=== PATIENT | male | born 1960 | race Caucasian/White ===

== ENCOUNTER → 2018-05-27 11:52 | Outpatient (CLI) | payer MEDICAID, SELFPAY ==
[2018-05-27 12:38] LABS: Absolute Lymphocyte Count 2.37 X10^3/ul (0.83-4.51); Absolute Neutrophil Count 3.4 X10^3/uL (2.0-7.7); Basophil# 0.04 X10^3/uL; Basophil% 0.6 % (0-1); Eosinophils% 3.1 % (0-5); Hematocrit 45.1 % (40-54); Hemoglobin 15.3 g/dl (13.0-16.5); Lymphocyte # 2.37 X10^3/ul (4.0); Lymphocyte % 36.2 % (19-41); Mean Corp Hgb Conc 33.9 g/gl (32-36); Mean Corpuscular Hgb 28.8 pg (27.0-32.0); Mean Corpuscular Volume 84.9 fL (80-94); Monocyte# 0.54 X10^3/uL; Monocyte% 8.2 % (0-10); Neutrophil # 3.39 X10^3/uL (2.7-7.7); Neutrophil % 51.7 % (47-70); POSITIVE COUNT NO; POSITIVE DIFFERENTIAL NO; POSITIVE MORPHOLOGY NO; Platelet Count 188 K/mm3 (150-450); RBC Distribution Width CV 12.8 % (11.6-14.6); RBC Distribution Width SD 39.1 fl (35.1-43.9); Red Blood Count 5.31 M/mm3 (4.6-6.2); White Blood Count 6.6 K/mm3 (4.4-11.0)
[2018-05-27 12:55] LABS: Hemoglobin A1c 10.1 % (4.2-6.3)
[2018-05-27 13:16] LABS: ALB/GLOB Ratio 0.7 RATIO (0.9-2.4); AST(SGOT) 20 U/L (15-37); Alanine Aminotransfer ALT/SGPT 20 U/L (16-61); Albumin, Serum 3.3 g/dL (3.2-5.0); Alkaline Phosphatase 115 U/L (45-117); Anion Gap 10 (5-15); BUN 18 mg/dL (7-18); BUN/Creat Ratio 18.2 RATIO (10-20); Calcium,Total 8.8 mg/dL (8.5-10.1); Chloride 105 mmol/L (98-107); Cholesterol 161 mg/dL (200); Creatinine, Serum 0.99 mg/dL (0.70-1.30); EST Glomerular Filtration Rate 82 mL/min (>60); Est Glom Filt Rate - Afr Amer 99 mL/min (>60); Globulin 4.6 g/dL (2.2-4.2); Glucose 275 mg/dL (74-106); High Density Lipoprotein 41 mg/dL; Potassium 4.3 mmol/L (3.5-5.1); Protein, Total 7.9 g/dL (6.4-8.2); Sodium Level 139 mmol/L (136-145); Triglycerides 175 mg/dL; Very Low Density Lipoprotein 35 mg/dL (5-40)
[2018-05-27 13:52] LABS: Microalbumin:Creatinine Ratio 337.4 mg/g CRE (<30 mg/g CRE)
== END ==
PROVIDERS: Family Provider Internal Medicine; PCP Internal Medicine; Visit Provider Internal Medicine
DX: E11.9 Type 2 diabetes mellitus without complications (principal)
CPT/HCPCS: 36415; 80053; 80061; 82043; 82570; 83036; 85025

== ENCOUNTER → 2018-05-30 12:12 | Outpatient (CLI) | payer MEDICAID, SELFPAY ==
--- NOTE | 2018-05-30 12:25 | RAD_ITS ---
STUDY: X-RAY - PELVIS AND LEFT HIP REASON FOR EXAM: Male, 57 years old. Left hip pain TECHNIQUE: Radiological exam, hip, unilateral, with pelvis when performed; 2 or 3 views. COMPARISON: None. FINDINGS: There is a non-specific bowel gas pattern. Normal visualized soft tissue structures. Normal bilateral iliac wings, sacroiliac joints and visualized sacrum. Normal bilateral superior and inferior pubic rami. Normal pubic symphysis. Normal bilateral ischial tuberosities. Normal visualized femoral head. Normal acetabulum. Normal hip joint. RAD/HIP, UNI W/ Pelvis 2-3 Views IMPRESSION: Normal x-ray examination of the pelvis and hip. Electronically Signed: Pietro Gayle MD at 21:54 EDT , Service support ,
== END ==
PROVIDERS: Family Provider Internal Medicine; PCP Internal Medicine; Visit Provider Internal Medicine
DX: M25.552 Pain in left hip (principal)
CPT/HCPCS: 73502

== ENCOUNTER 2018-06-16 09:45 | Outpatient (RCR) | payer MEDICAID, SELFPAY ==
[2018-06-02 09:25] VITALS: BP 172/98; PULSE 85; RESP 20; TEMP 35.9; BMI 40.5
--- NOTE | 2018-06-02 12:11 | HP.PCM_ITS ---
(1) Ulcer of right foot with fat layer exposed Status: Acute Current Visit: Yes Code(s): L97.512 - Non-pressure chronic ulcer of other part of right foot with fat layer exposed (2) Type 2 diabetes mellitus with diabetic polyneuropathy Status: Acute Current Visit: Yes Code(s): E11.42 - Type 2 diabetes mellitus with diabetic polyneuropathy (3) PVD (peripheral vascular disease) Status: Suspected Current Visit: Yes Code(s): I73.9 - Peripheral vascular disease, unspecified (4) Lower extremity edema Status: Acute Current Visit: Yes Code(s): R60.0 - Localized edema (5) Delayed wound healing Status: Acute Current Visit: Yes Code(s): T14.8XXD - Other injury of unspecified body region, subsequent encounter History of Present Illness Date of Service: 06/02/18 Chief Complaint: Right forefoot ulcer History of Wound: This 57-year-old diabetic male was referred to the wound healing center for an ongoing ulcer of the right plantar forefoot in the area of the right third and fourth metatarsal heads. Patient says that the ulcer started around December, and his gotten slightly worse since then. He denies any sudden or traumatic event that caused the ulcer to start. Patient says he has been keeping Neosporin and a bandage over the area. He says he has not seen anybody before for this ulcer. He wears regular shoes. He denies ever seeing a correctional supply supervisor for his diabetes and routine foot care. He says he has not been keeping the area offloaded since it started. He denies any purulence to the area, he denies any other heavy drainage, he denies any surrounding redness or warmth. Patient denies any feelings of nausea, vomiting, fever, chills Past Medical History Past Medical History: Chronic Problems (Last Updated 05/27/18 @ 07:40 by Kira Harris) Sleep apnea (Chronic) Left hip pain (Chronic) Type 2 diabetes mellitus (Chronic) Diabetic foot ulcer (Chronic) Neuropathy (Chronic) Diabetes (Chronic) Hypertension (Chronic) Allergies/Adverse Reactions: Allergies No Known Allergies Allergy (Verified 06/02/18 09:44) Home Medications: Ambulatory Orders Medication Instructions Recorded amlodipine 10 mg tablet 10 mg PO DAILY 05/27/18 doxazosin 8 mg tablet 8 mg PO DAILY 05/27/18 glipizide 2.5 mg-metformin 500 mg 1 tab PO BID 05/27/18 tablet lisinopril 40 mg tablet 40 mg PO DAILY 05/27/18 dulaglutide 0.75 mg/0.5 mL 0.75 mg SC QWEEK #2 ml 05/30/18 subcutaneous pen injector Smoking Status: Never smoker Review of Systems Constitutional: Denies: Chills, Fever, Weight Change Cardiovascular: Denies: Chest Pain Respiratory: Denies: Cough, Shortness of Breath Gastrointestinal: Denies: Diarrhea, Nausea, Vomiting Skin: Reports: - - Ulcer - Physical Exam Vital Signs Temp Pulse Resp BP 96.7 F L 85 20 H 172/98 H 06/02/18 09:25 06/02/18 09:25 06/02/18 09:25 06/02/18 09:25 General: Alert, Oriented x3, Cooperative, No apparent distress Extremities: Capillary Refill Less than 3 Seconds - To distal digits bilateral, No Calf Tenderness - Negative Hedyi and Lomax sign, Diminished Peripheral Pulses - DP and PT pulses faintly palpable bilateral, Edema - Bilateral lower extremity edema Skin: Ulcer/ Wound - Ulcer to right plantar forefoot sub third/fourth metatarsal heads with fat layer exposed. Measurements noted below. The ulcer base is a mixture of adherent slough, fibrin, granular tissue, biofilm, as well as some surrounding hyperkeratotic tissue. There is no probing to bone, tracking, or undermining appreciated at this time. There is no purulence, no malodor, no extending cellulitis, and no significant increase in warmth appreciated to the ulcer site at this time. Wound Measurements and Assessment WC - Nurse 1 - General Ulcer Measurement Start: 06/02/18 09:25 Freq: Status: Active Protocol: Activity Type Activity Date Activity User E-Sign Co-Sign Detail Recorded Client Recorded Date Recorded By Document 06/02/18 09:25 [facility] [id number] 06/02/18 09:41 [facility] 06/02/18 09:25 Wound Center Nurse 1 [Ulcer Assessment] #1- RT PLANTAR -Combined with other wound No -Current Size (cm) - Length 1.9 -Current Size (cm) - Width 0.7 -Current Size (cm) - Depth 0.3 -Total Square Cm 1.33 -Date of Last Picture (Recall this 06/02/18 field) -Photo Taken Yes -Epithelialization None Present -Tunneling No -Undermining/Tunneling No -Undermining/Tunneling Starts (O' 12 clock) -Undermining/Tunneling Ends (O'clock) 12 -Maximum Distance (cm) 0.4 -Circular Undermining Yes -Exudate Amt Small (1-33%) -Exudate Type Serous -Wound Margin Distinct, Outline Attached -Granulation Amt Large (67-100%) -Granulation Quality Red -Slough/Fibrin Yes -Necrosis Amt Small (1-33%) -Necrotic Tissue Type Adherent Slough -Texture (Tessie-wound Skin Appearance) Callus -Moisture (Tessie-wound Skin Appearance Maceration ) Dry/Scaly -Color (Tessie-wound Skin Appearance) Palor -Temperature (Tessie-wound Skin No Abnormality Appearance) (Pt Warm) -Tenderness on Palpation (Tessie-wound Yes Skin Appearance) -Ulcer Cleansing Rinsed/ Irrigated with Saline -Foul Odor after Cleansing No -Anesthetic Used 4% Lidocaine Solution [Edema Assessment] -Lower Limb Edema Present Yes -Right Calf (cm) 47 -Right Ankle (cm) 27 -Left Calf (cm) 46.5 -Left Ankle (cm) 27.5 WC - Nurse 2 - General Ulcer CM Notes Start: 06/02/18 09:25 Freq: Status: Active Protocol: Activity Type Activity Date Activity User E-Sign Co-Sign Detail Recorded Client Recorded Date Recorded By Document 06/02/18 09:56 [id number] 06/02/18 10:11 06/02/18 09:56 Wound Center Nurse 2 [Procedure/Treatment] #1- RT PLANTAR -Time 09:56 -Correct Patient Yes -Correct Side, Site, Position Yes -Correct Procedure Yes -Procedure Performed Yes -Type of Procedure Debridement -Clinical Debridement Subcutaneous -Post Debridement Size (cm) - Length 1.7 -Post Debridement Size (cm) - Width 1.3 -Post Debridement Size (cm) - Depth 0.4 -Total Square Cm 2.21 -Wound/Ulcer Outcome Not Healed -Ulcer Cleansing Not Cleansed -Foul Odor after Cleansing No -Bioengineered Tissue No -Bleeding Controlled with Pressure -Treatment Response Procedure Tolerated Well [See Physician Procedure note for Specifics] Pain Scale: 0-10 Numeric [Pain] -Is Patient Pain Free? Yes Musculoskeletal: No Tenderness to Palpation of Joints or Extremities, - - Contracted lesser digits Neurological: - - Epicritic sensation grossly absent to lower extremity Psych/Mental Status: Normal Affect, Appropriate Debridement Note Post-Debridement Measurements/Treatment WC - Nurse 2 - General Ulcer CM Notes Start: 06/02/18 09:25 Freq: Status: Active Protocol: Activity Type Activity Date Activity User E-Sign Co-Sign Detail Recorded Client Recorded Date Recorded By Document 06/02/18 09:56 [id number] 06/02/18 10:11 06/02/18 09:56 Wound Center Nurse 2 #1- RT PLANTAR -Time 09:56 -Correct Patient Yes -Correct Side, Site, Position Yes -Correct Procedure Yes -Procedure Performed Yes -Type of Procedure Debridement -Clinical Debridement Subcutaneous -Post Debridement Size (cm) - Length 1.7 -Post Debridement Size (cm) - Width 1.3 -Post Debridement Size (cm) - Depth 0.4 -Total Square Cm 2.21 -Wound/Ulcer Outcome Not Healed -Ulcer Cleansing Not Cleansed -Foul Odor after Cleansing No -Bioengineered Tissue No -Bleeding Controlled with Pressure -Treatment Response Procedure Tolerated Well Pain Scale: 0-10 Numeric Is Patient Pain Free? Yes Wound debrided: Right plantar foot Laterality: Right Type of Debridement: Excisional debridement Anesthesia Used: 4% Lidocaine Solution Depth: in the subcutaneous layer Percentage of wound debrided: 100 Instrument Used: #15 blade, - - Tissue nipper Tissue Removed: Adherent slough, fibrin, biofilm, hyperkeratotic tissue Severity: Fat Layer Exposed Amount of bleeding with debridement: Mild Bleeding Controlled with: Pressure Patient tolerated procedure well Assessment/Plan Active Problems (Last Updated 05/27/18 @ 07:40 by Kira Harris) Ulcer of right foot with fat layer exposed (Acute) Type 2 diabetes mellitus with diabetic polyneuropathy (Acute) Lower extremity edema (Acute) Delayed wound healing (Acute) Assessment: Ulcer of right distal forefoot, DM II with neuropathy, lower extremity edema, other comorbidities Plan: Initial patient examination and evaluation was performed today. A subcutaneous excisional debridement was performed as noted in the clinical panel. Once complete, the ulcer site was carefully cleansed and then Kasandra was applied to the ulcer base. This was followed by dry sterile dressing and Tubigrip for compression. The patient is to have his dressing change in this manner on a daily basis. The importance of offloading the ulcer site was stressed and discussed in great detail today. The patient is to alter his duties at work as well as keep pressure off of the right foot as much as possible. Patient was referred to the [facility] [place] in order be fitted for a surgical shoe with offloading dual density Plastizote insert that cuts out around the area of the ulcer site to offload the area. Patient was also instructed to get a knee scooter walker to further offload the right foot. No antibiotics were prescribed today as there were no clinical signs of infection. Cultures were taken following debridement and sent for aerobic, anaerobic, and MRSA PCR evaluation. LEAS and venous Doppler studies were ordered for the patient today. We will review these prior to the patient's next visit. Dressing supplies were ordered for the patient today. I also recommended nutritional supplementation with a high-protein diet in order to optimize ulcer healing potential. The importance of tight glycemic control was stressed to this patient today. The patient and his were educated on all signs and symptoms of local and systemic infection, and they are going to go to the emergency room immediately should they notice any of these. All questions were answered to the patient and the patient's satisfaction. The patient will follow-up in clinic in 1 week, or sooner if needed.
--- NOTE | 2018-06-07 07:09 | VDLE_ITS ---
Reason For Study: PVD per order RIGHT LEFT CFV is compressible, spontaneous, phasic, CFV is compressible, spontaneous, phasic, competent and demonstrates normal competent, and demonstrates normal augmentation. augmentation. FV is compressible, spontaneous, phasic, FV is compressible, spontaneous, phasic, competent and demonstrates normal competent and demonstrates normal augmentation. augmentation. POP V is compressible, spontaneous, phasic, POP V is compressible, spontaneous, phasic, competent and demonstrates normal competent and demonstrates normal augmentation. augmentation. T/P Trunk is compressible. T/P Trunk is compressible. PTV is compressible. PTV is compressible. RT PerV is compressible. LT PerV is compressible. S-F Junction is competent. S-F Junction is competent. GSV is incompetent throughout for greater GSV is incompetent throughout for greater than .5 seconds. GSV measures .518 x .571 than .5 seconds. GSV measures .42 cm. cm. SSV is incompetent for greater than .5 ASV at the knee is incompetent for greater seconds. SSV measures .409 x .433 cm. than .5 seconds. ASV measures .389 x .369 cm. SSV is incompetent for greater than .5 seconds. SSV measures .355 x .413 cm. Procedure Exam performed in department. The exam was diagnostic. Interpretation Summary Deep veins of the lower extremities are bilaterally patent and compressible segmentally. There is no evidence of deep vein thrombosis on either side. Valvular competence appears intact within the proximal deep venous systems bilaterally. The greater saphenous veins appear bilaterally patent and compressible segmentally. Sapheno-femoral junctions are bilaterally competent . Segmental valvular incompetence is noted within the greater saphenous veins bilaterally. Small saphenous veins are patent and incompetent bilaterally. The right accessory saphenous vein at the knee is incompetent. Ordering Physician: Ismael Almendarez Performed By: Andrew Carvajal, RVT
[2018-06-09 10:21] VITALS: BP 154/93; PULSE 81; RESP 18; TEMP 36.4; BMI 40.5
--- NOTE | 2018-06-09 14:10 | PN.PCM_ITS ---
(1) Ulcer of right foot with fat layer exposed Status: Acute Current Visit: Yes Code(s): L97.512 - Non-pressure chronic ulcer of other part of right foot with fat layer exposed (2) Type 2 diabetes mellitus with diabetic polyneuropathy Status: Acute Current Visit: Yes Code(s): E11.42 - Type 2 diabetes mellitus with diabetic polyneuropathy (3) PVD (peripheral vascular disease) Status: Suspected Current Visit: Yes Code(s): I73.9 - Peripheral vascular disease, unspecified (4) Lower extremity edema Status: Acute Current Visit: Yes Code(s): R60.0 - Localized edema (5) Delayed wound healing Status: Acute Current Visit: Yes Code(s): T14.8XXD - Other injury of unspecified body region, subsequent encounter Type of Wound Date of Service: 06/09/18 Chief Complaint: Right forefoot ulcer History of Wound: This 57-year-old diabetic male was referred to the wound healing center for an ongoing ulcer of the right plantar forefoot in the area of the right third and fourth metatarsal heads. Patient says that the ulcer started around December, and his gotten slightly worse since then. He denies any sudden or traumatic event that caused the ulcer to start. Patient says he has been keeping Neosporin and a bandage over the area. He says he has not seen anybody before for this ulcer. He wears regular shoes. He denies ever seeing a advertising supervisor for his diabetes and routine foot care. He says he has not been keeping the area offloaded since it started. He denies any purulence to the area, he denies any other heavy drainage, he denies any surrounding redness or warmth. Patient denies any feelings of nausea, vomiting, fever, chills Progress of Wound: Ulcer site is improving since last week. Patient and performed daily magdy dressing changes and he continues to wear his offloading surgical shoe. He denies any purulence to the area. He denies any feelings of nausea, vomiting, fever, chills. - Physical Exam Vital Signs Temp Pulse Resp BP 97.6 F L 81 18 154/93 H 06/09/18 10:21 06/09/18 10:21 06/09/18 10:21 06/09/18 10:21 General: Alert, Oriented x3, Cooperative, No apparent distress Extremities: Capillary Refill Less than 3 Seconds, No Calf Tenderness - Negative Heydi and Lomax sign, Diminished Peripheral Pulses - DP and PT pulses faintly palpable bilateral, Edema - Lower extremity edema Skin: Ulcer/ Wound - Ulcer to right plantar forefoot sub third/fourth metatarsal heads with fat layer exposed. Measurements noted below. The ulcer base is a mixture of adherent slough, fibrin, granular tissue, biofilm, as well as some surrounding hyperkeratotic tissue. There is no probing to bone, tracking, or undermining appreciated at this time. There is no purulence, no malodor, no extending cellulitis, and no significant increase in warmth appreciated to the ulcer site at this time. Wound Measurements and Assessment WC - Nurse 1 - General Ulcer Measurement Start: 06/02/18 09:25 Freq: Status: Active Protocol: Activity Type Activity Date Activity User E-Sign Co-Sign Detail Recorded Client Recorded Date Recorded By Document 06/09/18 10:21 DL [id number] 06/09/18 10:28 DL 06/09/18 10:21 Wound Center Nurse 1 [Ulcer Assessment] #1- RT PLANTAR -Current Size (cm) - Length 0.9 -Current Size (cm) - Width 0.7 -Current Size (cm) - Depth 0.4 -Total Square Cm 0.63 -Photo Taken No -Exudate Amt Small (1-33%) -Exudate Type Serosanguineous -Wound Margin Thickened -Granulation Amt Medium (34-66%) -Granulation Quality Manele -Necrosis Amt Medium (34-66%) -Necrotic Tissue Type Adherent Slough -Structure Exposed N/A -Texture (Tessie-wound Skin Appearance) Callus -Moisture (Tessie-wound Skin Appearance No Abnormality ) -Color (Tessie-wound Skin Appearance) Hemosiderin Staining -Temperature (Tessie-wound Skin No Abnormality Appearance) (Pt Warm) -Ulcer Cleansing Rinsed/ Irrigated with Saline -Foul Odor after Cleansing No -Anesthetic Used 4% Lidocaine Solution [Edema Assessment] -Right Calf (cm) 45 -Right Ankle (cm) 25 WC - Nurse 2 - General Ulcer CM Notes Start: 06/02/18 09:25 Freq: Status: Active Protocol: Activity Type Activity Date Activity User E-Sign Co-Sign Detail Recorded Client Recorded Date Recorded By Document 06/09/18 11:37 [id number] 06/09/18 11:39 06/09/18 11:37 Wound Center Nurse 2 [Procedure/Treatment] #1- RT PLANTAR -Time 11:37 -Correct Patient Yes -Correct Side, Site, Position Yes -Correct Procedure Yes -Procedure Performed Yes -Type of Procedure Debridement -Clinical Debridement Subcutaneous -Post Debridement Size (cm) - Length 1.2 -Post Debridement Size (cm) - Width 1 -Post Debridement Size (cm) - Depth 0.4 -Total Square Cm 1.2 -Wound/Ulcer Outcome Not Healed -Ulcer Cleansing Not Cleansed -Foul Odor after Cleansing No -Bioengineered Tissue No -Bleeding Controlled with NA -Treatment Response Procedure Tolerated Well [See Physician Procedure note for Specifics] Pain Scale: 0-10 Numeric [Pain] -Is Patient Pain Free? Yes Musculoskeletal: No Tenderness to Palpation of Joints or Extremities, - - Contracted lesser digits Neurological: - - Epicritic sensation grossly absent lower extremity Psych/Mental Status: Normal Affect, Appropriate Debridement Note Post-Debridement Measurements/Treatment WC - Nurse 2 - General Ulcer CM Notes Start: 06/02/18 09:25 Freq: Status: Active Protocol: Activity Type Activity Date Activity User E-Sign Co-Sign Detail Recorded Client Recorded Date Recorded By Document 06/02/18 09:56 [id number] 06/02/18 10:11 Document 06/09/18 11:37 [id number] 06/09/18 11:39 06/02/18 06/09/18 09:56 11:37 Wound Center Nurse 2 #1- RT PLANTAR -Time 09:56 11:37 -Correct Patient Yes Yes -Correct Side, Site, Position Yes Yes -Correct Procedure Yes Yes -Procedure Performed Yes Yes -Type of Procedure Debridement Debridement -Clinical Debridement Subcutaneous Subcutaneous -Post Debridement Size (cm) - Length 1.7 1.2 -Post Debridement Size (cm) - Width 1.3 1 -Post Debridement Size (cm) - Depth 0.4 0.4 -Total Square Cm 2.21 1.2 -Wound/Ulcer Outcome Not Healed Not Healed -Ulcer Cleansing Not Cleansed Not Cleansed -Foul Odor after Cleansing No No -Bioengineered Tissue No No -Bleeding Controlled with Pressure NA -Treatment Response Procedure Procedure Tolerated Well Tolerated Well Pain Scale: 0-10 Numeric Is Patient Pain Free? Yes Yes Wound debrided: Right plantar foot Laterality: Right Type of Debridement: Excisional debridement Depth: in the subcutaneous layer Percentage of wound debrided: 100 Instrument Used: #15 blade Tissue Removed: Adherent slough, fibrin, biofilm, hyperkeratotic tissue Severity: Fat Layer Exposed Amount of bleeding with debridement: Mild Bleeding Controlled with: Pressure Patient tolerated procedure well Assessment/Plan Active Problems (Last Updated 05/27/18 @ 07:40 by Kira Harris) Ulcer of right foot with fat layer exposed (Acute) Type 2 diabetes mellitus with diabetic polyneuropathy (Acute) Lower extremity edema (Acute) Delayed wound healing (Acute) Assessment: Ulcer of right distal forefoot, DM II with neuropathy, lower extremity edema, other comorbidities Plan: Patient was examined and evaluated again today with his by his side. A subcutaneous excisional debridement was performed as noted in the clinical panel. Once complete, the ulcer site was carefully cleansed and then Magdy was applied to the ulcer base. This was followed by dry sterile dressing and Tubigrip for compression. The patient is to have his dressing changed in this manner on a daily basis. The importance of offloading the ulcer site was stressed and discussed in great detail today. The patient is to continue to alter his duties at work as well as keep pressure off of the right foot as much as possible. Patient received his surgical shoe with offloading dual density Plastizote insert with cut outs around the area of the ulcer site to offload the area. Patient was also instructed to get a knee scooter walker to further offload the right foot. No antibiotics were prescribed today as there were no clinical signs of infection. Culture results were reviewed and discussed with Dr. John of infectious disease. Based on the clinical appearance of the patient currently with no active signs of local infection, we feel antibiotics are not warranted currently. LEAS and venous Doppler studies were ordered for the patient and we will review these prior to the patient's next visit. Dressing supplies were ordered for the patient today. I also recommended nutritional supplementation with a high-protein diet in order to optimize ulcer healing potential. The importance of tight glycemic control was stressed to this patient today. The patient and his were educated on all signs and symptoms of local and systemic infection, and they are going to go to the emergency room immediately should they notice any of these. All questions were answered to the patient and the patient's satisfaction. The patient will follow-up in clinic in 1 week, or sooner if needed.
--- NOTE | 2018-06-12 14:58 | LEAS ---
Arterial Study - Arterial Study Arterial Study: This is a 57-year-old male with a history of diabetes mellitus. Suspecting the presence of atherosclerotic peripheral arterial occlusive disease, the patient was brought to the noninvasive vascular laboratory at this time for the purpose of bilateral noninvasive lower extremity arterial assessment. Doppler signal assessment was used to evaluate the pulses at ankle level bilaterally. The posterior tibial and dorsalis pedis pulses were triphasic bilaterally. Segmental limb pressures were obtained bilaterally. The right ankle pressure, as determined by posterior tibial pulse, was measured at 217 mmHg. The right ankle pressure, as determined by dorsalis pedis pulse, was measured at 184 mmHg. The right digital pressure was measured at 161 mmHg. The left ankle pressure, as determined by posterior tibial pulse, could not be determined due to the noncompressibility of the vasculature. The left ankle pressure, as determined by dorsalis pedis pulse, could not be determined due to the noncompressibility of the vasculature. The left digital pressure was measured at 183 mmHg. Pulse-volume recordings were obtained bilaterally and segmentally. Waveform amplitudes appeared to be satisfactory at all levels bilaterally, including low thigh, calf, ankle, and digital levels. The resting right ankle-brachial index was calculated to be 1.22. The resting left ankle-brachial index could not be calculated due to the noncompressibility of the vasculature. Digital-brachial indices were calculated bilaterally. The right digital-brachial index was calculated to be 0.90. The left digital-brachial index was calculated to be 1.03. Impression: Based upon the findings of this resting noninvasive lower extremity arterial study, there is no evidence of significant atherosclerotic peripheral arterial occlusive disease in the lower extremities bilaterally. Triphasic waveforms were noted at ankle level bilaterally. The resting right ankle-brachial index is normal. The resting left ankle-brachial index could not be calculated due to the noncompressibility of the vasculature, likely due to arterial calcification. In this regard, clinical correlation is advised. Digital-brachial indices are bilaterally normal, suggesting relatively normal arterial flow at digital level bilaterally.
--- NOTE | 2018-06-12 15:04 | LEAS_ITS ---
Arterial Study - Arterial Study Arterial Study: This is a 57-year-old male with a history of diabetes mellitus. Suspecting the presence of atherosclerotic peripheral arterial occlusive disease, the patient was brought to the noninvasive vascular laboratory at this time for the purpose of bilateral noninvasive lower extremity arterial assessment. Doppler signal assessment was used to evaluate the pulses at ankle level bilaterally. The posterior tibial and dorsalis pedis pulses were triphasic bilaterally. Segmental limb pressures were obtained bilaterally. The right ankle pressure, as determined by posterior tibial pulse, was measured at 217 mmHg. The right ankle pressure, as determined by dorsalis pedis pulse, was measured at 184 mmHg. The right digital pressure was measured at 161 mmHg. The left ankle pressure, as determined by posterior tibial pulse, could not be determined due to the noncompressibility of the vasculature. The left ankle pressure, as determined by dorsalis pedis pulse, could not be determined due to the noncompressibility of the vasculature. The left digital pressure was measured at 183 mmHg. Pulse-volume recordings were obtained bilaterally and segmentally. Waveform amplitudes appeared to be satisfactory at all levels bilaterally, including low thigh, calf, ankle, and digital levels. The resting right ankle-brachial index was calculated to be 1.22. The resting left ankle-brachial index could not be calculated due to the noncompressibility of the vasculature. Digital-brachial indices were calculated bilaterally. The right digital- brachial index was calculated to be 0.90. The left digital-brachial index was calculated to be 1.03. Impression: Based upon the findings of this resting noninvasive lower extremity arterial study, there is no evidence of significant atherosclerotic peripheral arterial occlusive disease in the lower extremities bilaterally. Triphasic waveforms were noted at ankle level bilaterally. The resting right ankle- brachial index is normal. The resting left ankle-brachial index could not be calculated due to the noncompressibility of the vasculature, likely due to arterial calcification. In this regard, clinical correlation is advised. Digital-brachial indices are bilaterally normal, suggesting relatively normal arterial flow at digital level bilaterally.
[2018-06-16 09:43] VITALS: BP 149/98; PULSE 80; RESP 16; TEMP 36.6; BMI 40.5
--- NOTE | 2018-06-16 10:39 | PN.PCM_ITS ---
(1) Ulcer of right foot with fat layer exposed Status: Acute Current Visit: Yes Code(s): L97.512 - Non-pressure chronic ulcer of other part of right foot with fat layer exposed (2) Type 2 diabetes mellitus with diabetic polyneuropathy Status: Acute Current Visit: Yes Code(s): E11.42 - Type 2 diabetes mellitus with diabetic polyneuropathy (3) PVD (peripheral vascular disease) Status: Suspected Current Visit: Yes Code(s): I73.9 - Peripheral vascular disease, unspecified (4) Lower extremity edema Status: Acute Current Visit: Yes Code(s): R60.0 - Localized edema (5) Delayed wound healing Status: Acute Current Visit: Yes Code(s): T14.8XXD - Other injury of unspecified body region, subsequent encounter Type of Wound Chief Complaint: Right forefoot ulcer History of Wound: This 57-year-old diabetic male was referred to the wound healing center for an ongoing ulcer of the right plantar forefoot in the area of the right third and fourth metatarsal heads. Patient says that the ulcer started around December, and his gotten slightly worse since then. He denies any sudden or traumatic event that caused the ulcer to start. Patient says he has been keeping Neosporin and a bandage over the area. He says he has not seen anybody before for this ulcer. He wears regular shoes. He denies ever seeing a patternmaker grader for his diabetes and routine foot care. He says he has not been keeping the area offloaded since it started. He denies any purulence to the area, he denies any other heavy drainage, he denies any surrounding redness or warmth. Patient denies any feelings of nausea, vomiting, fever, chills Progress of Wound: Ulcer site improving. Patient and performed daily magdy dressing changes and he continues to wear his offloading surgical shoe. He denies any purulence to the area. He denies any feelings of nausea, vomiting, fever, chills. - Physical Exam Vital Signs Temp Pulse Resp BP 97.8 F 80 16 149/98 H 06/16/18 09:43 06/16/18 09:43 06/16/18 09:43 06/16/18 09:43 General: Alert, Oriented x3, Cooperative, No apparent distress Extremities: Capillary Refill Less than 3 Seconds, No Calf Tenderness - Negative Heydi and Lomax sign, Diminished Peripheral Pulses - DP and PT pulses faintly palpable bilateral, Edema - Bilateral lower extremity edema Skin: Ulcer/ Wound - Ulcer to right plantar forefoot sub third/fourth metatarsal heads with fat layer exposed. Measurements noted below. The ulcer base continues to be a mixture of adherent slough, fibrin, granular tissue, biofilm, as well as some surrounding hyperkeratotic tissue. There is no probing to bone, tracking, or undermining appreciated at this time. There is no purulence, no malodor, no extending cellulitis, and no significant increase in warmth appreciated to the ulcer site at this time. Wound Measurements and Assessment WC - Nurse 1 - General Ulcer Measurement Start: 06/02/18 09:25 Freq: Status: Active Protocol: Activity Type Activity Date Activity User E-Sign Co-Sign Detail Recorded Client Recorded Date Recorded By Document 06/16/18 09:43 VT [id number] 06/16/18 09:46 VT 06/16/18 09:43 Wound Center Nurse 1 [Ulcer Assessment] #1- RT PLANTAR -Combined with other wound No -Current Size (cm) - Length 0.9 -Current Size (cm) - Width 0.5 -Current Size (cm) - Depth 0.3 -Total Square Cm 0.45 -Photo Taken No -Epithelialization Small 1-33% -Tunneling No -Undermining/Tunneling No -Circular Undermining No -Exudate Amt Small (1-33%) -Exudate Type Serosanguineous -Wound Margin Thickened -Granulation Amt Small (1-33%) -Granulation Quality [place] Red -Slough/Fibrin Yes -Necrosis Amt Small (1-33%) -Necrotic Tissue Type Adherent Slough -Texture (Tessie-wound Skin Appearance) Callus Localized Edema -Moisture (Tessie-wound Skin Appearance Assessed ) -Color (Tessie-wound Skin Appearance) Assessed -Temperature (Tessie-wound Skin No Abnormality Appearance) (Pt Warm) -Tenderness on Palpation (Tessie-wound No Skin Appearance) -Ulcer Cleansing Rinsed/ Irrigated with Saline -Foul Odor after Cleansing No -Anesthetic Used 5% Lidocaine Gel [Edema Assessment] -Right Calf (cm) 47.6 -Right Ankle (cm) 26 WC - Nurse 2 - General Ulcer CM Notes Start: 06/02/18 09:25 Freq: Status: Active Protocol: Activity Type Activity Date Activity User E-Sign Co-Sign Detail Recorded Client Recorded Date Recorded By Document 06/16/18 10:13 [id number] 06/16/18 10:14 DV 06/16/18 10:13 Wound Center Nurse 2 [Procedure/Treatment] #1- RT PLANTAR -Time 10:13 -Correct Patient Yes -Correct Side, Site, Position Yes -Correct Procedure Yes -Procedure Performed Yes -Type of Procedure Debridement -Clinical Debridement Subcutaneous -Post Debridement Size (cm) - Length 1.1 -Post Debridement Size (cm) - Width 1.1 -Post Debridement Size (cm) - Depth 0.3 -Total Square Cm 1.21 -Wound/Ulcer Outcome Not Healed -Ulcer Cleansing Rinsed/ Irrigated with Saline -Foul Odor after Cleansing No -Bioengineered Tissue No -Bleeding Controlled with Pressure -Treatment Response Procedure Tolerated Well [See Physician Procedure note for Specifics] Pain Scale: 0-10 Numeric [Pain] -Is Patient Pain Free? Yes Musculoskeletal: No Tenderness to Palpation of Joints or Extremities, - - Contracted lesser digits Neurological: - - Epicritic sensation grossly absent to lower extremity Psych/Mental Status: Normal Affect, Appropriate Debridement Note Post-Debridement Measurements/Treatment WC - Nurse 2 - General Ulcer CM Notes Start: 06/02/18 09:25 Freq: Status: Active Protocol: Activity Type Activity Date Activity User E-Sign Co-Sign Detail Recorded Client Recorded Date Recorded By Document 06/02/18 09:56 [id number] 06/02/18 10:11 Document 06/09/18 11:37 [id number] 06/09/18 11:39 Document 06/16/18 10:13 [id number] 06/16/18 10:14 06/02/18 06/09/18 06/16/18 09:56 11:37 10:13 Wound Center Nurse 2 #1- RT PLANTAR -Time 09:56 11:37 10:13 -Correct Patient Yes Yes Yes -Correct Side, Site, Position Yes Yes Yes -Correct Procedure Yes Yes Yes -Procedure Performed Yes Yes Yes -Type of Procedure Debridement Debridement Debridement -Clinical Debridement Subcutaneous Subcutaneous Subcutaneous -Post Debridement Size (cm) - Length 1.7 1.2 1.1 -Post Debridement Size (cm) - Width 1.3 1 1.1 -Post Debridement Size (cm) - Depth 0.4 0.4 0.3 -Total Square Cm 2.21 1.2 1.21 -Wound/Ulcer Outcome Not Healed Not Healed Not Healed -Ulcer Cleansing Not Cleansed Not Cleansed Rinsed/ Irrigated with Saline -Foul Odor after Cleansing No No No -Bioengineered Tissue No No No -Bleeding Controlled with Pressure NA Pressure -Treatment Response Procedure Procedure Procedure Tolerated Well Tolerated Well Tolerated Well Pain Scale: 0-10 Numeric Is Patient Pain Free? Yes Yes Yes Wound debrided: Right plantar foot Laterality: Right Type of Debridement: Excisional debridement Anesthesia Used: 4% Lidocaine Solution Depth: in the subcutaneous layer Percentage of wound debrided: 100 Instrument Used: 3mm curette, - - Tissue nipper Tissue Removed: Adherent slough, fibrin, biofilm, hyperkeratotic tissue Severity: Fat Layer Exposed Amount of bleeding with debridement: Mild Bleeding Controlled with: Pressure Patient tolerated procedure well Assessment/Plan Active Problems (Last Updated 05/27/18 @ 07:40 by Kira Harris) Ulcer of right foot with fat layer exposed (Acute) Type 2 diabetes mellitus with diabetic polyneuropathy (Acute) Lower extremity edema (Acute) Delayed wound healing (Acute) Assessment: Ulcer of right distal forefoot, DM II with neuropathy, lower extremity edema, other comorbidities Plan: Patient was examined and evaluated again today with his by his side. Slight ulcer improvement appreciated again this week. Another subcutaneous excisional debridement was performed as noted in the clinical panel. Once complete, the ulcer site was carefully cleansed and then Magdy was applied to the ulcer base. This was followed by dry sterile dressing and Tubigrip for compression. The patient is to have his dressing changed in this manner on a daily basis. The importance of offloading the ulcer site was stressed and discussed in great detail today. The patient is to continue to alter his duties at work as well as keep pressure off of the right foot as much as possible. Patient received his surgical shoe with offloading dual density Plastizote insert with cut outs around the area of the ulcer site to offload the area. Patient was also instructed to get a knee scooter walker to further offload the right foot. No antibiotics were prescribed today as there were no clinical signs of infection. Culture results were reviewed and discussed with Dr. John of infectious disease. Based on the clinical appearance of the patient currently with no active signs of local infection, we feel antibiotics are not warranted currently. LEAS and venous Doppler studies were reviewed and discussed with the patient. These showed sufficient arterial flow to the lower extremity and the venous doppler showed some incompetence of the greater and lesser saphenous veins. Details from each report are in the patient's chart. Dressing supplies were ordered for the patient today. I also recommended nutritional supplementation with a high-protein diet in order to optimize ulcer healing potential. The importance of tight glycemic control was stressed to this patient today. The patient and his were educated on all signs and symptoms of local and systemic infection, and they are going to go to the emergency room immediately should they notice any of these. All questions were answered to the patient and the patient's satisfaction. The patient will follow-up in clinic in 1 week, or sooner if needed.
== END 2018-06-19 23:59 ==
LOC: WC 09:45
PROVIDERS: Family Provider Internal Medicine; PCP Internal Medicine; Visit Provider Podiatrist
DX: E11.621 Type 2 diabetes mellitus with foot ulcer (principal); E11.42 Type 2 diabetes mellitus with diabetic polyneuropathy; E11.51 Type 2 diabetes mellitus with diabetic peripheral angiopathy without gangrene; R60.0 Localized edema; L97.512 Non-pressure chronic ulcer of other part of right foot with fat layer exposed; G47.30 Sleep apnea, unspecified; I10 Essential (primary) hypertension; Z79.899 Other long term (current) drug therapy; Z79.84 Long term (current) use of oral hypoglycemic drugs
CPT/HCPCS: 11042; 87070; 87075; 87077; 87186; 87205; 93923; 93970; 99203; G0463

== ENCOUNTER 2018-07-02 20:45 | Emergency (ER) | payer MEDICAID, SELFPAY ==
[2018-07-02 20:46] VITALS: BP 181/108; PULSE 90; RESP 16; TEMP 37.1; O2SAT 99; BMI 40.0
--- NOTE | 2018-07-02 21:04 | ED.DCSUM_ITS ---
- ER Visit Summary Date of Service: 07/02/18 Chief Complaint: [Right ear pain] History of Present Illness: The patient is a 57 M [since the emergency department complaint of right ear pain that started initially last weekend but then resolved. Patient states 2 days ago the pain came back. Patient denies a ny real drainage from the ear. He denies any trauma. He denies getting water in his ear. He has not had a fever or sore throat. Denies cough.] Physical Examination: [HEENT-PERRLA, EOMI. Cranial nerves II through XII grossly intact. Patient has pain with traction on the right pinna. No tenderness over the mastoid. Patient has a swollen edematous ear canal and I have difficulty visualizing the tympanic membrane on the right. Patient had some edema and erythema of the ear itself as well. Left TM is clear.. Mucous membranes moist. No adenopathy. Cardiovascular-regular rate and rhythm without murmur or ectopy Lungs-clear to auscultation, chest wall stable without crepitus or subcu emphysema Abdomen-normoactive bowel sounds, soft, nontender, no rebound or rigidity, no peritoneal signs. Extremities-intact ?4, normal range of motion, normal pulses, atraumatic] Test Results: [None indicated] Emergency Department Course and Treatment: [Patient started on Cortisporin Otic suspension as well as Augmentin] Treatment Plan: [Patient will be treated with Cortisporin Otic as well as Augmentin being that I cannot visualize the TM and I am concerned about early cellulitis of the ear itself.] Disposition: [Discharged home in stable condition. Patient will be referred to ENT for follow-up] Impression: [Right otitis externa Cellulitis right ear] This note was generated with [employer] dictation software. It may contain incorrect words, spelling, and punctuation that were not noted in review of the chart prior to signing ED Disposition - Plan for ED Patient: Chief Complaint: Ear Problem Referrals: Star Aguilar MD [Primary Care Provider] -
--- NOTE | 2018-07-02 21:04 | ED.DEP ---
ED Disposition - Plan for ED Patient: Chief Complaint: Ear Problem Instructions: ED Otitis Externa, ED Infec Skin Cellulitis Prescriptions: Amox/Clavulanate Tablet [Augmentin Tablet] 875 mg PO Q12H #20 tab Referrals: Juan Petty MD [STAFF PHYSICIAN] - 5-7 Days
[2018-07-02] MEDS: Amox/Clavulanate 875 MG Tablet PO (21:11)
[2018-07-02] MEDS: Neomycin Sulfate/Polymyxin/Hc Susp 10 ML Bottle 4 DRP OTIC (21:11)
[2018-07-02] MEDS: HYDROcodone Bitartrate/Apap 5/325 Tablet PO (21:12)
[2018-07-02 21:32] VITALS: RESP 16
== END 2018-07-02 21:33 | disposition home or self-care (01) ==
LOC: ED 21:33
PROVIDERS: Emergency Provider Emergency Medicine; Family Provider Internal Medicine; PCP Internal Medicine
DX: H60.91 Unspecified otitis externa, right ear (principal); H60.11 Cellulitis of right external ear; E11.9 Type 2 diabetes mellitus without complications; I10 Essential (primary) hypertension; Z79.84 Long term (current) use of oral hypoglycemic drugs; Z79.899 Other long term (current) drug therapy
CPT/HCPCS: 99283

== ENCOUNTER 2018-07-14 10:15 | Outpatient (RCR) | payer MEDICAID, SELFPAY ==
[2018-06-20 01:36] VITALS: BP 149/98; PULSE 80; RESP 16; TEMP 36.6
[2018-06-23 10:44] VITALS: PULSE 70; RESP 16; TEMP 36.4
--- NOTE | 2018-06-23 13:26 | PCM.WC.PN ---
(1) Ulcer of right foot with fat layer exposed Status: Acute Current Visit: No Code(s): L97.512 - Non-pressure chronic ulcer of other part of right foot with fat layer exposed (2) Type 2 diabetes mellitus with diabetic polyneuropathy Status: Acute Current Visit: No Code(s): E11.42 - Type 2 diabetes mellitus with diabetic polyneuropathy (3) PVD (peripheral vascular disease) Status: Suspected Current Visit: No Code(s): I73.9 - Peripheral vascular disease, unspecified (4) Lower extremity edema Status: Acute Current Visit: No Code(s): R60.0 - Localized edema (5) Delayed wound healing Status: Acute Current Visit: No Code(s): T14.8XXD - Other injury of unspecified body region, subsequent encounter Type of Wound Chief Complaint: Right forefoot ulcer History of Wound: This 57-year-old diabetic male was referred to the wound healing center for an ongoing ulcer of the right plantar forefoot in the area of the right third and fourth metatarsal heads. Patient says that the ulcer started around December, and his gotten slightly worse since then. He denies any sudden or traumatic event that caused the ulcer to start. Patient says he has been keeping Neosporin and a bandage over the area. He says he has not seen anybody before for this ulcer. He wears regular shoes. He denies ever seeing a communications systems engineer for his diabetes and routine foot care. He says he has not been keeping the area offloaded since it started. He denies any purulence to the area, he denies any other heavy drainage, he denies any surrounding redness or warmth. Patient denies any feelings of nausea, vomiting, fever, chills Progress of Wound: Ulcer site stable this week. Patient and performed daily kasandra dressing changes and he continues to wear his offloading surgical shoe. He denies any purulence to the area. He denies any feelings of nausea, vomiting, fever, chills. - Physical Exam Vital Signs Temp Pulse Resp BP 97.5 F L 70 16 149/98 H 06/23/18 10:44 06/23/18 10:44 06/23/18 10:44 06/20/18 01:36 General: Alert, Oriented x3, Cooperative, No apparent distress Extremities: Capillary Refill Less than 3 Seconds, No Calf Tenderness - Negative Heydi and Lomax sign, Diminished Peripheral Pulses - DP and PT pulses faintly palpable bilateral, Edema - Bilateral lower extremity edema Skin: Ulcer/ Wound - Ulcer to right plantar forefoot sub-third/fourth metatarsal heads with fat layer exposed. Measurements are noted below. The base continues to be a mixture of adherent slough, fibrin, granular tissue, biofilm, as well as some very slight hyperkeratotic tissue and some maceration. There continues to be no probing to bone, no tracking, no undermining, no purulence, no malodor, no extending cellulitis, and no significant increase in warmth around the ulcer site at this time. Wound Measurements and Assessment WC - Nurse 1 - General Ulcer Measurement Start: 06/23/18 10:44 Freq: Status: Active Protocol: Activity Type Activity Date Activity User E-Sign Co-Sign Detail Recorded Client Recorded Date Recorded By Document 06/23/18 10:44 [facility] [id number] 06/23/18 10:55 [facility] 06/23/18 10:44 Wound Center Nurse 1 [Ulcer Assessment] #1- RT PLANTAR -Combined with other wound No -Current Size (cm) - Length 0.9 -Current Size (cm) - Width 0.6 -Current Size (cm) - Depth 0.3 -Total Square Cm 0.54 -Photo Taken No -Epithelialization None Present -Tunneling No -Undermining/Tunneling Yes -Undermining/Tunneling Starts (O' 12 clock) -Undermining/Tunneling Ends (O'clock) 3 -Maximum Distance (cm) 0.2 -Circular Undermining No -Exudate Amt Small (1-33%) -Exudate Type Serosanguineous -Wound Margin Distinct, Outline Attached -Granulation Amt Large (67-100%) -Granulation Quality Red -Slough/Fibrin No -Necrosis Amt None Present (0 %) -Texture (Tessie-wound Skin Appearance) Callus Scarring -Moisture (Tessie-wound Skin Appearance Dry/Scaly ) -Color (Tessie-wound Skin Appearance) Assessed -Temperature (Tessie-wound Skin No Abnormality Appearance) (Pt Warm) -Tenderness on Palpation (Tessie-wound No Skin Appearance) -Ulcer Cleansing Rinsed/ Irrigated with Saline -Foul Odor after Cleansing No -Anesthetic Used 4% Lidocaine Solution [Edema Assessment] -Lower Limb Edema Present Yes -Right Calf (cm) 48.2 -Right Ankle (cm) 28 - Nurse 2 - General Ulcer CM Notes Start: 06/23/18 10:44 Freq: Status: Active Protocol: Activity Type Activity Date Activity User E-Sign Co-Sign Detail Recorded Client Recorded Date Recorded By Document 06/23/18 11:11 DV [id number] 06/23/18 11:12 DV 06/23/18 11:11 Wound Center Nurse 2 [Procedure/Treatment] #1- RT PLANTAR -Time 11:11 -Correct Patient Yes -Correct Side, Site, Position Yes -Correct Procedure Yes -Procedure Performed Yes -Type of Procedure Debridement -Clinical Debridement Subcutaneous -Post Debridement Size (cm) - Length 1.2 -Post Debridement Size (cm) - Width 1.0 -Post Debridement Size (cm) - Depth 0.3 -Total Square Cm 1.20 -Wound/Ulcer Outcome Not Healed -Ulcer Cleansing Rinsed/ Irrigated with Saline -Foul Odor after Cleansing No -Bioengineered Tissue No -Bleeding Controlled with Pressure -Treatment Response Procedure Tolerated Well [See Physician Procedure note for Specifics] Pain Scale: 0-10 Numeric [Pain] -Is Patient Pain Free? Yes Musculoskeletal: No Tenderness to Palpation of Joints or Extremities, - - Contracted lesser digits Neurological: - - Epicritic sensation grossly absent to lower extremity Psych/Mental Status: Normal Affect, Appropriate Debridement Note Post-Debridement Measurements/Treatment - Nurse 2 - General Ulcer CM Notes Start: 06/23/18 10:44 Freq: Status: Active Protocol: Activity Type Activity Date Activity User E-Sign Co-Sign Detail Recorded Client Recorded Date Recorded By Document 06/23/18 11:11 DV [id number] 06/23/18 11:12 DV 06/23/18 11:11 Wound Center Nurse 2 #1- RT PLANTAR -Time 11:11 -Correct Patient Yes -Correct Side, Site, Position Yes -Correct Procedure Yes -Procedure Performed Yes -Type of Procedure Debridement -Clinical Debridement Subcutaneous -Post Debridement Size (cm) - Length 1.2 -Post Debridement Size (cm) - Width 1.0 -Post Debridement Size (cm) - Depth 0.3 -Total Square Cm 1.20 -Wound/Ulcer Outcome Not Healed -Ulcer Cleansing Rinsed/ Irrigated with Saline -Foul Odor after Cleansing No -Bioengineered Tissue No -Bleeding Controlled with Pressure -Treatment Response Procedure Tolerated Well Pain Scale: 0-10 Numeric Is Patient Pain Free? Yes Wound debrided: Right plantar foot Laterality: Right Type of Debridement: Excisional debridement Anesthesia Used: 4% Lidocaine Solution Depth: in the subcutaneous layer Percentage of wound debrided: 100 Instrument Used: 3mm curette, #15 blade Tissue Removed: Adherent slough, fibrin, biofilm, hyperkeratotic tissue Severity: Fat Layer Exposed Amount of bleeding with debridement: Mild Bleeding Controlled with: Pressure Patient tolerated procedure well Assessment/Plan Assessment: Ulcer of right distal forefoot, DM II with neuropathy, lower extremity edema, other comorbidities Plan: Patient was examined and evaluated again today with his by his side. Ulcer remains stable from last week. Another subcutaneous excisional debridement was performed as noted in the clinical panel. Once complete, the ulcer site was carefully cleansed and then Kasandra was applied to the ulcer base. This was followed by dry sterile dressing and Tubigrip for compression. The patient is to have his dressing changed in this manner on a daily basis. The importance of offloading the ulcer site was stressed and discussed in great detail today. The patient is to continue to alter his duties at work as well as keep pressure off of the right foot as much as possible. Patient received and has been wearing his surgical shoe with offloading dual density Plastizote insert with cut outs around the area of the ulcer site to offload the area. Patient was also instructed to get a knee scooter walker to further offload the right foot. No antibiotics were prescribed today as there were no clinical signs of infection. Culture results were reviewed and discussed with Dr. John of infectious disease. Based on the clinical appearance of the patient currently with no active signs of local infection, we feel antibiotics are not warranted currently. LEAS and venous Doppler studies were reviewed and discussed with the patient. These showed sufficient arterial flow to the lower extremity and the venous doppler showed some incompetence of the greater and lesser saphenous veins. Details from each report are in the patient's chart. I also recommended nutritional supplementation with a high-protein diet in order to optimize ulcer healing potential. The importance of tight glycemic control was stressed to this patient today. The patient and his were educated on all signs and symptoms of local and systemic infection, and they are going to go to the emergency room immediately should they notice any of these. All questions were answered to the patient and the patient's satisfaction. The patient will follow-up in clinic in 1 week, or sooner if needed.
--- NOTE | 2018-06-23 13:31 | PN.PCM_ITS ---
(1) Ulcer of right foot with fat layer exposed Status: Acute Current Visit: No Code(s): L97.512 - Non-pressure chronic ulcer of other part of right foot with fat layer exposed (2) Type 2 diabetes mellitus with diabetic polyneuropathy Status: Acute Current Visit: No Code(s): E11.42 - Type 2 diabetes mellitus with diabetic polyneuropathy (3) PVD (peripheral vascular disease) Status: Suspected Current Visit: No Code(s): I73.9 - Peripheral vascular disease, unspecified (4) Lower extremity edema Status: Acute Current Visit: No Code(s): R60.0 - Localized edema (5) Delayed wound healing Status: Acute Current Visit: No Code(s): T14.8XXD - Other injury of unspecified body region, subsequent encounter Type of Wound Chief Complaint: Right forefoot ulcer History of Wound: This 57-year-old diabetic male was referred to the wound healing center for an ongoing ulcer of the right plantar forefoot in the area of the right third and fourth metatarsal heads. Patient says that the ulcer started around December, and his gotten slightly worse since then. He denies any sudden or traumatic event that caused the ulcer to start. Patient says he has been keeping Neosporin and a bandage over the area. He says he has not seen anybody before for this ulcer. He wears regular shoes. He denies ever seeing a camp advisor for his diabetes and routine foot care. He says he has not been keeping the area offloaded since it started. He denies any purulence to the area, he denies any other heavy drainage, he denies any surrounding redness or warmth. Patient denies any feelings of nausea, vomiting, fever, chills Progress of Wound: Ulcer site stable this week. Patient and performed daily kasandra dressing changes and he continues to wear his offloading surgical shoe. He denies any purulence to the area. He denies any feelings of nausea, vomiting, fever, chills. - Physical Exam Vital Signs Temp Pulse Resp BP 97.5 F L 70 16 149/98 H 06/23/18 10:44 06/23/18 10:44 06/23/18 10:44 06/20/18 01:36 General: Alert, Oriented x3, Cooperative, No apparent distress Extremities: Capillary Refill Less than 3 Seconds, No Calf Tenderness - Negative Heydi and Lomax sign, Diminished Peripheral Pulses - DP and PT pulses faintly palpable bilateral, Edema - Bilateral lower extremity edema Skin: Ulcer/ Wound - Ulcer to right plantar forefoot sub-third/fourth metatarsal heads with fat layer exposed. Measurements are noted below. The base continues to be a mixture of adherent slough, fibrin, granular tissue, biofilm, as well as some very slight hyperkeratotic tissue and some maceration. There continues to be no probing to bone, no tracking, no undermining, no purulence, no malodor, no extending cellulitis, and no significant increase in warmth around the ulcer site at this time. Wound Measurements and Assessment WC - Nurse 1 - General Ulcer Measurement Start: 06/23/18 10:44 Freq: Status: Active Protocol: Activity Type Activity Date Activity User E-Sign Co-Sign Detail Recorded Client Recorded Date Recorded By Document 06/23/18 10:44 [facility] [id number] 06/23/18 10:55 [facility] 06/23/18 10:44 Wound Center Nurse 1 [Ulcer Assessment] #1- RT PLANTAR -Combined with other wound No -Current Size (cm) - Length 0.9 -Current Size (cm) - Width 0.6 -Current Size (cm) - Depth 0.3 -Total Square Cm 0.54 -Photo Taken No -Epithelialization None Present -Tunneling No -Undermining/Tunneling Yes -Undermining/Tunneling Starts (O' 12 clock) -Undermining/Tunneling Ends (O'clock) 3 -Maximum Distance (cm) 0.2 -Circular Undermining No -Exudate Amt Small (1-33%) -Exudate Type Serosanguineous -Wound Margin Distinct, Outline Attached -Granulation Amt Large (67-100%) -Granulation Quality Red -Slough/Fibrin No -Necrosis Amt None Present (0 %) -Texture (Tessie-wound Skin Appearance) Callus Scarring -Moisture (Tessie-wound Skin Appearance Dry/Scaly ) -Color (Tessie-wound Skin Appearance) Assessed -Temperature (Tessie-wound Skin No Abnormality Appearance) (Pt Warm) -Tenderness on Palpation (Tessie-wound No Skin Appearance) -Ulcer Cleansing Rinsed/ Irrigated with Saline -Foul Odor after Cleansing No -Anesthetic Used 4% Lidocaine Solution [Edema Assessment] -Lower Limb Edema Present Yes -Right Calf (cm) 48.2 -Right Ankle (cm) 28 - Nurse 2 - General Ulcer CM Notes Start: 06/23/18 10:44 Freq: Status: Active Protocol: Activity Type Activity Date Activity User E-Sign Co-Sign Detail Recorded Client Recorded Date Recorded By Document 06/23/18 11:11 DV [id number] 06/23/18 11:12 DV 06/23/18 11:11 Wound Center Nurse 2 [Procedure/Treatment] #1- RT PLANTAR -Time 11:11 -Correct Patient Yes -Correct Side, Site, Position Yes -Correct Procedure Yes -Procedure Performed Yes -Type of Procedure Debridement -Clinical Debridement Subcutaneous -Post Debridement Size (cm) - Length 1.2 -Post Debridement Size (cm) - Width 1.0 -Post Debridement Size (cm) - Depth 0.3 -Total Square Cm 1.20 -Wound/Ulcer Outcome Not Healed -Ulcer Cleansing Rinsed/ Irrigated with Saline -Foul Odor after Cleansing No -Bioengineered Tissue No -Bleeding Controlled with Pressure -Treatment Response Procedure Tolerated Well [See Physician Procedure note for Specifics] Pain Scale: 0-10 Numeric [Pain] -Is Patient Pain Free? Yes Musculoskeletal: No Tenderness to Palpation of Joints or Extremities, - - Contracted lesser digits Neurological: - - Epicritic sensation grossly absent to lower extremity Psych/Mental Status: Normal Affect, Appropriate Debridement Note Post-Debridement Measurements/Treatment - Nurse 2 - General Ulcer CM Notes Start: 06/23/18 10:44 Freq: Status: Active Protocol: Activity Type Activity Date Activity User E-Sign Co-Sign Detail Recorded Client Recorded Date Recorded By Document 06/23/18 11:11 DV [id number] 06/23/18 11:12 DV 06/23/18 11:11 Wound Center Nurse 2 #1- RT PLANTAR -Time 11:11 -Correct Patient Yes -Correct Side, Site, Position Yes -Correct Procedure Yes -Procedure Performed Yes -Type of Procedure Debridement -Clinical Debridement Subcutaneous -Post Debridement Size (cm) - Length 1.2 -Post Debridement Size (cm) - Width 1.0 -Post Debridement Size (cm) - Depth 0.3 -Total Square Cm 1.20 -Wound/Ulcer Outcome Not Healed -Ulcer Cleansing Rinsed/ Irrigated with Saline -Foul Odor after Cleansing No -Bioengineered Tissue No -Bleeding Controlled with Pressure -Treatment Response Procedure Tolerated Well Pain Scale: 0-10 Numeric Is Patient Pain Free? Yes Wound debrided: Right plantar foot Laterality: Right Type of Debridement: Excisional debridement Anesthesia Used: 4% Lidocaine Solution Depth: in the subcutaneous layer Percentage of wound debrided: 100 Instrument Used: 3mm curette, #15 blade Tissue Removed: Adherent slough, fibrin, biofilm, hyperkeratotic tissue Severity: Fat Layer Exposed Amount of bleeding with debridement: Mild Bleeding Controlled with: Pressure Patient tolerated procedure well Assessment/Plan Assessment: Ulcer of right distal forefoot, DM II with neuropathy, lower extremity edema, other comorbidities Plan: Patient was examined and evaluated again today with his by his side. Ulcer remains stable from last week. Another subcutaneous excisional debridement was performed as noted in the clinical panel. Once complete, the ulcer site was carefully cleansed and then Kasandra was applied to the ulcer base. This was followed by dry sterile dressing and Tubigrip for compression. The patient is to have his dressing changed in this manner on a daily basis. The importance of offloading the ulcer site was stressed and discussed in great detail today. The patient is to continue to alter his duties at work as well as keep pressure off of the right foot as much as possible. Patient received and has been wearing his surgical shoe with offloading dual density Plastizote insert with cut outs around the area of the ulcer site to offload the area. Patient was also instructed to get a knee scooter walker to further offload the right foot. No antibiotics were prescribed today as there were no clinical signs of infection. Culture results were reviewed and discussed with Dr. John of infectious disease. Based on the clinical appearance of the patient currently with no active signs of local infection, we feel antibiotics are not warranted currently. LEAS and venous Doppler studies were reviewed and discussed with the patient. These showed sufficient arterial flow to the lower extremity and the venous doppler showed some incompetence of the greater and les ser saphenous veins. Details from each report are in the patient's chart. I also recommended nutritional supplementation with a high-protein diet in order to optimize ulcer healing potential. The importance of tight glycemic control was stressed to this patient today. The patient and his were educated on all signs and symptoms of local and systemic infection, and they are going to go to the emergency room immediately should they notice any of these. All questions were answered to the patient and the patient's satisfaction. The patient will follow-up in clinic in 1 week, or sooner if needed.
[2018-06-30 10:05] VITALS: BP 170/90; PULSE 76; RESP 16; TEMP 36.8
--- NOTE | 2018-06-30 13:10 | PCM.WC.PN ---
(1) Ulcer of right foot with fat layer exposed Status: Acute Current Visit: No Code(s): L97.512 - Non-pressure chronic ulcer of other part of right foot with fat layer exposed (2) Type 2 diabetes mellitus with diabetic polyneuropathy Status: Acute Current Visit: No Code(s): E11.42 - Type 2 diabetes mellitus with diabetic polyneuropathy (3) PVD (peripheral vascular disease) Status: Suspected Current Visit: No Code(s): I73.9 - Peripheral vascular disease, unspecified (4) Lower extremity edema Status: Acute Current Visit: No Code(s): R60.0 - Localized edema (5) Delayed wound healing Status: Acute Current Visit: No Code(s): T14.8XXD - Other injury of unspecified body region, subsequent encounter Type of Wound Chief Complaint: Right forefoot ulcer History of Wound: This 57-year-old diabetic male was referred to the wound healing center for an ongoing ulcer of the right plantar forefoot in the area of the right third and fourth metatarsal heads. Patient says that the ulcer started around December, and his gotten slightly worse since then. He denies any sudden or traumatic event that caused the ulcer to start. Patient says he has been keeping Neosporin and a bandage over the area. He says he has not seen anybody before for this ulcer. He wears regular shoes. He denies ever seeing a test boring crew chief for his diabetes and routine foot care. He says he has not been keeping the area offloaded since it started. He denies any purulence to the area, he denies any other heavy drainage, he denies any surrounding redness or warmth. Patient denies any feelings of nausea, vomiting, fever, chills Progress of Wound: Ulcer site stable this week. Patient and performed daily kasandra dressing changes and he continues to wear his offloading surgical shoe. He denies any purulence to the area. He denies any feelings of nausea, vomiting, fever, chills. - Physical Exam Vital Signs Temp Pulse Resp BP 98.2 F 76 16 170/90 H 06/30/18 10:05 06/30/18 10:05 06/30/18 10:05 06/30/18 10:05 General: Alert, Oriented x3, Cooperative, No apparent distress Extremities: Capillary Refill Less than 3 Seconds, No Calf Tenderness - Negative Heydi and Lomax sign, Diminished Peripheral Pulses - DP and PT pulses faintly palpable bilateral, Edema - Bilateral lower extremity edema Skin: Ulcer/ Wound - Ulcer to right plantar forefoot sub-third/fourth metatarsal heads with fat layer exposed. The measurements are noted below. The base is a mixture of adherent slough, fibrin, granular tissue, biofilm as well as some slight surrounding hyperkeratotic tissue and maceration. There continues to be no probing to bone, no tracking, no undermining, no purulence, no malodor, no surrounding cellulitis, no increase in warmth to the site at this time. Wound Measurements and Assessment WC - Nurse 1 - General Ulcer Measurement Start: 06/23/18 10:44 Freq: Status: Active Protocol: Activity Type Activity Date Activity User E-Sign Co-Sign Detail Recorded Client Recorded Date Recorded By Document 06/30/18 10:05 [id number] 06/30/18 10:07 06/30/18 10:05 Wound Center Nurse 1 [Ulcer Assessment] #1- RT PLANTAR -Combined with other wound No -Current Size (cm) - Length 0.8 -Current Size (cm) - Width 1.0 -Current Size (cm) - Depth 0.3 -Total Square Cm 0.80 -Photo Taken No -Epithelialization None Present -Tunneling No -Undermining/Tunneling No -Circular Undermining No -Classification - Thickness Full Thickness without Exposed Support Structure -Exudate Amt Small (1-33%) -Exudate Type Serosanguineous -Wound Margin Distinct, Outline Attached -Granulation Amt Small (1-33%) -Granulation Quality Pale -Slough/Fibrin Yes -Necrosis Amt Small (1-33%) -Necrotic Tissue Type Adherent Slough -Structure Exposed Fat Layer Exposed -Texture (Tessie-wound Skin Appearance) Assessed Scarring -Moisture (Tessie-wound Skin Appearance Assessed ) Weeping -Color (Tessie-wound Skin Appearance) No Abnormality Assessed -Temperature (Tessie-wound Skin No Abnormality Appearance) (Pt Warm) -Tenderness on Palpation (Tessie-wound No Skin Appearance) -Ulcer Cleansing Rinsed/ Irrigated with Saline -Foul Odor after Cleansing No -Anesthetic Used 4% Lidocaine Solution [Edema Assessment] -Right Calf (cm) 48.0 -Right Ankle (cm) 27 WC - Nurse 2 - General Ulcer CM Notes Start: 06/23/18 10:44 Freq: Status: Active Protocol: Activity Type Activity Date Activity User E-Sign Co-Sign Detail Recorded Client Recorded Date Recorded By Document 06/30/18 10:39 DV [id number] 06/30/18 10:41 DV 06/30/18 10:39 Wound Center Nurse 2 [Procedure/Treatment] #1- RT PLANTAR -Time 10:40 -Correct Patient Yes -Correct Side, Site, Position Yes -Correct Procedure Yes -Procedure Performed Yes -Type of Procedure Debridement -Clinical Debridement Subcutaneous -Post Debridement Size (cm) - Length 1.3 -Post Debridement Size (cm) - Width 1.1 -Post Debridement Size (cm) - Depth 0.3 -Total Square Cm 1.43 -Wound/Ulcer Outcome Not Healed -Ulcer Cleansing Rinsed/ Irrigated with Saline -Foul Odor after Cleansing No -Bioengineered Tissue No -Bleeding Controlled with Pressure -Treatment Response Procedure Tolerated Well [See Physician Procedure note for Specifics] Pain Scale: 0-10 Numeric [Pain] -Is Patient Pain Free? Yes Musculoskeletal: No Tenderness to Palpation of Joints or Extremities, - - Contracted lesser digits Neurological: - - Epicritic sensation grossly absent to lower extremity Psych/Mental Status: Normal Affect, Appropriate Debridement Note Post-Debridement Measurements/Treatment WC - Nurse 2 - General Ulcer CM Notes Start: 06/23/18 10:44 Freq: Status: Active Protocol: Activity Type Activity Date Activity User E-Sign Co-Sign Detail Recorded Client Recorded Date Recorded By Document 06/23/18 11:11 DV [id number] 06/23/18 11:12 DV Document 06/30/18 10:39 DV [id number] 06/30/18 10:41 DV 06/23/18 06/30/18 11:11 10:39 Wound Center Nurse 2 #1- RT PLANTAR -Time 11:11 10:40 -Correct Patient Yes Yes -Correct Side, Site, Position Yes Yes -Correct Procedure Yes Yes -Procedure Performed Yes Yes -Type of Procedure Debridement Debridement -Clinical Debridement Subcutaneous Subcutaneous -Post Debridement Size (cm) - Length 1.2 1.3 -Post Debridement Size (cm) - Width 1.0 1.1 -Post Debridement Size (cm) - Depth 0.3 0.3 -Total Square Cm 1.20 1.43 -Wound/Ulcer Outcome Not Healed Not Healed -Ulcer Cleansing Rinsed/ Rinsed/ Irrigated with Irrigated with Saline Saline -Foul Odor after Cleansing No No -Bioengineered Tissue No No -Bleeding Controlled with Pressure Pressure -Treatment Response Procedure Procedure Tolerated Well Tolerated Well Pain Scale: 0-10 Numeric Is Patient Pain Free? Yes Yes Wound debrided: Right plantar foot Laterality: Right Type of Debridement: Excisional debridement Anesthesia Used: 4% Lidocaine Solution Depth: in the subcutaneous layer Percentage of wound debrided: 100 Instrument Used: #15 blade, - - Tissue nipper Tissue Removed: Adherent slough, fibrin, biofilm, hyperkeratotic tissue Severity: Fat Layer Exposed Amount of bleeding with debridement: Mild Bleeding Controlled with: Pressure Patient tolerated procedure well Assessment/Plan Assessment: Ulcer of right distal forefoot, DM II with neuropathy, lower extremity edema, other comorbidities Plan: Patient was examined and evaluated again today with his by his side. Ulcer remains stable from last week. Another subcutaneous excisional debridement was performed as noted in the clinical panel. Once complete, the ulcer site was carefully cleansed and then Kasandra was applied to the ulcer base. This was followed by dry sterile dressing and Tubigrip for compression. The patient is to have his dressing changed in this manner on a daily basis. The importance of offloading the ulcer site was stressed and discussed in great detail today. The patient is to continue to alter his duties at work as well as keep pressure off of the right foot as much as possible. Patient received and has been wearing his surgical shoe with offloading dual density Plastizote insert with cut outs around the area of the ulcer site to offload the area. Patient was also instructed to get a knee scooter walker to further offload the right foot. Patient's states today that the patient will sometimes leave his ulcer undressed and walk directly on his foot without any offloading device on. I stressed the importance of sticking to the treatment plan and informed him that his non compliance is a big part of why he is not healing faster. No antibiotics were prescribed today as there were no clinical signs of infection. Culture results were reviewed and discussed with Dr. John of infectious disease. Based on the clinical appearance of the patient currently with no active signs of local infection, we feel antibiotics are not warranted currently. LEAS and venous Doppler studies were reviewed and discussed with the patient. These showed sufficient arterial flow to the lower extremity and the venous doppler showed some incompetence of the greater and lesser saphenous veins. Details from each report are in the patient's chart. I also recommended nutritional supplementation with a high-protein diet in order to optimize ulcer healing potential. The importance of tight glycemic control was stressed to this patient today. The patient and his were educated on all signs and symptoms of local and systemic infection, and they are going to go to the emergency room immediately should they notice any of these. All questions were answered to the patient and the patient's satisfaction. The patient will follow-up in clinic in 1 week, or sooner if needed.
[2018-07-07 10:06] VITALS: BP 187/96; PULSE 72; RESP 16; TEMP 36.6
--- NOTE | 2018-07-07 13:42 | PCM.WC.PN ---
(1) Ulcer of right foot with fat layer exposed Status: Acute Current Visit: No Code(s): L97.512 - Non-pressure chronic ulcer of other part of right foot with fat layer exposed (2) Type 2 diabetes mellitus with diabetic polyneuropathy Status: Acute Current Visit: No Code(s): E11.42 - Type 2 diabetes mellitus with diabetic polyneuropathy (3) PVD (peripheral vascular disease) Status: Suspected Current Visit: No Code(s): I73.9 - Peripheral vascular disease, unspecified (4) Lower extremity edema Status: Acute Current Visit: No Code(s): R60.0 - Localized edema (5) Delayed wound healing Status: Acute Current Visit: No Code(s): T14.8XXD - Other injury of unspecified body region, subsequent encounter Type of Wound Chief Complaint: Right forefoot ulcer History of Wound: This 57-year-old diabetic male was referred to the wound healing center for an ongoing ulcer of the right plantar forefoot in the area of the right third and fourth metatarsal heads. Patient says that the ulcer started around December, and his gotten slightly worse since then. He denies any sudden or traumatic event that caused the ulcer to start. Patient says he has been keeping Neosporin and a bandage over the area. He says he has not seen anybody before for this ulcer. He wears regular shoes. He denies ever seeing a assembler tester for his diabetes and routine foot care. He says he has not been keeping the area offloaded since it started. He denies any purulence to the area, he denies any other heavy drainage, he denies any surrounding redness or warmth. Patient denies any feelings of nausea, vomiting, fever, chills Progress of Wound: Ulcer site stable this week. Patient and performed daily magdy dressing changes and he continues to wear his offloading surgical shoe. states patient is noncompliant with keeping pressure off. He denies any purulence to the area. He denies any feelings of nausea, vomiting, fever, chills. - Physical Exam Vital Signs Temp Pulse Resp BP 98 F 72 16 187/96 H 07/07/18 10:06 07/07/18 10:06 07/07/18 10:06 07/07/18 10:06 General: Alert, Oriented x3, Cooperative, No apparent distress Extremities: Capillary Refill Less than 3 Seconds, No Calf Tenderness - Negative Heydi and Lomax sign, Diminished Peripheral Pulses - DP and PT pulses faintly palpable bilateral, Edema - Bilateral lower extremity edema Skin: Ulcer/ Wound - Ulcer right plantar forefoot sub-third/fourth metatarsal head with fat layer exposed. Ulcer site remains stable in appearance since last visit. Measurements are noted below. The base continues to be a mixture of adherent slough, fibrin, granular tissue, biofilm as well as some surrounding hyperkeratotic tissue. There continues to be no probing to bone, no tracking, no undermining, no purulence, no malodor, no surrounding or extending cellulitis, and no significant increase in warmth appreciated to the ulcer site at this time. Wound Measurements and Assessment WC - Nurse 1 - General Ulcer Measurement Start: 06/23/18 10:44 Freq: Status: Active Protocol: Activity Type Activity Date Activity User E-Sign Co-Sign Detail Recorded Client Recorded Date Recorded By Document 07/07/18 10:06 [facility] [id number] 07/07/18 10:15 [facility] 07/07/18 10:06 Wound Center Nurse 1 [Ulcer Assessment] #1- RT PLANTAR -Combined with other wound No -Current Size (cm) - Length 0.6 -Current Size (cm) - Width 0.5 -Current Size (cm) - Depth 0.3 -Total Square Cm 0.30 -Date of Last Picture (Recall this 07/07/18 field) -Photo Taken Yes -Epithelialization None Present -Tunneling No -Undermining/Tunneling No -Circular Undermining No -Exudate Amt Small (1-33%) -Exudate Type Serosanguineous -Wound Margin Distinct, Outline Attached -Granulation Amt Medium (34-66%) -Granulation Quality Pale Red -Slough/Fibrin Yes -Necrosis Amt Small (1-33%) -Necrotic Tissue Type Adherent Slough -Texture (Tessie-wound Skin Appearance) Callus Scarring -Moisture (Tessie-wound Skin Appearance Dry/Scaly ) -Color (Tessie-wound Skin Appearance) Assessed -Temperature (Tessie-wound Skin No Abnormality Appearance) (Pt Warm) -Tenderness on Palpation (Tessie-wound No Skin Appearance) -Ulcer Cleansing Rinsed/ Irrigated with Saline -Foul Odor after Cleansing No -Anesthetic Used 4% Lidocaine Solution [Edema Assessment] -Lower Limb Edema Present Yes -Right Calf (cm) 46 -Right Ankle (cm) 26.5 -Left Calf (cm) 46.8 -Left Ankle (cm) 28.6 - Nurse 2 - General Ulcer CM Notes Start: 06/23/18 10:44 Freq: Status: Active Protocol: Activity Type Activity Date Activity User E-Sign Co-Sign Detail Recorded Client Recorded Date Recorded By Document 07/07/18 10:44 DV [id number] 07/07/18 10:51 DV 07/07/18 10:44 Wound Center Nurse 2 [Procedure/Treatment] #1- RT PLANTAR -Time 10:49 -Correct Patient Yes -Correct Side, Site, Position Yes -Correct Procedure Yes -Procedure Performed Yes -Type of Procedure Debridement -Clinical Debridement Subcutaneous -Post Debridement Size (cm) - Length 1.8 -Post Debridement Size (cm) - Width 1.1 -Post Debridement Size (cm) - Depth 0.3 -Total Square Cm 1.98 -Wound/Ulcer Outcome Not Healed -Ulcer Cleansing Rinsed/ Irrigated with Saline -Foul Odor after Cleansing No -Bioengineered Tissue Yes -Type of bioengineered Tissue EPIFIX -Expiration Date 01/18/23 -Product Lot Number [id number] -Percent Used 100 -Topical Lidocaine (%) 4 -Bleeding Controlled with Pressure -Treatment Response Procedure Tolerated Well [See Physician Procedure note for Specifics] Pain Scale: 0-10 Numeric [Pain] -Is Patient Pain Free? Yes Musculoskeletal: No Tenderness to Palpation of Joints or Extremities, - - Contracted lesser digits Neurological: - - Epicritic sensation grossly absent to lower extremity Psych/Mental Status: Normal Affect, Appropriate Debridement Note Post-Debridement Measurements/Treatment - Nurse 2 - General Ulcer CM Notes Start: 06/23/18 10:44 Freq: Status: Active Protocol: Activity Type Activity Date Activity User E-Sign Co-Sign Detail Recorded Client Recorded Date Recorded By Document 06/23/18 11:11 DV [id number] 06/23/18 11:12 DV Document 06/30/18 10:39 DV [id number] 06/30/18 10:41 DV Document 07/07/18 10:44 DV [id number] 07/07/18 10:51 DV 06/23/18 06/30/18 07/07/18 11:11 10:39 10:44 Wound Center Nurse 2 #1- RT PLANTAR -Time 11:11 10:40 10:49 -Correct Patient Yes Yes Yes -Correct Side, Site, Position Yes Yes Yes -Correct Procedure Yes Yes Yes -Procedure Performed Yes Yes Yes -Type of Procedure Debridement Debridement Debridement -Clinical Debridement Subcutaneous Subcutaneous Subcutaneous -Post Debridement Size (cm) - Length 1.2 1.3 1.8 -Post Debridement Size (cm) - Width 1.0 1.1 1.1 -Post Debridement Size (cm) - Depth 0.3 0.3 0.3 -Total Square Cm 1.20 1.43 1.98 -Wound/Ulcer Outcome Not Healed Not Healed Not Healed -Ulcer Cleansing Rinsed/ Rinsed/ Rinsed/ Irrigated with Irrigated with Irrigated with Saline Saline Saline -Foul Odor after Cleansing No No No -Bioengineered Tissue No No Yes -Type of bioengineered Tissue EPIFIX -Expiration Date 01/18/23 -Product Lot Number [id number] -Percent Used 100 -Topical Lidocaine (%) 4 -Bleeding Controlled with Pressure Pressure Pressure -Treatment Response Procedure Procedure Procedure Tolerated Well Tolerated Well Tolerated Well Pain Scale: 0-10 Numeric Is Patient Pain Free? Yes Yes Yes Wound debrided: Right plantar foot Laterality: Right Type of Debridement: Excisional debridement Anesthesia Used: 4% Lidocaine Solution Depth: in the subcutaneous layer Percentage of wound debrided: 100 Instrument Used: 7mm curette, - - Tissue nipper Tissue Removed: Adherent slough, fibrin, biofilm, hyperkeratotic tissue Severity: Fat Layer Exposed Amount of bleeding with debridement: Mild Bleeding Controlled with: Pressure Patient tolerated procedure well Assessment/Plan Assessment: Ulcer of right distal forefoot, DM II with neuropathy, lower extremity edema, other comorbidities Plan: Patient was examined and evaluated again today with his by his side. Ulcer remains stable from last week. Another subcutaneous excisional debridement was performed as noted in the clinical panel. Once complete, the ulcer site was carefully cleansed and then epi fix #1 was applied per equipment or machinery cleaner's guidelines, followed by wound veil, Steri-Strips, and a dry sterile dressing and Tubigrip's. Patient and his were instructed that they could reinforce the overlying dressings but they are not to disturb the wound veil or anything below this level for the entire week. They are to keep this area clean dry and intact. The importance of offloading the ulcer site was stressed and discussed in great detail again today. The patient is to continue to alter his duties at work as well as keep pressure off of the right foot as much as possible. Patient received and has been wearing his surgical shoe with offloading dual density Plastizote insert with cut outs around the area of the ulcer site to offload the area. Patient was also instructed to get a knee scooter walker to further offload the right foot. Patient's states today that the patient will sometimes leave his ulcer undressed and walk directly on his foot without any offloading device on. I stressed the importance of sticking to the treatment plan and informed him that his non compliance is a big part of why he is not healing faster. No antibiotics were prescribed today as there were no clinical signs of infection. Culture results were reviewed and discussed with Dr. John of infectious disease. Based on the clinical appearance of the patient currently with no active signs of local infection, we feel antibiotics are not warranted currently. LEAS and venous Doppler studies were reviewed and discussed with the patient. These showed sufficient arterial flow to the lower extremity and the venous doppler showed some incompetence of the greater and lesser saphenous veins. Details from each report are in the patient's chart. I also recommended nutritional supplementation with a high-protein diet in order to optimize ulcer healing potential. The importance of tight glycemic control was stressed to this patient today. The patient and his were educated on all signs and symptoms of local and systemic infection, and they are going to go to the emergency room immediately should they notice any of these. All questions were answered to the patient and the patient's satisfaction. The patient will follow-up in clinic in 1 week, or sooner if needed.
--- NOTE | 2018-07-07 13:49 | PN.PCM_ITS ---
(1) Ulcer of right foot with fat layer exposed Status: Acute Current Visit: No Code(s): L97.512 - Non-pressure chronic ulcer of other part of right foot with fat layer exposed (2) Type 2 diabetes mellitus with diabetic polyneuropathy Status: Acute Current Visit: No Code(s): E11.42 - Type 2 diabetes mellitus with diabetic polyneuropathy (3) PVD (peripheral vascular disease) Status: Suspected Current Visit: No Code(s): I73.9 - Peripheral vascular disease, unspecified (4) Lower extremity edema Status: Acute Current Visit: No Code(s): R60.0 - Localized edema (5) Delayed wound healing Status: Acute Current Visit: No Code(s): T14.8XXD - Other injury of unspecified body region, subsequent encounter Type of Wound Chief Complaint: Right forefoot ulcer History of Wound: This 57-year-old diabetic male was referred to the wound healing center for an ongoing ulcer of the right plantar forefoot in the area of the right third and fourth metatarsal heads. Patient says that the ulcer started around December, and his gotten slightly worse since then. He denies any sudden or traumatic event that caused the ulcer to start. Patient says he has been keeping Neosporin and a bandage over the area. He says he has not seen anybody before for this ulcer. He wears regular shoes. He denies ever seeing a master esthetician for his diabetes and routine foot care. He says he has not been keeping the area offloaded since it started. He denies any purulence to the area, he denies any other heavy drainage, he denies any surrounding redness or warmth. Patient denies any feelings of nausea, vomiting, fever, chills Progress of Wound: Ulcer site stable this week. Patient and performed daily magdy dressing changes and he continues to wear his offloading surgical shoe. states patient is noncompliant with keeping pressure off. He denies any purulence to the area. He denies any feelings of nausea, vomiting, fever, chills. - Physical Exam Vital Signs Temp Pulse Resp BP 98 F 72 16 187/96 H 07/07/18 10:06 07/07/18 10:06 07/07/18 10:06 07/07/18 10:06 General: Alert, Oriented x3, Cooperative, No apparent distress Extremities: Capillary Refill Less than 3 Seconds, No Calf Tenderness - Negative Heydi and Lomax sign, Diminished Peripheral Pulses - DP and PT pulses faintly palpable bilateral, Edema - Bilateral lower extremity edema Skin: Ulcer/ Wound - Ulcer right plantar forefoot sub-third/fourth metatarsal head with fat layer exposed. Ulcer site remains stable in appearance since last visit. Measurements are noted below. The base continues to be a mixture of adherent slough, fibrin, granular tissue, biofilm as well as some surrounding hyperkeratotic tissue. There continues to be no probing to bone, no tracking, no undermining, no purulence, no malodor, no surrounding or extending cellulitis, and no significant increase in warmth appreciated to the ulcer site at this time. Wound Measurements and Assessment WC - Nurse 1 - General Ulcer Measurement Start: 06/23/18 10:44 Freq: Status: Active Protocol: Activity Type Activity Date Activity User E-Sign Co-Sign Detail Recorded Client Recorded Date Recorded By Document 07/07/18 10:06 [facility] [id number] 07/07/18 10:15 [facility] 07/07/18 10:06 Wound Center Nurse 1 [Ulcer Assessment] #1- RT PLANTAR -Combined with other wound No -Current Size (cm) - Length 0.6 -Current Size (cm) - Width 0.5 -Current Size (cm) - Depth 0.3 -Total Square Cm 0.30 -Date of Last Picture (Recall this 07/07/18 field) -Photo Taken Yes -Epithelialization None Present -Tunneling No -Undermining/Tunneling No -Circular Undermining No -Exudate Amt Small (1-33%) -Exudate Type Serosanguineous -Wound Margin Distinct, Outline Attached -Granulation Amt Medium (34-66%) -Granulation Quality Pale Red -Slough/Fibrin Yes -Necrosis Amt Small (1-33%) -Necrotic Tissue Type Adherent Slough -Texture (Tessie-wound Skin Appearance) Callus Scarring -Moisture (Tessie-wound Skin Appearance Dry/Scaly ) -Color (Tessie-wound Skin Appearance) Assessed -Temperature (Tessie-wound Skin No Abnormality Appearance) (Pt Warm) -Tenderness on Palpation (Tessie-wound No Skin Appearance) -Ulcer Cleansing Rinsed/ Irrigated with Saline -Foul Odor after Cleansing No -Anesthetic Used 4% Lidocaine Solution [Edema Assessment] -Lower Limb Edema Present Yes -Right Calf (cm) 46 -Right Ankle (cm) 26.5 -Left Calf (cm) 46.8 -Left Ankle (cm) 28.6 - Nurse 2 - General Ulcer CM Notes Start: 06/23/18 10:44 Freq: Status: Active Protocol: Activity Type Activity Date Activity User E-Sign Co-Sign Detail Recorded Client Recorded Date Recorded By Document 07/07/18 10:44 DV [id number] 07/07/18 10:51 DV 07/07/18 10:44 Wound Center Nurse 2 [Procedure/Treatment] #1- RT PLANTAR -Time 10:49 -Correct Patient Yes -Correct Side, Site, Position Yes -Correct Procedure Yes -Procedure Performed Yes -Type of Procedure Debridement -Clinical Debridement Subcutaneous -Post Debridement Size (cm) - Length 1.8 -Post Debridement Size (cm) - Width 1.1 -Post Debridement Size (cm) - Depth 0.3 -Total Square Cm 1.98 -Wound/Ulcer Outcome Not Healed -Ulcer Cleansing Rinsed/ Irrigated with Saline -Foul Odor after Cleansing No -Bioengineered Tissue Yes -Type of bioengineered Tissue EPIFIX -Expiration Date 01/18/23 -Product Lot Number [id number] -Percent Used 100 -Topical Lidocaine (%) 4 -Bleeding Controlled with Pressure -Treatment Response Procedure Tolerated Well [See Physician Procedure note for Specifics] Pain Scale: 0-10 Numeric [Pain] -Is Patient Pain Free? Yes Musculoskeletal: No Tenderness to Palpation of Joints or Extremities, - - Contracted lesser digits Neurological: - - Epicritic sensation grossly absent to lower extremity Psych/Mental Status: Normal Affect, Appropriate Debridement Note Post-Debridement Measurements/Treatment - Nurse 2 - General Ulcer CM Notes Start: 06/23/18 10:44 Freq: Status: Active Protocol: Activity Type Activity Date Activity User E-Sign Co-Sign Detail Recorded Client Recorded Date Recorded By Document 06/23/18 11:11 DV [id number] 06/23/18 11:12 DV Document 06/30/18 10:39 DV [id number] 06/30/18 10:41 DV Document 07/07/18 10:44 DV [id number] 07/07/18 10:51 DV 06/23/18 06/30/18 07/07/18 11:11 10:39 10:44 Wound Center Nurse 2 #1- RT PLANTAR -Time 11:11 10:40 10:49 -Correct Patient Yes Yes Yes -Correct Side, Site, Position Yes Yes Yes -Correct Procedure Yes Yes Yes -Procedure Performed Yes Yes Yes -Type of Procedure Debridement Debridement Debridement -Clinical Debridement Subcutaneous Subcutaneous Subcutaneous -Post Debridement Size (cm) - Length 1.2 1.3 1.8 -Post Debridement Size (cm) - Width 1.0 1.1 1.1 -Post Debridement Size (cm) - Depth 0.3 0.3 0.3 -Total Square Cm 1.20 1.43 1.98 -Wound/Ulcer Outcome Not Healed Not Healed Not Healed -Ulcer Cleansing Rinsed/ Rinsed/ Rinsed/ Irrigated with Irrigated with Irrigated with Saline Saline Saline -Foul Odor after Cleansing No No No -Bioengineered Tissue No No Yes -Type of bioengineered Tissue EPIFIX -Expiration Date 01/18/23 -Product Lot Number [id number] -Percent Used 100 -Topical Lidocaine (%) 4 -Bleeding Controlled with Pressure Pressure Pressure -Treatment Response Procedure Procedure Procedure Tolerated Well Tolerated Well Tolerated Well Pain Scale: 0-10 Numeric Is Patient Pain Free? Yes Yes Yes Wound debrided: Right plantar foot Laterality: Right Type of Debridement: Excisional debridement Anesthesia Used: 4% Lidocaine Solution Depth: in the subcutaneous layer Percentage of wound debrided: 100 Instrument Used: 7mm curette, - - Tissue nipper Tissue Removed: Adherent slough, fibrin, biofilm, hyperkeratotic tissue Severity: Fat Layer Exposed Amount of bleeding with debridement: Mild Bleeding Controlled with: Pressure Patient tolerated procedure well Assessment/Plan Assessment: Ulcer of right distal forefoot, DM II with neuropathy, lower extremity edema, other comorbidities Plan: Patient was examined and evaluated again today with his by his side. Ulcer remains stable from last week. Another subcutaneous excisional debridement was performed as noted in the clinical panel. Once complete, the ulcer site was carefully cleansed and then epi fix #1 was applied per environmental studies faculty member's guidelines, followed by wound veil, Steri-Strips, and a dry sterile dressing and Tubigrip's. Patient and his were instructed that they could reinforce the overlying dressings but they are not to disturb the wound veil or anything below this level for the entire week. They are to keep this area clean dry and intact. The importance of offloading the ulcer site was stressed and discussed in great detail again today. The patient is to continue to alter his duties at work as well as keep pressure off of the right foot as much as possible. Patient received and has been wearing his surgical shoe with offloading dual density Plastizote insert with cut outs around the area of the ulcer site to offload the area. Patient was also instructed to get a knee scooter walker to further offload the right foot. Patient's states today that the patient will sometimes leave his ulcer undressed and walk directly on his foot without any offloading device on. I stressed the importance of sticking to the treatment plan and informed him that his non compliance is a big part of why he is not healing faster. No antibiotics were prescribed today as there were no clinical signs of infection. Culture results were reviewed and discussed with Dr. John of infectious disease. Based on the clinical appearance of the patient currently with no active signs of local infection, we feel antibiotics are not warranted currently. LEAS and venous Doppler studies were reviewed and discussed with the patient. These showed sufficient arterial flow to the lower extremity and the venous doppler showed some incompetence of the greater and lesser saphenous veins. Details from each report are in the patient's chart. I also recommended nutritional supplementation with a high- protein diet in order to optimize ulcer healing potential. The importance of tight glycemic control was stressed to this patient today. The patient and his were educated on all signs and symptoms of local and systemic infection, a nd they are going to go to the emergency room immediately should they notice any of these. All questions were answered to the patient and the patient's satisfaction. The patient will follow-up in clinic in 1 week, or sooner if needed.
[2018-07-14 10:05] VITALS: BP 189/116; PULSE 83; RESP 18; TEMP 35.7
--- NOTE | 2018-07-14 12:36 | PCM.WC.PN ---
(1) Ulcer of right foot with fat layer exposed Status: Acute Current Visit: No Code(s): L97.512 - Non-pressure chronic ulcer of other part of right foot with fat layer exposed (2) Type 2 diabetes mellitus with diabetic polyneuropathy Status: Acute Current Visit: No Code(s): E11.42 - Type 2 diabetes mellitus with diabetic polyneuropathy (3) PVD (peripheral vascular disease) Status: Suspected Current Visit: No Code(s): I73.9 - Peripheral vascular disease, unspecified (4) Lower extremity edema Status: Acute Current Visit: No Code(s): R60.0 - Localized edema (5) Delayed wound healing Status: Acute Current Visit: No Code(s): T14.8XXD - Other injury of unspecified body region, subsequent encounter Type of Wound Chief Complaint: Right forefoot ulcer History of Wound: This 57-year-old diabetic male was referred to the wound healing center for an ongoing ulcer of the right plantar forefoot in the area of the right third and fourth metatarsal heads. Patient says that the ulcer started around December, and his gotten slightly worse since then. He denies any sudden or traumatic event that caused the ulcer to start. Patient says he has been keeping Neosporin and a bandage over the area. He says he has not seen anybody before for this ulcer. He wears regular shoes. He denies ever seeing a director community health nursing for his diabetes and routine foot care. He says he has not been keeping the area offloaded since it started. He denies any purulence to the area, he denies any other heavy drainage, he denies any surrounding redness or warmth. Patient denies any feelings of nausea, vomiting, fever, chills Progress of Wound: Ulcer site stable this week. Patient was able to keep his epi fix dressing clean dry and intact. states patient is noncompliant with keeping pressure off. He denies any purulence to the area. He denies any feelings of nausea, vomiting, fever, chills. - Physical Exam Vital Signs Temp Pulse Resp BP 96.2 F L 83 18 189/116 H 07/14/18 10:05 07/14/18 10:05 07/14/18 10:05 07/14/18 10:05 General: Alert, Oriented x3, Cooperative, No apparent distress Extremities: Capillary Refill Less than 3 Seconds, No Calf Tenderness - Negative Heydi and Lomax sign, Diminished Peripheral Pulses - DP and PT pulses faintly palpable bilateral, Edema - Bilateral lower extremity edema Skin: Ulcer/ Wound - Ulcer to right plantar forefoot sub-third/fourth metatarsal head with fat layer exposed. Slight improvement appreciated this week in ulcer size. Measurements are noted below. The base continues to be a mixture of adherent slough, fibrin, granular tissue, biofilm as well as some slight surrounding hyperkeratotic tissue. There continues to be no probing to bone, no tracking, no undermining, no purulence, no malodor, no surrounding or extending cellulitis, and no significant increase in warmth to the ulcer site at this time. Wound Measurements and Assessment WC - Nurse 1 - General Ulcer Measurement Start: 06/23/18 10:44 Freq: Status: Active Protocol: Activity Type Activity Date Activity User E-Sign Co-Sign Detail Recorded Client Recorded Date Recorded By Document 07/14/18 10:05 CS [id number] 07/14/18 10:09 07/14/18 10:05 Wound Center Nurse 1 [Ulcer Assessment] #1- RT PLANTAR -Combined with other wound No -Current Size (cm) - Length 0.1 -Current Size (cm) - Width 0.1 -Current Size (cm) - Depth 0.1 -Total Square Cm 0.01 -Photo Taken No -Epithelialization None Present -Tunneling No -Undermining/Tunneling No -Circular Undermining No -Wound Margin Thickened -Texture (Tessie-wound Skin Appearance) Callus -Moisture (Tessie-wound Skin Appearance No Abnormality ) Assessed -Color (Tessie-wound Skin Appearance) No Abnormality Assessed -Temperature (Tessie-wound Skin No Abnormality Appearance) (Pt Warm) -Tenderness on Palpation (Tessie-wound No Skin Appearance) -Ulcer Cleansing Rinsed/ Irrigated with Saline -Foul Odor after Cleansing No -Anesthetic Used 4% Lidocaine Solution [Edema Assessment] -Lower Limb Edema Present Yes -Right Calf (cm) 46.8 -Right Ankle (cm) 25.9 WC - Nurse 2 - General Ulcer CM Notes Start: 06/23/18 10:44 Freq: Status: Active Protocol: Activity Type Activity Date Activity User E-Sign Co-Sign Detail Recorded Client Recorded Date Recorded By Document 07/14/18 10:25 DV [id number] 07/14/18 10:30 DV 07/14/18 10:25 Wound Center Nurse 2 [Procedure/Treatment] #1- RT PLANTAR -Time 10:26 -Correct Patient Yes -Correct Side, Site, Position Yes -Correct Procedure Yes -Procedure Performed Yes -Type of Procedure Debridement -Clinical Debridement Subcutaneous -Post Debridement Size (cm) - Length 0.7 -Post Debridement Size (cm) - Width 0.9 -Post Debridement Size (cm) - Depth 0.3 -Total Square Cm 0.63 -Wound/Ulcer Outcome Not Healed -Ulcer Cleansing Rinsed/ Irrigated with Saline -Foul Odor after Cleansing No -Bioengineered Tissue Yes -Type of bioengineered Tissue EPICORD -Expiration Date 02/18/23 -Product Lot Number [id number] -Percent Used 50 -Topical Lidocaine (%) 4 -Bleeding Controlled with Pressure -Treatment Response Procedure Tolerated Well [See Physician Procedure note for Specifics] Musculoskeletal: No Tenderness to Palpation of Joints or Extremities, - - Contracted lesser digits Neurological: - - Epicritic sensation grossly absent to lower extremity Psych/Mental Status: Normal Affect, Appropriate Debridement Note Post-Debridement Measurements/Treatment WC - Nurse 2 - General Ulcer CM Notes Start: 06/23/18 10:44 Freq: Status: Active Protocol: Activity Type Activity Date Activity User E-Sign Co-Sign Detail Recorded Client Recorded Date Recorded By Document 06/23/18 11:11 DV [id number] 06/23/18 11:12 DV Document 06/30/18 10:39 DV [id number] 06/30/18 10:41 DV Document 07/07/18 10:44 DV [id number] 07/07/18 10:51 DV Document 07/14/18 10:25 DV [id number] 07/14/18 10:30 DV 06/23/18 06/30/18 07/07/18 11:11 10:39 10:44 Wound Center Nurse 2 #1- RT PLANTAR -Time 11:11 10:40 10:49 -Correct Patient Yes Yes Yes -Correct Side, Site, Position Yes Yes Yes -Correct Procedure Yes Yes Yes -Procedure Performed Yes Yes Yes -Type of Procedure Debridement Debridement Debridement -Clinical Debridement Subcutaneous Subcutaneous Subcutaneous -Post Debridement Size (cm) - Length 1.2 1.3 1.8 -Post Debridement Size (cm) - Width 1.0 1.1 1.1 -Post Debridement Size (cm) - Depth 0.3 0.3 0.3 -Total Square Cm 1.20 1.43 1.98 -Wound/Ulcer Outcome Not Healed Not Healed Not Healed -Ulcer Cleansing Rinsed/ Rinsed/ Rinsed/ Irrigated with Irrigated with Irrigated with Saline Saline Saline -Foul Odor after Cleansing No No No -Bioengineered Tissue No No Yes -Type of bioengineered Tissue EPIFIX -Expiration Date 01/18/23 -Product Lot Number [id number] -Percent Used 100 -Topical Lidocaine (%) 4 -Bleeding Controlled with Pressure Pressure Pressure -Treatment Response Procedure Procedure Procedure Tolerated Well Tolerated Well Tolerated Well Pain Scale: 0-10 Numeric Is Patient Pain Free? Yes Yes Yes 07/14/18 10:25 Wound Center Nurse 2 #1- RT PLANTAR -Time 10:26 -Correct Patient Yes -Correct Side, Site, Position Yes -Correct Procedure Yes -Procedure Performed Yes -Type of Procedure Debridement -Clinical Debridement Subcutaneous -Post Debridement Size (cm) - Length 0.7 -Post Debridement Size (cm) - Width 0.9 -Post Debridement Size (cm) - Depth 0.3 -Total Square Cm 0.63 -Wound/Ulcer Outcome Not Healed -Ulcer Cleansing Rinsed/ Irrigated with Saline -Foul Odor after Cleansing No -Bioengineered Tissue Yes -Type of bioengineered Tissue EPICORD -Expiration Date 02/18/23 -Product Lot Number [id number] -Percent Used 50 -Topical Lidocaine (%) 4 -Bleeding Controlled with Pressure -Treatment Response Procedure Tolerated Well Pain Scale: 0-10 Numeric Is Patient Pain Free? Wound debrided: Right plantar foot Laterality: Right Type of Debridement: Excisional debridement Anesthesia Used: 4% Lidocaine Solution Depth: in the subcutaneous layer Percentage of wound debrided: 100 Instrument Used: #15 blade, - - Tissue nipper Tissue Removed: Adherent slough, fibrin, biofilm, hyperkeratotic tissue Severity: Fat Layer Exposed Amount of bleeding with debridement: Mild Bleeding Controlled with: Pressure Patient tolerated procedure well Assessment/Plan Assessment: Ulcer of right distal forefoot, DM II with neuropathy, lower extremity edema, other comorbidities Plan: Patient was examined and evaluated again today with his by his side. Ulcer remains stable from last week. Another subcutaneous excisional debridement was performed as noted in the clinical panel. Once complete, the ulcer site was carefully cleansed and then epicord was applied per product line manager's guidelines, followed by wound veil, Steri-Strips, and a dry sterile dressing and Tubigrip's. Patient and his were instructed that they could reinforce the overlying dressings but they are not to disturb the wound veil or anything below this level for the entire week. They are to keep this area clean dry and intact. The importance of offloading the ulcer site was stressed and discussed in great detail again today. The patient is to continue to alter his duties at work as well as keep pressure off of the right foot as much as possible. Patient received and has been wearing his surgical shoe with offloading dual density Plastizote insert with cut outs around the area of the ulcer site to offload the area. Patient also recently purchased a knee scooter walker from [employer], however the patient's says he does not use this as he should. I stressed the importance of sticking to the treatment plan and informed him that his non compliance is a big part of why he is not healing faster. No antibiotics were prescribed today as there were no clinical signs of infection. Culture results were reviewed and discussed with Dr. John of infectious disease. Based on the clinical appearance of the patient currently with no active signs of local infection, we feel antibiotics are not warranted currently. LEAS and venous Doppler studies were reviewed and discussed with the patient. These showed sufficient arterial flow to the lower extremity and the venous doppler showed some incompetence of the greater and lesser saphenous veins. Details from each report are in the patient's chart. I also recommended nutritional supplementation with a high-protein diet in order to optimize ulcer healing potential. The importance of tight glycemic control was stressed to this patient today. The patient and his were educated on all signs and symptoms of local and systemic infection, and they are going to go to the emergency room immediately should they notice any of these. All questions were answered to the patient and the patient's satisfaction. The patient will follow-up in clinic in 1 week, or sooner if needed.
--- NOTE | 2018-07-14 12:40 | PN.PCM_ITS ---
(1) Ulcer of right foot with fat layer exposed Status: Acute Current Visit: No Code(s): L97.512 - Non-pressure chronic ulcer of other part of right foot with fat layer exposed (2) Type 2 diabetes mellitus with diabetic polyneuropathy Status: Acute Current Visit: No Code(s): E11.42 - Type 2 diabetes mellitus with diabetic polyneuropathy (3) PVD (peripheral vascular disease) Status: Suspected Current Visit: No Code(s): I73.9 - Peripheral vascular disease, unspecified (4) Lower extremity edema Status: Acute Current Visit: No Code(s): R60.0 - Localized edema (5) Delayed wound healing Status: Acute Current Visit: No Code(s): T14.8XXD - Other injury of unspecified body region, subsequent encounter Type of Wound Chief Complaint: Right forefoot ulcer History of Wound: This 57-year-old diabetic male was referred to the wound healing center for an ongoing ulcer of the right plantar forefoot in the area of the right third and fourth metatarsal heads. Patient says that the ulcer started around December, and his gotten slightly worse since then. He denies any sudden or traumatic event that caused the ulcer to start. Patient says he has been keeping Neosporin and a bandage over the area. He says he has not seen anybody before for this ulcer. He wears regular shoes. He denies ever seeing a doll maker for his diabetes and routine foot care. He says he has not been keeping the area offloaded since it started. He denies any purulence to the area, he denies any other heavy drainage, he denies any surrounding redness or warmth. Patient denies any feelings of nausea, vomiting, fever, chills Progress of Wound: Ulcer site stable this week. Patient was able to keep his epi fix dressing clean dry and intact. states patient is noncompliant with keeping pressure off. He denies any purulence to the area. He denies any feelings of nausea, vomiting, fever, chills. - Physical Exam Vital Signs Temp Pulse Resp BP 96.2 F L 83 18 189/116 H 07/14/18 10:05 07/14/18 10:05 07/14/18 10:05 07/14/18 10:05 General: Alert, Oriented x3, Cooperative, No apparent distress Extremities: Capillary Refill Less than 3 Seconds, No Calf Tenderness - Negative Heydi and Lomax sign, Diminished Peripheral Pulses - DP and PT pulses faintly palpable bilateral, Edema - Bilateral lower extremity edema Skin: Ulcer/ Wound - Ulcer to right plantar forefoot sub-third/fourth metatarsal head with fat layer exposed. Slight improvement appreciated this week in ulcer size. Measurements are noted below. The base continues to be a mixture of adherent slough, fibrin, granular tissue, biofilm as well as some slight surrounding hyperkeratotic tissue. There continues to be no probing to bone, no tracking, no undermining, no purulence, no malodor, no surrounding or extending cellulitis, and no significant increase in warmth to the ulcer site at this time. Wound Measurements and Assessment WC - Nurse 1 - General Ulcer Measurement Start: 06/23/18 10:44 Freq: Status: Active Protocol: Activity Type Activity Date Activity User E-Sign Co-Sign Detail Recorded Client Recorded Date Recorded By Document 07/14/18 10:05 CS [id number] 07/14/18 10:09 07/14/18 10:05 Wound Center Nurse 1 [Ulcer Assessment] #1- RT PLANTAR -Combined with other wound No -Current Size (cm) - Length 0.1 -Current Size (cm) - Width 0.1 -Current Size (cm) - Depth 0.1 -Total Square Cm 0.01 -Photo Taken No -Epithelialization None Present -Tunneling No -Undermining/Tunneling No -Circular Undermining No -Wound Margin Thickened -Texture (Tessie-wound Skin Appearance) Callus -Moisture (Tessie-wound Skin Appearance No Abnormality ) Assessed -Color (Tessie-wound Skin Appearance) No Abnormality Assessed -Temperature (Tessie-wound Skin No Abnormality Appearance) (Pt Warm) -Tenderness on Palpation (Tessie-wound No Skin Appearance) -Ulcer Cleansing Rinsed/ Irrigated with Saline -Foul Odor after Cleansing No -Anesthetic Used 4% Lidocaine Solution [Edema Assessment] -Lower Limb Edema Present Yes -Right Calf (cm) 46.8 -Right Ankle (cm) 25.9 WC - Nurse 2 - General Ulcer CM Notes Start: 06/23/18 10:44 Freq: Status: Active Protocol: Activity Type Activity Date Activity User E-Sign Co-Sign Detail Recorded Client Recorded Date Recorded By Document 07/14/18 10:25 DV [id number] 07/14/18 10:30 DV 07/14/18 10:25 Wound Center Nurse 2 [Procedure/Treatment] #1- RT PLANTAR -Time 10:26 -Correct Patient Yes -Correct Side, Site, Position Yes -Correct Procedure Yes -Procedure Performed Yes -Type of Procedure Debridement -Clinical Debridement Subcutaneous -Post Debridement Size (cm) - Length 0.7 -Post Debridement Size (cm) - Width 0.9 -Post Debridement Size (cm) - Depth 0.3 -Total Square Cm 0.63 -Wound/Ulcer Outcome Not Healed -Ulcer Cleansing Rinsed/ Irrigated with Saline -Foul Odor after Cleansing No -Bioengineered Tissue Yes -Type of bioengineered Tissue EPICORD -Expiration Date 02/18/23 -Product Lot Number [id number] -Percent Used 50 -Topical Lidocaine (%) 4 -Bleeding Controlled with Pressure -Treatment Response Procedure Tolerated Well [See Physician Procedure note for Specifics] Musculoskeletal: No Tenderness to Palpation of Joints or Extremities, - - Contracted lesser digits Neurological: - - Epicritic sensation grossly absent to lower extremity Psych/Mental Status: Normal Affect, Appropriate Debridement Note Post-Debridement Measurements/Treatment WC - Nurse 2 - General Ulcer CM Notes Start: 06/23/18 10:44 Freq: Status: Active Protocol: Activity Type Activity Date Activity User E-Sign Co-Sign Detail Recorded Client Recorded Date Recorded By Document 06/23/18 11:11 DV [id number] 06/23/18 11:12 DV Document 06/30/18 10:39 DV [id number] 06/30/18 10:41 DV Document 07/07/18 10:44 DV [id number] 07/07/18 10:51 DV Document 07/14/18 10:25 DV [id number] 07/14/18 10:30 DV 06/23/18 06/30/18 07/07/18 11:11 10:39 10:44 Wound Center Nurse 2 #1- RT PLANTAR -Time 11:11 10:40 10:49 -Correct Patient Yes Yes Yes -Correct Side, Site, Position Yes Yes Yes -Correct Procedure Yes Yes Yes -Procedure Performed Yes Yes Yes -Type of Procedure Debridement Debridement Debridement -Clinical Debridement Subcutaneous Subcutaneous Subcutaneous -Post Debridement Size (cm) - Length 1.2 1.3 1.8 -Post Debridement Size (cm) - Width 1.0 1.1 1.1 -Post Debridement Size (cm) - Depth 0.3 0.3 0.3 -Total Square Cm 1.20 1.43 1.98 -Wound/Ulcer Outcome Not Healed Not Healed Not Healed -Ulcer Cleansing Rinsed/ Rinsed/ Rinsed/ Irrigated with Irrigated with Irrigated with Saline Saline Saline -Foul Odor after Cleansing No No No -Bioengineered Tissue No No Yes -Type of bioengineered Tissue EPIFIX -Expiration Date 01/18/23 -Product Lot Number [id number] -Percent Used 100 -Topical Lidocaine (%) 4 -Bleeding Controlled with Pressure Pressure Pressure -Treatment Response Procedure Procedure Procedure Tolerated Well Tolerated Well Tolerated Well Pain Scale: 0-10 Numeric Is Patient Pain Free? Yes Yes Yes 07/14/18 10:25 Wound Center Nurse 2 #1- RT PLANTAR -Time 10:26 -Correct Patient Yes -Correct Side, Site, Position Yes -Correct Procedure Yes -Procedure Performed Yes -Type of Procedure Debridement -Clinical Debridement Subcutaneous -Post Debridement Size (cm) - Length 0.7 -Post Debridement Size (cm) - Width 0.9 -Post Debridement Size (cm) - Depth 0.3 -Total Square Cm 0.63 -Wound/Ulcer Outcome Not Healed -Ulcer Cleansing Rinsed/ Irrigated with Saline -Foul Odor after Cleansing No -Bioengineered Tissue Yes -Type of bioengineered Tissue EPICORD -Expiration Date 02/18/23 -Product Lot Number [id number] -Percent Used 50 -Topical Lidocaine (%) 4 -Bleeding Controlled with Pressure -Treatment Response Procedure Tolerated Well Pain Scale: 0-10 Numeric Is Patient Pain Free? Wound debrided: Right plantar foot Laterality: Right Type of Debridement: Excisional debridement Anesthesia Used: 4% Lidocaine Solution Depth: in the subcutaneous layer Percentage of wound debrided: 100 Instrument Used: #15 blade, - - Tissue nipper Tissue Removed: Adherent slough, fibrin, biofilm, hyperkeratotic tissue Severity: Fat Layer Exposed Amount of bleeding with debridement: Mild Bleeding Controlled with: Pressure Patient tolerated procedure well Assessment/Plan Assessment: Ulcer of right distal forefoot, DM II with neuropathy, lower extremity edema, other comorbidities Plan: Patient was examined and evaluated again today with his by his side. Ulcer remains stable from last week. Another subcutaneous excisional debridement was performed as noted in the clinical panel. Once complete, the ulcer site was carefully cleansed and then epicord was applied per video recorder mechanic's guidelines, followed by wound veil, Steri-Strips, and a dry sterile dressing and Tubigrip's. Patient and his were instructed that they could reinforce the overlying dressings but they are not to disturb the wound veil or anything below this level for the entire week. They are to keep this area clean dry and intact. The importance of offloading the ulcer site was stressed and discussed in great detail again today. The patient is to continue to alter his duties at work as well as keep pressure off of the right foot as much as possible. Patient received and has been wearing his surgical shoe with offloading dual density Plastizote insert with cut outs around the area of the ulcer site to offload the area. Patient also recently purchased a knee scooter walker from [employer], however the patient's says he does not use this as he should. I stressed the importance of sticking to the treatment plan and informed him that his non compliance is a big part of why he is not healing faster. No antibiotics were prescribed today as there were no clinical signs of infection. Culture results were reviewed and discussed with Dr. John of infectious disease. Based on the clinical appearance of the patient currently with no active signs of local infection, we feel antibiotics are not warranted currently. LEAS and venous Doppler studies were reviewed and discussed with the patient. These showed sufficient arterial flow to the lower extremity and the venous doppler showed some incompetence of the greater and lesser saphenous veins. Details from each report are in the patient's chart. I also recommended nutritional supplementation with a high-protein diet in order to optimize ulcer healing potential. The importance of tight glycemic control was stressed to this patient today. The patient and his were educated on all signs and symptoms of local and systemic infection, and they are going to go to the emergency room immediately should they notice any of these. All questions were answered to the patient and the patient's satisfaction. The patient will follow-up in clinic in 1 week, or sooner if needed.
== END 2018-07-20 23:59 ==
LOC: WC 10:15
PROVIDERS: Family Provider Internal Medicine; PCP Internal Medicine; Referring Provider Podiatrist; Visit Provider Podiatrist
DX: E11.621 Type 2 diabetes mellitus with foot ulcer (principal); L97.512 Non-pressure chronic ulcer of other part of right foot with fat layer exposed; E11.42 Type 2 diabetes mellitus with diabetic polyneuropathy; R60.0 Localized edema; E11.51 Type 2 diabetes mellitus with diabetic peripheral angiopathy without gangrene
CPT/HCPCS: 11042; 15275; Q4131

== ENCOUNTER 2018-07-21 11:49 | Outpatient (RCR) | payer MEDICAID, SELFPAY ==
[2018-07-21 01:32] VITALS: BP 189/116; PULSE 83; RESP 18; TEMP 35.7
[2018-07-21 11:57] VITALS: BP 159/84; PULSE 72; RESP 16; TEMP 36.3
--- NOTE | 2018-07-21 14:13 | PCM.WC.PN ---
(1) Ulcer of right foot with fat layer exposed Status: Acute Current Visit: No Code(s): L97.512 - Non-pressure chronic ulcer of other part of right foot with fat layer exposed (2) Type 2 diabetes mellitus with diabetic polyneuropathy Status: Acute Current Visit: No Code(s): E11.42 - Type 2 diabetes mellitus with diabetic polyneuropathy (3) PVD (peripheral vascular disease) Status: Suspected Current Visit: No Code(s): I73.9 - Peripheral vascular disease, unspecified (4) Lower extremity edema Status: Acute Current Visit: No Code(s): R60.0 - Localized edema (5) Delayed wound healing Status: Acute Current Visit: No Code(s): T14.8XXD - Other injury of unspecified body region, subsequent encounter Type of Wound Chief Complaint: Right forefoot ulcer History of Wound: This 57-year-old diabetic male was referred to the wound healing center for an ongoing ulcer of the right plantar forefoot in the area of the right third and fourth metatarsal heads. Patient says that the ulcer started around December, and his gotten slightly worse since then. He denies any sudden or traumatic event that caused the ulcer to start. Patient says he has been keeping Neosporin and a bandage over the area. He says he has not seen anybody before for this ulcer. He wears regular shoes. He denies ever seeing a associate professor of library media for his diabetes and routine foot care. He says he has not been keeping the area offloaded since it started. He denies any purulence to the area, he denies any other heavy drainage, he denies any surrounding redness or warmth. Patient denies any feelings of nausea, vomiting, fever, chills Progress of Wound: Ulcer site improved this week. Patient was able to keep his epicord dressing clean dry and intact. states patient is noncompliant with keeping pressure off at all times. He denies any purulence to the area. He denies any feelings of nausea, vomiting, fever, chills. - Physical Exam Vital Signs Temp Pulse Resp BP 97.3 F L 72 16 159/84 H 07/21/18 11:57 07/21/18 11:57 07/21/18 11:57 07/21/18 11:57 General: Alert, Oriented x3, Cooperative, No apparent distress Extremities: Capillary Refill Less than 3 Seconds, No Calf Tenderness - Negative Heydi and Lomax sign, Diminished Peripheral Pulses - DP and PT pulses faintly palpable bilateral, Edema - Bilateral lower extremity edema Skin: Ulcer/ Wound - Ulcer to right plantar forefoot sub-third/fourth metatarsal heads with fat layer exposed. Slight improvement appreciated again this week. Measurements noted below. Base continues to be a mixture of adherent slough, fibrin, granular tissue, biofilm, as well as some surrounding hyperkeratotic tissue. There continues to be no probing to bone, no tracking, no undermining, no purulence, no malodor, no surrounding or ascending cellulitis, and no significant increase in warmth to the ulcer site at this time. Wound Measurements and Assessment WC - Nurse 1 - General Ulcer Measurement Start: 07/21/18 11:55 Freq: Status: Active Protocol: Activity Type Activity Date Activity User E-Sign Co-Sign Detail Recorded Client Recorded Date Recorded By Document 07/21/18 11:57 [facility] [id number] 07/21/18 12:06 [facility] 07/21/18 11:57 Wound Center Nurse 1 [Ulcer Assessment] #1- RT PLANTAR -Combined with other wound No -Current Size (cm) - Length 0.1 -Current Size (cm) - Width 0.1 -Current Size (cm) - Depth 0.1 -Total Square Cm 0.01 -Photo Taken No -Epithelialization None Present -Tunneling No -Undermining/Tunneling No -Circular Undermining No -Exudate Amt None Present (0 %) -Wound Margin Distinct, Outline Attached -Granulation Amt None Present (0 %) -Slough/Fibrin Yes -Necrosis Amt Large (67-100%) -Necrotic Tissue Type Eschar -Structure Exposed N/A -Texture (Tessie-wound Skin Appearance) Callus -Moisture (Tessie-wound Skin Appearance Dry/Scaly ) -Color (Tessie-wound Skin Appearance) Assessed -Temperature (Tessie-wound Skin No Abnormality Appearance) (Pt Warm) -Tenderness on Palpation (Tessie-wound No Skin Appearance) -Ulcer Cleansing Rinsed/ Irrigated with Saline -Foul Odor after Cleansing No -Anesthetic Used 4% Lidocaine Solution [Edema Assessment] -Lower Limb Edema Present Yes -Right Calf (cm) 48 -Right Ankle (cm) 28 WC - Nurse 2 - General Ulcer CM Notes Start: 07/21/18 11:55 Freq: Status: Active Protocol: Activity Type Activity Date Activity User E-Sign Co-Sign Detail Recorded Client Recorded Date Recorded By Document 07/21/18 12:21 DV [id number] 07/21/18 12:29 DV 07/21/18 12:21 Wound Center Nurse 2 [Procedure/Treatment] #1- RT PLANTAR -Time 12:22 -Correct Patient Yes -Correct Side, Site, Position Yes -Correct Procedure Yes -Procedure Performed Yes -Type of Procedure Debridement -Clinical Debridement Subcutaneous -Post Debridement Size (cm) - Length 0.5 -Post Debridement Size (cm) - Width 0.6 -Post Debridement Size (cm) - Depth 0.3 -Total Square Cm 0.30 -Wound/Ulcer Outcome Not Healed -Ulcer Cleansing Rinsed/ Irrigated with Saline -Foul Odor after Cleansing No -Bioengineered Tissue Yes -Type of bioengineered Tissue EPICORD -Expiration Date 02/18/23 -Product Lot Number [id number] -Percent Used 50 -Saline Lot Number [id number] -Topical Lidocaine (%) 4 -Bleeding Controlled with Pressure -Treatment Response Procedure Tolerated Well [See Physician Procedure note for Specifics] Pain Scale: 0-10 Numeric [Pain] -Is Patient Pain Free? Yes Musculoskeletal: No Tenderness to Palpation of Joints or Extremities, - - Contracted lesser digits Neurological: - - Epicritic sensation grossly absent to lower extremity Psych/Mental Status: Normal Affect, Appropriate Debridement Note Post-Debridement Measurements/Treatment WC - Nurse 2 - General Ulcer CM Notes Start: 07/21/18 11:55 Freq: Status: Active Protocol: Activity Type Activity Date Activity User E-Sign Co-Sign Detail Recorded Client Recorded Date Recorded By Document 07/21/18 12:21 DV [id number] 07/21/18 12:29 DV 07/21/18 12:21 Wound Center Nurse 2 #1- RT PLANTAR -Time 12:22 -Correct Patient Yes -Correct Side, Site, Position Yes -Correct Procedure Yes -Procedure Performed Yes -Type of Procedure Debridement -Clinical Debridement Subcutaneous -Post Debridement Size (cm) - Length 0.5 -Post Debridement Size (cm) - Width 0.6 -Post Debridement Size (cm) - Depth 0.3 -Total Square Cm 0.30 -Wound/Ulcer Outcome Not Healed -Ulcer Cleansing Rinsed/ Irrigated with Saline -Foul Odor after Cleansing No -Bioengineered Tissue Yes -Type of bioengineered Tissue EPICORD -Expiration Date 02/18/23 -Product Lot Number [id number] -Percent Used 50 -Saline Lot Number [id number] -Topical Lidocaine (%) 4 -Bleeding Controlled with Pressure -Treatment Response Procedure Tolerated Well Pain Scale: 0-10 Numeric Is Patient Pain Free? Yes Wound debrided: Right plantar foot Laterality: Right Type of Debridement: Excisional debridement Anesthesia Used: 4% Lidocaine Solution Depth: in the subcutaneous layer Percentage of wound debrided: 100 Instrument Used: #15 blade Tissue Removed: Adherent slough, fibrin, hyperkeratotic tissue Severity: Fat Layer Exposed Amount of bleeding with debridement: Mild Bleeding Controlled with: Pressure Patient tolerated procedure well Assessment/Plan Assessment: Ulcer of right distal forefoot, DM II with neuropathy, lower extremity edema, other comorbidities Plan: Patient was examined and evaluated again today with his by his side. Ulcer remains stable from last week. Another subcutaneous excisional debridement was performed as noted in the clinical panel. Once complete, the ulcer site was carefully cleansed and then epicord was applied per dog beautician's guidelines, followed by wound veil, Steri-Strips, and a dry sterile dressing and Tubigrip's. Patient and his were instructed that they could reinforce the overlying dressings but they are not to disturb the wound veil or anything below this level for the entire week. They are to keep this area clean dry and intact. The importance of offloading the ulcer site was stressed and discussed in great detail again today. The patient is to continue to alter his duties at work as well as keep pressure off of the right foot. Patient received and has been wearing his surgical shoe with offloading dual density Plastizote insert with cut outs around the area of the ulcer site to offload the area. Patient also recently purchased a knee scooter walker from [employer] and he is to use this as much as possible. I stressed the importance of sticking to the treatment plan and informed him that his non compliance is a big part of why he is not healing faster. No antibiotics were prescribed today as there were no clinical signs of infection. Culture results were reviewed and discussed with Dr. John of infectious disease. Based on the clinical appearance of the patient currently with no active signs of local infection, we feel antibiotics are not warranted currently. LEAS and venous Doppler studies were reviewed and discussed with the patient. These showed sufficient arterial flow to the lower extremity and the venous doppler showed some incompetence of the greater and lesser saphenous veins. Details from each report are in the patient's chart. I also recommended nutritional supplementation with a high-protein diet in order to optimize ulcer healing potential. The importance of tight glycemic control was stressed to this patient today. The patient and his were educated on all signs and symptoms of local and systemic infection, and they are going to go to the emergency room immediately should they notice any of these. All questions were answered to the patient and the patient's satisfaction. The patient will follow-up in clinic in 1 week, or sooner if needed.
--- NOTE | 2018-07-21 14:18 | PN.PCM_ITS ---
(1) Ulcer of right foot with fat layer exposed Status: Acute Current Visit: No Code(s): L97.512 - Non-pressure chronic ulcer of other part of right foot with fat layer exposed (2) Type 2 diabetes mellitus with diabetic polyneuropathy Status: Acute Current Visit: No Code(s): E11.42 - Type 2 diabetes mellitus with diabetic polyneuropathy (3) PVD (peripheral vascular disease) Status: Suspected Current Visit: No Code(s): I73.9 - Peripheral vascular disease, unspecified (4) Lower extremity edema Status: Acute Current Visit: No Code(s): R60.0 - Localized edema (5) Delayed wound healing Status: Acute Current Visit: No Code(s): T14.8XXD - Other injury of unspecified body region, subsequent encounter Type of Wound Chief Complaint: Right forefoot ulcer History of Wound: This 57-year-old diabetic male was referred to the wound healing center for an ongoing ulcer of the right plantar forefoot in the area of the right third and fourth metatarsal heads. Patient says that the ulcer started around December, and his gotten slightly worse since then. He denies any sudden or traumatic event that caused the ulcer to start. Patient says he has been keeping Neosporin and a bandage over the area. He says he has not seen anybody before for this ulcer. He wears regular shoes. He denies ever seeing a pyroglazer for his diabetes and routine foot care. He says he has not been keeping the area offloaded since it started. He denies any purulence to the area, he denies any other heavy drainage, he denies any surrounding redness or warmth. Patient denies any feelings of nausea, vomiting, fever, chills Progress of Wound: Ulcer site improved this week. Patient was able to keep his epicord dressing clean dry and intact. states patient is noncompliant with keeping pressure off at all times. He denies any purulence to the area. He denies any feelings of nausea, vomiting, fever, chills. - Physical Exam Vital Signs Temp Pulse Resp BP 97.3 F L 72 16 159/84 H 07/21/18 11:57 07/21/18 11:57 07/21/18 11:57 07/21/18 11:57 General: Alert, Oriented x3, Cooperative, No apparent distress Extremities: Capillary Refill Less than 3 Seconds, No Calf Tenderness - Negative Heydi and Lomax sign, Diminished Peripheral Pulses - DP and PT pulses faintly palpable bilateral, Edema - Bilateral lower extremity edema Skin: Ulcer/ Wound - Ulcer to right plantar forefoot sub-third/fourth metatarsal heads with fat layer exposed. Slight improvement appreciated again this week. Measurements noted below. Base continues to be a mixture of adherent slough, fibrin, granular tissue, biofilm, as well as some surrounding hyperkeratotic tissue. There continues to be no probing to bone, no tracking, no undermining, no purulence, no malodor, no surrounding or ascending cellulitis, and no significant increase in warmth to the ulcer site at this time. Wound Measurements and Assessment WC - Nurse 1 - General Ulcer Measurement Start: 07/21/18 11:55 Freq: Status: Active Protocol: Activity Type Activity Date Activity User E-Sign Co-Sign Detail Recorded Client Recorded Date Recorded By Document 07/21/18 11:57 [facility] [id number] 07/21/18 12:06 [facility] 07/21/18 11:57 Wound Center Nurse 1 [Ulcer Assessment] #1- RT PLANTAR -Combined with other wound No -Current Size (cm) - Length 0.1 -Current Size (cm) - Width 0.1 -Current Size (cm) - Depth 0.1 -Total Square Cm 0.01 -Photo Taken No -Epithelialization None Present -Tunneling No -Undermining/Tunneling No -Circular Undermining No -Exudate Amt None Present (0 %) -Wound Margin Distinct, Outline Attached -Granulation Amt None Present (0 %) -Slough/Fibrin Yes -Necrosis Amt Large (67-100%) -Necrotic Tissue Type Eschar -Structure Exposed N/A -Texture (Tessie-wound Skin Appearance) Callus -Moisture (Tessie-wound Skin Appearance Dry/Scaly ) -Color (Tessie-wound Skin Appearance) Assessed -Temperature (Tessie-wound Skin No Abnormality Appearance) (Pt Warm) -Tenderness on Palpation (Tessie-wound No Skin Appearance) -Ulcer Cleansing Rinsed/ Irrigated with Saline -Foul Odor after Cleansing No -Anesthetic Used 4% Lidocaine Solution [Edema Assessment] -Lower Limb Edema Present Yes -Right Calf (cm) 48 -Right Ankle (cm) 28 WC - Nurse 2 - General Ulcer CM Notes Start: 07/21/18 11:55 Freq: Status: Active Protocol: Activity Type Activity Date Activity User E-Sign Co-Sign Detail Recorded Client Recorded Date Recorded By Document 07/21/18 12:21 DV [id number] 07/21/18 12:29 DV 07/21/18 12:21 Wound Center Nurse 2 [Procedure/Treatment] #1- RT PLANTAR -Time 12:22 -Correct Patient Yes -Correct Side, Site, Position Yes -Correct Procedure Yes -Procedure Performed Yes -Type of Procedure Debridement -Clinical Debridement Subcutaneous -Post Debridement Size (cm) - Length 0.5 -Post Debridement Size (cm) - Width 0.6 -Post Debridement Size (cm) - Depth 0.3 -Total Square Cm 0.30 -Wound/Ulcer Outcome Not Healed -Ulcer Cleansing Rinsed/ Irrigated with Saline -Foul Odor after Cleansing No -Bioengineered Tissue Yes -Type of bioengineered Tissue EPICORD -Expiration Date 02/18/23 -Product Lot Number [id number] -Percent Used 50 -Saline Lot Number [id number] -Topical Lidocaine (%) 4 -Bleeding Controlled with Pressure -Treatment Response Procedure Tolerated Well [See Physician Procedure note for Specifics] Pain Scale: 0-10 Numeric [Pain] -Is Patient Pain Free? Yes Musculoskeletal: No Tenderness to Palpation of Joints or Extremities, - - Contracted lesser digits Neurological: - - Epicritic sensation grossly absent to lower extremity Psych/Mental Status: Normal Affect, Appropriate Debridement Note Post-Debridement Measurements/Treatment WC - Nurse 2 - General Ulcer CM Notes Start: 07/21/18 11:55 Freq: Status: Active Protocol: Activity Type Activity Date Activity User E-Sign Co-Sign Detail Recorded Client Recorded Date Recorded By Document 07/21/18 12:21 DV [id number] 07/21/18 12:29 DV 07/21/18 12:21 Wound Center Nurse 2 #1- RT PLANTAR -Time 12:22 -Correct Patient Yes -Correct Side, Site, Position Yes -Correct Procedure Yes -Procedure Performed Yes -Type of Procedure Debridement -Clinical Debridement Subcutaneous -Post Debridement Size (cm) - Length 0.5 -Post Debridement Size (cm) - Width 0.6 -Post Debridement Size (cm) - Depth 0.3 -Total Square Cm 0.30 -Wound/Ulcer Outcome Not Healed -Ulcer Cleansing Rinsed/ Irrigated with Saline -Foul Odor after Cleansing No -Bioengineered Tissue Yes -Type of bioengineered Tissue EPICORD -Expiration Date 02/18/23 -Product Lot Number [id number] -Percent Used 50 -Saline Lot Number [id number] -Topical Lidocaine (%) 4 -Bleeding Controlled with Pressure -Treatment Response Procedure Tolerated Well Pain Scale: 0-10 Numeric Is Patient Pain Free? Yes Wound debrided: Right plantar foot Laterality: Right Type of Debridement: Excisional debridement Anesthesia Used: 4% Lidocaine Solution Depth: in the subcutaneous layer Percentage of wound debrided: 100 Instrument Used: #15 blade Tissue Removed: Adherent slough, fibrin, hyperkeratotic tissue Severity: Fat Layer Exposed Amount of bleeding with debridement: Mild Bleeding Controlled with: Pressure Patient tolerated procedure well Assessment/Plan Assessment: Ulcer of right distal forefoot, DM II with neuropathy, lower extremity edema, other comorbidities Plan: Patient was examined and evaluated again today with his by his side. Ulcer remains stable from last week. Another subcutaneous excisional debridement was performed as noted in the clinical panel. Once complete, the ulcer site was carefully cleansed and then epicord was applied per fiber optic central office installer's guidelines, followed by wound veil, Steri-Strips, and a dry steri le dressing and Tubigrip's. Patient and his were instructed that they could reinforce the overlying dressings but they are not to disturb the wound veil or anything below this level for the entire week. They are to keep this area clean dry and intact. The importance of offloading the ulcer site was stressed and discussed in great detail again today. The patient is to continue to alter his duties at work as well as keep pressure off of the right foot. Patient received and has been wearing his surgical shoe with offloading dual density Plastizote insert with cut outs around the area of the ulcer site to offload the area. Patient also recently purchased a knee scooter walker from [employer] and he is to use this as much as possible. I stressed the importance of sticking to the treatment plan and informed him that his non compliance is a big part of why he is not healing faster. No antibiotics were prescribed today as there were no clinical signs of infection. Culture results were reviewed and discussed with Dr. John of infectious disease. Based on the clinical appearance of the patient currently with no active signs of local infection, we feel antibiotics are not warranted currently. LEAS and venous Doppler studies were reviewed and discussed with the patient. These showed sufficient arterial flow to the lower extremity and the venous doppler showed some incompetence of the greater and lesser saphenous veins. Details from each report are in the patient's chart. I also recommended nutritional supplementation with a high- protein diet in order to optimize ulcer healing potential. The importance of tight glycemic control was stressed to this patient today. The patient and his were educated on all signs and symptoms of local and systemic infection, and they are going to go to the emergency room immediately should they notice any of these. All questions were answered to the patient and the patient's satisfaction. The patient will follow-up in clinic in 1 week, or sooner if needed.
== END 2018-08-19 23:59 ==
LOC: WC 11:49
PROVIDERS: Family Provider Internal Medicine; PCP Internal Medicine; Referring Provider Podiatrist; Visit Provider Podiatrist
DX: E11.621 Type 2 diabetes mellitus with foot ulcer (principal); R60.0 Localized edema; L97.512 Non-pressure chronic ulcer of other part of right foot with fat layer exposed; E11.42 Type 2 diabetes mellitus with diabetic polyneuropathy; E11.51 Type 2 diabetes mellitus with diabetic peripheral angiopathy without gangrene; Z91.19 Patient's noncompliance with other medical treatment and regimen
CPT/HCPCS: 15275; Q4131

== ENCOUNTER → 2018-08-15 11:56 | Outpatient (CLI) | payer MEDICAID, SELFPAY ==
[2018-07-15 10:10] VITALS: BMI 40.5
[2018-08-15 13:21] LABS: Anion Gap 12 (5-15); BUN 14 mg/dL (7-18); BUN/Creat Ratio 13.3 RATIO (10-20); Calcium,Total 9.1 mg/dL (8.5-10.1); Chloride 104 mmol/L (98-107); Creatinine, Serum 1.05 mg/dL (0.70-1.30); EST Glomerular Filtration Rate 77 mL/min (>60); Est Glom Filt Rate - Afr Amer 93 mL/min (>60); Glucose 207 mg/dL (74-106); Potassium 3.9 mmol/L (3.5-5.1); Sodium Level 142 mmol/L (136-145)
== END ==
PROVIDERS: Family Provider Internal Medicine; PCP Internal Medicine; Referring Provider Nurse Practitioner Family; Visit Provider Nurse Practitioner Family
DX: I10 Essential (primary) hypertension (principal)
CPT/HCPCS: 36415; 80048

== ENCOUNTER 2018-08-30 09:09 | Day surgery (SDC) | payer MEDICAID, SELFPAY ==
[2018-08-16 09:57] VITALS: BMI 40.9
--- NOTE | 2018-08-30 | COLBX_PTH ---
PATIENT: ASH PARMAR LOC: EN U#:[id number] AGE/SX: 58/M ROOM: RE08/30/[address]: Dr. Juanpablo Canela MD : 1960 BED: DIS: 08/30/2018 SPEC #: [id number] RECD: 08/30/18 14:18 STATUS: SEAN JAYCE #: [id number] TY: 08/30/18 00:[address]: Juanpablo Canela DEPT: SURGICAL PATHOLOGY RECD BY: Christoph Xie ENTERED: 08/30/18 14:18 SP TYPE: COLON BX OTHR DR: Dr. Star Aguilar MD Tissues: Ascending colon Procedures: Surgery Specimen Level IV HEADER OPERATION: Colonoscopy PRE-OP DIAGNOSIS: Screening TISSUE SUBMITTED: Ascending colon polyp biopsy MICROSCOPIC DIAGNOSIS Ascending colon polyp, biopsy: Tubular adenoma. SJ:erin 08/31/18 MICROSCOPIC DESCRIPTION Slides are reviewed. GROSS DESCRIPTION Received in fixative is one container labeled with the patient's name and designated ascending colon polyp biopsy. The specimen consists of one irregular fragment of light michael soft tissue that measures 0.4 x 0.3 x 0.1 cm. The specimen is totally submitted in one cassette. / SJ:erin 08/30/18 TC:1 CPT: 28111
[2018-08-30 09:32] VITALS: BP 116/90; PULSE 78; RESP 18; TEMP 36.6; O2SAT 93; BMI 40.8
[2018-08-30 09:53] LABS: Bedside Glucose 243 mg/dL (70-110)
--- NOTE | 2018-08-30 10:10 | H&P.OPEN ---
History of Present Illness Date of Admission: 08/30/18 The patient is a 58 year old M here for screening colonoscopy. He has never had a colonoscopy in the past. He is on no blood thinners. He denies any family history of colon cancer. He denies any abdominal pain or blood in his stool. Past Medical/Surgical History - Planned Operation Planned Operative Procedure/s: CSCOPE OPEN ACCESS Date of Operative Procedure: 08/30/18 Permit Signed: No S.O.S: No Is This Patient Having a Total Joint: No - Previous Hospitalizations/Surgeries HX Hospitalizations: Yes - YRS AGO HX of Surgeries: TONSILLECTOMY, RT FLANK SURGERY, Any Problems With Anesthesia: No You/Your Family Experience Fever (Hyperthermia) With Anes: No Cholinesterase deficiency: No - Cardiovascular Hx Chest Pain within Last 2 months: No Hx of Irregular Heartbeat and/or Afib: No Hx Heart Attack: No Hx Congestive Heart Failure: No Hx Rheumatic Fever: No Hx Hypertension: Yes - CONTROLLED WITH MED Hx Internal Defibrillator: No Hx Pacemaker: No Hx Cardiac Catheterization: No Hx Cardiac Surgery/Stents/Etc.: No Hx Stress Test: Yes - OVER 5 YRS AGO HX Edema: Yes - LEFT LEG Hx Pain in Legs when Walking/Leg Cramps: No - Respiratory Chronic Cough: No HX of Shortness of Breath: Yes - SOB WITH 2 FLIGHTS OF STAIRS Hoarseness: No Hx Chronic Obstructive Pulmonary Disease (COPD): No Hx Asthma: No Hx Emphysema: No Hx Sleep Apnea: No - HAVING SLEEP STUDY IN 1 WEEK Hx Oxygen Use at Home: No Hx Respiratory Tract Infection/Cold (presently): Yes - COLD 2 WEEKS AGO/RESOLVED Do You Snore Loudly (louder than talking or can be heard): Yes Do You Often Feel Tired/ Fatigued/ Sleepy Dring Daytime?: Yes Has Anyone Observed You Stop Breathing During Sleep?: Yes Result (for STOP score): Positive Hx Smoking: No Smoking Status: Never smoker - Gastrointestinal Hx Gastroesophageal Reflux: No Hx Gastrointestinal Disorders: No Hx Gastrointestinal Bleed: No Hx Ulcer: No Hx Hiatal Hernia: No Difficulty Chewing/Swallowing: No Recent Onset of Swallowing Problems: No Special diet followed at home: Yes - DIABETIC Hx Unplanned Weight Loss of 20#: No HX Unplanned Weight Gain of 20#: No - Neurological Hx Seizures: No HX Syncope/Blackout Spells/Unconsciousness: No Hx CVA/Stroke: No Hx Transient Ischemic Attacks (TIA): No Hx Multiple Sclerosis: No Hx Parkinson's Disease: No Hx Head/Neck Injury: No Hx Headaches: No Hx Back Injury/Pain: No Recent Onset of Speech Difficulty: No Restless Legs: No Does patient have nerve stimulator: No Patient instructed to have device shut off: No Rep notified?: No - Blood Disorder Hx Leukemia: No Bleeding Tendencies: No Hx Deep Vein Thrombosis: No Hx High Cholesterol: No Blood Transmitted Disease: No Hx Hepatitis: No Hx Cirrhosis: No Hx Anemia: No Hx Blood Disorders: No - Genitourinary Hx Renal Disease: No - Musculoskeletal Hx Arthritis: No Hx Rheumatoid Arthritis: No Hx Gout: No Recent Onset of an Orthopedic Problem: No - Endocrine Hx Diabetes: Yes - ORAL Insulin: No Thyroid Disease: No Hx Steroid Therapy: No - Psycho/Social Hx Substance Use: No Hx Alcohol Use: No Hx Anxiety: No Hx Depression: No Mental Illness: No Hx Dementia: No - Miscellaneous Hx Cancer: No Recent Exposure to Contagious Disease: No Active MRSA: No Hx of C-Diff: No Any Loose Teeth: No Allergies No Known Allergies Allergy (Verified 08/30/18 09:31) - Discharge Is Pt Admitted From a Retirement, or a Assisted: No Who Could Help: After D/C, Where Do you Plan to Go: Return Home - Physical Exam General: Alert, Oriented x3 Lungs: Normal air movement Cardiovascular: Regular rate, Regular Rhythm Abdomen: Soft, Non Tender, Non-Distended Vital Signs Temp Pulse Resp BP Pulse Ox 98 F 78 18 116/90 H 93 08/30/18 09:32 08/30/18 09:32 08/30/18 09:32 08/30/18 09:32 08/30/18 09:32 Oxygen Delivery Method Room Air Weight: 301 lb 2.423 oz Body Mass Index (BMI) 40.8 POC Glucose 08/30/18 09:46 POC Glucose 243 H Assessment/Plan All Active Problems (Last Reviewed 08/16/18 @ 10:02 by Purvi Lr) Ulcer of right foot with fat layer exposed (Acute) Type 2 diabetes mellitus with diabetic polyneuropathy (Acute) Lower extremity edema (Acute) Delayed wound healing (Acute) 58-year-old male for screening colonoscopy 1. I explained endoscopy in detail to the patient. I explained the risks including but not limited to stroke or heart attack with anesthesia, perforation of the GI tract, bleeding, infection. I explained that any of these could necessitate further emergency surgery. The patient understands and all questions were answered sufficiently. The patient wishes to proceed with procedure. Juanpablo Canlea MD Pager: [facility] [address] [place] [address] [address] [place] [address] Office: Surgery Risks - Colonoscopy Risks Include but are not Limited To: Risks include but are not limited to: Bleeding, perforation requiring further surgery, inability to complete colonoscopy requiring barium enema.
[2018-08-30 10:45] VITALS: BP 116/90; BP 143/73; PULSE 79; RESP 16; TEMP 36.5; O2SAT 94
--- NOTE | 2018-08-30 10:47 | OP.ENDO_ITS ---
08/30/2018 Star Aguilar MD [address] [place] [address] [place] [address] Re : Colonoscopy procedure for Ismael Regalado Dear Dr. Aguilar This procedure was performed on Thursday, August 30, 2018. My impressions and recommendations are as follows: Impressions : - One polyp in the ascending colon. Biopsied. - The examination was otherwise normal on direct and retroflexion views. Recommendations : - Discharge patient to home. - Resume previous diet. - Continue present medications. - Physician's office will call you with pathology results and recommendations for when to repeat colonoscopy. - Repeat colonoscopy date to be determined after pending pathology results are reviewed for screening purposes. My findings are described in the full procedure note, which is enclosed. If I can be of further assistance, please feel free to contact me at Doctor phone number(s): , Work: . Sincerely, Juanpablo Canela MD 08/30/2018 10:47:10 AM This report has been signed electronically.
[2018-08-30 10:50] VITALS: BP 116/90; BP 142/76; PULSE 73; RESP 18; O2SAT 95
[2018-08-30 10:55] VITALS: BP 116/90; BP 153/86; PULSE 73; RESP 18; O2SAT 95
[2018-08-30 11:02] VITALS: BP 116/90; BP 163/92; PULSE 75; RESP 16; TEMP 36.4; O2SAT 95
[2018-08-30 11:19] VITALS: BP 116/90
--- OUTSIDE RECORDS SUMMARY | 2018-10-16 07:40 | XMS RPT_ITS ---
:1960 Author Organization OHIP Support Name Relationship Address Phone MIDWESTHEA Unavailable [address] + [place] [address] WHITE, ARNJEET Unavailable [address] + [place] [address] MIDWESTHEA Unavailable [address] + [place] [address] WHITE, RANJEET Unavailable [address] + [place] [address] MIDWESTHEA Unavailable [address] + [place] [address] WHITE, RANJEET Unavailable [address] + [place] [address] MIDWESTHEA Unavailable [address] + [place] [address] WHITE, RANJEET Unavailable [address] + [place] [address] MIDWESTHEA Unavailable [address] + [place] [address] WHITE, RANJEET Unavailable [address] + [place] [address] MIDWESTHEA Unavailable [address] + [place] [address] WHITE, RANJEET Unavailable [address] + [place] [address] MIDWESTHEA Unavailable [address] + [place] [address] WHITE, RANJEET Unavailable [address] + [place] [address] MIDWESTHEA Unavailable [address] + [place] [address] WHITE, RANJEET Unavailable [address] + [place] [address] MIDWESTHEA Unavailable [address] + [place] [address] WHITE, RANJEET Unavailable [address] + [place] [address] MIDWESTHEA Unavailable [address] + [place] [address] WHITE, RANJEET Unavailable [address] + [place] [address] MIDWESTHEA Unavailable [address] + [place] [address] WHITE, RANJEET Unavailable [address] + [place] [address] MIDWESTHEA Unavailable [address] + [place] [address] WHITE, RANJEET Unavailable [address] + [place] [address] MIDWESTHEA Unavailable [address] + [place] [address] WHITE, RANJEET Unavailable [address] + [place] [address] MIDWESTHEA Unavailable [address] + [place] [address] WHITE, RANJEET Unavailable [address] + [place] [address] MIDWESTHEA Unavailable [address] + [place] [address] WHITE, RANJEET Unavailable [address] + [place] [address] MIDWESTHEA Unavailable [address] + [place] [address] MIDWESTHEA Unavailable [address] + [place] [address] Care Team Providers Name Role Phone Juanpablo Canela Attending Unavailable Juanpablo Canela Referring Unavailable Oleghe, Efewongbe Primary Care Unavailable Juanpablo Canela Consulting Unavailable Cheyanne Zamora Attending Unavailable Oleghe, Efewongbe Referring Unavailable Oleghe, Efewongbe Attending Unavailable Oleghe, Efewongbe Referring Unavailable Oleghe, Efewongbe Attending Unavailable Oleghe, Efewongbe Referring Unavailable Oleghe, Efewongbe Primary Care Unavailable Oleghe, Efewongbe Attending Unavailable Oleghe, Efewongbe Referring Unavailable Oleghe, Efewongbe Primary Care Unavailable Ash Almendarez Attending Unavailable Oleghe, Efewongbe Primary Care Unavailable Erickson, Ash Referring Unavailable Purvi Lr Attending Unavailable Ash Almendarez Attending Unavailable Erickson, Ash Referring Unavailable Oleghe, Efewongbe Primary Care Unavailable Oleghe, Efewongbe Primary Care Unavailable Simon Smith Attending Unavailable Deni Andujar RIP SAW[facility]ER-C Attending Unavailable Oleghe, Efewongbe Referring Unavailable Ash Almendarez Attending Unavailable Erickson, Ash Referring Unavailable Oleghe, Efewongbe Primary Care Unavailable Oleghe, Efewongbe Attending Unavailable Oleghe, Efewongbe Primary Care Unavailable Deni Andujar RIP [facility]ER-C Attending Unavailable AndujarDeni RIP SAWYER-C Referring Unavailable Oleghe, Efewongbe Primary Care Unavailable Deni Andujar RIP [facility]ER-C Attending Unavailable Oleghe, Efewongbe Referring Unavailable Nurse, Surgery Attending Unavailable Oleghe, Efewongbe Referring Unavailable Ash Almendarez Attending Unavailable Erickson, Ash Referring Unavailable Oleghe, Efewongbe Primary Care Unavailable Juanpablo Canela Attending Unavailable Juanpablo Canela Referring Unavailable Oleghe, Efewongbe Primary Care Unavailable PROBLEMS PROBLEMS DATE TYPE CONDITION / CODE ATTENDING STATUS SOURCE 09/22/2018 Unknown G47.39 - Other Zamora, Active [place] sleep apnea / [facility] G47.39(ICD-10) Hospital Repository 08/16/2018 Unknown E11.9 - Type 2 Andujar, Deni Active [place] diabetes mellitus [facility] complications / Repository E11.9(ICD-10) 08/16/2018 Unknown Z23 - Encounter for Con Deni Active [place] immunization / [facility] Z23(ICD-10) Hospital Repository 08/16/2018 Unknown Z12.5 - Encounter Deni Andujar Active [place] for screening for RIP [facility] malignant neoplasm [facility] / Repository Z12.5(ICD-10) 08/16/2018 Unknown Z12.11 - Encounter Deni Andujar Active [place] for screening for RIP [facility] malignant neoplasm Hospital of colon / Repository Z12.11(ICD-10) 05/27/2018 Unknown E11.621 - Type 2 Jeff, Active [place] diabetes mellitus [facility] with foot ulcer / Hospital E11.621(ICD-10) Repository 05/27/2018 Unknown L97.509 - Oleghe, Active [place] Non-pressure [facility] chronic ulcer of Hospital other part of Repository unspecified foot with unspecified severity / L97.509(ICD-10) PROCEDURES PROCEDURES No Procedure Records FoundRESULTS RESULTS PULMONARY VISIT REPORT Observed: 09/23/2018 Status: F Source: [place] 9:38 AM [facility] [place] REPOSITORY [facility] [place] [address] [place] [address] OFFICE VISIT Date of Service: 09/22/18 MR#: [id number] Acct: [id number] Name: GHULAMASH Heriberto Rep #: [id number] : 1960 Provider: Cheyanne Zamora Age/Sex: 58/M [place] [facility] [place] Status: Signed Assessment AND Plan 1. Mixed sleep apnea G47.39 Plan New. Reviewed results of the titration study. Recommend that the patient be seen by neurology to manage his mixed sleep apnea. Ordering a titration study as recommended to be completed with several ventilation in the meantime. The patient can contact the office with any new or worsening symptoms in the meantime, after following up with neurology for referral he no longer has to follow-up with pulmonary and less he chooses to do so. Orders Orders: Referrals: 2. Type 2 diabetes mellitus with complication, unspecified whether group home insulin use E11.8 Plan Complicates exam, plan, care and prognosis. 3. BMI 40.0-44.9, adult Z68.41 Plan Encourage weight loss. HPI Sleep concern: Chief Complaint: Daytime hypersomnia HPI Comments Details: This patient presents the office today for initial consultation regarding concern for sleep apnea. He is ambulatory, currently in room air and accompanied today by his . He does experience daytime hypersomnia, does not feel rested upon arising in the morning. He currently snores, has not had any witnessed episodes of apneas. He reports dry mouth in the morning. He has 2-3 episodes of nocturia nightly. He falls asleep very easily when sitting still. He falls asleep while watching TV and takes multiple cat naps daily. 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 He has never been a smoker. He has never been tested for COPD/asthma. Never completed pulmonary function testing. He has never been treated with inhalers. He does experience shortness of breath on exertion only. He denies shortness of breath with rest or conversation. He denies any cough, sputum production or hemoptysis. He denies any wheezing, chest tightness, chest pain or palpitations. He does have occasional lower extremity edema. Denies any fever, chills or body aches. Titration study completed on September 06, 2018. The patient was tried on a series of bilevel pressures, unfortunately they were unable to completely treat his apneas throughout the study. It was noted that greater than 50% of his apneas are of central etiology. He also has a PLMS index of 2.7 events per hour. PVCs were also noted. It was recommended that the titration study be completed with the utilization of servo ventilation. Intake Vital Signs09/22/18 Height 6 ft 09/22/18 Weight: 301 lb Intake Visit Reasons: Sleep problems Accompanied by: Allergies No Known Allergies Allergy (Verified 09/22/18 08:06) Medications doxazosin 8 mg tablet 8 mg PO DAILY #90 tab 07/15/18 [Rx Confirmed 09/22/18] glipizide 2.5 mg-metformin 500 mg tablet 2 tab PO BID #360 tab 07/15/18 [Rx Confirmed 09/22/18] hydrochlorothiazide 25 mg tablet 25 mg PO DAILY #90 tab 07/15/18 [Rx Confirmed 09/22/18] lisinopril 40 mg tablet 40 mg PO BID #180 tab 07/15/18 [Rx Confirmed 09/22/18] exenatide ER 2 mg/0.85 mL subcutaneous auto-injector 2 mg SC Q7D #3.4 ml 08/16/18 [Rx Confirmed 09/22/18] Amlodipine Besylate [Norvasc] 10 mg PO QHS 08/29/18 [History Confirmed 09/22/18] [facility] Medical History Neuropathy (Chronic) Diabetes (Chronic) Hypertension (Chronic) Surgical History History of tonsillectomy (Acute) history of right flank surgery (Acute) Family History Father Diabetes Myocardial infarction Brother Diabetes Social History Smoking Status: Never smoker alcohol intake: never substance use type: does not use what type of physical activity do you participate in: none Review of Systems Const CONSTITUTIONAL: Positive daytime sleepiness and fatigue; negative anorexia, body ache, chills, fever(s), night sweats, oral thrush, stops breathing during sleep, weight loss, sleeping in chair, weight loss, weight gain, frequent colds, seasonal allergies, other, headache(s) or orthopnea EETM Ear Nose Throat Mouth: Positive hearing normal and dry mouth in morning; negative hard of hearing, hoarseness, change in vision, itchy eyes, eye pain, swallowing Difficulty, ear pain, nose bleed, headache(s), mouth pain, nasal congestion, nasal discharge, post nasal drip, sinus pain, sinus pressure, sore throat or other Cardio Cardiovascular: Negative chest pain, chest pain at rest, chest pain with activity, irregular heart rhythm, edema, shortness of breath when lying down, palpitations, murmur or other Resp Respiratory: Positive as per HPI, shortness of breath shortness of breath: Positive with activity and snoring; negative pain with cough, wheezing, chest congestion, cough, chest tightness, pain on inspiration, inhalers, increase use of rescue inhalers, apnea or other Gastro Gastrointestional: Negative bloody stools, change in appetite, difficulty swallowing, reflux, hematemesis, melena stool, loose stool, constipation or other Genitourinary: Positive nocturia; negative blood in urine, pain with urination or other Musc Musculoskeletal: Negative body pain, back pain, neck pain or other Skin/Breast Skin/Breast: Negative dry skin, itching, rash, unusual bruising, breast lump or other Neuro Neurological: Negative restless legs, confusion, weakness or other Psych Psychocological: Positive abnormal sleep pattern; negative anxiety, thoughts of hurting self/others, hopelessness or other Lymph Lymphatic: Negative easy bleeding, easy bruising, swollen lymph nodes or other Exam Const Constitutional: Positive conversant, cooperative, in no acute respiratory distress, healthy appearing, well developed, well nourished, good hygiene and obese Head Head: Positive normocephalic and atraumatic; negative cyanosis of lips/distal nose Eyes Eye: Positive clear conjunctiva; negative nystagmus or scleral abnormality Ears Ear: Positive hearing normal and external ears normal; negative hard of hearing Nose Nose: Positive external nose normal and no nasal discharge; negative epistaxis Mouth Mouth: Positive oral mucosae normal, no lesions, crowded posterior oropharynx and good dentition; negative post nasal drip, malodorous breath or oral thrush present Mallampati Score: IV: Mallampati Score Neck Neck: Positive normal visual inspection, full ROM and trachea midline; negative lymphadenopathy, JVD or tender Chest Wall Chest: Positive normal inspection of the chest and symmetric chest movement; negative increased A/P diameter Resp lung sounds: Positive clear to auscultation, good air exchange, normal expiratory time and normal respiratory effort; negative diminished, wheezes, rhonchi, rales, dullness to percussion or wheeze present on forced exhalation Cardio Cardiac: Positive regular rate, regular rhythm, S1 normal and S2 normal; negative murmur GI GI: Positive normal to inspection and obese; negative distended Genitourinary: Positive deferred Musc Musculoskeletal: Positive steady gait and ROM normal; negative kyphosis or scoliosis Skin Pulmonary Skin Exam: Positive intact; negative rash Pulses Pulse: Yes pulses normal x4 extremities Extremities Extremities: Yes capillary refill normal, No clubbing, No cyanosis, No edema Neuro Neurologic: Yes conversant, Yes no focal neuro deficits, Yes normal concentration, Yes understands questions, Yes cooperative, Yes normal cognition, Yes normal coordination, No tremor Lymph Lymphatic: No lymphadenopathy, No tenderness, No cervical adenopathy Psych Appearance: Positive grossly normal, eye contact and well kempt Mental Status: Positive mental status grossly normal Mood: Positive congruent mood Affect: Positive normal affect Coding Level of Care Code Off vis,new,level 4 Diagnoses Mixed sleep apnea G47.39 Type 2 diabetes mellitus with complication, unspecified whether group home insulin use E11.8 Diabetes mellitus moth exterminator insulin use: unspecified group home insulin use status Diabetes mellitus complication status: with unspecified complications BMI 40.0-44.9, adult Z68.41 09/23/18 0938 <Electronically signed by Cheyanne AMADOR> Date Cheyanne AMADOR Cosigner Signature: Date (if applicable) CC: Star Aguilar MD PROGRESS Observed: 09/17/2018 Status: COMPLETED Source: [place] 2:26 PM [facility] HNO ID: [id number] Author: Oleg Lara) Service: (none) Author Type: Nurse Practitioner Type: Progress Notes Filed: 09/17/2018 2:47 PM Note Text: Subjective HPI HPI Ash Regalado is a 58 year old male who presents today for CC of right ear pain. This started 5 days ago. Has tried nothing for relief. Symptoms are worsened by nothing. Risk factors are that patient cleans ears multiple times per day with qtips, has had infections from this in past. .Patient presents with: Ear Pain: RIGHT ear x 5 days PAST MEDICAL HISTORY Diagnosis Date - Diabetes mellitus, type 2 1999 with neprhopathy - Hypertension - Obesity - Obstructive sleep apnea Sibilia PAST SURGICAL HISTORY Procedure Laterality Date - EXTRACTION ERUPTED TOOTH/EXR wisdom teeth - PAST SURGICAL HISTORY OF 1970' metal in side, right (flank) - REMOVAL OF TONSILS,<12 Y/O childhood ALLERGIES Patient has no known allergies. MEDICATIONS amLODIPine (NORVASC) 10 mg tablet Take 1 tablet by mouth once daily. blood sugar diagnostic (CONTOUR TEST STRIPS) test strip Inject 1 Strip subcutaneously once daily. doxazosin (CARDURA) 8 mg tablet Take 1 tablet by mouth once daily. exenatide (BYDUREON BCISE) 2mg / 0.85 ml subcutaneous auto injector Q7D glipiZIDE-metFORMIN 2.5-500 mg per tablet Take 2 tablets by mouth once daily. Lancets lancets .MEDSUPPLY lisinopril 20 mg tablet Take 2 tablets by mouth twice daily. triamterene-hydrochlorothiazide 37.5-25 mg per capsule Take 1 capsule by mouth once daily. FAMILY HISTORY Problem Relation Age of Onset - Diabetes Mother - Diabetes Father - Coronary Artery Disease Father first MD 60's, CHF - Colon Cancer No Family History - Prostate Cancer No Family History - Diabetes Brother - COPD Father Social History Substance Use Topics - Smoking status: Never Smoker - Smokeless tobacco: Not on file - Alcohol use No Comment: very rare, none since Review of Systems Constitutional: Negative for chills, fever and weight loss. HENT: Positive for ear pain. Negative for congestion, ear discharge, nosebleeds and sore throat. Respiratory: Negative for cough, shortness of breath and wheezing. Musculoskeletal: Negative for neck pain. Objective Blood pressure 138/86, pulse 80, temperature 36.6 ?C (97.9 ?F), temperature source Left Tympanic, resp. rate 20, weight (!) 136.2 kg (300 lb 3.2 oz). Physical Exam Constitutional: He is oriented to person, place, and time and well-developed, well-nourished, and in no distress. Non-toxic appearance. He does not have a sickly appearance. No distress. HENT: Head: Normocephalic and atraumatic. Right Ear: Hearing and ear canal normal. There is drainage, swelling and tenderness. Left Ear: Hearing, tympanic membrane, external ear and ear canal normal. Nose: Nose normal. Mouth/Throat: Uvula is midline, oropharynx is clear and moist and mucous membranes are normal. Unable to see TM d/t swelling/drainage Eyes: Pupils are equal, round, and reactive to light. Conjunctivae and lids are normal. Right eye exhibits no discharge. Left eye exhibits no discharge. No scleral icterus. Neck: Trachea normal and normal range of motion. Neck supple. Cardiovascular: Normal rate, regular rhythm and normal heart sounds. Pulmonary/Chest: Effort normal and breath sounds normal. Lymphadenopathy: He has no cervical adenopathy. Neurological: He is alert and oriented to person, place, and time. Skin: No rash noted. He is not diaphoretic. ASSESSMENT/PLAN: 1. Acute otitis externa of right ear, unspecified type - ICD9: 380.10, ICD10: H60.501 -education material provided -use medication as prescribed -f/u if no better in 3-5 days -discussed proper ear hygiene -discussed prevention - CONTOUR TEST STRIPS - EXENATIDE ER 2 MG/0.85 ML SUBCUTANEOUS AUTO-INJECTOR - LANCETS - OFLOXACIN 0.3 % EAR DROPS Prescription instructions reviewed with patient as applicable. Patient advised if symptoms do not improve or if symptoms worsen sooner, to contact the office for further evaluation by their primary care physician. Potential red flag symptoms discussed with the patient. Reviewed appropriate action plan to take if red flag symptoms occur. Patient agreeable to treatment plan. Oleg Cabrales APRN.CNP CNOV Observed: 09/17/2018 Status: COMPLETED Source: [place] 2:15 PM [facility] Office Visit (WSTR) GHULAMASH ([id number]) 1960 M Date Time Provider Department 09/17/18 2:15 PM OLEG CABRALES ([facility]) [facility] During your visit today, we recorded the following information about you: Temperature Pulse Respiration Blood pressure 97.9 degrees 80/minute 20/minute 138/86 Weight 136.2 kg Oleg Cabrales APRN.CNP 09/17/2018 2:47 PM Signed Subjective HPI HPI Ash Regalado is a 58 year old male who presents today for CC of right ear pain. This started 5 days ago. Has tried nothing for relief. Symptoms are worsened by nothing. Risk factors are that patient cleans ears multiple times per day with qtips, has had infections from this in past. .Patient presents with: Ear Pain: RIGHT ear x 5 days PAST MEDICAL HISTORY Diagnosis Date - Diabetes mellitus, type 2 1999 with neprhopathy - Hypertension - Obesity - Obstructive sleep apnea Sibilia PAST SURGICAL HISTORY Procedure Laterality Date - EXTRACTION ERUPTED TOOTH/EXR wisdom teeth - PAST SURGICAL HISTORY OF metal in side, right (flank) - REMOVAL OF TONSILS,<12 Y/O childhood ALLERGIES Patient has no known allergies. MEDICATIONS amLODIPine (NORVASC) 10 mg tablet Take 1 tablet by mouth once daily. blood sugar diagnostic (CONTOUR TEST STRIPS) test strip Inject 1 Strip subcutaneously once daily. doxazosin (CARDURA) 8 mg tablet Take 1 tablet by mouth once daily. exenatide (BYDUREON ANN MARIE) 2mg / 0.85 ml subcutaneous auto injector Q7D glipiZIDE-metFORMIN 2.5-500 mg per tablet Take 2 tablets by mouth once daily. Lancets lancets .MEDSUPPLY lisinopril 20 mg tablet Take 2 tablets by mouth twice daily. triamterene-hydrochlorothiazide 37.5-25 mg per capsule Take 1 capsule by mouth once daily. FAMILY HISTORY Problem Relation Age of Onset - Diabetes Mother - Diabetes Father - Coronary Artery Disease Father first MD 60's, CHF - Colon Cancer No Family History - Prostate Cancer No Family History - Diabetes Brother - COPD Father Social History Substance Use Topics - Smoking status: Never Smoker - Smokeless tobacco: Not on file - Alcohol use No Comment: very rare, none since Review of Systems Constitutional: Negative for chills, fever and weight loss. HENT: Positive for ear pain. Negative for congestion, ear discharge, nosebleeds and sore throat. Respiratory: Negative for cough, shortness of breath and wheezing. Musculoskeletal: Negative for neck pain. Objective Blood pressure 138/86, pulse 80, temperature 36.6 ?C (97.9 ?F), temperature source Left Tympanic, resp. rate 20, weight (!) 136.2 kg (300 lb 3.2 oz). Physical Exam Constitutional: He is oriented to person, place, and time and well-developed, well-nourished, and in no distress. Non-toxic appearance. He does not have a sickly appearance. No distress. HENT: Head: Normocephalic and atraumatic. Right Ear: Hearing and ear canal normal. There is drainage, swelling and tenderness. Left Ear: Hearing, tympanic membrane, external ear and ear canal normal. Nose: Nose normal. Mouth/Throat: Uvula is midline, oropharynx is clear and moist and mucous membranes are normal. Unable to see TM d/t swelling/drainage Eyes: Pupils are equal, round, and reactive to light. Conjunctivae and lids are normal. Right eye exhibits no discharge. Left eye exhibits no discharge. No scleral icterus. Neck: Trachea normal and normal range of motion. Neck supple. Cardiovascular: Normal rate, regular rhythm and normal heart sounds. Pulmonary/Chest: Effort normal and breath sounds normal. Lymphadenopathy: He has no cervical adenopathy. Neurological: He is alert and oriented to person, place, and time. Skin: No rash noted. He is not diaphoretic. ASSESSMENT/PLAN: 1. Acute otitis externa of right ear, unspecified type - ICD9: 380.10, ICD10: H60.501 -education material provided -use medication as prescribed -f/u if no better in 3-5 days -discussed proper ear hygiene -discussed prevention - CONTOUR TEST STRIPS - EXENATIDE ER 2 MG/0.85 ML SUBCUTANEOUS AUTO-INJECTOR - LANCETS - OFLOXACIN 0.3 % EAR DROPS Prescription instructions reviewed with patient as applicable. Patient advised if symptoms do not improve or if symptoms worsen sooner, to contact the office for further evaluation by their primary care physician. Potential red flag symptoms discussed with the patient. Reviewed appropriate action plan to take if red flag symptoms occur. Patient agreeable to treatment plan. Oleg Cabrales APRN.MICHAEL Cabrales APRN.MICHAEL 09/17/2018 2:39 PM Signed [facility] PATIENT INFO EXTERNAL OTITIS OVERVIEW External otitis is a condition that occurs when the ear canal becomes irritated. The ear canal is the part of the ear that leads from the outer ear to the ear drum. External otitis can develop as a result of an infection, allergy, or skin problem. Swimmer's ear is the name for external otitis that occurs in a person who swims frequently. External otitis is different from otitis media (middle ear infections). When a person says that they have an ear infection, they usually mean that they have otitis media. This article will discuss external otitis that is caused by an infection, as well as ways to prevent future episodes of external otitis. EXTERNAL OTITIS RISK FACTORS Several factors can increase your risk of developing external otitis. ? Cleaning the ear canal removes ear wax. Ear wax serves to protect the ears from water, bacteria, and injury. Excessive cleaning or scratching can injure the skin, potentially leading to infection. ? Swimming on a regular basis removes some of the ear wax, allowing water to soften the skin. Bacteria, which normally live in the ear canal, can then enter the skin more easily. ? Wearing devices that block the ear canals, such as hearing aids, headphones, or ear plugs, can increase the risk of external otitis (if worn frequently) by injuring the skin. EXTERNAL OTITIS SYMPTOMS The most common symptoms of external otitis include: Pain in the outer ear, especially when the ear is pulled or moved ? Itchiness of the ear ? Fluid or pus leaking from the ear ? Difficulty hearing clearly EXTERNAL OTITIS TREATMENT Treatment of external otitis aims to reduce pain and eliminate the infection. In some cases, your healthcare provider will flush out your ear with water and hydrogen peroxide before you begin treatment; this speeds healing by removing skin cells and excess ear wax. Ear drops ? Ear drops are usually prescribed to reduce pain and swelling caused by external otitis. It is important to apply the ear drops correctly so that they reach the ear canal: ? Lie on your side or tilt your head towards the opposite shoulder. ? Fill the ear canal with drops. ? Lie on your side for [address] a cotton ball in the ear canal for 20 minutes. ? Finish the entire course of treatment, even if you begin to feel better within a few days. You should begin to feel better within 36 to 48 hours of starting treatment. If your pain worsens or does not improve within this time period, call your healthcare provider. Pain medication ? If you have bothersome ear pain, you can take a non-prescription pain medication. Avoid getting ears wet ? During treatment, you should avoid getting the inside of your ears wet. While showering, you can place a cotton ball coated with petroleum jelly in the ear. However, you should not swim for 7 to 10 days after starting treatment. Avoid wearing hearing aids and in-ear headphones until pain improves. EXTERNAL OTITIS PREVENTION The old saying, Don't put anything smaller than your elbow in your ear to clean the ear is true. The ear is self-cleaning; fingers, towels, cotton-tipped applicators, and other devices should not be used to clean the inside of the ears. If you feel that you need to clean excessive wax from your ears, talk to your healthcare provider first. S/he may want to examine your ears to see if the ear wax is excessive. It is normal to have some ear wax (also called cerumen). If you have an excessive amount of ear wax, talk to your healthcare provider about safe ways to clean your ears. If you swim frequently, experts recommend the following tips to reduce the chance of developing external otitis. ? Shake your ears dry after swimming ? Blow dry your ears on a low setting, holding the dryer 12 inches away. ? Use ear drops after swimming to prevent ear infections; these are available at most pharmacies without a prescription. ? Consider wearing ear plugs made for swimming. Referring Provider: SELF [200] Allergies As of Date: 09/17/2018 (No Known Allergies) Date Reviewed: 09/17/2018 Reviewed by: Oleg Cabrales - Fully Assessed Reason for Visit: Ear Pain [817] Cmt: RIGHT ear x 5 days Primary Visit Diagnosis:Acute otitis externa of right ear, unspecified type [H60.501] Order(s):ofloxacin (FLOXIN) 0.3 % otic solutionUse 10 Drops in the right ear once daily for 7 days.Disp: 1 BottleRfl: 0 Prescriptions as of 09/17/2018 Sig: AMLODIPINE 10 MG TABLET Take 1 tablet by mouth once d* CONTOUR TEST STRIPS Inject 1 Strip subcutaneously* DOXAZOSIN 8 MG TABLET Take 1 tablet by mouth once d* EXENATIDE ER 2 MG/0.85 ML SUB* Q7D GLIPIZIDE 2.5 MG-METFORMIN 50* Take 2 tablets by mouth once * LANCETS .MEDSUPPLY LISINOPRIL 20 MG TABLET Take 2 tablets by mouth twice* TRIAMTERENE 37.5 MG-HYDROCHLO* Take 1 capsule by mouth once * OFLOXACIN 0.3 % EAR DROPS Use 10 Drops in the right ear* Problem List As Of Date 09/17/2018 Noted Resolved MORBID OBESITY [E66.01] INVALID FOR* BENIGN HYPERTENSION [I10] INVALID FOR* More... Family history of diabetes mellitus [Z83.3] INVALID FOR*10/24/2012 More... More... Diabetes mellitus, type 2 [E11.9] INVALID FOR* More... Proteinuria [R80.9] INVALID FOR* Obstructive sleep apnea [G47.33] More... Other instructions from your clinician: EXPRESS CARE PATIENT INFO EXTERNAL OTITIS OVERVIEW External otitis is a condition that occurs when the ear canal becomes irritated. The ear canal is the part of the ear that leads from the outer ear to the ear drum. External otitis can develop as a result of an infection, allergy, or skin problem. Swimmer's ear is the name for external otitis that occurs in a person who swims frequently. External otitis is different from otitis media (middle ear infections). When a person says that they have an ear infection, they usually mean that they have otitis media. This article will discuss external otitis that is caused by an infection, as well as ways to prevent future episodes of external otitis. EXTERNAL OTITIS RISK FACTORS Several factors can increase your risk of developing external otitis. ? Cleaning the ear canal removes ear wax. Ear wax serves to protect the ears from water, bacteria, and injury. Excessive cleaning or scratching can injure the skin, potentially leading to infection. ? Swimming on a regular basis removes some of the ear wax, allowing water to soften the skin. Bacteria, which normally live in the ear canal, can then enter the skin more easily. ? Wearing devices that block the ear canals, such as hearing aids, headphones, or ear plugs, can increase the risk of external otitis (if worn frequently) by injuring the skin. EXTERNAL OTITIS SYMPTOMS The most common symptoms of external otitis include: Pain in the outer ear, especially when the ear is pulled or moved ? Itchiness of the ear ? Fluid or pus leaking from the ear ? Difficulty hearing clearly EXTERNAL OTITIS TREATMENT Treatment of external otitis aims to reduce pain and eliminate the infection. In some cases, your healthcare provider will flush out your ear with water and hydrogen peroxide before you begin treatment; this speeds healing by removing skin cells and excess ear wax. Ear drops ? Ear drops are usually prescribed to reduce pain and swelling caused by external otitis. It is important to apply the ear drops correctly so that they reach the ear canal: ? Lie on your side or tilt your head towards the opposite shoulder. ? Fill the ear canal with drops. ? Lie on your side for [address] a cotton ball in the ear canal for 20 minutes. ? Finish the entire course of treatment, even if you begin to feel better within a few days. You should begin to feel better within 36 to 48 hours of starting treatment. If your pain worsens or does not improve within this time period, call your healthcare provider. Pain medication ? If you have bothersome ear pain, you can take a non-prescription pain medication. Avoid getting ears wet ? During treatment, you should avoid getting the inside of your ears wet. While showering, you can place a cotton ball coated with petroleum jelly in the ear. However, you should not swim for 7 to 10 days after starting treatment. Avoid wearing hearing aids and in-ear headphones until pain improves. EXTERNAL OTITIS PREVENTION The old saying, Don't put anything smaller than your elbow in your ear to clean the ear is true. The ear is self-cleaning; fingers, towels, cotton-tipped applicators, and other devices should not be used to clean the inside of the ears. If you feel that you need to clean excessive wax from your ears, talk to your healthcare provider first. S/he may want to examine your ears to see if the ear wax is excessive. It is normal to have some ear wax (also called cerumen). If you have an excessive amount of ear wax, talk to your healthcare provider about safe ways to clean your ears. If you swim frequently, experts recommend the following tips to reduce the chance of developing external otitis. ? Shake your ears dry after swimming ? Blow dry your ears on a low setting, holding the dryer 12 inches away. ? Use ear drops after swimming to prevent ear infections; these are available at most pharmacies without a prescription. ? Consider wearing ear plugs made for swimming. Prescriptions ordered this encounter Disp Refills Start End OFLOXACIN 0.3 % EAR DROPS 1 Roel* 0 09/17/2018 09/24/2018 Route: RIGHT EAR Sig: Use 10 Drops in the right ear once daily for 7 days. Encounter Status:Closed by OLEG CABRALES CNP on 09/17/18 PATIENT COMMUNICATION Observed: 09/02/2018 Status: F Source: [place] 10:25 AM [facility] REPOSITORY [facility] [address] [place] [address]. [place] [address] PATIENT COMMUNICATION 09/02/18 MR#: [id number] Acct: [id number] Name: ASH REGALADO Rep #: [id number] : 1960 Provider: Juanpablo Canela MD Age/Sex: 58/M Location: [facility] Patient Communication Details: The patient was notified of his pathology results. He has a tubular adenoma and I recommend repeat colonoscopy in 5 years. 09/02/18 1025 <Electronically signed by Juanpablo Canela MD> Date Juanpablo Canela MD [facility] Signature: Date (if applicable) CC: Rosemary Kelly; Star Aguilar MD OPERATIVE REPORT - Observed: 08/30/2018 Status: F Source: [place] END[facility] 10:47 AM [facility] REPOSITORY [facility] Medical Records Department [address] [place] [address] Operative Report - Endoscopy MR#: [id number] Acct: [id number] Name: ASH REGALADO Rep #: [id number] : 1960 58 From: Juanpablo Canela MD PCP: Star Aguilar MD Status[place] [facility] 08/30/2018 Star Aguilar MD [address] [place] [address] [place] [address] Re : Colonoscopy procedure for Ash Regalado Dear Dr. Aguilar This procedure was performed on Thursday, August 30, 2018. My impressions and recommendations are as follows: Impressions : - One polyp in the ascending colon. Biopsied. - The examination was otherwise normal on direct and retroflexion views. Recommendations : - Discharge patient to home. - Resume previous diet. - Continue present medications. - Physician's office will call you with pathology results and recommendations for when to repeat colonoscopy. - Repeat colonoscopy date to be determined after pending pathology results are reviewed for screening purposes. My findings are described in the full procedure note, which is enclosed. If I can be of further assistance, please feel free to contact me at Doctor phone number(s): , Work: . Sincerely, Juanpablo Canela MD 08/30/2018 10:47:10 AM This report has been signed electronically. 08/30/18 1047 Date Juanpablo Canela MD Cosign Signature: Date (if indicated) CC: Juanpablo Canela MD; Star Aguilar MD Date Dictated: 08/30/18 1013 Date Transcribed: Recooperer: MATT Signed HISTORY AND PHYSICAL Observed: 08/30/2018 Status: F Source: [place] EXAM 10:11 AM [facility] REPOSITORY [facility] Medical Records Department [address] [place] [address] History and Physical 08/30/18 1010 MR#: [id number] Acct: [id number] Name: ASH REGALADO Rep #: [id number] : 1960 58 From: Juanpablo Canela MD PCP: Star Aguilar MD Status[place] [facility] [place] Location: [place] [address]1 History of Present Illness Date of Admission: 08/30/18 The patient is a 58 year old M here for screening colonoscopy. He has never had a colonoscopy in the past. He is on no blood thinners. He denies any family history of colon cancer. He denies any abdominal pain or blood in his stool. Past Medical/Surgical History - Planned Operation Planned Operative Procedure/s: CSCOPE OPEN ACCESS Date of Operative Procedure: 08/30/18 Permit Signed: No S.O.S: No Is This Patient Having a Total Joint: No - Previous Hospitalizations/Surgeries HX Hospitalizations: Yes - YRS AGO HX of Surgeries: TONSILLECTOMY, RT FLANK SURGERY, Any Problems With Anesthesia: No You/Your Family Experience Fever (Hyperthermia) With Anes: No Cholinesterase deficiency: No - Cardiovascular Hx Chest Pain within Last 2 months: No Hx of Irregular Heartbeat and/or Afib: No Hx Heart Attack: No Hx Congestive Heart Failure: No Hx Rheumatic Fever: No Hx Hypertension: Yes - CONTROLLED WITH MED Hx Internal Defibrillator: No Hx Pacemaker: No Hx Cardiac Catheterization: No Hx Cardiac Surgery/Stents/Etc.: No Hx Stress Test: Yes - OVER 5 YRS AGO HX Edema: Yes - LEFT LEG Hx Pain in Legs when Walking/Leg Cramps: No - Respiratory Chronic Cough: No HX of Shortness of Breath: Yes - SOB WITH 2 FLIGHTS OF STAIRS Hoarseness: No Hx Chronic Obstructive Pulmonary Disease (COPD): No Hx Asthma: No Hx Emphysema: No Hx Sleep Apnea: No - HAVING SLEEP STUDY IN 1 WEEK Hx Oxygen Use at Home: No Hx Respiratory Tract Infection/Cold (presently): Yes - COLD 2 WEEKS AGO/RESOLVED Do You Snore Loudly (louder than talking or can be heard): Yes Do You Often Feel Tired/ Fatigued/ Sleepy Dring Daytime?: Yes Has Anyone Observed You Stop Breathing During Sleep?: Yes Result (for STOP score): Positive Hx Smoking: No Smoking Status: Never smoker - Gastrointestinal Hx Gastroesophageal Reflux: No Hx Gastrointestinal Disorders: No Hx Gastrointestinal Bleed: No Hx Ulcer: No Hx Hiatal Hernia: No Difficulty Chewing/Swallowing: No Recent Onset of Swallowing Problems: No Special diet followed at home: Yes - DIABETIC Hx Unplanned Weight Loss of 20#: No HX Unplanned Weight Gain of 20#: No - Neurological Hx Seizures: No HX Syncope/Blackout Spells/Unconsciousness: No Hx CVA/Stroke: No Hx Transient Ischemic Attacks (TIA): No Hx Multiple Sclerosis: No Hx Parkinson's Disease: No Hx Head/Neck Injury: No Hx Headaches: No Hx Back Injury/Pain: No Recent Onset of Speech Difficulty: No Restless Legs: No Does patient have nerve stimulator: No Patient instructed to have device shut off: No Rep notified?: No - Blood Disorder Hx Leukemia: No Bleeding Tendencies: No Hx Deep Vein Thrombosis: No Hx High Cholesterol: No Blood Transmitted Disease: No Hx Hepatitis: No Hx Cirrhosis: No Hx Anemia: No Hx Blood Disorders: No - Genitourinary Hx Renal Disease: No - Musculoskeletal Hx Arthritis: No Hx Rheumatoid Arthritis: No Hx Gout: No Recent Onset of an Orthopedic Problem: No - Endocrine Hx Diabetes: Yes - ORAL Insulin: No Thyroid Disease: No Hx Steroid Therapy: No - Psycho/Social Hx Substance Use: No Hx Alcohol Use: No Hx Anxiety: No Hx Depression: No Mental Illness: No Hx Dementia: No - Miscellaneous Hx Cancer: No Recent Exposure to Contagious Disease: No Active MRSA: No Hx of C-Diff: No Any Loose Teeth: No Allergies No Known Allergies Allergy (Verified 08/30/18 09:31) - Discharge Is Pt Admitted From a Detention, or a Nursing Home: No Who Could Help: After D/C, Where Do you Plan to Go: Return Home - Physical Exam General: Alert, Oriented x3 Lungs: Normal air movement Cardiovascular: Regular rate, Regular Rhythm Abdomen: Soft, Non Tender, Non-Distended Vital Signs Temp Pulse Resp BP Pulse Ox 98 F 78 18 116/90 H 93 08/30/18 09:32 08/30/18 09:32 08/30/18 09:32 08/30/18 09:32 08/30/18 09:32 Oxygen Delivery Method Room Air Weight: 301 lb 2.423 oz Body Mass Index (BMI) 40.8 POC Glucose POC Glucose 243 H Assessment/Plan All Active Problems (Last Reviewed 08/16/18 @ 10:02 by Purvi Lr) Ulcer of right foot with fat layer exposed (Acute) Type 2 diabetes mellitus with diabetic polyneuropathy (Acute) Lower extremity edema (Acute) Delayed wound healing (Acute) 58-year-old male for screening colonoscopy 1. I explained endoscopy in detail to the patient. I explained the risks including but not limited to stroke or heart attack with anesthesia, perforation of the GI tract, bleeding, infection. I explained that any of these could necessitate further emergency surgery. The patient understands and all questions were answered sufficiently. The patient wishes to proceed with procedure. Juanpablo Canela MD Pager: [facility] [address] [place] [address] [place] [address] Office: Surgery Risks - Colonoscopy Risks Include but are not Limited To: Risks include but are not limited to: Bleeding, perforation requiring further surgery, inability to complete colonoscopy requiring barium enema. 08/30/18 1011 <Electronically signed by Juanpablo Canela MD> Date Juanpablo Canela MD Cosigner Signature: Date (if applicable) CC: Juanpablo Canela MD; Star Aguilar MD Signed BEDSIDE GLUCOSE Collected: 08/30/2018 Status: F Source: [facility] 9:46 AM [facility] REPOSITORY TYPE CODE TESTS RESULT OUT OF REFERENCE UNITS RANGE LAB L501.080 70-110 mg/dL High BEDSIDE GLU 243 Result Comment: MANAGEMENT OF PATIENT CARE PER NURSING PROTOCOL Performed By: #### L501.080 #### [facility] Point of Care [address] [place] [address] COLON BIOPSY (CHOOSE Observed: 08/30/2018 Status: F Source: [place] SITE) 12:00 AM [facility] REPOSITORY Patient: ASH REGALADO : 1960 (58/M) Acct Num: [id number] Phys: Rola JACKSON,Juanpablo Unit Num: [id number] Loc: EN Specimen: [id number] Received: 08/30/18 - 1418 Spec Type: COLON BX TISSUES 1 TISSUES: Ascending colon GROSS DESCRIPTION Received in fixative is one container labeled with the patient's name and designated ascending colon polyp biopsy. The specimen consists of one irregular fragment of light michael soft tissue that measures 0.4 x 0.3 x 0.1 cm. The specimen is totally submitted in one cassette. / SJ:erin 08/30/18 TC:1 CPT: 07467 HEADER OPERATION: Colonoscopy PRE-OP DIAGNOSIS: Screening TISSUE SUBMITTED: Ascending colon polyp biopsy MICROSCOPIC DESCRIPTION Slides are reviewed. MICROSCOPIC DIAGNOSIS Ascending colon polyp, biopsy: Tubular adenoma. SJ:erin 08/31/18 Signed Jesse Diaz 08/31/18 <signature on file> Performed By: #### PCOLBX #### [facility] [address] [place], [place], [address] INTERNAL MEDICINE Observed: 08/19/2018 Status: F Source: [place] OFFICE VISIT 1:26 PM [facility] REPOSITORY [facility] [address] [place] [address] [place] [address] OFFICE VISIT Date of Service: 08/16/18 MR#: [id number] Acct: [id number] Name: ASH REGALADO Rep #: [id number] : 1960 Provider: Deni Andujar NP Age/Sex: 57/M [place] Status: Signed Intake Vital Signs08/16/18 Height 6 ft Intake Visit Reasons: 4 WK F/U wellness check Chief Complaint: wellness Is patient in pain?: No Allergies No Known Allergies Allergy (Verified 06/02/18 09:44) Medications blood sugar diagnostic strips See Dose Instructions .ROUTE .MEDSUPPLY #20 ea 06/03/18 [History Confirmed 06/03/18] blood sugar diagnostic strips See Dose Instructions .ROUTE .MEDSUPPLY #50 ea 06/03/18 [Rx] blood-glucose meter See Dose Instructions .ROUTE .MEDSUPPLY #1 ea 06/03/18 [History Confirmed 06/03/18] blood-glucose meter kit See Dose Instructions .ROUTE .MEDSUPPLY #1 ea 06/03/18 [Rx] lancets See Dose Instructions .ROUTE .MEDSUPPLY #50 ea 06/03/18 [History Confirmed 06/03/18] lancets 28 gauge See Dose Instructions .ROUTE .MEDSUPPLY #200 ea 06/03/18 [Rx] amlodipine 10 mg tablet 10 mg PO DAILY #90 tab 07/15/18 [Rx Confirmed 07/15/18] blood sugar diagnostic strips See Dose Instructions .ROUTE .MEDSUPPLY #100 ea 07/15/18 [Rx Confirmed 07/15/18] blood-glucose meter kit See Dose Instructions .ROUTE .MEDSUPPLY #1 ea 07/15/18 [Rx Confirmed 07/15/18] doxazosin 8 mg tablet 8 mg PO DAILY #90 tab 07/15/18 [Rx Confirmed 07/15/18] glipizide 2.5 mg-metformin 500 mg tablet 2 tab PO BID #360 tab 07/15/18 [Rx Confirmed 07/15/18] hydrochlorothiazide 25 mg tablet 25 mg PO DAILY #90 tab 07/15/18 [Rx Confirmed 07/15/18] lancets 28 gauge See Dose Instructions .ROUTE .MEDSUPPLY #100 ea 07/15/18 [Rx Confirmed 07/15/18] lisinopril 40 mg tablet 40 mg PO BID #180 tab 07/15/18 [Rx Confirmed 07/15/18] exenatide ER 2 mg/0.85 mL subcutaneous auto-injector 2 mg SC Q7D #3.4 ml 08/16/18 [Rx Confirmed 08/16/18] PFSH Medical History Neuropathy (Chronic) Diabetes (Chronic) Hypertension (Chronic) Surgical History History of tonsillectomy (Acute) history of right flank surgery (Acute) Family History Father Diabetes Myocardial infarction Brother Diabetes Social History Smoking Status: Never smoker alcohol intake: never substance use type: does not use what type of physical activity do you participate in: none HPI HPI Chief Complaint: wellness Details: ASH REGALADO, is a 57 M who presents to the office today for wellness exam. The patient has a past medical history as listed above. The patient presents today with no acute problems or concerns. He monitors his blood pressure and blood sugar at home and states these are doing fairly well. He sees the eye doctor in the next couple weeks and was just recently seen by podiatry, Dr. Almendarez 3 weeks ago. He denies smoking, alcohol use or drug use. He received his flu vaccine last month. He denies ever having a colonoscopy but denies blood in his stool. His is present for the visit and states that the patient frequently wakes up at night to urinate, has not had a recent PSA. The patient otherwise denies any fever, chills, nausea, vomiting, shortness of breath, chest pain or pressure, palpitations, orthopnea, lower extremity edema, syncope or presyncopal episodes. ROS Const Constitutional: No weight change, body ache, chills, fatigue, sleep problems, fever(s), change in appetite, snoring, weakness, frequent falls, headache(s) or excessive sweating Eyes Eyes: No change in vision, eye pain, light sensitivity or blurry vision ENT ENT: No headache(s), abnormal hearing, ear pain, tinnitus, nasal congestion, sore throat or neck pain Resp Respiratory: Positive for cough (lingering cough improving); no snoring, shortness of breath or wheezing Cardio Cardiology: No excessive sweating, chest pain at rest, chest pain with exertion, shortness of breath, dyspnea on exertion, palpitations, orthopnea or lightheadedness Gastro GI: No abdominal pain, change in bowel habits, constipation, diarrhea, vomiting, nausea/dyspepsia or cramping Genitourinary Male: No painful urination, urinary incontinence, urinary frequency, urinary urgency, blood in urine, testicle pain or other Musc Musculoskeletal: No neck pain, abnormal walking, joint pain, back pain, limited range of motion, numbness or tingling Skin Skin: No redness, dry skin, itching, lesions, wounds or rash Neuro Neurology: No weakness, frequent falls, headache(s), abnormal hearing, abnormal walking, numbness, tingling, abnormal speech, dizziness or memory loss Psych Psychiatric: No change in appetite, No memory loss, No anxiety, No depression, No Thoughts of harming yourself/Others Endo Endocrine: No fatigue, excessive sweating, cold intolerance, increased thirst/drinking, heat intolerance, flushing or increased hunger Aller/Imm Allergy/Immunologic: No wheezing, itchy eyes, hives or seasonal allergy symptoms Stefano/Lymp Hematologic/Lymphatic: No easy bleeding, easy bruising or enlarged lymph nodes Exam Const General: cooperative, comfortable, no acute distress Nutritional Appearance: well nourished, obese Orientation: alert, oriented x3 Limitations: mental status not altered [facility] Head: normal to inspection Ears: hearing grossly normal bilaterally Nose: external nose normal Eyes General: appearance normal, both eyes and all related structures Resp Effort AND Inspection: normal respiratory effort, able to speak in complete sentences, normal respiratory pattern, symmetric chest movement, no audible wheezes, no cough Auscultation: Bilateral: Clear to Auscultation Cardio Palpation: normal PMI Rate: regular rate Heart Sounds: S1 normal, S2 normal, normal S1 and S2, no click, no gallops, no murmurs, no rubs GI Inspection: normal to inspection Auscultation: normal bowel sounds, no hyperactive bowel sounds, no hypoactive bowel sounds Palpation: soft, no hepatosplenomegaly Musc Musculoskeletal: No joint tenderness or decreased ROM Skin General: no rashes or lesions noted, elasticity normal, turgor normal Lesions: no lesions Rashes: no rashes Neuro General: alert, awake, oriented x3, CN's II-XI intact bilaterally Speech: speech normal Gait: normal gait Motor: muscle tone normal throughout Extrem General: normal to inspection, normal gait, no edema, no pedal edema Psych Appearance: grossly normal Mental Status: mental status grossly normal Affect: normal affect Attitude: cooperative Thought Process: normal Immunizations Pneumovax 23 Performing Provider: MARJORIE Owens Administered by: Purvi Lr on 08/16/18 11:11 Dose Route Admin Location Lot Number Expiration Date NDC Auto Job Estimator 0.5 mL IM Right Deltoid [id number] 03/31/20 [id number] MERCK SHARP AND D VIS Given Date VIS Publication Date 08/16/18 01/11/15 Eligibility Eligibility Date Assessment AND Plan Problems 1. [facility] Z00. Plan Patient follows routinely for his chronic conditions. Will refer patient for colonoscopy. Will also check PSA due to intermittent nocturia. Patient received Pneumovax 23 in office today. Encouraged to receive shingles vaccine. Continue attempts at lifestyle changes, dietary modifications, and weight reduction. No concerns for STI's, baseline blood work up-to-date. This note was generated with Earthineer dictation software. It may contain incorrect words, spelling, and punctuation that were not noted in checking the note before signing. Orders Orders: Referrals: Medications Refilled: Discontinued: Pneumovax 23 (pneumococcal 23-naa ps vaccine) D0.5 mL IM ONCE 0.5 mL 0RF NS E11.9, Z23 iscontinued Reason: Office Medication has been Do cumented as given Plan Detail Follow Up As previously scheduled for his routine follow-up Coding Level of Care Code Off vis,est,prev 40-64yrs Diagnoses [facility] Z00.00 08/19/18 1326 <Electronically signed by Deni AMADOR> Date Deni AMADOR Cosigner Signature: Date (if applicable) CC: BASIC METABOLIC Collected: 08/15/2018 Status: F Source: GIO PROFILE ([facility]) 12:06 PM [facility] REPOSITORY TYPE CODE TESTS RESULT OUT OF RANGE REFERENCE UNITS LAB L501.0100 74-106 mg/dL High GLU 207 Result Comment: Glucose result greater than or equal to 200 mg/dL suggests DIABETES MELLITUS per A.D.A. criteria. Please note revised GLUCOSE reference range effective 2017. LAB L501.1000 7-18 mg/dL Normal BUN 14 LAB L501.1100 0.70-1.30 mg/dL Normal CREAT,SERUM 1.05 Result Comment: The validity of the calculated GFR AND GFRAA in patients over 70 years has not been determined. Clinical correlation is essential. LAB L501.1110 >60 mL/min Normal EST GFR 77 Result Comment: Non- GFR Calc LAB L501.1115 >60 mL/min Normal EST GFR - AA 93 Result Comment: GFR Calc LAB L501.1300 10-20 RATIO Normal BUN/CRE 13.3 LAB L501.2200 8.5-10.1 mg/dL CA Normal 9.1 LAB L501.5300 136-145 mmol/L NA Normal 142 LAB L501.5600 3.5-5.1 mmol/L K Normal 3.9 LAB L501.5900 98-107 mmol/L CL Normal 104 LAB L501.6100 21.0-32.0 mmol/L Normal CO2 26.0 LAB L501.6200 5-15 Normal GAP 12 Performed By: #### L500.2500 #### [facility] [address] [place], [address] INTERNAL MEDICINE Observed: 07/20/2018 Status: F Source: [place] OFFICE VISIT 8:40 AM [facility] REPOSITORY [facility] [address] [place] [address] [place] [address] OFFICE VISIT Date of Service: 07/15/18 MR#: [id number] Acct: [id number] Name: ASH REGALADO Rep #: [id number] : 1960 Provider: Deni Andujar NP Age/Sex: 57/M Location: [facility] Status: Signed Intake Vital Signs07/15/18 Height 6 ft Intake Visit Reasons: HIGH BP, MED REFILLS, REQ MAY Chief Complaint: elevated BP Is patient in pain?: No Allergies No Known Allergies Allergy (Verified 06/02/18 09:44) Medications blood sugar diagnostic strips See Dose Instructions .ROUTE .MEDSUPPLY #20 ea 06/03/18 [History Confirmed 06/03/18] blood sugar diagnostic strips See Dose Instructions .ROUTE .MEDSUPPLY #50 ea 06/03/18 [Rx] blood-glucose meter See Dose Instructions .ROUTE .MEDSUPPLY #1 ea 06/03/18 [History Confirmed 06/03/18] blood-glucose meter kit See Dose Instructions .ROUTE .MEDSUPPLY #1 ea 06/03/18 [Rx] lancets See Dose Instructions .ROUTE .MEDSUPPLY #50 ea 06/03/18 [History Confirmed 06/03/18] lancets 28 gauge See Dose Instructions .ROUTE .MEDSUPPLY #200 ea 06/03/18 [Rx] amlodipine 10 mg tablet 10 mg PO DAILY #90 tab 07/15/18 [Rx Confirmed 07/15/18] blood sugar diagnostic strips See Dose Instructions .ROUTE .MEDSUPPLY #100 ea 07/15/18 [Rx Confirmed 07/15/18] blood-glucose meter kit See Dose Instructions .ROUTE .MEDSUPPLY #1 ea 07/15/18 [Rx Confirmed 07/15/18] doxazosin 8 mg tablet 8 mg PO DAILY #90 tab 07/15/18 [Rx Confirmed 07/15/18] dulaglutide 1.5 mg/0.5 mL subcutaneous pen injector 1.5 mg SC QWEEK #2 ml 07/15/18 [Rx Confirmed 07/15/18] glipizide 2.5 mg-metformin 500 mg tablet 2 tab PO BID #360 tab 07/15/18 [Rx Confirmed 07/15/18] hydrochlorothiazide 25 mg tablet 25 mg PO DAILY #90 tab 07/15/18 [Rx Confirmed 07/15/18] lancets 28 gauge See Dose Instructions .ROUTE .MEDSUPPLY #100 ea 07/15/18 [Rx Confirmed 07/15/18] lisinopril 40 mg tablet 40 mg PO BID #180 tab 07/15/18 [Rx Confirmed 07/15/18] PFSH Medical History Neuropathy (Chronic) Diabetes (Chronic) Hypertension (Chronic) Surgical History History of tonsillectomy (Acute) history of right flank surgery (Acute) Family History Father Diabetes Myocardial infarction Brother Diabetes Social History Smoking Status: Never smoker alcohol intake: never substance use type: does not use what type of physical activity do you participate in: none HPI HPI Chief Complaint: elevated BP Details: ASH REGALADO, is a 57 M who presents to the office today for follow-up of his chronic conditions. The patient has a past medical history as listed above. The patient presents today with no acute problems or concerns. His blood pressure is elevated in office, 160/98. Patient states that his average blood pressure readings are 170s over 90s. Patient states he does take his blood pressure medicines accordingly. He denies headache, vision changes or neurological symptoms. Patient states that he is picked up his Trulicity but has not started using it. He does not monitor his blood sugar at home, he does not have a monitor. He denies signs or symptoms of hyperglycemia or hypoglycemia. He states he takes his oral diabetic medications as prescribed. The patient never followed up after his sleep study for his titration, he is positive for SABA. He admits to daytime somnolence. Patient is following with Dr. Almendarez at the wound center for wound to his right foot. Patient recently visited with her [facility] emergency room and treated for otitis externa. The patient states that his ear pain has improved significantly with treatment. The patient otherwise denies any fever, chills, nausea, vomiting, shortness of breath, chest pain or pressure, palpitations, orthopnea, lower extremity edema, syncope or presyncopal episodes. ROS Const Constitutional: No weight change, body ache, chills, fatigue, sleep problems, fever(s), change in appetite, snoring, weakness, frequent falls, headache(s) or excessive sweating Eyes Eyes: No change in vision, eye pain, light sensitivity or blurry vision ENT ENT: No headache(s), abnormal hearing, ear pain, tinnitus, nasal congestion, sore throat or neck pain Resp Respiratory: No snoring, cough, shortness of breath or wheezing Cardio Cardiology: No excessive sweating, chest pain at rest, chest pain with exertion, shortness of breath, dyspnea on exertion, palpitations, orthopnea or lightheadedness Gastro GI: No abdominal pain, change in bowel habits, constipation, diarrhea, vomiting, nausea/dyspepsia or cramping Genitourinary Male: No painful urination, urinary incontinence, urinary frequency, urinary urgency, blood in urine, testicle pain or other Musc Musculoskeletal: No neck pain, abnormal walking, joint pain, back pain, limited range of motion, numbness, tingling or muscle weakness Skin Skin: No redness, dry skin, itching, lesions, wounds or rash Neuro Neurology: No weakness, frequent falls, headache(s), abnormal hearing, abnormal walking, numbness, tingling, abnormal speech, dizziness or memory loss Psych Psychiatric: No change in appetite, No memory loss, No anxiety, No depression, No Thoughts of harming yourself/Others Endo Endocrine: No fatigue, excessive sweating, cold intolerance, increased thirst/drinking, heat intolerance, flushing or increased hunger Aller/Imm Allergy/Immunologic: No wheezing, itchy eyes, hives or seasonal allergy symptoms Stefano/Lymp Hematologic/Lymphatic: No easy bleeding, easy bruising or enlarged lymph nodes Exam Const General: cooperative, comfortable, no acute distress Nutritional Appearance: well nourished, obese Orientation: alert, oriented x3 Limitations: mental status not altered HENMT Head: normal to inspection Ears: hearing grossly normal bilaterally, TM's normal bilaterally, EAC's normal, external ears normal Nose: external nose normal Eyes General: appearance normal, both eyes and all related structures Resp Effort AND Inspection: normal respiratory effort, able to speak in complete sentences, normal respiratory pattern, symmetric chest movement, no audible wheezes, no cough Auscultation: Bilateral: Clear to Auscultation Cardio Palpation: normal PMI Rate: regular rate Heart Sounds: S1 normal, S2 normal, normal S1 and S2, no click, no gallops, no murmurs, no rubs GI Inspection: normal to inspection Auscultation: normal bowel sounds, no hyperactive bowel sounds, no hypoactive bowel sounds Palpation: soft, no hepatosplenomegaly Musc Musculoskeletal: No joint tenderness, decreased ROM or muscle weakness Skin General: no rashes or lesions noted, elasticity normal, turgor normal Lesions: no lesions Rashes: no rashes Neuro General: alert, awake, oriented x3, CN's II-XI intact bilaterally Speech: speech normal Gait: normal gait Motor: muscle tone normal throughout Extrem General: normal to inspection, normal gait, no edema, no pedal edema Psych Appearance: grossly normal Mental Status: mental status grossly normal Affect: normal affect Attitude: cooperative Thought Process: normal Office Meds Walter Quad [id number] (PF) Performing Provider: MARJORIE Owens Administered by: Kira Harris on 07/15/18 11:35 Dose Route Admin Location Lot Number Expiration Date NDC Auto Job Estimator 60 mcg IM Lt Deltoid [id number] 03/19/19 75437-873-19 SEQIRUS Assessment AND Plan 1. HTN (hypertension) I10 Plan Hypertension: Blood pressure is suboptimal at this time. Will make changes to current medication regimen which include the addition of hydrochlorothiazide. Will start hydrochlorothiazide at 12.5 daily, patient to call in 1 week with log of blood pressures, will consider increasing hydrochlorothiazide at that time. Baseline labs reviewed. Will order BMP for 2 weeks due to the addition of the hydrochlorothiazide. Educated patient on the potential side effects of the new medication and to keep a log of their blood pressures at home. Discussed risk factor reduction and lifestyle modifications. Discussed dietary changes that should be considered which include reducing the amount of sodium intake. Patient instructed to follow up in 4-weeks for hypertension follow up visit. Orders Orders: 2. Type 2 diabetes mellitus E11.9 Plan The patient's most recent A1c was reviewed and was not at goal, 10.1. Patient has not been taking his Trulicity. Patient now agreeing to take Trulicity, medication education on administration in office today, first dose of medication initiated and qty 2 of .75 mg samples of trulicity given. Educated patient on potential side effects of medication and proper instruction on its use. Discussed red flag symptoms that require urgent medical attention. Discussed with patient lifestyle changes, risk factor reduction, and the benefits of maximizing nutrition and exercise. Patient refusing diabetes nutrition education at this time. Patient verbalized understanding. Diabetic supplies ordered, patient encouraged to monitor blood sugar at home. Will follow up with patient in 4 weeks. Orders Orders: Medications New: 3. Sleep apnea G47.30 Plan Patient to follow-up with sleep study titration. Discussed importance of treating sleep apnea, and positive effects on hypertension and overall health. Patient agreeable. Polysomnogram titration reordered. Orders Orders: 4. Ulcer of right foot with fat layer exposed L97.512 Plan Patient follows with Dr. Almendarez at the wound center. He denies any problems or concerns at this. This note was generated with Earthineer dictation software. It may contain incorrect words, spelling, and punctuation that were not noted in checking the note before signing. Plan Detail Other Orders Orders: Other Medications New: Changed: Discontinued: dulaglutide (Trulicity) Discontinued Reason: Or0.75 mg (0.5 mL) subcut QWEEK 2 mL 0RF amanda Completed Health Concerns Influenza vaccine given during today's office visit, patient verbalized understanding of the risks and benefits of the procedure. Patient monitored for 15 minutes after administration and tolerated the procedure well. No signs of reaction at this time. Patient education given.Patient educated on [id number] analgesics that may be appropriate for site discomfort. Follow Up 4 Weeks Coding Level of Care Code Off vis,est,level 4 Diagnoses HTN (hypertension) I10 Type 2 diabetes mellitus E11.9 Sleep apnea G47.30 Ulcer of right foot with fat layer exposed L97.512 07/20/18 0840 <Electronically signed by Deni AMADOR> Date Deni AMADOR Cosigner Signature: Date (if applicable) CC: DISCHARGE INSTRUCTION Observed: 07/02/2018 Status: F Source: [place] 9:05 PM [facility] REPOSITORY [facility] Medical Records Department [address] [place] [address] Discharge Instruction 07/02/18 2104 MR#: [id number] Acct: [id number] Name: ASH REGALADO Heriberto Rep #: [id number] : 1960 57 From: Simon Smith DO PCP: Star Aguilar MD Status: PRE ER ED Disposition - Plan for ED Patient: Chief Complaint: Ear Problem Instructions: ED Otitis Externa, ED Infec Skin Cellulitis Prescriptions: Amox/Clavulanate Tablet [Augmentin Tablet] 875 mg PO Q12H #20 tab Referrals: Juan Petty MD [STAFF PHYSICIAN] - 5-7 Days What to do if you have Problems For any increased pain, shortness of breath, bleeding, nausea or vomiting, chest pain, or any unexpected problems, contact your Primary Care Provider. Call [facility] ([phone]) or report to the closest Emergency Room. Call 911 if necessary. 07/02/182104 <Electronically signed by Simon Smith DO> Date Simon Smith DO Cosigner Signature (If Indicated): Date CC: Star Aguilar MD EMERGENCY DEPARTMENT Observed: 07/02/2018 Status: F Source: [place] SUMMARY 9:04 PM [facility] REPOSITORY [facility] Medical Records Department [address] [place] [address] Emergency Department Summary 07/02/182101 MR#: [id number] Acct: [id number] Name: ASH REGALADO Rep #: [id number] : 1960 57 From: Simon Smith DO PCP: Star Aguilar MD Status: PRE ER - ER Visit Summary Date of Service: 07/02/18 Chief Complaint: [Right ear pain] History of Present Illness: The patient is a 57 M [since the emergency department complaint of right ear pain that started initially last weekend but then resolved. Patient states 2 days ago the pain came back. Patient denies any real drainage from the ear. He denies any trauma. He denies getting water in his ear. He has not had a fever or sore throat. Denies cough.] Physical Examination: [HEENT-PERRLA, EOMI. Cranial nerves II through XII grossly intact. Patient has pain with traction on the right pinna. No tenderness over the mastoid. Patient has a swollen edematous ear canal and I have difficulty visualizing the tympanic membrane on the right. Patient had some edema and erythema of the ear itself as well. Left TM is clear.. Mucous membranes moist. No adenopathy. Cardiovascular-regular rate and rhythm without murmur or ectopy Lungs-clear to auscultation, chest wall stable without crepitus or subcu emphysema Abdomen-normoactive bowel sounds, soft, nontender, no rebound or rigidity, no peritoneal signs. Extremities-intact 4, normal range of motion, normal pulses, atraumatic] Test Results: [None indicated] Emergency Department Course and Treatment: [Patient started on Cortisporin Otic suspension as well as Augmentin] Treatment Plan: [Patient will be treated with Cortisporin Otic as well as Augmentin being that I cannot visualize the TM and I am concerned about early cellulitis of the ear itself.] Disposition: [Discharged home in stable condition. Patient will be referred to ENT for follow-up] Impression: [Right otitis externa Cellulitis right ear] This note was generated with Earthineer dictation software. It may contain incorrect words, spelling, and punctuation that were not noted in review of the chart prior to signing ED Disposition - Plan for ED Patient: Chief Complaint: Ear Problem Referrals: Star Aguilar MD [Primary Care Provider] - What to do if you have Problems For any increased pain, shortness of breath, bleeding, nausea or vomiting, chest pain, or any unexpected problems, contact your Primary Care Provider. Call [facility] ([phone]) or report to the closest Emergency Room. Call 911 if necessary. 07/02/18 0102 <Electronically signed by Simon Smith DO> Date Simon Smith DO Cosigner Signature (If Indicated): Date CC: Star Aguilar MD LOWER EXT ARTERIAL Observed: 06/12/2018 Status: F Source: [place] 3:06 PM [facility] REPOSITORY [facility] Cardiovascular Services [address] [place] [address] 06/12/18 1458 MR#: [id number] Acct: [id number] Name: ASH REGALADO Rep #: [id number] : 1960 57 From: Abdulkadir Vee MD Attending Dr: Ash Almendarez DPRona Status: REG RCR Ordering Dr: Date: 06/12/18 Location: Sex: M C Admitted: Arterial Study - Arterial Study Arterial Study: This is a 57-year-old male with a history of diabetes mellitus. Suspecting the presence of atherosclerotic peripheral arterial occlusive disease, the patient was brought to the noninvasive vascular laboratory at this time for the purpose of bilateral noninvasive lower extremity arterial assessment. Doppler signal assessment was used to evaluate the pulses at ankle level bilaterally. The posterior tibial and dorsalis pedis pulses were triphasic bilaterally. Segmental limb pressures were obtained bilaterally. The right ankle pressure, as determined by posterior tibial pulse, was measured at 217 mmHg. The right ankle pressure, as determined by dorsalis pedis pulse, was measured at 184 mmHg. The right digital pressure was measured at 161 mmHg. The left ankle pressure, as determined by posterior tibial pulse, could not be determined due to the noncompressibility of the vasculature. The left ankle pressure, as determined by dorsalis pedis pulse, could not be determined due to the noncompressibility of the vasculature. The left digital pressure was measured at 183 mmHg. Pulse-volume recordings were obtained bilaterally and segmentally. Waveform amplitudes appeared to be satisfactory at all levels bilaterally, including low thigh, calf, ankle, and digital levels. The resting right ankle-brachial index was calculated to be 1.22. The resting left ankle-brachial index could not be calculated due to the noncompressibility of the vasculature. Digital-brachial indices were calculated bilaterally. The right digital-brachial index was calculated to be 0.90. The left digital-brachial index was calculated to be 1.03. Impression: Based upon the findings of this resting noninvasive lower extremity arterial study, there is no evidence of significant atherosclerotic peripheral arterial occlusive disease in the lower extremities bilaterally. Triphasic waveforms were noted at ankle level bilaterally. The resting right ankle-brachial index is normal. The resting left ankle-brachial index could not be calculated due to the noncompressibility of the vasculature, likely due to arterial calcification. In this regard, clinical correlation is advised. Digital-brachial indices are bilaterally normal, suggesting relatively normal arterial flow at digital level bilaterally. 06/12/18 1506 <Electronically signed by Abdulkadir Vee MD> Date Abdulkadir Vee MD CC: DPRona Almendarez; Star Aguilar MD Date Dictated: 06/12/181457 Date Transcribed: 06/12/181457 Recooperer: MEREDITH Pimentel VENOUS DUPLEX LOWER Observed: 06/09/2018 Status: F Source: [place] EXTREMITY 5:42 PM [facility] REPOSITORY [facility] Cardiovascular Services [address] [place] [address] Venous Duplex US - Qasim Extrem 06/07/18714 MR#: [id number] Acct: [id number] Name: ASH REGALADO Rep #: [id number] : 1960 57 From: Abdulkadir Vee MD Attending Dr: Ash Almendarez DPM Status: REG RCR Ordering Dr: Ash Almendarez DPM Date: 06/07/18 Location: Sex: M C Admitted: Reason For Study: PVD per order RIGHT LEFT CFV is compressible, spontaneous, phasic, CFV is compressible, spontaneous, phasic, competent and demonstrates normal competent, and demonstrates normal augmentation. augmentation. FV is compressible, spontaneous, phasic, FV is compressible, spontaneous, phasic, competent and demonstrates normal competent and demonstrates normal augmentation. augmentation. POP V is compressible, spontaneous, phasic, POP V is compressible, spontaneous, phasic, competent and demonstrates normal competent and demonstrates normal augmentation. augmentation. T/P Trunk is compressible. T/P Trunk is compressible. PTV is compressible. PTV is compressible. RT PerV is compressible. LT PerV is compressible. S-F Junction is competent. S-F Junction is competent. GSV is incompetent throughout for greater GSV is incompetent throughout for greater than .5 seconds. GSV measures .518 x .571 than .5 seconds. GSV measures .42 cm. cm. SSV is incompetent for greater than .5 ASV at the knee is incompetent for greater seconds. SSV measures .409 x .433 cm. than .5 seconds. ASV measures .389 x .369 cm. SSV is incompetent for greater than .5 seconds. SSV measures .355 x .413 cm. Procedure Exam performed in department. The exam was diagnostic. Interpretation Summary Deep veins of the lower extremities are bilaterally patent and compressible segmentally. There is no evidence of deep vein thrombosis on either side. Valvular competence appears intact within the proximal deep venous systems bilaterally. The greater saphenous veins appear bilaterally patent and compressible segmentally. Sapheno-femoral junctions are bilaterally competent . Segmental valvular incompetence is noted within the greater saphenous veins bilaterally. Small saphenous veins are patent and incompetent bilaterally. The right accessory saphenous vein at the knee is incompetent. Ordering Physician: Ash Almendarez Performed By: Andrew Carvajal RVT 06/09/181741 Date Abdulkadir Vee MD CC: MARLENE Almendarez; Star Aguilar MD Date Dictated: 06/07/18 0715 Date Transcribed: 06/09/181741 Recooperer: Signed WOUND CTR HISTORY Observed: 06/02/2018 Status: F Source: [facility]ICAL 12:27 PM [facility] REPOSITORY [facility] Wound Healing Center [address] [place] [address] Wound Ctr History AND Physical 06/02/18 1201 MR#: [id number] Acct: [id number] Name: ASH REGALADO Rep #: [id number] : 1960 57 From: Ash Almendarez DPM PCP: Star Aguilar MD Status: REG RCR Y Location: WC (1) Ulcer of right foot with fat layer exposed Status: Acute Current Visit: Yes Code(s): L97.512 - Non- pressure chronic ulcer of other part of right foot with fat layer exposed (2) Type 2 diabetes mellitus with diabetic polyneuropathy Status: Acute Current Visit: Yes Code(s): E11.42 - Type 2 diabetes mellitus with diabetic polyneuropathy (3) PVD (peripheral vascular disease) Status: Suspected Current Visit: Yes Code(s): I73.9 - Peripheral vascular disease, unspecified (4) Lower extremity edema Status: Acute Current Visit: Yes Code(s): R60.0 - Localized edema (5) Delayed wound healing Status: Acute Current Visit: Yes Code(s): T14.8XXD - Other injury of unspecified body region, subsequent encounter History of Present Illness Date of Service: 06/02/18 Chief Complaint: Right forefoot ulcer History of Wound: This 57-year-old diabetic male was referred to the wound healing center for an ongoing ulcer of the right plantar forefoot in the area of the right third and fourth metatarsal heads. Patient says that the ulcer started around December, and his gotten slightly worse since then. He denies any sudden or traumatic event that caused the ulcer to start. Patient says he has been keeping Neosporin and a bandage over the area. He says he has not seen anybody before for this ulcer. He wears regular shoes. He denies ever seeing a trial lawyer for his diabetes and routine foot care. He says he has not been keeping the area offloaded since it started. He denies any purulence to the area, he denies any other heavy drainage, he denies any surrounding redness or warmth. Patient denies any feelings of nausea, vomiting, fever, chills Past Medical History Past Medical History: Chronic Problems (Last Updated 05/27/18 @ 07:40 by Kira Harris) Sleep apnea (Chronic) Left hip pain (Chronic) Type 2 diabetes mellitus (Chronic) Diabetic foot ulcer (Chronic) Neuropathy (Chronic) Diabetes (Chronic) Hypertension (Chronic) Allergies/Adverse Reactions: Allergies No Known Allergies Allergy (Verified 06/02/18 09:44) Home Medications: Ambulatory Orders Medication Instructions Recorded amlodipine 10 mg tablet 10 mg PO DAILY 05/27/18 doxazosin 8 mg tablet 8 mg PO DAILY 05/27/18 glipizide 2.5 mg-metformin 500 mg 1 tab PO BID 05/27/18 Smoking Status: Never smoker Review of Systems Constitutional: Denies: Chills, Fever, Weight Change Cardiovascular: Denies: Chest Pain Respiratory: Denies: Cough, Shortness of Breath Gastrointestinal: Denies: Diarrhea, Nausea, Vomiting Skin: Reports: - - Ulcer - Physical Exam Vital Signs Temp Pulse Resp BP 96.7 F L 85 20 H 172/98 H 06/02/18 09:25 06/02/18 09:25 06/02/18 09:25 06/02/18 09:25 General: Alert, Oriented x3, Cooperative, No apparent distress Extremities: Capillary Refill Less than 3 Seconds - To distal digits bilateral, No Calf Tenderness - Negative Heydi and Lomax sign, Diminished Peripheral Pulses - DP and PT pulses faintly palpable bilateral, Edema - Bilateral lower extremity edema Skin: Ulcer/ Wound - Ulcer to right plantar forefoot sub third/fourth metatarsal heads with fat layer exposed. Measurements noted below. The ulcer base is a mixture of adherent slough, fibrin, granular tissue, biofilm, as well as some surrounding hyperkeratotic tissue. There is no probing to bone, tracking, or undermining appreciated at this time. There is no purulence, no malodor, no extending cellulitis, and no significant increase in warmth appreciated to the ulcer site at this time. Wound Measurements and Assessment - Nurse 1 - General Ulcer Measurement Start: 06/02/18 09:25 Freq: Status: Active Protocol: Activity Type Activity Date Activity User E-Sign Co-Sign Detail Recorded Client Recorded Date Recorded By Document 06/02/18 09:25 [facility] [id number] 06/02/18 09:41 [facility] - Nurse 2 - General Ulcer CM Notes Start: 06/02/18 09:25 Freq: Status: Active Protocol: Activity Type Activity Date Activity User E-Sign Co-Sign Detail Recorded Client Recorded Date Recorded By Document 06/02/18 09:56 [id number] 06/02/18 10:11 Wound Center Nurse 2 [Procedure/Treatment] #1- RT PLANTAR -Time 09:56 -Correct Patient Yes -Correct Side, Site, Position Yes -Correct Procedure Yes -Procedure Performed Yes Musculoskeletal: No Tenderness to Palpation of Joints or Extremities, - - Contracted lesser digits Neurological: - - Epicritic sensation grossly absent to lower extremity Psych/Mental Status: Normal Affect, Appropriate Debridement Note Post-Debridement Measurements/Treatment WC - Nurse 2 - General Ulcer CM Notes Start: 06/02/18 09:25 Freq: Status: Active Protocol: Activity Type Activity Date Activity User E-Sign Co-Sign Detail Recorded Client Recorded Date Recorded By Document 06/02/18 09:56 [id number] 06/02/18 10:11 Wound Center Nurse 2 #1- RT PLANTAR -Time 09:56 -Correct Patient Yes Wound debrided: Right plantar foot Laterality: Right Type of Debridement: Excisional debridement Anesthesia Used: 4% Lidocaine Solution Depth: in the subcutaneous layer Percentage of wound debrided: 100 Instrument Used: #15 blade, - - Tissue nipper Tissue Removed: Adherent slough, fibrin, biofilm, hyperkeratotic tissue Severity: Fat Layer Exposed Amount of bleeding with debridement: Mild Bleeding Controlled with: Pressure Patient tolerated procedure well Assessment/Plan Active Problems (Last Updated 05/27/18 @ 07:40 by Kira Harris) Ulcer of right foot with fat layer exposed (Acute) Type 2 diabetes mellitus with diabetic polyneuropathy (Acute) Lower extremity edema (Acute) Delayed wound healing (Acute) Assessment: Ulcer of right distal forefoot, DM II with neuropathy, lower extremity edema, other comorbidities Plan: Initial patient examination and evaluation was performed today. A subcutaneous excisional debridement was performed as noted in the clinical panel. Once complete, the ulcer site was carefully cleansed and then Kasandra was applied to the ulcer base. This was followed by dry sterile dressing and Tubigrip for compression. The patient is to have his dressing change in this manner on a daily basis. The importance of offloading the ulcer site was stressed and discussed in great detail today. The patient is to alter his duties at work as well as keep pressure off of the right foot as much as possible. Patient was referred to the [facility] [place] in order be fitted for a surgical shoe with offloading dual density Plastizote insert that cuts out around the area of the ulcer site to offload the area. Patient was also instructed to get a knee scooter walker to further offload the right foot. No antibiotics were prescribed today as there were no clinical signs of infection. Cultures were taken following debridement and sent for aerobic, anaerobic, and MRSA PCR evaluation. LEAS and venous Doppler studies were ordered for the patient today. We will review these prior to the patient's next visit. Dressing supplies were ordered for the patient today. I also recommended nutritional supplementation with a high-protein diet in order to optimize ulcer healing potential. The importance of tight glycemic control was stressed to this patient today. The patient and his were educated on all signs and symptoms of local and systemic infection, and they are going to go to the emergency room immediately should they notice any of these. All questions were answered to the patient and the patient's satisfaction. The patient will follow-up in clinic in 1 week, or sooner if needed. 06/02/18 1227 <Electronically signed by Ash Almendarez DPM> Date Ash Almendarez DPM CC: Signed Observed: 06/02/2018 Status: F Source: [place] CULTURE, DEEP WOUND 10:05 AM [facility] REPOSITORY Comments: UNK SOURCE Gram Stain Gram Stain No White Blood Cells No organisms seen 2+ Red Cell Stroma Wound Culture #2 Penicillin is the drug of choice for Beta Streptococcal infections. For Penicillin allergic patients, Erythromycin may be used. ORGANISM 1: Staphylococcus aureus Amount Growth Rare ORGANISM 2: Streptococcus group G Amount Growth 2+ Staphylococcus aureus: REACTION Benzylpenicillin NF >=0.5 R Cefoxitin *NF - Clindamycin $$ <=0.25 S Inducable Clindamycin Resistan - Erythromycin $ >=8 R Gentamicin $ <=0.5 S Levofloxacin $ 1 S Linezolid $$$$ 2 S Moxifloxicin *NF <=0.25 S Oxacillin NF 0.5 S Tigecycline $$$$ <=0.12 S Rifampin $$ <=0.5 S Tetracycline NF <=1 S Trimethoprim/Sulfametho $ <=10 S Vancomycin $ 1 S (NF) indicates non-formulary drug at [facility]. Approval by Infectious Disease Specialist required before non-formulary drugs may be ordered and/or dispensed. * CLSI guidelines does not recommend testing of cephalosporins. This interpretation is deduced from Beta-lactam/penicillin results. Cult, Anaerobic RESULTS CALLED TO CATHIE AT 'S OFFICE 06/07/18 0794 Sepideh Paredes. REPORT READ BACK BY SAME. RESULTS FAXED TO [phone] 06/07/18 0757 Sepideh Paredes. Copy of report sent to Infection Control Printer [id number] 06/07/18 2820 MARY. Studies Have Confirmed That B. Fragilis Group are Routinely Susceptible to: Metronidazole, Piperacillin/Tazobactam, Tigecycline, Ertapenem, Imipenem, Meropenem and variable in resistance to: Clindamycin, Moxifloxacin, Cefoxitin and Ampicillin/Sulbactam. ORGANISM 1: Bacteroides fragilis Beta Lactamase Positive Performed By: #### M100.1500 #### [facility] [address] [place], [address] INTERNAL MEDICINE Observed: 05/31/2018 Status: F Source: [place] OFFICE VISIT 3:56 PM [facility] REPOSITORY [facility] [address] [place] [address] [address] [place] [address] OFFICE VISIT Date of Service: 05/27/18 MR#: [id number] Acct: [id number] Name: ASH REGALADO Rep #: [id number] : 1960 Provider: Star Aguilar MD Age/Sex: 57/M Location[facility] Status: Signed Intake Vital Signs05/27/18 Height 6 ft Intake Visit Reasons: EST CARE, SORE ON FOOT Chief Complaint: estabish care, sore foot and left hip pain Is patient in pain?: Yes (right foot, and left hip) Pain scale (1-10): 7 Allergies No Known Allergies Allergy (Unverified 05/27/18 07:39) Medications amlodipine 10 mg tablet 10 mg PO DAILY 05/27/18 [History Confirmed 05/27/18] doxazosin 8 mg tablet 8 mg PO DAILY 05/27/18 [History Confirmed 05/27/18] glipizide 2.5 mg-metformin 500 mg tablet 1 tab PO BID 05/27/18 [History Confirmed 05/27/18] lisinopril 40 mg tablet 40 mg PO DAILY 05/27/18 [History Confirmed 05/27/18] [facility] Medical History Neuropathy (Chronic) Diabetes (Chronic) Hypertension (Chronic) Surgical History History of tonsillectomy (Acute) history of right flank surgery (Acute) Family History Father Diabetes Myocardial infarction Brother Diabetes Social History Smoking Status: Never smoker alcohol intake: never substance use type: does not use what type of physical activity do you participate in: none HPI HPI Chief Complaint: estabish care, sore foot and left hip pain Details: ASH REGALADO, is a 57yo M who presents to the office today to establish care. He also has some concerns. His past medical history significant for diabetes, hypertension and chronic insufficiency. He reports the right foot also which she had noted in December and had been conservatively managing at home with triple antibiotic ointment however about 2 weeks ago he noted worsening and so presented here. He does not currently follow up with a trial lawyer. He is also unsure of his last A1c. He is concerned about a left hip pain also said to be ongoing for her couple of months. Worse on standing and ambulating. Denies any known precipitating factors. Also denies back pain or neurological deficits. Blood pressure is noted to be elevated during this visit. He reports compliance with his medications. ROS Const Constitutional: No weight change, body ache, chills, fatigue, sleep problems, fever(s), change in appetite, snoring, weakness, frequent falls, headache(s) or excessive sweating Eyes Eyes: No change in vision, eye pain, light sensitivity or blurry vision ENT ENT: No headache(s), abnormal hearing, ear pain, tinnitus, nasal congestion, sore throat or neck pain Resp Respiratory: No snoring, cough, shortness of breath or wheezing Cardio Cardiology: No excessive sweating, chest pain at rest, chest pain with exertion, shortness of breath, dyspnea on exertion, palpitations, orthopnea or lightheadedness Gastro GI: No abdominal pain, change in bowel habits, constipation, diarrhea, vomiting, nausea/dyspepsia or cramping Genitourinary Male: No painful urination, urinary incontinence, urinary frequency, urinary urgency, blood in urine, testicle pain or other Musc Musculoskeletal: Positive for joint pain (left hip x 1 month); no neck pain, abnormal walking, back pain, limited range of motion, numbness or tingling Skin Skin: Positive for wounds (Rt foot on the bottom. since December); no redness, dry skin, itching, lesions or rash Neuro Neurology: No weakness, frequent falls, headache(s), abnormal hearing, abnormal walking, numbness, tingling, abnormal speech, dizziness or memory loss Psych Psychiatric: No change in appetite, No memory loss, No anxiety, No depression, No Thoughts of harming yourself/Others Endo Endocrine: No fatigue, excessive sweating, cold intolerance, increased thirst/drinking, heat intolerance, flushing or increased hunger Aller/Imm Allergy/Immunologic: No wheezing, itchy eyes, hives or seasonal allergy symptoms Stefano/Lymp Hematologic/Lymphatic: No easy bleeding, easy bruising or enlarged lymph nodes Exam Const General: cooperative, no acute distress Orientation: alert, awake, oriented x3 HENMT Head: atraumatic, normocephalic, normal to inspection Ears: hearing grossly normal bilaterally Resp Effort AND Inspection: normal respiratory effort, able to speak in complete sentences, symmetric chest movement Auscultation: Bilateral: Clear to Auscultation Cardio Rate: regular rate Rhythm: regular rhythm Heart Sounds: S1 normal, S2 normal GI Inspection: obesity Palpation: soft (Nontender) Skin Other: Deep Callus ulcer noted number the lateral aspect of his right foot. No discharge appreciated. Neuro General: alert, awake, oriented x3, moves all extremities, CN's II-XI intact bilaterally Extrem General: pedal edema bilaterally Location: of the leg Severity: 2+ Assessment AND Plan 1. Diabetic foot ulcer E11.621; L97.509 Plan Referred to the wound center. Triple antibiotic ointment applied to the wound after it was cleaned covered with Adaptic and gauze also given supplies for wound care until his visit at the wound center. Optimal blood sugar control. Orders Referrals: 2. Type 2 diabetes mellitus E11.9 Plan Unsure of his blood sugar control on last A1c. Labs ordered. Continue current management for now. Follow-up in 2 weeks Orders Orders: 3. Left hip pain M25.552 Plan Likely secondary to osteoarthritis. Conservative measures not very helpful at this time. X-ray ordered. Follow-up with results. Orders Orders: 4. Hypertension I10 Plan Not optimally controlled. Patient reports compliance with this medication. Advised to keep a blood pressure log. Follow-up in 2 weeks it log, if blood pressure still elevated, will adjust medications. 5. Sleep apnea G47.30 Plan Had sleep study in the past which is suggestive of sleep apnea however patient did not follow-up for titration. Sleep study ordered. This note was generated with Edaixiation software. It may contain incorrect words, spelling, and punctuation that were not noted in checking the note before signing. Plan Detail Follow Up 2 Weeks Coding Level of Care Code Off vis,new,level 4 Diagnoses Diabetic foot ulcer E11.621; L97.509 Type 2 diabetes mellitus E11.9 Left hip pain M25.552 Hypertension I10 Sleep apnea G47.30 05/31/18 1556 <Electronically signed by Star Aguilar MD> Date Star Aguilar MD Cosigner Signature: Date (if applicable) CC: HIP, UNI W/ PELVIS Observed: 05/30/2018 Status: F Source: [place] 2-3 VIEWS 12:13 PM [facility] REPOSITORY [facility] Imaging Services [address] [place] [address] HIP, UNI W/ Pelvis 2-3 Views MR#: [id number] Acct: [id number] Name: ASH REGALADO Rep #: [id number] : 1960 57 From: Pietro Gayle MD PCP: Star Aguilar MD Status: REG CLI Study: HIP, UNI W/ Pelvis 2-3 Views Date of Exam: 05/30/18 Exam# [id number] Ordering Dr: Star Aguilar MD STUDY: X-RAY - PELVIS AND LEFT HIP REASON FOR EXAM: Male, 57 years old. Left hip pain TECHNIQUE: Radiological exam, hip, unilateral, with pelvis when performed; 2 or 3 views. COMPARISON: None. FINDINGS: There is a non-specific bowel gas pattern. Normal visualized soft tissue structures. Normal bilateral iliac wings, sacroiliac joints and visualized sacrum. Normal bilateral superior and inferior pubic rami. Normal pubic symphysis. Normal bilateral ischial tuberosities. Normal visualized femoral head. Normal acetabulum. Normal hip joint. RAD/HIP, UNI W/ Pelvis 2-3 Views IMPRESSION: Normal x-ray examination of the pelvis and hip. Electronically Signed: Pietro Gayle MD at 21:54 EDT , Service support , CC: Star Aguilar MD Recooperer: Signed CBC W/DIFF, AUTOMATED Collected: 05/27/2018 Status: F Source: [place] 12:10 PM [facility] REPOSITORY TYPE CODE TESTS RESULT OUT OF RANGE REFERENCE UNITS LAB L100.1000 4.4-11.0 K/mm3 Normal WBC 6.6 LAB L100.1200 4.6-6.2 M/mm3 Normal RBC 5.31 LAB L100.1300 13.0-16.5 g/dl Normal HGB 15.3 LAB L100.1400 40-54 % Normal HCT 45.1 LAB L100.1500 80-94 fL Normal MCV 84.9 LAB L100.1600 27.0-32.0 pg Normal MCH 28.8 LAB L100.1700 32-36 g/gl Normal MCHC 33.9 LAB L100.1810 11.6-14.6 % Normal RDW CV 12.8 LAB L100.1820 35.1-43.9 fl Normal RDW SD 39.1 LAB L100.1900 150-450 K/mm3 Normal PLT 188 LAB L100.2000 6.2-12.0 fl Normal MPV 11.0 LAB L100.2100 47-70 % Normal NEUT% 51.7 LAB L100.2200 19-41 % Normal LY% 36.2 LAB L100.2300 0-10 % Normal MONO% 8.2 LAB L100.2400 0-5 % Normal EO% 3.1 LAB L100.2500 0-1 % Normal BASO% 0.6 LAB L100.2550 0.0-0.9 % Normal IM GRAN % 0.200 Result Comment: IG% - Immature Granulocytes (promyelocytes, myelocytes and metamyelocytes) > 1% indicates that a LEFT SHIFT is Present. LAB L100.2620 2.0-7.7 X10 3/uL Normal Absolute Neut 3.4 LAB L100.2720 0.83-4.51 X10 3/ul Normal Absolute Lymph 2.37 Performed By: #### L100.0100 #### [facility] [address] [place], [place], [address] HEMOGLOBIN A1C Collected: 05/27/2018 Status: F Source: [place] 12:10 PM [facility] REPOSITORY TYPE CODE TESTS RESULT OUT OF RANGE REFERENCE UNITS LAB L501.9985 4.2-6.3 % High HGB A1C 10.1 Performed By: #### L501.9985, L500.4050, L500.4100 #### [facility] [address] [place], [place], [address] COMPREHENSIVE METABOLIC Collected: 05/27/2018 Status: F Source: [facility] 12:10 PM [facility] REPOSITORY Order Comment: Comments: Fasting Comments: Fasting TYPE CODE TESTS RESULT OUT OF RANGE REFERENCE UNITS LAB L501.0100 74-106 mg/dL High GLU 275 Result Comment: Glucose result greater than or equal to 200 mg/dL suggests DIABETES MELLITUS per A.D.A. criteria. Please note revised GLUCOSE reference range effective 2017. LAB L501.1000 7-18 mg/dL Normal BUN 18 LAB L501.1100 0.70-1.30 mg/dL Normal CREAT,SERUM 0.99 Result Comment: The validity of the calculated GFR AND GFRAA in patients over 70 years has not been determined. Clinical correlation is essential. LAB L501.1110 >60 mL/min Normal EST GFR 82 Result Comment: Non- GFR Calc LAB L501.1115 >60 mL/min Normal EST GFR - AA 99 Result Comment: GFR Calc LAB L501.1300 10-20 RATIO Normal BUN/CRE 18.2 LAB L501.1500 6.4-8.2 g/dL T Normal PROT 7.9 LAB L501.1800 3.2-5.0 g/dL Normal ALB 3.3 LAB L501.1950 2.2-4.2 g/dL High GLOB 4.6 LAB L501.2000 0.9-2.4 RATIO Low A/G 0.7 LAB L501.2200 8.5-10.1 mg/dL CA Normal 8.8 LAB L501.4100 15-37 U/L Normal AST 20 Result Comment: Slight Hemolysis, Result may be falsely increased. LAB L501.4305 45-117 U/L Normal ALK P 115 LAB L501.4405 16-61 U/L Normal ALT 20 LAB L501.4600 0.20-1.00 mg/dL Normal T BILI 0.40 LAB L501.5300 136-145 mmol/L Normal NA 139 LAB L501.5600 3.5-5.1 mmol/L Normal K 4.3 Result Comment: Slight Hemolysis, Result may be falsely increased. LAB L501.5900 98-107 mmol/L Normal CL 105 LAB L501.6100 21.0-32.0 mmol/L Normal CO2 24.0 LAB L501.6200 5-15 Normal GAP 10 Performed By: #### L501.9985, L500.4050, L500.4100 #### [facility] [address] [place], [place], [address] LIPID PROFILE Collected: 05/27/2018 Status: F Source: [place] 12:10 PM [facility] REPOSITORY Order Comment: Comments: Fasting Comments: Fasting TYPE CODE TESTS RESULT OUT OF RANGE REFERENCE UNITS LAB L501.4900 200 mg/dL Normal CHOL 161 Result Comment: <200 mg/dL Desirable 200-240 mg/dL Borderline >240 mg/dL High Risk LAB L501.5000 mg/dL Normal TRIG 175 Result Comment: The drugs N-Acetylcysteine and Metamizole may falsely depress this assay. Serum Triglycerides Reference Interval Normal <150 mg/dL Borderline high 150 - 199 mg/dL High 200 - 499 mg/dL Very High > or = 500 mg/dL LAB L501.6400 mg/dL Normal HDL 41 Result Comment: The drugs N-Acetylcysteine and Metamizole may falsely depress this assay. Reference Range HDL <40 mg/dL Low HDL Cholesterol HDL >or= 60 mg/dL High HDL Cholesterol LAB L501.6500 0-130 mg/dL Normal LDL 85 LAB L501.6600 5-40 mg/dL Normal VLDL 35 Performed By: #### L501.9985, L500.4050, L500.4100 #### [facility] [address] [place], [address] MICROALB:CREAT Collected: 05/27/2018 Status: F Source: [place] RATIO,RANDOM UR 12:10 PM [facility] REPOSITORY TYPE CODE TESTS RESULT OUT OF RANGE REFERENCE UNITS LAB L501.1200 NO RANGE EST. mg/dL Normal UR CREAT 195.00 LAB L502.0500 NO RANGE EST. mg/L Normal 658.0 MICROALBUMIN ,UR LAB L502.0600 <30 mg/g CRE mg/g CRE High 337.4 MALB:CREAT Performed By: #### L502.0250 #### [facility] [address] [place], [address] ALLERGIES ALLERGIES DATE TYPE / CODE NAME / CODE REACTION SEVERITY SOURCE 09/22/2018 Drug No Known Unknown [facility] Allergy/416 Allergies/J12197 [facility] 979196(SNOM 0388(RXNORM) Repository ED CT) Drug NO KNOWN [facility] Class/59459 ALLERGIES [facility] 1003(SNOMED Repository CT) ENCOUNTERS ENCOUNTERS ADMIT/DISCHARGE ACCOUNT ADMITTING ENCOUNTER LOCATION SOURCE NUMBER CLASS 09/22/2018/09/22/19 [id number] Ambulatory BMSBuilding:[address] [place] [address] MS.PMW [facility] Repository 09/17/2018/09/18/20 [id number] Ambulatory [address] Repository 09/06/2018 [id number] Ambulatory [facility] ing: Repository 08/30/2018 [id number] Ambulatory BMSBuilding:B [place] MS.CF.WSA [facility] Repository 08/30/2018/08/30/20 [id number] Ambulatory [address] ing:ENRoom: Repository AC15 08/30/2018 [id number] Ambulatory [facility] ing:WC Repository 08/18/2018/08/18/20 [id number] Ambulatory BMSBuilding:B [place] [address] MS.WSA [facility] Repository 08/16/2018/08/16/20 [id number] Ambulatory BMSBuilding:[address] [place] [address] MS.BIM [facility] Repository 08/15/2018 [id number] Ambulatory [facility] Hospital ing:LAB Repository 07/21/2018/08/19/20 [id number] Ambulatory [place] [address] [facility] ing:WC Repository 07/15/2018/07/15/20 [id number] Ambulatory BMSBuilding:B [place] 18 MS.BIM [facility] Repository 07/14/2018/07/20/20 [id number] Ambulatory [address] [facility] ing:WC Repository 07/02/2018/07/02/20 [id number] Emergency [place] [address] [facility] ing:ED Repository 06/16/2018/06/19/20 [id number] Ambulatory [place] [address] [facility] Hospital ing:WC Repository 06/03/2018 [id number] Ambulatory BMSBuilding:B [place] MS.BIM [facility] Repository 05/30/2018 [id number] Ambulatory [facility] ing:RAD Repository 05/27/2018 [id number] Ambulatory [facility] ing:LAB Repository 05/27/2018/05/27/20 [id number] Ambulatory BMSBuilding:B [place] [address] MS.BIM [facility] Repository PAYERS PAYERS ENCOUNTER GUARANTOR PAYER SUBSCRIBER SOURCE 09/22/2018 ASH [place] Primary ASH REGALADO[address] Insurance:LISA MARSHALL: [facility] [id number] Hospital [id number]: [phone]) PLANPolicy Number: Repository [phone] [id number] Date:[id number] [address]DY: 09/22/2018 Secondary NOT GIVENUNK [place] Insurance:SELF PAY [facility]: Effective Repository Date:2018-08-16 09/06/2018 ASH [place] Primary ASH REGALADO[address]30 [address] Insurance:BUCKEYE WHITEDOB: [facility] [id number] [id number]: [phone]) PLANPolicy Number: Repository [phone] () [id number] Date:[id number] [address] [place] [address]JN: 09/06/2018 Secondary NOT GIVENUNK Gio Insurance:SELF PAY [facility] Hospital Number: Effective Repository Date:2018-06-01 08/30/2018 ASH [facility] Primary ASH Powers [id number] [place] Insurance:BU[place]KEYE WHITEDOB: [facility] [id number] [id number]: (330) PLANPolicy Number: Repository [phone] () [id number] Date:0724-03-24RL [address] [place] [address] 58327MF: 08/30/2018 Secondary NOT GIVENUNK Gio Insurance:SELF PAY [facility] Hospital Number: Effective Repository Date:2018-08-30 08/30/2018 ASH [facility] Primary ASH Powers [id number] [place] Insurance:[place]E WHITEDOB: [facility] [id number] Hospital 28117Bwu: (330) PLANPolicy Number: Repository [phone] () [id number] Date:0243-15-21WM [address] [place] [address] 19897IM: 08/30/2018 Secondary NOT GIVENUNK [place] Insurance:SELF PAY [facility] Hospital Number: Effective Repository Date:2018-08-18 08/30/2018 ASH [facility] Primary ASH Powers [id number] [place] Insurance:[place]E WHITEDOB: [facility] [id number] Hospital 34487Zwq: (330) PLANPolicy Number: Repository [phone] () [id number] Date:6970-86-83SM [address] [place] [address] 13896BX: 08/30/2018 Secondary NOT GIVENUNK [place] Insurance:SELF PAY [facility] Effective Repository Date:2018-08-20 08/18/2018 ASH Louis Primary ASH Powers [id number] [place] Insurance:BUCKEYE WHITEDOB: [facility] [id number] Hospital 16999Npa: (330) PLANPolicy Number: Repository [phone] () [id number] Date:1937-97-77NJ [address] [place] [address] 67926UA: 08/18/2018 Secondary NOT GIVENUNK [place] Insurance:SELF PAY [facility] Number: Effective Repository Date:2018-08-18 08/16/2018 ASH [facility] Primary ASH Powers [id number] [place] Insurance:[place]KEYE WHITEDOB: [facility] [id number] Hospital 95108Wxo: (330) PLANPolicy Number: Repository [phone] () [id number] Date:3489-55-38EH [address] [address]QQ: 08/16/2018 Secondary NOT GIVENUNK [place] Insurance:SELF PAY [facility] Number: Effective Repository Date:2018-07-29 08/15/2018 ASH [facility] Primary ASH Powers [id number] [place] Insurance:BU[place]KEYE WHITEDOB: [facility] [id number] Hospital 30945Jkj: (330) PLANPolicy Number: Repository [phone] () [id number] Date:4665-36-34UX [address] [place] [address] 73788YE: 08/15/2018 Secondary NOT GIVENUNK [place] Insurance:SELF PAY [facility] Hospital Number: Effective Repository Date:2018-08-15 07/21/2018 ASH [facility] Primary ASH Powers [id number] [place] Insurance:[place]KEYE WHITEDOB: [facility] [id number] Hospital 537[address]Cwl: (330) PLANPolicy Number: Repository [phone] () [id number] Date:0876-74-11KM [address] [place] [address] 22148IM: 07/21/2018 Secondary NOT GIVENUNK [place] Insurance:SELF PAY [facility] Number: Effective Repository Date:2018-07-21 07/15/2018 ASH [facility] Primary ASH Powers [id number] [place] Insurance:BU[place]KEYE WHITEDOB: [facility] [id number] Hospital 81632Rxd: (330) PLANPolicy Number: Repository [phone] () [id number] Date:8150-88-07YI [address] [address]FS: 07/15/2018 Secondary NOT GIVENUNK [place] Insurance:SELF PAY [facility] Number: Effective Repository Date:2018-07-15 07/14/2018 ASH Louis Primary ASH Powers [id number] [place] Insurance:BUCKEYE WHITEDOB: [facility] [id number] Hospital 15408Myy: (330) PLANPolicy Number: Repository [phone] () [id number] Date:4593-52-14BO [address] [address]QP: 07/14/2018 Secondary NOT GIVENUNK [place] Insurance:SELF PAY [facility] Hospital Number: Effective Repository Date:2018-06-20 07/02/2018 ASH Louis Primary ASH Powers [id number] [place] Insurance:BUCKEYE WHITEDOB: [facility] [id number] Hospital 18357Thr: (330) PLANPolicy Number: Repository [phone] () [id number] Date:7985-17-63XB [address] [place] [address] 36087FU: 07/02/2018 Secondary NOT GIVENUNK [place] Insurance:SELF PAY [facility] Effective Rep[facility] Date:2018-07-02 06/16/2018 ASH Louis Primary AHS [id number] [place] Insurance:BUCKEYE WHITEDOB: [facility] [id number] Hospital 387[address]Vka: (330) PLANPolicy Number: Repository [phone] () [id number] Date:2799-79-74AP [address] [place] [address] 38942LF: 06/16/2018 Secondary NOT GIVENUNK [place] Insurance:SELF PAY [facility] Number: Effective Repository Date:2018-05-30 06/03/2018 ASH Louis Primary ASH Powers [id number] [place] Insurance:BUCKEYE WHITEDOB: [facility] [id number] Hospital [address]96[address]Iwk: (330) PLANPolicy Number: Repository [phone] () [id number] Date:[id number] [address]NG: 06/03/2018 Secondary NOT GIVENUNK [place] Insurance:SELF PAY [facility] Number: Effective Repository Date:2018-06-03 05/30/2018 ASH [facility] Primary ASH Powers [id number] [place] Insurance:BUCKEYE WHITEDOB: [facility] [id number] Hospital 12017Xnt: (330) PLANPolicy Number: Repository [phone] () [id number] Date:3450-53-45RR [address] [place] [address] 57083CH: 05/30/2018 Secondary NOT GIVENUNK [place] Insurance:SELF PAY [facility] Number: Effective Repository Date:2018-05-30 05/27/2018 ASH [facility] Primary ASH Powers [id number] [place] Insurance:BUCKEYE WHITEDOB: [facility] [id number] Hospital 44130Rwz: (330) PLANPolicy Number: Repository [phone] () [id number] Date:8819-24-67FR [address] KELSEY [address]VQ: 05/27/2018 Secondary NOT GIVENUNK [place] Insurance:SELF PAY [facility] Number: Effective Repository Date:2018-05-27 05/27/2018 ASH [facility] ASH [id number] [place] Insurance:LISA MARSHALL: [facility] [id number] Hospital 612[address]Twh: (330) PLANPolicy Number: Repository [phone] () [id number] Date:6055-85-44YG [address]OlgaFLAGSTAFF MEDICAL CENTERJULIANA MORRISON [address]MV: 05/27/2018 Secondary NOT GIVENUNK [place] Insurance:SELF PAY [facility] Number: Effective Repository Date:2018-05-26
== END 2018-08-30 11:20 | disposition home or self-care (01) ==
LOC: EN 09:09 → AC 09:10
PROVIDERS: Family Provider Internal Medicine; PCP Internal Medicine; Referring Provider Surgery; Visit Provider Surgery
PROC: 0DJD8ZZ Inspection of Lower Intestinal Tract, Via Natural or Artificial Opening Endoscopic (ICD-10-PCS; CPT 45378; principal; 2018-08-30 09:55)
DX: Z12.11 Encounter for screening for malignant neoplasm of colon (principal); D12.2 Benign neoplasm of ascending colon; I10 Essential (primary) hypertension; E11.42 Type 2 diabetes mellitus with diabetic polyneuropathy; E11.621 Type 2 diabetes mellitus with foot ulcer; L97.512 Non-pressure chronic ulcer of other part of right foot with fat layer exposed; Z79.84 Long term (current) use of oral hypoglycemic drugs; Z79.899 Other long term (current) drug therapy
CPT/HCPCS: 45380; 82962; 88305; J7120

== ENCOUNTER → 2018-09-06 20:52 | Outpatient (CLI) | payer MEDICAID, SELFPAY | PROVIDERS: Family Provider Internal Medicine; PCP Internal Medicine; Visit Provider Internal Medicine | DX: G47.30 Sleep apnea, unspecified (principal) | CPT/HCPCS: 95811 ==

== ENCOUNTER → 2019-02-17 | Outpatient (CLI) | payer MEDICAID, SELFPAY ==
[2019-02-17 10:30] VITALS: BMI 41.3
[2019-02-17 12:38] LABS: Absolute Lymphocyte Count 1.82 X10^3/ul (0.83-4.51); Absolute Neutrophil Count 3.5 X10^3/uL (2.0-7.7); Basophil# 0.04 X10^3/uL; Basophil% 0.7 % (0-1); Eosinophil# 0.24 X10^3/uL; Eosinophils% 3.9 % (0-5); Hematocrit 43.3 % (40-54); Hemoglobin 14.9 g/dl (13.0-16.5); Lymphocyte # 1.82 X10^3/ul (4.0); Lymphocyte % 29.6 % (19-41); Mean Corp Hgb Conc 34.4 g/gl (32-36); Mean Corpuscular Hgb 28.3 pg (27.0-32.0); Mean Corpuscular Volume 82.2 fL (80-94); Mean Platelet Vol. 11.3 fl (6.2-12.0); Monocyte# 0.54 X10^3/uL; Monocyte% 8.8 % (0-10); Neutrophil # 3.49 X10^3/uL (2.7-7.7); Neutrophil % 56.7 % (47-70); Platelet Count 192 K/mm3 (150-450); RBC Distribution Width CV 12.9 % (11.6-14.6); RBC Distribution Width SD 38.5 fl (35.1-43.9); Red Blood Count 5.27 M/mm3 (4.6-6.2); White Blood Count 6.2 K/mm3 (4.4-11.0)
[2019-02-17 12:46] LABS: POSITIVE COUNT NO; POSITIVE DIFFERENTIAL NO; POSITIVE MORPHOLOGY NO
[2019-02-17 13:04] LABS: ALB/GLOB Ratio 0.8 RATIO (0.9-2.4); AST(SGOT) 29 U/L (15-37); Alanine Aminotransfer ALT/SGPT 32 U/L (16-61); Albumin, Serum 3.5 g/dL (3.2-5.0); Alkaline Phosphatase 105 U/L (45-117); Anion Gap 10 (5-15); BUN 16 mg/dL (7-18); BUN/Creat Ratio 14.3 RATIO (10-20); Calcium,Total 9.3 mg/dL (8.5-10.1); Chloride 102 mmol/L (98-107); Cholesterol 147 mg/dL (200); Creatinine, Serum 1.12 mg/dL (0.70-1.30); EST Glomerular Filtration Rate 71 mL/min (>60); Est Glom Filt Rate - Afr Amer 86 mL/min (>60); Globulin 4.2 g/dL (2.2-4.2); Glucose 217 mg/dL (74-106); High Density Lipoprotein 38 mg/dL; Potassium 3.5 mmol/L (3.5-5.1); Protein, Total 7.7 g/dL (6.4-8.2); Sodium Level 139 mmol/L (136-145); Thyroid Stim Hormone (TSH) 1.69 uIU/mL (0.358-3.74); Triglycerides 195 mg/dL; Very Low Density Lipoprotein 39 mg/dL (5-40)
[2019-02-17 13:24] LABS: Microalbumin:Creatinine Ratio 98.7 mg/g CRE (<30 mg/g CRE)
== END | disposition home or self-care (01) ==
LOC: BIMLAB 10:56
PROVIDERS: Family Provider Internal Medicine; PCP Internal Medicine; Visit Provider Nurse Practitioner Family
DX: E11.9 Type 2 diabetes mellitus without complications (principal)
CPT/HCPCS: 36415; 80053; 80061; 82043; 82570; 84443; 85025

== ENCOUNTER → 2019-08-15 11:48 | Outpatient (CLI) | payer MEDICAID, SELFPAY ==
[2019-08-15 11:29] VITALS: BMI 40.1
[2019-08-15 12:48] LABS: Hematocrit 41.8 % (40-54); Hemoglobin 14.3 g/dL (13.0-16.5); Mean Corp Hgb Conc 34.2 g/dL (32-36); Mean Corpuscular Hgb 28.7 pg (27.0-32.0); Mean Corpuscular Volume 83.8 fL (80-94); Mean Platelet Vol. 10.9 fl (6.2-12.0); Platelet Count 183 K/mm3 (150-450); RBC Distribution Width CV 12.9 % (11.6-14.6); Red Blood Count 4.99 M/mm3 (4.6-6.2); White Blood Count 5.5 K/mm3 (4.4-11.0)
[2019-08-15 13:30] LABS: AST(SGOT) 16 U/L (15-37); Alanine Aminotransfer ALT/SGPT 21 U/L (16-61); Albumin, Serum 3.7 g/dL (3.2-5.0); Alkaline Phosphatase 107 U/L (45-117); Anion Gap 10 (5-15); BUN 14 mg/dL (7-18); BUN/Creat Ratio 15.2 RATIO (10-20); Chloride 104 mmol/L (98-107); Cholesterol 151 mg/dL (200); Creatinine, Serum 0.92 mg/dL (0.70-1.30); EST Glomerular Filtration Rate 89 mL/min (>60); Est Glom Filt Rate - Afr Amer 107 mL/min (>60); Globulin 3.8 g/dL (2.2-4.2); Glucose 168 mg/dL (74-106); High Density Lipoprotein 36 mg/dL; PSA,Total - Annual Screen 0.99 ng/mL (0.00-4.00); Potassium 3.5 mmol/L (3.5-5.1); Protein, Total 7.5 g/dL (6.4-8.2); Sodium Level 141 mmol/L (136-145); Thyroid Stim Hormone (TSH) 1.97 uIU/mL (0.358-3.74); Triglycerides 157 mg/dL; Very Low Density Lipoprotein 31 mg/dL (5-40)
== END ==
PROVIDERS: Family Provider Internal Medicine; PCP Internal Medicine; Visit Provider Nurse Practitioner Family
DX: Z00.00 Encounter for general adult medical examination without abnormal findings (principal); I10 Essential (primary) hypertension; E11.9 Type 2 diabetes mellitus without complications
CPT/HCPCS: 36415; 80053; 80061; 84153; 84443; 85027; G0103

== ENCOUNTER → 2020-08-22 | Outpatient (CLI) | payer MEDICAID, SELFPAY ==
[2020-08-22 10:26] VITALS: BMI 39.2
== END | disposition home or self-care (01) ==
LOC: LABSPEC 11:06
PROVIDERS: PCP Internal Medicine; Referring Provider Nurse Practitioner Family; Visit Provider Nurse Practitioner Family
DX: U07.1 COVID-19 (principal)
CPT/HCPCS: 87635; U0003

== ENCOUNTER → 2021-01-29 09:43 | Outpatient (CLI) | payer MEDICAID, SELFPAY ==
[2020-12-03 09:56] VITALS: BMI 40.8
--- NOTE | 2021-01-29 18:28 | STRESSREP ---
Stress Test Report Date: 01-29-2021 Procedure: Exercise tolerance test Indications: Bradycardia; abnormal ECG Consent: Per the patient Procedure: The patient exercised on a Seth protocol for 3 minutes completing Stage I achieving a peak heart rate of 131 bpm (82% predicted maximal heart rate) with a peak blood pressure 210/88 mmHg and a peak MET capacity of approximately four MET's. The baseline ECG demonstrated sinus rhythm; incomplete left bundle branch block pattern. The peak exercise ECG demonstrated no obvious ECG changes. There was an occasional PVCs pretest, during exercise, and recovery and a ventricular couplet during recovery. The functional capacity was considered decreased. The patient had no complaint of chest discomfort during exercise or recovery. The examination was discontinued secondary to dyspnea; muscle fatigue. Impression: 1. Technically inadequate (percent predicted maximal heart rate less than 85%) exercise tolerance test 2. Peak exercise ECG with no obvious ECG changes of the heart rate achieved 3. There were occasional PVCs pretest, during exercise, and recovery and a ventricular couplet during recovery This note was generated with Embedded Chatation software. It may contain incorrect words, spelling, and punctuation that were not noted in checking the note before signing.
== END ==
PROVIDERS: PCP Nurse Practitioner Family; Referring Provider Nurse Practitioner Family; Visit Provider Nurse Practitioner Family
DX: R00.1 Bradycardia, unspecified (principal); R94.31 Abnormal electrocardiogram [ECG] [EKG]; I10 Essential (primary) hypertension; E11.8 Type 2 diabetes mellitus with unspecified complications
CPT/HCPCS: 93017

== ENCOUNTER → 2021-04-01 11:09 | Outpatient (CLI) | payer MEDICAID, SELFPAY ==
[2021-04-01 10:30] VITALS: BMI 39.9
[2021-04-01 12:06] LABS: Absolute Lymphocyte Count 1.93 X10^3/uL (0.83-4.51); Absolute Neutrophil Count 3.9 X10^3/uL (2.0-7.7); Basophil# 0.05 X10^3/uL; Basophil% 0.7 % (0-1); Eosinophil# 0.24 X10^3/uL; Eosinophils% 3.6 % (0-5); Hematocrit 42.1 % (40-54); Lymphocyte # 1.93 X10^3/ul (0.83-4.51); Lymphocyte % 28.6 % (19-41); Mean Corp Hgb Conc 33.3 g/dL (32-36); Mean Corpuscular Hgb 28.1 pg (27.0-32.0); Mean Corpuscular Volume 84.4 fL (80-94); Monocyte# 0.58 X10^3/uL; Monocyte% 8.6 % (0-10); NRBC Flagged by Analyzer 0 % (0-5); Neutrophil # 3.91 X10^3/uL (2.7-7.7); Neutrophil % 58.1 % (47-70); Platelet Count 216 K/mm3 (150-450); RBC Distribution Width CV 12.9 % (11.6-14.6); RBC Distribution Width SD 39.8 fl (35.1-43.9); Red Blood Count 4.99 M/mm3 (4.6-6.2); White Blood Count 6.7 K/mm3 (4.4-11.0)
[2021-04-01 12:42] LABS: ALB/GLOB Ratio 0.9 RATIO (0.9-2.4); AST(SGOT) 14 U/L (15-37); Alanine Aminotransfer ALT/SGPT 16 U/L (16-61); Albumin, Serum 3.5 g/dL (3.2-5.0); Alkaline Phosphatase 123 U/L (45-117); Anion Gap 7 (5-15); BUN 20 mg/dL (7-18); BUN/Creat Ratio 17.5 RATIO (10-20); Calcium,Total 9.2 mg/dL (8.5-10.1); Chloride 103 mmol/L (98-107); Cholesterol 148 mg/dL (200); Creatinine, Serum 1.14 mg/dL (0.70-1.30); EST Glomerular Filtration Rate 69 mL/min (>60); Est Glom Filt Rate - Afr Amer 84 mL/min (>60); Glucose 161 mg/dL (74-106); High Density Lipoprotein 34 mg/dL; PSA,Total - Annual Screen 1.04 ng/mL (0.00-4.00); Potassium 3.7 mmol/L (3.5-5.1); Protein, Total 7.5 g/dL (6.4-8.2); Sodium Level 140 mmol/L (136-145); Thyroid Stim Hormone (TSH) 2.07 uIU/mL (0.358-3.74); Triglycerides 130 mg/dL; Very Low Density Lipoprotein 26 mg/dL (5-40)
[2021-04-01 13:17] LABS: Microalbumin:Creatinine Ratio 55.7 mg/g CRE (<30 mg/g CRE)
== END ==
PROVIDERS: PCP Internal Medicine; Referring Provider Nurse Practitioner Family; Visit Provider Nurse Practitioner Family
DX: E11.8 Type 2 diabetes mellitus with unspecified complications (principal); E78.5 Hyperlipidemia, unspecified; I10 Essential (primary) hypertension; Z12.5 Encounter for screening for malignant neoplasm of prostate
CPT/HCPCS: 36415; 80053; 80061; 82043; 82570; 84153; 84443; 85025; G0103

== ENCOUNTER → 2021-07-25 10:48 | Outpatient (CLI) | payer MEDICAID, SELFPAY ==
--- NOTE | 2021-07-25 10:50 | ECHOCS_ITS ---
Reason For Study: SABA Procedure This was a 2D Doppler, Color Flow transthoracic echocardiogram. The study was technically difficult. Contrast injection was performed. Exam performed in department. Left Ventricle Based upon the 2D echocardiographic and contrast enhanced images obtained there appears to be grossly normal left ventricular size, wall motion, and systolic function. The estimated ejection fraction is 55 %. Diastolic function is indeterminate. Right Ventricle Based upon the 2D echocardiographic images obtained there appears to be grossly normal right ventricular size and systolic function. Atria The left atrium is mildly enlarged. Normal right atrium. No doppler evidence for ASD. Mitral Valve There is no mitral annular calcification. Normal mitral valve. Trivial mitral valve insufficiency. Tricuspid Valve Normal tricuspid valve. Trivial tricuspid valve insufficiency. Unable to estimate RV systolic pressure/pulmonary artery pressure due to technically difficult study. Aortic Valve The aortic valve is not well visualized. Pulmonic Valve The pulmonic valve is not well visualized. Great Vessels Normal sized aortic root. Pericardium/Pleural No pericardial effusion. Medication Diluted definity 4ml given slow IV push to enhance endocardial definition. MMode/2D Measurements & Calculations LVIDd: 5.9 cm IVSd: 1.4 cm Ao root diam: 3.6 cm LVIDs: 5.2 cm LVPWd: 1.1 cm FS: 11.9 % LAV(MOD-bp): 84.0 ml LVAd ap4: 45.3 cm2 SV(MOD-sp4): 86.6 ml LAV(MOD-bp) Indexed: 33.5 ml/m2 LVLd ap4: 8.2 cm LAV(MOD-sp2): 76.1 ml EDV(MOD-sp4): 202.6 ml LAV(MOD-sp4): 90.7 ml EDV(sp4-el): 211.5 ml LVAs ap4: 33.3 cm2 LVLs ap4: 7.8 cm ESV(MOD-sp4): 116.0 ml ESV(sp4-el): 121.6 ml EF(MOD-sp4): 42.7 % EF(sp4-el): 42.5 % SV(sp4-el): 89.9 ml LA A4 area: 26.9 cm2 RA A4 area: 18.9 cm2 Doppler Measurements & Calculations MV E max shaw: 74.4 cm/sec Lat Peak E' Shaw: 7.0 cm/sec Med Peak E' Shaw: 4.2 cm/sec MV A max shaw: 119.3 cm/sec E/E' lat: 10.7 E/E' med: 17.7 MV E/A: 0.62 Ao V2 max: 160.3 cm/sec LV V1 max: 117.3 cm/sec PA V2 max: 123.1 cm/sec Ao max P.3 mmHg LV V1 max P.5 mmHg Ao V2 mean: 109.3 cm/sec Ao mean P.4 mmHg Ao V2 VTI: 29.6 cm ECHO/Echo Complete W/ Contrast Interpretation Summary The study was technically difficult. Contrast injection was performed. Based upon the 2D echocardiographic and contrast enhanced images obtained there appears to be grossly normal left ventricular size, wall motion, and systolic function. The estimated ejection fraction is 55 %. The left atrium is mildly enlarged. Trivial mitral valve insufficiency. Trivial tricuspid valve insufficiency. Unable to estimate RV systolic pressure/pulmonary artery pressure due to techni raul difficult study. Diastolic function is indeterminate. Ordering Physician: Deni Andujar Referring Physician: Star Aguilar Performed By: Tia Crook, PINKY, RVT
== END ==
PROVIDERS: PCP Internal Medicine; Referring Provider Nurse Practitioner Family; Visit Provider Nurse Practitioner Family
DX: G47.39 Other sleep apnea (principal)
CPT/HCPCS: 93306; Q9957; A4216; C8929

== ENCOUNTER → 2021-08-15 22:34 | Outpatient (CLI) | payer MEDICAID, SELFPAY | PROVIDERS: PCP Internal Medicine; Referring Provider Nurse Practitioner Family; Visit Provider Nurse Practitioner Family | DX: G47.39 Other sleep apnea (principal) | CPT/HCPCS: 95811 ==

== ENCOUNTER 2021-11-18 09:09 | Outpatient (CLI) | payer MEDICAID, SELFPAY ==
--- NOTE | 2021-11-18 09:15 | AAVD_ITS ---
Reason For Study: Aortic dilitation Aorta Measurements Aorta Doppler Measurements Proximal aorta measures1.96 x 2.00cm. in cross- Peak systolic flow velocities within the proximal sectional axis. aorta measure 57.3 cm/sec. Proximal aorta measures1.97cm. in longitudinal Peak systolic flow velocities within the mid aorta axis. measure 83 cm/sec. Mid aorta measures1.86 x 1.83cm. in cross- Peak systolic flow velocities within the distal sectional axis. aorta measure 100.2 cm/sec. Mid aorta measures1.88cm. in longitudinal axis. Distal aorta measures1.92 x 1.92cm. in cross- sectional axis. Distal aorta measures1.94cm. in longitudinal axis. Left Iliac Artery Left iliac artery measures 1.25 x 1.27 cm. in the cross-sectional axis. Left iliac artery measures 1.24 cm. in the longitudinal axis. Peak systolic velocity in the left iliac artery measures 86.9 cm/sec. Right Iliac Artery Right iliac artery measures 1.09 x 1.09 cm. in the cross-sectional axis. Right iliac artery measures 1.05 cm. in the longitudinal axis. Peak systolic velocity in the right iliac artery measures 99.7 cm/sec. Procedure Aorta IVC Iliac vasculature or bypass grafts 61970. Exam performed in department. VL/Abd Aortic/IVC Duplex scan Interpretation Summary Maximal aortic dimension in the proximal abdominal aorta at 1.96 x 2 cm in diam eter which is normal. Normal aortic flow noted. Left common iliac artery 1.25 x 1.27 cm in diameter normal. Right common iliac 1.09 x 1.09 cm diameter which is normal Ordering Physician: Deni Andujar Referring Physician: Star Aguilar Performed By: Carri Berry RVT
== END 2021-11-18 23:59 | disposition home or self-care (01) ==
PROVIDERS: PCP Internal Medicine; Referring Provider Nurse Practitioner Family; Visit Provider Nurse Practitioner Family
DX: I77.819 Aortic ectasia, unspecified site (principal)
CPT/HCPCS: 93978

== ENCOUNTER → 2022-03-05 | Outpatient (CLI) | payer MEDICAID, SELFPAY ==
[2022-03-05 12:21] LABS: Absolute Lymphocyte Count 2.36 X10^3/uL (0.83-4.51); Absolute Neutrophil Count 4.5 X10^3/uL (2.0-7.7); Basophil# 0.06 X10^3/uL; Basophil% 0.8 % (0-1); Eosinophil# 0.22 X10^3/uL; Eosinophils% 2.8 % (0-5); Hematocrit 40.3 % (40-54); Hemoglobin 13.5 g/dL (13.0-16.5); Lymphocyte # 2.36 X10^3/ul (0.83-4.51); Lymphocyte % 30.5 % (19-41); Mean Corp Hgb Conc 33.5 g/dL (32-36); Mean Corpuscular Hgb 28.2 pg (27.0-32.0); Mean Corpuscular Volume 84.3 fL (80-94); Mean Platelet Vol. 10.7 fl (6.2-12.0); Monocyte# 0.61 X10^3/uL; Monocyte% 7.9 % (0-10); NRBC Flagged by Analyzer 0 % (0-5); Neutrophil # 4.47 X10^3/uL (2.7-7.7); Neutrophil % 57.6 % (47-70); Platelet Count 271 K/mm3 (150-450); RBC Distribution Width CV 13.1 % (11.6-14.6); RBC Distribution Width SD 39.9 fl (35.1-43.9); Red Blood Count 4.78 M/mm3 (4.6-6.2); White Blood Count 7.8 K/mm3 (4.4-11.0)
[2022-03-05 12:49] LABS: ALB/GLOB Ratio 0.8 RATIO (0.9-2.4); AST(SGOT) 11 U/L (15-37); Alanine Aminotransfer ALT/SGPT 17 U/L (16-61); Albumin, Serum 3.5 g/dL (3.2-5.0); Alkaline Phosphatase 112 U/L (45-117); Anion Gap 7 (5-15); BUN 16 mg/dL (7-18); BUN/Creat Ratio 15.1 RATIO (10-20); Calcium,Total 9.5 mg/dL (8.5-10.1); Chloride 103 mmol/L (98-107); Cholesterol 116 mg/dL (200); Creatinine, Serum 1.06 mg/dL (0.70-1.30); EST Glomerular Filtration Rate 75 mL/min (>60); Est Glom Filt Rate - Afr Amer 91 mL/min (>60); Globulin 4.2 g/dL (2.2-4.2); Glucose 129 mg/dL (74-106); High Density Lipoprotein 32 mg/dL; Potassium 3.7 mmol/L (3.5-5.1); Protein, Total 7.7 g/dL (6.4-8.2); Sodium Level 139 mmol/L (136-145); Triglycerides 110 mg/dL; Very Low Density Lipoprotein 22 mg/dL (5-40)
[2022-03-05 13:13] LABS: Microalbumin,Random Urine 59.7 mg/L (NO RANGE EST.)
== END | disposition home or self-care (01) ==
LOC: BIMLAB 10:32
PROVIDERS: PCP Internal Medicine; Referring Provider Nurse Practitioner Family; Visit Provider Nurse Practitioner Family
DX: Z00.00 Encounter for general adult medical examination without abnormal findings (principal); E11.9 Type 2 diabetes mellitus without complications
CPT/HCPCS: 36415; 80053; 80061; 82043; 82570; 85025

== ENCOUNTER 2022-05-12 15:56 | Emergency (ER) | payer MEDICAID, SELFPAY ==
[2022-05-12 15:57] VITALS: BP 168/93; PULSE 92; RESP 18; TEMP 36.6; O2SAT 94; BMI 39.3
[2022-05-12 16:01] VITALS: O2SAT 97
--- NOTE | 2022-05-12 16:11 | RAD_ITS ---
STUDY: X-RAY - LEFT KNEE REASON FOR EXAM: Male, 61 years old. Trauma TECHNIQUE: 4 view(s) of the knee. COMPARISON: None. FINDINGS: Normal visualized distal femur. Normal visualized proximal tibia and fibula. Normal proximal tibiofibular articulation. There is severe degenerative arthrosis of the medial femorotibial compartment with severe joint space narrowing. Slight lateral subluxation of the tibia. There is mild degenerative arthrosis of the lateral femorotibial compartment. There is moderate degenerative arthrosis of the patellofemoral articulation. Ossific density patellar ligament/anterior tibial apophysis. RAD/Knee 4 or More Views IMPRESSION: Severe degenerative change. Old avulsion fracture or enthesopathy Patellar ligament Electronically Signed: Juan Hartman MD at 17:02 EDT ,
--- NOTE | 2022-05-12 16:11 | CT_ITS ---
STUDY: CT BRAIN WITHOUT CONTRAST REASON FOR EXAM: Male, 61 years old. Trauma RADIATION DOSAGE (If Supplied By Facility): CTDIvol = ( 44.99 ) mGy, DLP = ( 880.47 ) mGycm TECHNIQUE: Transaxial CT imaging of the brain was performed without administration of intravenous contrast material. Individualized dose optimization techniques were used for this CT. COMPARISON: No relevant priors. FINDINGS: Normal soft tissue structures. Normal calvarium. Normal size ventricles and extra-axial spaces for the patient''s age. Normal white matter tracts of the cerebral hemispheres. Normal basal ganglia and thalami. Normal brainstem. Normal cerebellum. There is no intracranial hemorrhage. There are no findings of an acute ischemic infarction. Normal visualized paranasal sinuses. CT/Brain/Head without Contrast IMPRESSION: Normal unenhanced CT scan of the brain. Electronically Signed: Juan Hartman MD at 16:41 EDT ,
--- NOTE | 2022-05-12 16:11 | RAD_ITS ---
STUDY: X-RAY - LEFT SHOULDER REASON FOR EXAM: Male, 61 years old. Trauma TECHNIQUE: 4 view(s) of the shoulder. COMPARISON: None. FINDINGS: Normal glenohumeral articulation. Normal acromioclavicular joint. Normal acromion. Normal humeral head and visualized proximal humerus. The soft tissue structures are unremarkable. Normal visualized pulmonary apex. RAD/Shoulder min 2 Views IMPRESSION: Normal x-ray examination of the shoulder. Electronically Signed: Juan Hartman MD at 17:00 EDT ,
--- NOTE | 2022-05-12 16:11 | RAD_ITS ---
STUDY: X-RAY - LUMBAR SPINE REASON FOR EXAM: Male, 61 years old. Trauma TECHNIQUE: 2 view(s) of the lumbar spine were obtained. COMPARISON: None FINDINGS: Slight anterior wedging T11-L3 L4. There is no substantial scoliosis. There is a normal alignment of the vertebrae. There is multilevel endplate spondylosis of the lumbar vertebrae. Normal disc space heights. The soft tissue structures are unremarkable. RAD/Lumbar Spine 2 or 3 Views IMPRESSION: Possible mild compression fractures, age indeterminate. Electronically Signed: Juan Hartman MD at 16:53 EDT ,
--- NOTE | 2022-05-12 16:12 | EDS_ITS ---
HPI HPI - Fall History of Present Illness Chief Complaint: Fall Informant: patient Narrative Narrative: Patient presents with multiple sore areas after fall off a porch this morning at about 1030. He states his porch is about 1 step above the ground. He stepped down and just fell. He did not lose consciousness. It was not syncopal. He fell mostly on his left side. He did hit his head. He felt dizzy but did not lose consciousness. He has a mild headache but no nausea or vomiting. No anticoagulation. He also has mostly soreness on his left shoulder. He has some soreness of his left knee left hand and his lumbar spine. No numbness tingling weakness. He is eating and drinking. Motion or weightbearing makes these areas worse and rest makes it better. [facility] Medical History Diabetes Encounter for preventative adult health care examination Hyperlipidemia Hypertension Neuropathy Home Medications blood pressure monitor (Blood Pressure Kit) #1 ea 11/14/19 [Rx Last Taken Unknown] cary.stocking,knee,reg,xlrg #2 ea 04/24/20 [Rx Last Taken Unknown] lancets 28 gauge (FreeStyle Lancets) #100 ea 11/05/20 [Rx Last Taken Unknown] blood-glucose meter (OneTouch Verio Reflect Start kit) #1 ea 12/03/20 [Rx Last Taken Unknown] blood sugar diagnostic (OneTouch Verio test strips) #100 ea 04/01/21 [Rx Last Taken Unknown] doxazosin 4 mg tablet 4 mg PO BID #180 tabs 04/28/21 [Rx Last Taken Unknown] metformin 1,000 mg tablet 1,000 mg PO BID #180 tabs 05/15/21 [Rx Last Taken Unknown] lisinopril 40 mg tablet See Rx Instructions .Route .COMPLEX #30 tabs 09/25/21 [Rx Last Taken Unknown] trazodone 50 mg tablet 50 mg PO QHS PRN insomnia #30 tabs 02/12/22 [Rx Last Taken Unknown] dulaglutide 3 mg/0.5 mL subcutaneous pen injector 3 mg (0.5 mL) subcut QWEEK #2 mL 04/03/22 [Rx Last Taken Unknown] glipizide 10 mg tablet 10 mg PO DAILY #90 tabs 04/14/22 [Rx Last Taken Unknown] hydralazine 25 mg tablet 25 mg PO TID #90 tabs 04/24/22 [Rx Last Taken Unknown] amlodipine 10 mg tablet 10 mg PO QHS #90 tabs 05/12/22 [Rx Last Taken Unknown] hydrochlorothiazide 25 mg tablet 25 mg PO DAILY #90 tabs 05/12/22 [Rx Last Taken Unknown] oxycodone-acetaminophen 5 mg-325 mg tablet (Percocet) 1 tab PO Q6H PRN pain 3 days #10 tabs 05/12/22 [Rx Last Taken Unknown] Allergy/AdvReac Type Severity Reaction Status Date / Time No Known Allergies Allergy Verified 05/12/22 15:58 Family History Father Diabetes Myocardial infarction Brother Diabetes Surgical History history of right flank surgery History of tonsillectomy Social History Smoking Status: Never smoker alcohol intake: never substance use type: does not use what type of physical activity do you participate in: none ROS ROS ED Constitutional Constitutional ED: Denies fever(s) Eyes Eyes: Denies blurry vision or change in vision ENT ENT ED: Reports other Details: Contusion above left eye. ; Denies ear pain, rhinorrhea or sore throat Cardiovascular Cardiovascular: Denies chest pain Respiratory/Chest Respiratory/Chest: Denies cough or dyspnea Gastrointestinal Gastrointestinal: Denies nausea or vomiting Genitourinary Genitourinary ED: Denies hematuria Musculoskeletal Musculoskeletal: Reports arthralgias and back pain; Denies neck pain Integumentary Denies rash Neurologic Neurologic: Reports headache(s); Denies paresthesias or weakness Endocrine Endocrinology: Denies polyuria Hematologic/Lymphatic Hematologic/Lymphatic: Denies easy bleeding or easy bruising Allergic/Immunologic Allergic/Immunologic ED: Denies urticaria EXAM Physical Exam Const Vital Signs: 05/12/22 15:57 05/12/22 16:01 05/12/22 19:11 Temperature 97.9 F Temperature Source Temporal Pulse Rate 92 Respiratory Rate 18 16 Respiratory Effort Normal Respiratory Depth Normal Respiratory Pattern Normal Blood Pressure 168/93 H Blood Pressure Mean 118 Pulse Ox 94 97 Oxygen Delivery Method Room Air Room Air Positive well nourished, well developed and obese General Appearance ED: well developed and NAD Nutritional Appearance: obese HEENT HEENT Narrative: Patient does have a contusion to the left upper lateral eyebrow area. No step- off. No bleeding or laceration. Eyes Eyes Narrative: Extraocular muscles intact. No subconjunctival hemorrhage. Pupils are normal. Neck full ROM and no lymphadenopathy Neck Narrative: No tenderness of the cervical spine. General: Negative for tenderness Chest Wall inspection of chest normal and palpation of chest normal Resp normal respiratory effort Auscultation: Negative for rales, rhonchi or wheezes Cardio regular rate and regular rhythm GI non-tender and non-distended Back/Spine no CVA tenderness Back/Spine Narrative: Patient has some mild nonfocal discomfort of the lumbar spine no focal tenderness. No skin changes or abrasion or contusion. Extremity Extremity Narrative: Patient does have contusion to the anterior portion of the left knee. But most of his tenderness is more in the medial area. No deformity. He is able to bear weight. Extensor mechanism is intact. Patient also has slight contusion over the dorsum of the left hand overlying his second metacarpal midpoint. No deformity. Patient also has a little bit of tenderness over the posterior glenohumeral area. No abrasion or contusion is noted though. No tenderness along the clavicle. Neuro oriented x3 Sensorium / Orientation: alert Psych mental status grossly normal Skin Skin Narrative: Contusions as above. MDM MDM MDM Narrative Medical decision making narrative: CT is negative. X-ray of the knee shows significant arthritic changes. Lumbar shows some possible mild compression fractures but age-indeterminate. His pain is diffuse and nonlocalized. I think this can be managed conservatively. The hand x-ray showed possible scapholunate dissociation. Wrist films were recommended. This also shows possible scapholunate dissociation. There is a positive Sukhdev Mathew sign. I discussed the case with orthopedics Dr. Soto. He will follow-up in the office. Recommended splint. They will get him into a hand specialist if required. We also discussed reasons to return. Radiography Diagnostic Testing: Clinical Impression(s) from Imaging Studies Brain CT 05/12/22 16:11 IMPRESSION: Normal unenhanced CT scan of the brain. Electronically Signed: Juan Hatrman MD at 16:41 EDT Reading Location ID and State: [address] [place] [address] , Service support , Knee X-Ray 05/12/22 16:11 IMPRESSION: Severe degenerative change. Old avulsion fracture or enthesopathy Patellar ligament Electronically Signed: Juan Hartman MD at 17:02 EDT Reading Location ID and State: [address] [place] [address] , Service support , Lumbar Spine X-Ray 05/12/22 16:11 IMPRESSION: Possible mild compression fractures, age indeterminate. Electronically Signed: Juan Hartman MD at 16:53 EDT Reading Location ID and State: [address] [place] [address] , Service support , Shoulder X-Ray 05/12/22 16:11 IMPRESSION: Normal x-ray examination of the shoulder. Electronically Signed: Juan Hartman MD at 17:00 EDT Reading Location ID and State: [address] [place] [address] , Service support , Hand X-Ray 05/12/22 16:28 IMPRESSION: Possible scapholunate dissociation. Consider dedicated wrist films if clinically warranted. Otherwise Normal x-ray examination of the hand. Electronically Signed: Juan Hartman MD at 16:59 EDT Reading Location ID and State: [address] [place] [address] , Service support , Wrist X-Ray 05/12/22 17:51 IMPRESSION: Possible scapholunate dissociation. No fracture noted. Electronically Signed: Juan Hartman MD at 19:45 EDT Reading Location ID and State: [address] [place] [address] , Service support , Discharge Plan Triage Chief Complaint: Fall ED Provider: Dionisio Edouard Dx/Rx/DC Orders Clinical Impression: Fall at home, Scapholunate dissociation of left wrist, Compression fracture of lumbar vertebra Instructions: ED Fracture, Vertebral Compression, ED Joint Dislocation Prescriptions: New oxycodone-acetaminophen [Percocet] 5-325 mg tablet 1 tab PO Q6H PRN (Reason: pain) 3 Days Qty: 10 0RF No Action (DME) blood pressure monitor [Blood Pressure Kit] Kit See Rx Instructions .ROUTE .MEDSUPPLY Qty: 1 0RF Rx Instructions: Check blood pressure daily for hypertension I10 (DME) blood-glucose meter [OneTouch Verio Reflect Start] Kit See Rx Instructions .ROUTE .MEDSUPPLY Qty: 1 3RF Rx Instructions: check one to two times daily for type 2 DM (DME) OneTouch Verio test strips Strip See Rx Instructions .ROUTE .MEDSUPPLY Qty: 100 2RF Rx Instructions: As directed check daily (DME) cary.stocking,knee,reg,xlrg Misc See Rx Instructions .ROUTE .MEDSUPPLY Qty: 2 1RF Rx Instructions: wear daily for pvd 20-30 mmhg (DME) lancets [FreeStyle Lancets] 28 gauge misc See Rx Instructions .ROUTE .COMPLEX Qty: 100 10RF Dose Instruction: USE TO TEST BLOOD SUGAR ONCE DAILY Rx Instructions: USE TO TEST BLOOD SUGAR ONCE DAILY doxazosin 4 mg tablet 4 mg PO BID Qty: 180 3RF metformin 1,000 mg tablet 1,000 mg PO BID Qty: 180 3RF Rx Instructions: TAKE ONE (1) TABLET BY MOUTH TWICE DAILY lisinopril 40 mg tablet See Rx Instructions .ROUTE .COMPLEX Qty: 30 10RF Dose Instruction: TAKE (1) TABLET BY MOUTH DAILY Rx Instructions: TAKE (1) TABLET BY MOUTH DAILY trazodone 50 mg tablet 50 mg PO QHS PRN (Reason: insomnia) Qty: 30 2RF dulaglutide 3 mg/0.5 mL pen injector 3 mg SC QWEEK Qty: 2 10RF glipizide 10 mg tablet 10 mg PO DAILY Qty: 90 1RF hydralazine 25 mg tablet 25 mg PO TID Qty: 90 1RF amlodipine 10 mg tablet 10 mg PO QHS Qty: 90 3RF hydrochlorothiazide 25 mg tablet 25 mg PO DAILY Qty: 90 3RF Primary Care Provider: Deni Andujar NP Referrals: Luis Antonio Soto DO [Med Staff - Active Staff] - As soon as possible Deni Andujar NP, [employer] [Primary Care Provider] - Disposition Disposition: Home, Self Care
--- NOTE | 2022-05-12 16:28 | RAD_ITS ---
STUDY: X-RAY - LEFT HAND REASON FOR EXAM: Male, 61 years old. Trauma TECHNIQUE: 3 view(s) of the hand. COMPARISON: None. FINDINGS: Normal radiocarpal articulation. Normal distal radioulnar joint. Normal visualized carpal bones. Normal carpal articulations Normal carpometacarpal articulation of the thumb. Normal second through fifth carpometacarpal joints. Normal metacarpi. Normal metacarpophalangeal joint of the thumb. Normal interphalangeal joint of the thumb. Normal proximal and distal phalanges of the thumb. Normal metacarpophalangeal joints of the second through fifth fingers. Normal proximal and distal interphalangeal joints of the second through fifth fingers. Normal phalanges of the second through fifth fingers. The soft tissue structures are unremarkable. Possible widening of the scapholunate joint. RAD/Hand Min 3 Views IMPRESSION: Possible scapholunate dissociation. Consider dedicated wrist films if clinically warranted. Otherwise Normal x-ray examination of the hand. Electronically Signed: Juan Hartman MD at 16:59 EDT ,
--- NOTE | 2022-05-12 17:51 | RAD_ITS ---
STUDY: X-RAY - LEFT WRIST REASON FOR EXAM: Male, 61 years old. Trauma TECHNIQUE: 4 view(s) of the wrist were obtained. COMPARISON: None. FINDINGS: Normal visualized distal radius and ulna. Normal radiocarpal articulation. Normal distal radioulnar articulation. Normal carpal bones. Widening of the scapholunate joint. Normal carpometacarpal articulation of the thumb. Normal second through fifth carpometacarpal articulations. Normal visualized metacarpal bones. The soft tissue structures are unremarkable. RAD/Wrist min 3 Views IMPRESSION: Possible scapholunate dissociation. No fracture noted. Electronically Signed: Juan Hartman MD at 19:45 EDT ,
[2022-05-12 19:11] VITALS: RESP 16
[2022-05-12 21:00] VITALS: RESP 16
[2022-05-12] MEDS: Ibuprofen 200 MG Tablet 400 MG PO (21:04)
[2022-05-12 21:12] VITALS: BP 168/93; PULSE 92; RESP 18; O2SAT 94
== END 2022-05-12 21:13 | disposition home or self-care (01) ==
PROVIDERS: Emergency Provider Emergency Medicine; PCP Nurse Practitioner Family; Visit Provider Emergency Medicine
DX: S63.392A Traumatic rupture of other ligament of left wrist, initial encounter (principal); E11.40 Type 2 diabetes mellitus with diabetic neuropathy, unspecified; S00.83XA Contusion of other part of head, initial encounter; E78.5 Hyperlipidemia, unspecified; I10 Essential (primary) hypertension; Z79.899 Other long term (current) drug therapy; Z79.84 Long term (current) use of oral hypoglycemic drugs; W17.89XA Other fall from one level to another, initial encounter; E66.9 Obesity, unspecified; S80.02XA Contusion of left knee, initial encounter; S60.222A Contusion of left hand, initial encounter; M84.48XA Pathological fracture, other site, initial encounter for fracture; Z68.39 Body mass index [BMI] 39.0-39.9, adult
CPT/HCPCS: 70450; 72100; 73030; 73110; 73130; 73564; 99283

== ENCOUNTER → 2022-07-29 | Outpatient (CLI) | payer MEDICAID, SELFPAY ==
[2022-07-29 12:10] LABS: Absolute Lymphocyte Count 1.39 X10^3/uL (0.83-4.51); Absolute Neutrophil Count 3.3 X10^3/uL (2.0-7.7); Basophil# 0.04 X10^3/uL; Basophil% 0.8 % (0-1); Eosinophil# 0.15 X10^3/uL; Eosinophils% 2.8 % (0-5); Hematocrit 42.3 % (40-54); Hemoglobin 13.1 g/dL (13.0-16.5); Lymphocyte # 1.39 X10^3/ul (0.83-4.51); Lymphocyte % 26.1 % (19-41); Mean Corpuscular Hgb 27.8 pg (27.0-32.0); Mean Corpuscular Volume 89.8 fL (80-94); Mean Platelet Vol. 11.6 fl (6.2-12.0); Monocyte# 0.46 X10^3/uL; Monocyte% 8.6 % (0-10); NRBC Flagged by Analyzer 0 % (0-5); Neutrophil # 3.26 X10^3/uL (2.7-7.7); Neutrophil % 61.3 % (47-70); Platelet Count 198 K/mm3 (150-450); RBC Distribution Width CV 14.4 % (11.6-14.6); RBC Distribution Width SD 47.6 fl (35.1-43.9); Red Blood Count 4.71 M/mm3 (4.6-6.2); White Blood Count 5.3 K/mm3 (4.4-11.0)
[2022-07-29 12:54] LABS: BNP,B-Type NATRIURETIC PEPTIDE 193.1 pg/mL (0-100)
[2022-07-29 13:00] LABS: ALB/GLOB Ratio 0.9 RATIO (0.9-2.4); AST(SGOT) 13 U/L (15-37); Alanine Aminotransfer ALT/SGPT 23 U/L (16-61); Albumin, Serum 3.4 g/dL (3.2-5.0); Alkaline Phosphatase 94 U/L (45-117); Anion Gap 8 (5-15); BUN 30 mg/dL (7-18); BUN/Creat Ratio 21.7 RATIO (10-20); Calcium,Total 9.3 mg/dL (8.5-10.1); Chloride 108 mmol/L (98-107); Creatinine, Serum 1.38 mg/dL (0.70-1.30); EST Glomerular Filtration Rate 55 mL/min (>60); Est Glom Filt Rate - Afr Amer 67 mL/min (>60); Globulin 3.6 g/dL (2.2-4.2); Glucose 153 mg/dL (74-106); Potassium 4.5 mmol/L (3.5-5.1); Sodium Level 144 mmol/L (136-145); Thyroid Stim Hormone (TSH) 1.93 uIU/mL (0.358-3.74)
--- NOTE | 2022-07-29 14:38 | RAD_ITS ---
STUDY: X-RAY CHEST REASON FOR EXAM: Male, 61 years old. Persistent shortness of breath and cough. Recent Covid. TECHNIQUE: PA and lateral views of the chest. COMPARISON: None. FINDINGS: Small bilateral pleural effusions right greater than left with bibasilar atelectasis right greater than left. This is superimposed on mild degree of CHF. There is moderate cardiac enlargement. Normal mediastinum and daniella. Normal visualized pulmonary arteries. Normal visualized aortic arch and descending thoracic aorta. There are diffuse degenerative changes of the visualized thoracic spine. Normal visualized ribs, clavicles, and shoulders. There is no demonstrated abnormality of the visualized soft tissue structures of the upper abdomen. RAD/Chest PA and Lateral IMPRESSION: Small bilateral pleural effusions right greater than left with bibasilar atelectasis greater on the right side. This is superimposed on mild degree of CHF. Electronically Signed: Isaak Cortés MD at 15:10 EST ,
== END | disposition home or self-care (01) ==
PROVIDERS: PCP Nurse Practitioner Family; Referring Provider Nurse Practitioner Family; Visit Provider Nurse Practitioner Family
DX: R06.01 Orthopnea (principal); R06.00 Dyspnea, unspecified; R60.0 Localized edema; Z12.5 Encounter for screening for malignant neoplasm of prostate
CPT/HCPCS: 84153; 36415; 71046; 80053; 83880; 84443; 85025; G0103

== ENCOUNTER 2022-07-31 10:19 | Inpatient (IN) | payer MEDICAID, SELFPAY ==
[2022-07-31] VITALS (8 sets, daily range): BP systolic 121–137; BP diastolic 83–102; PULSE 47–100; RESP 16–24; TEMP 36.3–36.6; O2SAT 93–98; BMI 45.5
--- NOTE | 2022-07-31 10:52 | RAD_ITS ---
STUDY: X-RAY CHEST REASON FOR EXAM: Male, 61 years old. sob TECHNIQUE: PA and lateral views of the chest. COMPARISON: 07/29/2022 FINDINGS: The lungs are clear and expanded. Small bilateral pleural effusions. There is moderate cardiac enlargement. Normal mediastinum and daniella. Normal visualized pulmonary arteries. Normal visualized aortic arch and descending thoracic aorta. Normal visualized thoracic spine. Normal visualized ribs, clavicles, and shoulders. There is no demonstrated abnormality of the visualized soft tissue structures of the upper abdomen. RAD/Chest PA and Lateral IMPRESSION: Small bilateral pleural effusions. Electronically Signed: Alberto Martinez MD at 12:08 EST ,
--- NOTE | 2022-07-31 10:52 | EKG12_ITS ---
Test Reason : SOB Blood Pressure : / mmHG Vent. Rate : 106 BPM Atrial Rate : 000 BPM P-R Int : 000 ms QRS Dur : 104 ms QT Int : 340 ms P-R-T Axes : 000 -39 105 degrees QTc Int : 451 ms Atrial fibrillation with rapid ventricular response Left axis deviation Low voltage QRS Inferior infarct , age undetermined Possible Anterolateral infarct , age undetermined Abnormal ECG Confirmed by INGA JACKSON, CANDIDA ([id number]), industrial editor POLI BARRETO ([id number]) on 08/04/2022 11:31:36 AM Referred By: Confirmed By:CANDIDA XIONG MD
--- NOTE | 2022-07-31 10:53 | EDS_ITS ---
HPI History of Present Illness Chief Complaint: Shortness of Breath Informant: patient Narrative Narrative: Sent in from PCP office today fluctuating heart rate. Patient diagnosed with atrial fibrillation in the doctor's office 2 days ago. Has been having leg sw elling for 2 weeks with dyspnea and orthopnea. He was placed on Eliquis, metoprolol 25 mg, Lasix 40 mg. Has taken for 2 days leg still swelling. He had COVID a month ago. Denies chest pains. Took his medications today. He went in for blood work today noted heart rate would go down to the 50s up from low 100s. He denied lightheaded symptoms. Secondary to this he was sent here for evaluation. He has upcoming echocardiogram this coming Wednesday he has a cardiology appointment in less than 2 weeks. He has been vaccinated for COVID previously. This was his second infection. Reports with the lower heart rate EKG was not performed in the office. Prior similar symptoms: No PFSH PFSH Medical History Bilateral lower extremity edema COVID-19 (~06/29/22) Diabetes Dyspnea Encounter for preventative adult health care examination Hyperlipidemia Hypertension Neuropathy New onset atrial fibrillation Orthopnea Home Medications blood pressure monitor (Blood Pressure Kit) #1 ea 11/14/19 [Rx Last Taken Unknown] cary.stocking,knee,reg,xlrg #2 ea 04/24/20 [Rx Last Taken Unknown] lancets 28 gauge (FreeStyle Lancets) #100 ea 11/05/20 [Rx Last Taken Unknown] blood-glucose meter (OneTouch Verio Reflect Start kit) #1 ea 12/03/20 [Rx Last Taken Unknown] blood sugar diagnostic (OneTouch Verio test strips) #100 ea 04/01/21 [Rx Last Taken Unknown] dulaglutide 3 mg/0.5 mL subcutaneous pen injector 3 mg (0.5 mL) subcut QWEEK #2 mL 04/03/22 [Rx Last Taken Unknown] glipizide 10 mg tablet 10 mg PO DAILY #90 tabs 04/14/22 [Rx Last Taken Unknown] amlodipine 10 mg tablet 10 mg PO QHS #90 tabs 05/12/22 [Rx Last Taken Unknown] tramadol 50 mg tablet 50 mg PO Q12H PRN pain #14 tabs 05/14/22 [Rx Last Taken Unknown] diclofenac sodium 1 % topical gel (Voltaren Arthritis Pain) 4 g topical DAILY PRN joint pain #100 grams 05/26/22 [Rx Last Taken Unknown] doxazosin 4 mg tablet 4 mg PO BID #180 tabs 06/03/22 [Rx Last Taken Unknown] metformin 1,000 mg tablet 1,000 mg PO BID #180 tabs 06/11/22 [Rx Last Taken Unknown] apixaban 5 mg tablet (Eliquis) 5 mg PO BID #180 tabs 07/29/22 [Rx Last Taken Unknown] furosemide 40 mg tablet 40 mg PO QAM #30 tabs 07/29/22 [Rx Last Taken Unknown] metoprolol succinate 25 mg tablet,extended release 24 hr 25 mg PO DAILY #90 tabs 07/29/22 [Rx Last Taken Unknown] hydrochlorothiazide 25 mg tablet 25 mg PO DAILY 07/31/22 [History Last Taken Unknown] lisinopril 40 mg tablet 40 mg PO DAILY 07/31/22 [History Last Taken Unknown] Allergy/AdvReac Type Severity Reaction Status Date / Time No Known Allergies Allergy Verified 07/31/22 10:20 Family History Father Diabetes Myocardial infarction Brother Diabetes Surgical History history of right flank surgery History of tonsillectomy Social History Smoking Status: Never smoker alcohol intake: never substance use type: does not use what type of physical activity do you participate in: none ROS ROS ED Constitutional Constitutional ED: Denies chills, fever(s) or sweats Eyes Eyes: Denies change in vision ENT ENT ED: Denies dysphagia or sore throat Cardiovascular Cardiovascular: Reports leg edema and orthopnea; Denies chest pain, palpitations or racing heartbeat Respiratory/Chest Respiratory/Chest: Reports dyspnea, dyspnea on exertion and orthopnea; Denies cough Gastrointestinal Gastrointestinal: Denies abdominal pain, diarrhea, nausea or vomiting Genitourinary Genitourinary ED: Denies dysuria, hematuria or urinary frequency Musculoskeletal Musculoskeletal: Denies back pain, extremity pain or neck pain Integumentary Denies rash or wounds Neurologic Neurologic: Denies headache(s), paresthesias or weakness EXAM Physical Exam Const Vital Signs: 07/31/22 10:21 07/31/22 10:48 07/31/22 12:23 Temperature 97.4 F L Temperature Source Temporal Pulse Rate 47 L 95 Respiratory Rate 16 24 H Respiratory Pattern Normal Blood Pressure 137/88 H Blood Pressure Mean 104 Pulse Ox 98 94 Oxygen Delivery Method Room Air Room Air 07/31/22 12:37 Temperature 97.4 F L Temperature Source Temporal Pulse Rate 95 Respiratory Rate 24 H Respiratory Pattern Blood Pressure 137/88 H Blood Pressure Mean 104 Pulse Ox 94 Oxygen Delivery Method Room Air Positive well nourished, well developed and obese Constitutional Narrative: Conversationally dyspneic General Appearance ED: well developed Nutritional Appearance: obese HEENT Reports moist mucous membranes normocephalic and atraumatic Eyes PERRL, EOMs intact bilaterally and conjunctivae normal General Eye ED: Yes normal appearance of both eyes Neck no lymphadenopathy and supple General: Negative for tenderness Chest Wall Chest: Negative for tenderness Resp normal respiratory effort and normal air movement Effort and Inspection: symmetric chest movement; Negative for respiratory distress Cardio regular rhythm and no murmurs Cardio Narrative: Heart rate 108 on the monitor. Rate: tachycardic Rhythm: abnormal rhythm Peripheral Pulses: pulses 2+ throughout GI normal to inspection, nondistended, normoactive bowel sounds and non-tender Palpation: Negative for guarding or rebound tenderness present Back/Spine no CVA tenderness and no thoracic nor lumbar tenderness Extremity normal to inspection Extremity Narrative: 2+ lower extremity edema General Extremety ED: Yes edema; Negative for tenderness General Extremity: edema Neuro oriented x3 and no sensory deficits noted Sensorium / Orientation: awake and alert Skin no rashes or lesions noted and no wounds MDM MDM MDM Narrative Medical decision making narrative: Patient EKG A. fib low 100s. Clinical signs of CHF with symptoms of orthopnea. Pulse ox 90% on arrival. Apparently in triage had documented pulse in the 40s however on the monitor he was in low 100s in atrial fibrillation. Work-up initiated labs creatinine 1.46 up from 1.32 days ago and prior to that was in the 1 range. worsening renal insufficiency on a diuretic. Chest x-ray 2 views reviewed by myself read by radiology as small bilateral pleural effusions. BNP 203. Hemoglobin 12.9. Patient ambulated he was dyspneic however pulse ox did not drop below 93. Patient worsening symptoms, I did speak back with manager trading Dr. Hensley, patient is worsening renal insufficiency and CHF findings that has progressed. Recommended IV Lasix for which 40 mg were given. Recommend hospitalization for management to help with diuresis. I spoke with hospitalist Dr. Allen for admission to PCU. Lab Data Attestation: I reviewed the patient's lab results. Labs: Laboratory Results - last 24 hr 07/31/22 07/31/22 07/31/22 11:00 11:00 11:00 WBC 5.1 RBC 4.61 Hgb 12.9 L Hct 41.5 MCV 90.0 MCH 28.0 MCHC 31.1 L RDW Std Deviation 47.3 H RDW Coeff of Yamilet 14.4 Plt Count 200 MPV 11.0 Immature Gran % (Auto) 0.200 Neut % (Auto) 67.0 Lymph % (Auto) 21.3 [place] % (Auto) 9.1 Eos % (Auto) 1.8 Baso % (Auto) 0.6 Absolute Neuts (auto) 3.4 Absolute Lymphs (auto) 1.08 Nucleated RBC % 0 Sodium 144 Potassium 4.2 Chloride 108 H Carbon Dioxide 31.0 Anion Gap 5 BUN 33 H Creatinine 1.46 H Estim Creat Clear Calc 56.84 Est GFR (MDRD) Af Amer 63 Est GFR (MDRD) Non-Af 52 L BUN/Creatinine Ratio 22.6 H Glucose 159 H Calcium 9.6 B-Natriuretic Peptide 203.1 H Radiography Diagnostic Testing: Clinical Impression(s) from Imaging Studies Chest X-Ray 07/31/22 10:52 IMPRESSION: Small bilateral pleural effusions. Electronically Signed: Alberto Martinez MD at 12:08 EST , Echocardiogram 07/31/22 13:43 Interpretation Summary Severely dilated left ventricle. The estimated ejection fraction is 25 %. The left atrium is moderately enlarged. There is severe global hypokinesis of the left ventricle. Mild-Moderate (1-2+) eccentric mitral valve insufficiency. Compared to previous study, the left ventricular systolic function has worsened.. Contrast injection was performed. Compared to previous study, the left ventricular systolic function has worsened.. Ordering Physician: Jaime Allen Referring Physician: Deni Andujar Performed By: Rob Bautista RCS Initial EKG: Attestation: I personally reviewed and interpreted this EKG as follows: Comments: Atrial fibrillation rate of 106, no ST changes. Left bundle branch block. New left bundle compared to November 2020. Discharge Plan Dx/Rx/DC Orders Clinical Impression: Acute exacerbation of congestive heart failure, Atrial fibrillation, Acute renal insufficiency Disposition Disposition: Acute Care [facility]
[2022-07-31 11:12] LABS: Absolute Lymphocyte Count 1.08 X10^3/uL (0.83-4.51); Absolute Neutrophil Count 3.4 X10^3/uL (2.0-7.7); Basophil# 0.03 X10^3/uL; Basophil% 0.6 % (0-1); Eosinophil# 0.09 X10^3/uL; Eosinophils% 1.8 % (0-5); Hematocrit 41.5 % (40-54); Hemoglobin 12.9 g/dL (13.0-16.5); Lymphocyte # 1.08 X10^3/ul (0.83-4.51); Lymphocyte % 21.3 % (19-41); Mean Corp Hgb Conc 31.1 g/dL (32-36); Monocyte# 0.46 X10^3/uL; Monocyte% 9.1 % (0-10); NRBC Flagged by Analyzer 0 % (0-5); Neutrophil # 3.39 X10^3/uL (2.7-7.7); Platelet Count 200 K/mm3 (150-450); RBC Distribution Width CV 14.4 % (11.6-14.6); RBC Distribution Width SD 47.3 fl (35.1-43.9); Red Blood Count 4.61 M/mm3 (4.6-6.2); White Blood Count 5.1 K/mm3 (4.4-11.0)
[2022-07-31 11:27] LABS: Anion Gap 5 (5-15); BUN 33 mg/dL (7-18); BUN/Creat Ratio 22.6 RATIO (10-20); Calcium,Total 9.6 mg/dL (8.5-10.1); Chloride 108 mmol/L (98-107); Creatinine, Serum 1.46 mg/dL (0.70-1.30); EST Glomerular Filtration Rate 52 mL/min (>60); Est Glom Filt Rate - Afr Amer 63 mL/min (>60); Estimated Creatinine Clearance 56.84 ml/min; Glucose 159 mg/dL (74-106); Potassium 4.2 mmol/L (3.5-5.1); Sodium Level 144 mmol/L (136-145)
[2022-07-31] MEDS: Furosemide 40 MG/4 ML Vial IV ×2 (12:17→16:40)
[2022-07-31 12:35] LABS: BNP,B-Type NATRIURETIC PEPTIDE 203.1 pg/mL (0-100)
--- NOTE | 2022-07-31 12:52 | ED.RN ---
attempted to call víctor sharma's ex for current med list and no answer. current med refill external list used for now and will need verified.
--- NOTE | 2022-07-31 13:22 | PCM.HP.STD ---
HPI - General General Date of Admission: 07/31/22 HPI Narrative ASH PARMAR, is a 61 M who presents to the hospital with increased shortness of breath, orthopnea, and lower extremity edema. He was doing fine until about April when he started feeling short of breath and started noticing he has had increased swelling in his lower extremities. He states that his left lower extremity has always been fairly swollen but his right started swelling as well. About a month ago he had COVID and since then his physician noticed that he also was now in A. fib. He was started on metoprolol as well as p.o. Lasix and Eliquis. He did not have a chance to see cardiology or get an echo yet because he presented back to his doctor today on the day of admission, with a 3 pound weight gain in 2 days and increased shortness of breath. In the ER he is not requiring any oxygen and his BNP is mildly elevated to 203. Renal function is is slightly worse to 1.46 from a baseline of 1. [facility] Medical History (Updated 07/31/22 @ 13:14 by Hilda Love) Bilateral lower extremity edema COVID-19 (~06/29/22) Diabetes Dyspnea Encounter for preventative adult health care examination Hyperlipidemia Hypertension Neuropathy New onset atrial fibrillation Orthopnea Home Medications blood pressure monitor (Blood Pressure Kit) #1 ea 11/14/19 [Rx Last Taken Unknown] cary.stocking,knee,reg,xlrg #2 ea 04/24/20 [Rx Last Taken Unknown] lancets 28 gauge (FreeStyle Lancets) #100 ea 11/05/20 [Rx Last Taken Unknown] blood-glucose meter (OneTouch Verio Reflect Start kit) #1 ea 12/03/20 [Rx Last Taken Unknown] blood sugar diagnostic (OneTouch Verio test strips) #100 ea 04/01/21 [Rx Last Taken Unknown] lisinopril 40 mg tablet See Rx Instructions .Route .COMPLEX #30 tabs 09/25/21 [Rx Last Taken Unknown] dulaglutide 3 mg/0.5 mL subcutaneous pen injector 3 mg (0.5 mL) subcut QWEEK #2 mL 04/03/22 [Rx Last Taken Unknown] glipizide 10 mg tablet 10 mg PO DAILY #90 tabs 04/14/22 [Rx Last Taken Unknown] amlodipine 10 mg tablet 10 mg PO QHS #90 tabs 05/12/22 [Rx Last Taken Unknown] tramadol 50 mg tablet 50 mg PO Q12H PRN pain #14 tabs 05/14/22 [Rx Last Taken Unknown] diclofenac sodium 1 % topical gel (Voltaren Arthritis Pain) 4 g topical DAILY PRN joint pain #100 grams 05/26/22 [Rx Last Taken Unknown] doxazosin 4 mg tablet 4 mg PO BID #180 tabs 06/03/22 [Rx Last Taken Unknown] metformin 1,000 mg tablet 1,000 mg PO BID #180 tabs 06/11/22 [Rx Last Taken Unknown] hydralazine 25 mg tablet 25 mg PO TID #90 tabs 07/28/22 [Rx Last Taken Unknown] trazodone 50 mg tablet 50 mg PO QHS PRN insomnia #30 tabs 07/28/22 [Rx Last Taken Unknown] apixaban 5 mg tablet (Eliquis) 5 mg PO BID #180 tabs 07/29/22 [Rx Last Taken Unknown] furosemide 40 mg tablet 40 mg PO QAM #30 tabs 07/29/22 [Rx Last Taken Unknown] metoprolol succinate 25 mg tablet,extended release 24 hr 25 mg PO DAILY #90 tabs 07/29/22 [Rx Last Taken Unknown] Allergy/AdvReac Type Severity Reaction Status Date / Time No Known Allergies Allergy Verified 07/31/22 10:20 Family History Father Diabetes Myocardial infarction Brother Diabetes Surgical History history of right flank surgery History of tonsillectomy Social History Smoking Status: Never smoker alcohol intake: never substance use type: does not use what type of physical activity do you participate in: none ROS Constitutional Constitutional: Denies chills, fatigue, fever(s) or malaise Eyes Eyes: Denies blurry vision ENT HEENT: Denies headache(s) or nasal discharge Cardiovascular Cardiovascular: Reports dyspnea on exertion, edema and orthopnea; Denies chest pain or syncope Respiratory/Chest Respiratory/Chest: Denies cough, shortness of breath at rest or shortness of breath with exertion Gastrointestinal Gastrointestinal: Denies constipation, diarrhea, nausea or vomiting Genitourinary Genitourinary: Denies dysuria Neurologic Neurologic: Denies focal weakness, numbness or tremor(s) Psychiatric Psychiatric: Denies anxiety or depression Vital Signs Vital Signs Vital Signs: 07/31/22 10:21 07/31/22 10:48 07/31/22 12:23 Temperature 97.4 F L Temperature Source Temporal Pulse Rate 47 L 95 Respiratory Rate 16 24 H Respiratory Pattern Normal Blood Pressure 137/88 H Blood Pressure Mean 104 Pulse Ox 98 94 Oxygen Delivery Method Room Air Room Air 07/31/22 12:37 Temperature 97.4 F L Temperature Source Temporal Pulse Rate 95 Respiratory Rate 24 H Respiratory Pattern Blood Pressure 137/88 H Blood Pressure Mean 104 Pulse Ox 94 Oxygen Delivery Method Room Air Weight Weight: 335 lb 8.697 oz Body Mass Index (BMI) 45.5 Physical Exam Narrative General: Alert, Oriented x3, Cooperative, No apparent distress HEENT: Atraumatic, PERRLA, EOMI, Normocephalic Oral: Moist Mucosa Neck: Supple, No JVD Lungs: Diminished, Normal air movement, No rhonchi, No wheeze, No rales Cardiovascular: Irregular rate and rhythm, Normal S1, Normal S2, No murmurs Abdomen: Soft, Non Tender, Non-Distended, No Hepato-splenomegaly Extremities: Bilateral lower extremity edema, Capillary Refill Less than 3 Seconds Skin: No rashes, No breakdown Musculoskeletal: No Tenderness to Palpation of Joints or Extremities Neurological: Cranial nerves II-XII grossly intact, Motor Exam 5/5 strength throughout, Sensory exam intact to light touch and pain Psych/Mental Status: Normal Affect, Appropriate Results Lab / Micro Data Result Diagrams: 07/31/22 11:00 07/31/22 11:00 Labs: Laboratory Results - last 24 hr 07/31/22 11:00: WBC 5.1, RBC 4.61, Hgb 12.9 L, Hct 41.5, MCV 90.0, MCH 28.0, MCHC 31.1 L, RDW Std Deviation 47.3 H, RDW Coeff of Yamilet 14.4, Plt Count 200, MPV 11.0, Immature Gran % (Auto) 0.200, Neut % (Auto) 67.0, Lymph % (Auto) 21.3, [place] % (Auto) 9.1, Eos % (Auto) 1.8, Baso % (Auto) 0.6, Absolute Neuts (auto) 3.4, Absolute Lymphs (auto) 1.08, Nucleated RBC % 0 07/31/22 11:00: Sodium 144, Potassium 4.2, Chloride 108 H, Carbon Dioxide 31.0, Anion Gap 5, BUN 33 H, Creatinine 1.46 H, Estim Creat Clear Calc 56.84, Est GFR (MDRD) Af Amer 63, Est GFR (MDRD) Non-Af 52 L, BUN/Creatinine Ratio 22.6 H, Glucose 159 H, Calcium 9.6 07/31/22 11:00: B-Natriuretic Peptide 203.1 H Radiology Impression Chest X-Ray 07/31/22 10:52 IMPRESSION: Small bilateral pleural effusions. Electronically Signed: Alberto Martinez MD at 12:08 EST Reading Location ID and State: [id number] [facility] Tel , Service support , Assessment & Plan Assessment/Plan (1) Acute exacerbation of congestive heart failure: (2) Atrial fibrillation: PLAN: Plan 1. Shortness of breath due to likely acute exacerbation of heart failure unknown type/A. fib/HTN/HLD/JORDON ? He was started on p.o. Lasix which does not seem to have been causing any improvement, will transition to IV Lasix 40 mg twice daily ? We will obtain an echo ? Continue with his home Eliquis ? Will place him on metoprolol 25 mg p.o. twice daily ? We will continue to monitor renal function, does appear to be in JORDON as his baseline creatinine is around 1 and is 1.46 on admission. We will continue to monitor ? Blood pressure appears to be stable will make adjustments as necessary, will hold his Norvasc secondary to his lower extremity edema 2. DM2 ? We will hold his home blood sugar medications ? We will place on sliding scale insulin ? Accu-Cheks AC at bedtime ? We will make adjustments as necessary DVT: Eliquis Charges/Coding Visit Charges OBSV E&M: 34038 Initial observation care L2
--- NOTE | 2022-07-31 13:43 | ECHOCS_ITS ---
Version 2 Reason For Study: CHF Procedure This was a 2D Doppler, Color Flow transthoracic echocardiogram. The study was technically difficult. Contrast injection was performed. Exam performed portable in patient room. Left Ventricle Severely dilated left ventricle. The estimated ejection fraction is 25 %. There is severe global hypokinesis of the left ventricle. Right Ventricle Normal RV size. Normal systolic function. Atria The left atrium is moderately enlarged. Normal right atrium. Mitral Valve Bileaflet diffuse mitral valve thickening. Mild-Moderate (1-2+) eccentric mitral valve insufficiency. Tricuspid Valve Normal tricuspid valve. Unable to estimate RV systolic pressure due to insufficient tricuspid regurgitant envelope. Pulmonic Valve The pulmonic valve is not well visualized. Great Vessels Normal aortic root. The pulmonary is not well visualized. Pericardium/Pleural No pericardial effusion. Medication Diluted definity 1.5ml given slow IV push to enhance endocardial definition. MMode/2D Measurements & Calculations LVIDd: 7.2 cm IVSd: 0.72 cm Ao root diam: 3.6 cm LVIDs: 5.8 cm LVPWd: 1.0 cm LA dimension: 5.3 cm RVDd: 3.9 cm FS: 18.6 % LAV(MOD-sp2): 109.0 ml LA A4 area: 28.0 cm2 RA A4 area: 20.6 cm2 Doppler Measurements & Calculations Ao V2 max: 111.6 cm/sec LV V1 max: 83.1 cm/sec MR max usha: 461.4 cm/sec Ao max P.1 mmHg LV V1 max P.8 mmHg MR max P.2 mmHg Ao V2 mean: 78.9 cm/sec LV V1 mean P.7 mmHg Ao mean P.9 mmHg LV V1 mean: 60.1 cm/sec Ao V2 VTI: 18.9 cm LV V1 VTI: 14.1 cm PA V2 max: 83.0 cm/sec PA V2 mean: 60.4 cm/sec ECHO/Echo Complete W/ Contrast Interpretation Summary Severely dilated left ventricle. The estimated ejection fraction is 25 %. The left atrium is moderately enlarged. There is severe global hypokinesis of the left ventricle. Mild-Moderate (1-2+) eccentric mitral valve insufficiency. Compared to previous study, the left ventricular systolic function has worsened .. Contrast injection was performed. Compared to previous study, the left ventricu lar systolic function has worsened.. Ordering Physician: Jaime Allen Referring Physician: Deni Andujar Performed By: Rob Bautista RCS
--- NOTE | 2022-07-31 16:09 | CON.PCM.CA_ITS ---
Assessment & Plan Assessment/Plan (1) Acute exacerbation of congestive heart failure: PLAN: He does appear to have an exacerbation of congestive heart failure and has heart failure with reduced ejection fraction. My recommendation at this time would be to start diuresis with intravenous Lasix Would recommend switching him to oral carvedilol We will monitor his renal function and start him on an ARB or Arni as appropriate We will consider putting him on an SGLT2 inhibitor The global nature likely suggest that this is not due to coronary disease but we may need to evaluate his coronary anatomy. (2) New onset atrial fibrillation: PLAN: He will continue anticoagulation for now Would also pursue rate control with a beta-neto (3) Bilateral lower extremity edema: PLAN: He does have evidence of bilateral pedal edema likely secondary to his congestive heart failure. We will continue with intravenous diuresis. HPI Consult Data Date of Consult: 07/31/22 HPI Narrative HPI Narrative: ASH PARMAR, is a 61 M who presents to the emergency room complaining of shortness of breath and pedal edema. He also has had some orthopnea and says that he was doing well until April of this year when he started noticing increasing swelling of his lower extremities. He does have a history of hypertension and a strong family history of coronary disease. He was seen by his primary care physician and he does say that approximately a month ago he contracted COVID and has also been noted to be in an irregular heartbeat. He was started on metoprolol and Eliquis as well as Lasix. He was scheduled to have an echocardiogram later on next week. However he found that he was getting worse and so presented to the emergency room was noted to be in heart failure and was admitted for further evaluation and management. [facility] Medical History Bilateral lower extremity edema COVID-19 (~06/29/22) Diabetes Dyspnea Encounter for preventative adult health care examination Hyperlipidemia Hypertension Neuropathy New onset atrial fibrillation Orthopnea Home Medications blood pressure monitor (Blood Pressure Kit) #1 ea 11/14/19 [Rx Last Taken Unknown] cary.stocking,knee,reg,xlrg #2 ea 04/24/20 [Rx Last Taken Unknown] lancets 28 gauge (FreeStyle Lancets) #100 ea 11/05/20 [Rx Last Taken Unknown] blood-glucose meter (OneTouch Verio Reflect Start kit) #1 ea 12/03/20 [Rx Last Taken Unknown] blood sugar diagnostic ([employer] OrthopaedicsTouch Verio test strips) #100 ea 04/01/21 [Rx Last Taken Unknown] dulaglutide 3 mg/0.5 mL subcutaneous pen injector 3 mg (0.5 mL) subcut QWEEK #2 mL 04/03/22 [Rx Last Taken Unknown] glipizide 10 mg tablet 10 mg PO DAILY #90 tabs 04/14/22 [Rx Last Taken Unknown] amlodipine 10 mg tablet 10 mg PO QHS #90 tabs 05/12/22 [Rx Last Taken Unknown] tramadol 50 mg tablet 50 mg PO Q12H PRN pain #14 tabs 05/14/22 [Rx Last Taken Unknown] diclofenac sodium 1 % topical gel (Voltaren Arthritis Pain) 4 g topical DAILY PRN joint pain #100 grams 05/26/22 [Rx Last Taken Unknown] doxazosin 4 mg tablet 4 mg PO BID #180 tabs 06/03/22 [Rx Last Taken Unknown] metformin 1,000 mg tablet 1,000 mg PO BID #180 tabs 06/11/22 [Rx Last Taken Unknown] apixaban 5 mg tablet (Eliquis) 5 mg PO BID #180 tabs 07/29/22 [Rx Last Taken Unknown] furosemide 40 mg tablet 40 mg PO QAM #30 tabs 07/29/22 [Rx Last Taken Unknown] metoprolol succinate 25 mg tablet,extended release 24 hr 25 mg PO DAILY #90 tabs 07/29/22 [Rx Last Taken Unknown] hydrochlorothiazide 25 mg tablet 25 mg PO DAILY 07/31/22 [History Last Taken Unknown] lisinopril 40 mg tablet 40 mg PO DAILY 07/31/22 [History Last Taken Unknown] Allergy/AdvReac Type Severity Reaction Status Date / Time No Known Allergies Allergy Verified 07/31/22 10:20 Family History Father Diabetes Myocardial infarction Brother Diabetes Surgical History history of right flank surgery History of tonsillectomy Social History Smoking Status: Never smoker alcohol intake: never substance use type: does not use what type of physical activity do you participate in: none ROS Constitutional Constitutional: Reports weakness Eyes Eyes: Reports systems reviewed and no addt'l complaints, except as documented ENT HEENT: Reports systems reviewed and no addt'l complaints, except as documented Cardiovascular Cardiovascular: Reports dyspnea at rest, dyspnea on exertion, orthopnea, paroxysmal nocturnal dyspnea and pedal edema; Denies chest pain at rest, chest pain with activity, edema or palpitations Respiratory/Chest Respiratory/Chest: Reports dyspnea on exertion, productive cough, shortness of breath at rest and shortness of breath with exertion Gastrointestinal Gastrointestinal: Denies change in bowel habits, nausea, vomiting or weight changes Genitourinary Genitourinary: Denies difficulty urinating Musculoskeletal Musculoskeletal: Denies joint stiffness or muscle weakness Integumentary Integumentary: Denies lesions Neurologic Neurologic: Denies dizziness or syncope Psychiatric Psychiatric: Denies anxiety Endocrine Endocrinology: Reports fatigue Hematologic/Lymphatic Hematologic/Lymphatic: Denies anemia Allergic/Immunologic Allergic/Immunologic: Denies seasonal rhinorrhea Physical Exam Const alert, oriented x3 and no apparent distress General Appearance: cooperative HEENT hearing grossly normal bilaterally Head and Scalp: atraumatic Eyes EOMs intact bilaterally Neck General: normal visual inspection Chest inspection of chest normal and palpation of chest normal Resp normal respiratory effort Auscultation: crackles Cardio S1 normal heart sound and S2 normal heart sound Jugular Venous Distention: JVD Rhythm: abnormal rhythm irregularly irregular and regularly irregular GI normal to inspection, nondistended, normoactive bowel sounds Extremity normal capillary refill General Extremity: edema bilateral (2 +) Peripheral Pulses: Yes pulses 2+ throughout and femoral pulses present Skin no rashes or lesions noted Neuro oriented x3 and CN's II-XII intact bilaterally Psych Appearance: grossly normal and appropriate Risk Stratification Risk Stratification Applicable: No Objective Data Vital Signs: Vital Signs Temp Pulse Resp BP Pulse Ox O2 Del Method 98 F 61 20 H 121/83 H 94 Room Air 07/31/22 14:00 07/31/22 14:00 07/31/22 14:00 07/31/22 14:00 07/31/22 14:00 07/31/22 14:00 Oxygen Delivery Method Room Air Weight: 336 lb Body Mass Index (BMI) 45.5 Lab / Micro Data Result Diagrams: 07/31/22 11:00 07/31/22 11:00 Labs: Laboratory Results - last 24 hr 07/31/22 11:00: WBC 5.1, RBC 4.61, Hgb 12.9 L, Hct 41.5, MCV 90.0, MCH 28.0, MCHC 31.1 L, RDW Std Deviation 47.3 H, RDW Coeff of Yamilet 14.4, Plt Count 200, MPV 11.0, Immature Gran % (Auto) 0.200, Neut % (Auto) 67.0, Lymph % (Auto) 21.3, [place] % (Auto) 9.1, Eos % (Auto) 1.8, Baso % (Auto) 0.6, Absolute Neuts (auto) 3.4, Absolute Lymphs (auto) 1.08, Nucleated RBC % 0 07/31/22 11:00: Sodium 144, Potassium 4.2, Chloride 108 H, Carbon Dioxide 31.0, Anion Gap 5, BUN 33 H, Creatinine 1.46 H, Estim Creat Clear Calc 56.84, Est GFR (MDRD) Af Amer 63, Est GFR (MDRD) Non-Af 52 L, BUN/Creatinine Ratio 22.6 H, Glucose 159 H, Calcium 9.6 07/31/22 11:00: B-Natriuretic Peptide 203.1 H Cardiology Labs/Tests 07/31/22 11:00: WBC 5.1, RBC 4.61, Hgb 12.9 L, Hct 41.5, MCV 90.0, MCH 28.0, MCHC 31.1 L, Plt Count 200, MPV 11.0, Immature Gran % (Auto) 0.200, Neut % (Auto) 67.0, Lymph % (Auto) 21.3, [place] % (Auto) 9.1, Eos % (Auto) 1.8, Baso % (Auto) 0.6, Absolute Neuts (auto) 3.4, Nucleated RBC % 0 07/31/22 11:00: Sodium 144, Potassium 4.2, Chloride 108 H, Carbon Dioxide 31.0, Anion Gap 5, BUN 33 H, Creatinine 1.46 H, Est GFR (MDRD) Af Amer 63, Est GFR (MDRD) Non-Af 52 L, BUN/Creatinine Ratio 22.6 H, Glucose 159 H, Calcium 9.6 07/31/22 11:00: B-Natriuretic Peptide 203.1 H Rhythm: EKG: ECHO: Stress Test: Cardiac Cath: PCI: CT Surgery: Holter monitor: EPS: PPM: CXR: Chest CT Scan: Radiography Diagnostic Testing: Radiology Impression Chest X-Ray 07/31/22 10:52 IMPRESSION: Small bilateral pleural effusions. Electronically Signed: Alberto Martinez MD at 12:08 EST , Echocardiogram 07/31/22 13:43 Interpretation Summary Severely dilated left ventricle. The estimated ejection fraction is 25 %. The left atrium is moderately enlarged. There is severe global hypokinesis of the left ventricle. Mild-Moderate (1-2+) eccentric mitral valve insufficiency. Compared to previous study, the left ventricular systolic function has worsened.. Contrast injection was performed. Compared to previous study, the left ventricular systolic function has worsened.. Ordering Physician: Jaime Allen Referring Physician: Deni Andujar Performed By: Rob Bautista RCS
[2022-07-31] MEDS: Furosemide 500 MG in Empty Viaflex 50 mL 1 EACH CONT INF (16:40)
[2022-07-31] MEDS: Insulin Lispro 100 UNIT/ML INSULN.PEN SC ×2 (16:48→21:49)
[2022-07-31 16:51] LABS: Bedside Glucose 166 mg/dL (74-106)
[2022-07-31] MEDS: Carvedilol 6.25 MG Tablet PO (21:49)
[2022-07-31] MEDS: APIXABAN 5 MG TABLET PO (21:49)
[2022-07-31 23:11] LABS: Bedside Glucose 174 mg/dL (74-106)
[2022-08-01] VITALS (10 sets, daily range): BP systolic 100–148; BP diastolic 70–104; PULSE 70–116; RESP 14–20; TEMP 36.4–37.3; O2SAT 94–99
[2022-08-01 07:14] LABS: Absolute Lymphocyte Count 1.55 X10^3/uL (0.83-4.51); Absolute Neutrophil Count 3.1 X10^3/uL (2.0-7.7); Basophil# 0.04 X10^3/uL; Basophil% 0.8 % (0-1); Eosinophil# 0.12 X10^3/uL; Eosinophils% 2.3 % (0-5); Hematocrit 39.2 % (40-54); Hemoglobin 12.4 g/dL (13.0-16.5); Lymphocyte # 1.55 X10^3/ul (0.83-4.51); Lymphocyte % 29.3 % (19-41); Mean Corp Hgb Conc 31.6 g/dL (32-36); Mean Corpuscular Hgb 28.1 pg (27.0-32.0); Mean Corpuscular Volume 88.9 fL (80-94); Monocyte# 0.51 X10^3/uL; Monocyte% 9.6 % (0-10); NRBC Flagged by Analyzer 0 % (0-5); Neutrophil # 3.06 X10^3/uL (2.7-7.7); Neutrophil % 57.8 % (47-70); Platelet Count 178 K/mm3 (150-450); RBC Distribution Width CV 14.2 % (11.6-14.6); RBC Distribution Width SD 45.8 fl (35.1-43.9); Red Blood Count 4.41 M/mm3 (4.6-6.2); White Blood Count 5.3 K/mm3 (4.4-11.0)
[2022-08-01 07:16] LABS: Bedside Glucose 140 mg/dL (74-106)
[2022-08-01 07:45] LABS: Anion Gap 9 (5-15); BUN 36 mg/dL (7-18); Calcium,Total 8.7 mg/dL (8.5-10.1); Chloride 107 mmol/L (98-107); EST Glomerular Filtration Rate 50 mL/min (>60); Est Glom Filt Rate - Afr Amer 61 mL/min (>60); Estimated Creatinine Clearance 55.33 ml/min; Glucose 135 mg/dL (74-106); Potassium 3.3 mmol/L (3.5-5.1); Sodium Level 143 mmol/L (136-145)
--- NOTE | 2022-08-01 08:49 | PN.CARD_ITS ---
Subjective Subjective Patient seen and evaluated. Appears to be doing better this morning. Objective Data Vital Signs: Vital Signs Temp Pulse Resp BP Pulse Ox O2 Del Method O2 Flow Rate 98.0 F 82 18 110/83 H 95 Room Air 2 08/01/22 06:00 08/01/22 06:00 08/01/22 06:00 08/01/22 06:00 08/01/22 06:00 08/01/22 07:35 08/01/22 06:00 Oxygen Flow Rate (L/min) 2 Oxygen Delivery Method Room Air Weight: 335 lb 5.169 oz Body Mass Index (BMI) 45.5 Intake & Output: Intake and Output for Last 24 Hours 07/30/22 07/31/22 08/01/22 23:59 23:59 23:59 Intake Total 120 / 120 30 / 30 Output Total 1300 / 1300 800 / 800 Balance -1180 / -1180 -770 / -770 Lab / Micro Data Result Diagrams: 08/01/22 06:59 08/01/22 06:59 Labs: Laboratory Results - last 24 hr 07/31/22 11:00: WBC 5.1, RBC 4.61, Hgb 12.9 L, Hct 41.5, MCV 90.0, MCH 28.0, MCHC 31.1 L, RDW Std Deviation 47.3 H, RDW Coeff of Yamilet 14.4, Plt Count 200, MPV 11.0, Immature Gran % (Auto) 0.200, Neut % (Auto) 67.0, Lymph % (Auto) 21.3, [place] % (Auto) 9.1, Eos % (Auto) 1.8, Baso % (Auto) 0.6, Absolute Neuts (auto) 3.4, Absolute Lymphs (auto) 1.08, Nucleated RBC % 0 07/31/22 11:00: Sodium 144, Potassium 4.2, Chloride 108 H, Carbon Dioxide 31.0, Anion Gap 5, BUN 33 H, Creatinine 1.46 H, Estim Creat Clear Calc 56.84, Est GFR (MDRD) Af Amer 63, Est GFR (MDRD) Non-Af 52 L, BUN/Creatinine Ratio 22.6 H, Glucose 159 H, Calcium 9.6 07/31/22 11:00: B-Natriuretic Peptide 203.1 H 07/31/22 16:28: POC Glucose 166 H 07/31/22 21:46: POC Glucose 174 H 08/01/22 06:22: POC Glucose 140 H 08/01/22 06:59: WBC 5.3, RBC 4.41 L, Hgb 12.4 L, Hct 39.2 L, MCV 88.9, MCH 28.1, MCHC 31.6 L, RDW Std Deviation 45.8 H, RDW Coeff of Yamilet 14.2, Plt Count 178, MPV 11.0, Immature Gran % (Auto) 0.200, Neut % (Auto) 57.8, Lymph % (Auto) 29.3, [place] % (Auto) 9.6, Eos % (Auto) 2.3, Baso % (Auto) 0.8, Absolute Neuts (auto) 3.1, Absolute Lymphs (auto) 1.55, Nucleated RBC % 0 08/01/22 06:59: Sodium 143, Potassium 3.3 L, Chloride 107, Carbon Dioxide 27.0, Anion Gap 9, BUN 36 H, Creatinine 1.50 H, Estim Creat Clear Calc 55.33, Est GFR (MDRD) Af Amer 61, Est GFR (MDRD) Non-Af 50 L, BUN/Creatinine Ratio 24.0 H, Glucose 135 H, Calcium 8.7 Cardiology Labs/Tests 07/31/22 11:00: WBC 5.1, RBC 4.61, Hgb 12.9 L, Hct 41.5, MCV 90.0, MCH 28.0, MCHC 31.1 L, Plt Count 200, MPV 11.0, Immature Gran % (Auto) 0.200, Neut % (Auto) 67.0, Lymph % (Auto) 21.3, [place] % (Auto) 9.1, Eos % (Auto) 1.8, Baso % (Auto) 0.6, Absolute Neuts (auto) 3.4, Nucleated RBC % 0 07/31/22 11:00: Sodium 144, Potassium 4.2, Chloride 108 H, Carbon Dioxide 31.0, Anion Gap 5, BUN 33 H, Creatinine 1.46 H, Est GFR (MDRD) Af Amer 63, Est GFR (MDRD) Non-Af 52 L, BUN/Creatinine Ratio 22.6 H, Glucose 159 H, Calcium 9.6 07/31/22 11:00: B-Natriuretic Peptide 203.1 H 08/01/22 06:59: WBC 5.3, RBC 4.41 L, Hgb 12.4 L, Hct 39.2 L, MCV 88.9, MCH 28.1, MCHC 31.6 L, Plt Count 178, MPV 11.0, Immature Gran % (Auto) 0.200, Neut % (Auto) 57.8, Lymph % (Auto) 29.3, [place] % (Auto) 9.6, Eos % (Auto) 2.3, Baso % (Auto) 0.8, Absolute Neuts (auto) 3.1, Nucleated RBC % 0 08/01/22 06:59: Sodium 143, Potassium 3.3 L, Chloride 107, Carbon Dioxide 27.0, Anion Gap 9, BUN 36 H, Creatinine 1.50 H, Est GFR (MDRD) Af Amer 61, Est GFR (MDRD) Non-Af 50 L, BUN/Creatinine Ratio 24.0 H, Glucose 135 H, Calcium 8.7 Rhythm: EKG: ECHO: Stress Test: Cardiac Cath: PCI: CT Surgery: Holter monitor: EPS: PPM: CXR: Chest CT Scan: Radiography Diagnostic Testing: Radiology Impression Chest X-Ray 07/31/22 10:52 IMPRESSION: Small bilateral pleural effusions. Electronically Signed: Alberto Martinez MD at 12:08 EST , Echocardiogram 07/31/22 13:43 Interpretation Summary Severely dilated left ventricle. The estimated ejection fraction is 25 %. The left atrium is moderately enlarged. There is severe global hypokinesis of the left ventricle. Mild-Moderate (1-2+) eccentric mitral valve insufficiency. Compared to previous study, the left ventricular systolic function has worsened.. Contrast injection was performed. Compared to previous study, the left ventricular systolic function has worsened.. Ordering Physician: Jaime Allen Referring Physician: Deni Andujar Performed By: Rob Bautista RCS Physical Exam Const alert, oriented x3 and no apparent distress General Appearance: cooperative HEENT hearing grossly normal bilaterally Head and Scalp: atraumatic Eyes EOMs intact bilaterally Neck General: normal visual inspection Chest inspection of chest normal and palpation of chest normal Resp normal respiratory effort Auscultation: crackles Cardio S1 normal heart sound and S2 normal heart sound Jugular Venous Distention: JVD Rhythm: abnormal rhythm irregularly irregular and regularly irregular GI normal to inspection, nondistended, normoactive bowel sounds Extremity normal capillary refill General Extremity: edema bilateral (2 +) Peripheral Pulses: Yes pulses 2+ throughout and femoral pulses present Skin no rashes or lesions noted Neuro oriented x3 and CN's II-XII intact bilaterally Psych Appearance: grossly normal and appropriate Assessment & Plan Assessment/Plan (1) Acute exacerbation of congestive heart failure: PLAN: He does appear to have an exacerbation of congestive heart failure and has heart failure with reduced ejection fraction. My recommendation at this time would be to start diuresis with intravenous Lasix Would recommend switching him to oral carvedilol We will monitor his renal function and start him on an ARB or Arni as appropriate We will consider putting him on an SGLT2 inhibitor The global nature likely suggest that this is not due to coronary disease but we may need to evaluate his coronary anatomy. (2) New onset atrial fibrillation: PLAN: He will continue anticoagulation for now Would also pursue rate control with a beta-neto (3) Bilateral lower extremity edema: PLAN: He does have evidence of bilateral pedal edema likely secondary to his congestive heart failure. We will continue with intravenous diuresis.
[2022-08-01] MEDS: Potassium Chloride Oral Tablet 20 MEQ 40 MEQ PO (10:12)
[2022-08-01] MEDS: Carvedilol 6.25 MG Tablet PO ×2 (10:13→20:49)
[2022-08-01] MEDS: Furosemide 40 MG/4 ML Vial IV ×2 (10:13→17:27)
[2022-08-01] MEDS: Enoxaparin 120 MG/0.8 ML Syringe SC (10:14)
[2022-08-01] MEDS: FLU VACC QS2022-23(6MOS UP)/PF 60 MCG/0.5 ML SYRINGE IM (10:16)
[2022-08-01] MEDS: 0.9% Saline Lock 10 ML Syringe IV ×2 (10:19→17:28)
--- NOTE | 2022-08-01 10:24 | PN.HOSP_ITS ---
Subjective Subjective Doing well, he was able to get some sleep overnight. States that his shortness of breath is a little bit better and the swelling has gone down. He did get his echo yesterday which showed a significant reduction in his EF to 25% with global hypokinesis of his left ventricle Objective Data Objective Data Vital Signs: Vital Signs Temp Pulse Resp BP Pulse Ox O2 Del Method O2 Flow Rate 98.1 F 70 14 100/70 94 Room Air 2 08/01/22 09:48 08/01/22 09:48 08/01/22 09:48 08/01/22 09:48 08/01/22 09:48 08/01/22 09:48 08/01/22 09:48 Oxygen Flow Rate (L/min) 2 Oxygen Delivery Method Room Air Weight: 335 lb 5.169 oz Body Mass Index (BMI) 45.5 Intake & Output: Intake and Output for Last 24 Hours 07/31/22 08/01/22 08/02/22 03:59 03:59 03:59 Intake Total 120 / 120 30 / 30 Output Total 1300 / 1300 800 / 800 Balance -1180 / -1180 -770 / -770 Lab / Micro Data Result Diagrams: 08/01/22 06:59 08/01/22 06:59 Labs: Laboratory Results - last 24 hr 07/31/22 11:00: WBC 5.1, RBC 4.61, Hgb 12.9 L, Hct 41.5, MCV 90.0, MCH 28.0, MCHC 31.1 L, RDW Std Deviation 47.3 H, RDW Coeff of Yamilet 14.4, Plt Count 200, MPV 11.0, Immature Gran % (Auto) 0.200, Neut % (Auto) 67.0, Lymph % (Auto) 21.3, [place] % (Auto) 9.1, Eos % (Auto) 1.8, Baso % (Auto) 0.6, Absolute Neuts (auto) 3.4, Absolute Lymphs (auto) 1.08, Nucleated RBC % 0 07/31/22 11:00: Sodium 144, Potassium 4.2, Chloride 108 H, Carbon Dioxide 31.0, Anion Gap 5, BUN 33 H, Creatinine 1.46 H, Estim Creat Clear Calc 56.84, Est GFR (MDRD) Af Amer 63, Est GFR (MDRD) Non-Af 52 L, BUN/Creatinine Ratio 22.6 H, Glucose 159 H, Calcium 9.6 07/31/22 11:00: B-Natriuretic Peptide 203.1 H 07/31/22 16:28: POC Glucose 166 H 07/31/22 21:46: POC Glucose 174 H 08/01/22 06:22: POC Glucose 140 H 08/01/22 06:59: WBC 5.3, RBC 4.41 L, Hgb 12.4 L, Hct 39.2 L, MCV 88.9, MCH 28.1, MCHC 31.6 L, RDW Std Deviation 45.8 H, RDW Coeff of Yamilet 14.2, Plt Count 178, MPV 11.0, Immature Gran % (Auto) 0.200, Neut % (Auto) 57.8, Lymph % (Auto) 29.3, [place] % (Auto) 9.6, Eos % (Auto) 2.3, Baso % (Auto) 0.8, Absolute Neuts (auto) 3 .1, Absolute Lymphs (auto) 1.55, Nucleated RBC % 0 08/01/22 06:59: Sodium 143, Potassium 3.3 L, Chloride 107, Carbon Dioxide 27.0, Anion Gap 9, BUN 36 H, Creatinine 1.50 H, Estim Creat Clear Calc 55.33, Est GFR (MDRD) Af Amer 61, Est GFR (MDRD) Non-Af 50 L, BUN/Creatinine Ratio 24.0 H, Glucose 135 H, Calcium 8.7 Radiography Diagnostic Testing: Radiology Impression Chest X-Ray 07/31/22 10:52 IMPRESSION: Small bilateral pleural effusions. Electronically Signed: Alberto Martinez MD at 12:08 EST , Echocardiogram 07/31/22 13:43 Interpretation Summary Severely dilated left ventricle. The estimated ejection fraction is 25 %. The left atrium is moderately enlarged. There is severe global hypokinesis of the left ventricle. Mild-Moderate (1-2+) eccentric mitral valve insufficiency. Compared to previous study, the left ventricular systolic function has worsened.. Contrast injection was performed. Compared to previous study, the left ventricular systolic function has worsened.. Ordering Physician: Jaime Allen Referring Physician: Deni Andujar Performed By: Rob Bautista RCS Physical Exam Narrative General: Alert, Oriented x3, Cooperative, No apparent distress HEENT: Atraumatic, PERRLA, EOMI, Normocephalic Oral: Moist Mucosa Neck: Supple, No JVD Lungs: Diminished, Normal air movement, No rhonchi, No wheeze, No rales Cardiovascular: Irregular rate and rhythm, Normal S1, Normal S2, No murmurs Abdomen: Soft, Non Tender, Non-Distended, No Hepato-splenomegaly Extremities: Bilateral lower extremity edema, Capillary Refill Less than 3 Seconds Skin: No rashes, No breakdown Musculoskeletal: No Tenderness to Palpation of Joints or Extremities Neurological: Cranial nerves II-XII grossly intact, Motor Exam 5/5 strength throughout, Sensory exam intact to light touch and pain Psych/Mental Status: Normal Affect, Appropriate Assessment & Plan Assessment/Plan (1) Acute exacerbation of congestive heart failure: (2) Atrial fibrillation: PLAN: Plan 1. Shortness of breath acute exacerbation of systolic CHF/A. fib/HTN/HLD/JORDON ? He was started on p.o. Lasix which does not seem to have been causing any improvement, will transition to IV Lasix 40 mg twice daily ? Echo with significant reduction in EF to 25% with global hypokinesis of the left ventricle will likely need a cardiac catheterization on Wednesday for com pleteness and to rule out any ischemic issues, this is suspicious for a viral etiology so if his cardiac cath is negative we will proceed with medical management and outpatient cardiac MRI ? Continue with his home Eliquis ? Cardiology transitioned his metoprolol to Coreg blood pressure and heart rate are better ? We will continue to monitor renal function, does appear to be in JORDON as his baseline creatinine is around 1 and is 1.46 on admission. We will continue to monitor ? Blood pressure appears to be stable will make adjustments as necessary, will hold his Norvasc secondary to his lower extremity edema, as well as to adjust his other blood pressure medications 2. DM2 ? We will hold his home blood sugar medications ? We will place on sliding scale insulin ? Accu-Cheks AC at bedtime ? We will make adjustments as necessary DVT: Eliquis Charges/Coding Visit Charges Inpatient E&M: 76247 Subs Hosp L2
[2022-08-01] MEDS: Insulin Lispro 100 UNIT/ML INSULN.PEN SC ×2 (11:37→15:58)
[2022-08-01 12:26] LABS: Bedside Glucose 163 mg/dL (74-106)
--- NOTE | 2022-08-01 13:05 | CASEMGMT ---
ALVAREZ DUNCAN Assessment: Face to Face with pt for initial transition planning/care coordination assessment. RN CM introduced self and role at [facility], pt voices understanding and consents to assessment. Pt is A/O x4 and answers all questions appropriately at this time. Pt sitting on edge of bed in no distress. Care providers, pharmacy, and demographics verified/updated. Admitting Dx: CHF without hypoxia, afib with RVR PCP:Deni Andujar NP Specialists:Ayden cardio to be seen on Aug 12. Preferred Pharmacy: [facility] Retail Insurance: [employer] Prescription Benefit: yes LNOK: Brianna Regalaod, ex Living Arrangements: Pt lives with ex in a two story house with 1 step to enter. Pt reports he is I in ADL's and denies concerns at home. Transportation: Pt drives self and denies concerns with transportation. DME/HHC/SNF: Pt has a CPAP at home but does not use, denies hx of HHC or SNF stays. Pt states no concerns with going home at time of dc. Pt is interested in education on CHF. Discussed Patient Link as well as CCN. Pt is interested. Pt states no further concerns/needs. CM to follow. Advised pt to ask CM if any further question/concerns/needs arise, voices understanding. Pt Goal: Home Plan: Patient Link and/or CCN pending hospital course.
[2022-08-01 17:01] LABS: Bedside Glucose 153 mg/dL (74-106)
[2022-08-01 21:56] LABS: Bedside Glucose 145 mg/dL (74-106)
[2022-08-02] VITALS (9 sets, daily range): BP systolic 106–140; BP diastolic 69–93; PULSE 88–99; RESP 16–18; TEMP 36.4–36.9; O2SAT 91–98
[2022-08-02] MEDS: Insulin Lispro 100 UNIT/ML INSULN.PEN SC ×3 (06:01→15:38)
[2022-08-02 06:23] LABS: Anion Gap 8 (5-15); BUN 38 mg/dL (7-18); BUN/Creat Ratio 25.7 RATIO (10-20); Calcium,Total 8.9 mg/dL (8.5-10.1); Chloride 107 mmol/L (98-107); Creatinine, Serum 1.48 mg/dL (0.70-1.30); EST Glomerular Filtration Rate 51 mL/min (>60); Est Glom Filt Rate - Afr Amer 62 mL/min (>60); Estimated Creatinine Clearance 56.07 ml/min; Glucose 150 mg/dL (74-106); Potassium 3.4 mmol/L (3.5-5.1); Sodium Level 144 mmol/L (136-145)
[2022-08-02 06:30] LABS: Bedside Glucose 160 mg/dL (74-106)
[2022-08-02 07:48] LABS: Magnesium 2.3 mg/dL (1.6-2.6)
--- NOTE | 2022-08-02 07:59 | PCM.PN.CARD ---
Subjective Subjective The patient was seen and evaluated. Doing much better. Has lost some weight. However continues to be edematous. Objective Data Vital Signs: Vital Signs Temp Pulse Resp BP Pulse Ox O2 Del Method O2 Flow Rate 97.8 F 88 18 108/70 95 Room Air 2 08/02/22 04:33 08/02/22 04:33 08/02/22 04:33 08/02/22 04:33 08/02/22 04:33 08/02/22 07:30 08/02/22 04:33 Oxygen Flow Rate (L/min) 2 Oxygen Delivery Method Room Air Weight: 329 lb 9.457 oz Body Mass Index (BMI) 45.5 Intake & Output: Intake and Output for Last 24 Hours 07/31/22 08/01/22 08/02/22 23:59 23:59 23:59 Intake Total 120 / 120 810 / 810 Output Total 1300 / 1300 1675 / 1675 Balance -1180 / -1180 -865 / -865 Lab / Micro Data Result Diagrams: 08/01/22 06:59 08/02/22 05:17 Labs: Laboratory Results - last 24 hr 08/01/22 11:36: POC Glucose 163 H 08/01/22 15:57: POC Glucose 153 H 08/01/22 20:45: POC Glucose 145 H 08/02/22 05:17: Sodium 144, Potassium 3.4 L, Chloride 107, Carbon Dioxide 29.0, Anion Gap 8, BUN 38 H, Creatinine 1.48 H, Estim Creat Clear Calc 56.07, Est GFR (MDRD) Af Amer 62, Est GFR (MDRD) Non-Af 51 L, BUN/Creatinine Ratio 25.7 H, Glucose 150 H, Calcium 8.9 08/02/22 05:17: Phosphorus 4.0, Magnesium 2.3 08/02/22 06:00: POC Glucose 160 H Cardiology Labs/Tests 08/02/22 05:17: Sodium 144, Potassium 3.4 L, Chloride 107, Carbon Dioxide 29.0, Anion Gap 8, BUN 38 H, Creatinine 1.48 H, Est GFR (MDRD) Af Amer 62, Est GFR (MDRD) Non-Af 51 L, BUN/Creatinine Ratio 25.7 H, Glucose 150 H, Calcium 8.9 08/02/22 05:17: Phosphorus 4.0, Magnesium 2.3 Rhythm: EKG: ECHO: Stress Test: Cardiac Cath: PCI: CT Surgery: Holter monitor: EPS: PPM: CXR: Chest CT Scan: Physical Exam Const alert, oriented x3 and no apparent distress General Appearance: cooperative HEENT hearing grossly normal bilaterally Head and Scalp: atraumatic Eyes EOMs intact bilaterally Neck General: normal visual inspection Chest inspection of chest normal and palpation of chest normal Resp normal respiratory effort Auscultation: crackles Cardio S1 normal heart sound and S2 normal heart sound Jugular Venous Distention: JVD Rhythm: abnormal rhythm irregularly irregular and regularly irregular GI normal to inspection, nondistended, normoactive bowel sounds Extremity normal capillary refill General Extremity: edema bilateral (2 +) Peripheral Pulses: Yes pulses 2+ throughout and femoral pulses present Skin no rashes or lesions noted Neuro oriented x3 and CN's II-XII intact bilaterally Psych Appearance: grossly normal and appropriate Assessment & Plan Assessment/Plan (1) Acute exacerbation of congestive heart failure: PLAN: He does appear to have an exacerbation of congestive heart failure and has heart failure with reduced ejection fraction. My recommendation at this time would be to start diuresis with intravenous Lasix Would recommend to oral carvedilol We will monitor his renal function and start him on an ARB or Arni as appropriate We will put him on an SGLT2 inhibitor The global nature likely suggest that this is not due to coronary disease but we may need to evaluate his coronary anatomy. I have explained this to him the risk benefits alternatives and we will plan on this in the morning. (2) New onset atrial fibrillation: PLAN: He will continue anticoagulation for now Would also pursue rate control with a beta-neto (3) Bilateral lower extremity edema: PLAN: He does have evidence of bilateral pedal edema likely secondary to his congestive heart failure. We will continue with intravenous diuresis.
[2022-08-02] MEDS: Potassium Chloride Oral Tablet 20 MEQ 40 MEQ PO (08:11)
[2022-08-02] MEDS: Enoxaparin 120 MG/0.8 ML Syringe SC (08:58)
[2022-08-02] MEDS: Furosemide 40 MG/4 ML Vial IV ×2 (08:58→18:13)
[2022-08-02] MEDS: Carvedilol 6.25 MG Tablet PO ×2 (08:58→21:13)
[2022-08-02] MEDS: 0.9% Saline Lock 10 ML Syringe IV ×2 (08:59→18:13)
--- NOTE | 2022-08-02 09:09 | PCM.PN.HOSP ---
Subjective Subjective Doing well, no issues overnight. Shortness of breath is about the same as it was yesterday edema is little bit better. Objective Data Objective Data Vital Signs: Vital Signs Temp Pulse Resp BP Pulse Ox O2 Del Method O2 Flow Rate 97.5 F L 99 16 140/93 H 98 Nasal Cannula 2 08/02/22 08:53 08/02/22 08:53 08/02/22 08:53 08/02/22 08:53 08/02/22 08:53 08/02/22 08:53 08/02/22 08:53 Oxygen Flow Rate (L/min) 2 Oxygen Delivery Method Nasal Cannula Weight: 329 lb 9.457 oz Body Mass Index (BMI) 45.5 Intake & Output: Intake and Output for Last 24 Hours 08/01/22 08/02/22 08/03/22 03:59 03:59 03:59 Intake Total 120 / 120 810 / 810 Output Total 1300 / 1300 1675 / 1675 Balance -1180 / -1180 -865 / -865 Lab / Micro Data Result Diagrams: 08/01/22 06:59 08/02/22 05:17 Labs: Laboratory Results - last 24 hr 08/01/22 11:36: POC Glucose 163 H 08/01/22 15:57: POC Glucose 153 H 08/01/22 20:45: POC Glucose 145 H 08/02/22 05:17: Sodium 144, Potassium 3.4 L, Chloride 107, Carbon Dioxide 29.0, Anion Gap 8, BUN 38 H, Creatinine 1.48 H, Estim Creat Clear Calc 56.07, Est GFR (MDRD) Af Amer 62, Est GFR (MDRD) Non-Af 51 L, BUN/Creatinine Ratio 25.7 H, Glucose 150 H, Calcium 8.9 08/02/22 05:17: Phosphorus 4.0, Magnesium 2.3 08/02/22 06:00: POC Glucose 160 H Physical Exam Narrative General: Alert, Oriented x3, Cooperative, No apparent distress HEENT: Atraumatic, PERRLA, EOMI, Normocephalic Oral: Moist Mucosa Neck: Supple, No JVD Lungs: Diminished, Normal air movement, No rhonchi, No wheeze, No rales Cardiovascular: Irregular rate and rhythm, Normal S1, Normal S2, No murmurs Abdomen: Soft, Non Tender, Non-Distended, No Hepato-splenomegaly Extremities: Bilateral lower extremity edema, Capillary Refill Less than 3 Seconds Skin: No rashes, No breakdown Musculoskeletal: No Tenderness to Palpation of Joints or Extremities Neurological: Cranial nerves II-XII grossly intact, Motor Exam 5/5 strength throughout, Sensory exam intact to light touch and pain Psych/Mental Status: Normal Affect, Appropriate Assessment & Plan Assessment/Plan (1) Acute exacerbation of congestive heart failure: (2) Atrial fibrillation: PLAN: Plan 1. Shortness of breath acute exacerbation of systolic CHF/A. fib/HTN/HLD/JORDON ? He was started on p.o. Lasix which does not seem to have been causing any improvement, will transition to IV Lasix 40 mg twice daily ? Echo with significant reduction in EF to 25% with global hypokinesis of the left ventricle will likely need a cardiac catheterization on Wednesday for completeness and to rule out any ischemic issues, this is suspicious for a viral etiology so if his cardiac cath is negative we will proceed with medical management and outpatient cardiac MRI ? Given anticipation of his heart cath we will transition to therapeutic Lovenox ? Cardiology transitioned his metoprolol to Coreg blood pressure and heart rate are better ? Jardiance was added secondary to his systolic dysfunction ? We will continue to monitor renal function, does appear to be in JORDON as his baseline creatinine is around 1 and is 1.46 on admission. We will continue to monitor ? Blood pressure appears to be stable will make adjustments as necessary, will hold his Norvasc secondary to his lower extremity edema, as well as to adjust his other blood pressure medications 2. DM2 ? We will hold his home blood sugar medications ? We will place on sliding scale insulin ? Accu-Cheks AC at bedtime ? We will make adjustments as necessary DVT: Therapeutic Lovenox Charges/Coding Visit Charges Inpatient E&M: 85149 Subs Hosp L2
[2022-08-02] MEDS: Empagliflozin 10 MG Tablet PO (11:11)
[2022-08-02 11:30] LABS: Bedside Glucose 198 mg/dL (74-106)
[2022-08-02 16:01] LABS: Bedside Glucose 163 mg/dL (74-106)
[2022-08-02 23:51] LABS: Bedside Glucose 146 mg/dL (74-106)
[2022-08-03] VITALS (17 sets, daily range): BP systolic 107–141; BP diastolic 81–103; PULSE 52–108; RESP 18–20; TEMP 36.2–36.6; O2SAT 89–100
[2022-08-03 05:20] LABS: Absolute Lymphocyte Count 1.49 X10^3/uL (0.83-4.51); Absolute Neutrophil Count 3.3 X10^3/uL (2.0-7.7); Basophil# 0.04 X10^3/uL; Basophil% 0.7 % (0-1); Eosinophil# 0.09 X10^3/uL; Eosinophils% 1.6 % (0-5); Hematocrit 40.7 % (40-54); Hemoglobin 13.3 g/dL (13.0-16.5); Lymphocyte # 1.49 X10^3/ul (0.83-4.51); Lymphocyte % 27.2 % (19-41); Mean Corp Hgb Conc 32.7 g/dL (32-36); Mean Corpuscular Hgb 28.7 pg (27.0-32.0); Mean Corpuscular Volume 87.9 fL (80-94); Mean Platelet Vol. 11.5 fl (6.2-12.0); Monocyte# 0.55 X10^3/uL; Monocyte% 10.1 % (0-10); NRBC Flagged by Analyzer 0 % (0-5); Neutrophil # 3.29 X10^3/uL (2.7-7.7); Neutrophil % 60.2 % (47-70); Platelet Count 190 K/mm3 (150-450); RBC Distribution Width CV 14.3 % (11.6-14.6); RBC Distribution Width SD 45.9 fl (35.1-43.9); Red Blood Count 4.63 M/mm3 (4.6-6.2); White Blood Count 5.5 K/mm3 (4.4-11.0)
[2022-08-03 05:49] LABS: Anion Gap 8 (5-15); BUN 38 mg/dL (7-18); BUN/Creat Ratio 25.3 RATIO (10-20); Calcium,Total 9.1 mg/dL (8.5-10.1); Chloride 108 mmol/L (98-107); EST Glomerular Filtration Rate 50 mL/min (>60); Est Glom Filt Rate - Afr Amer 61 mL/min (>60); Estimated Creatinine Clearance 55.33 ml/min; Glucose 165 mg/dL (74-106); Potassium 3.7 mmol/L (3.5-5.1); Sodium Level 145 mmol/L (136-145)
[2022-08-03] MEDS: Carvedilol 6.25 MG Tablet PO (06:55)
[2022-08-03 07:21] LABS: Bedside Glucose 152 mg/dL (74-106)
--- NOTE | 2022-08-03 07:46 | PCM.PN.HOSP ---
Subjective Subjective DOS: 08/03/2022 CC: Shortness of breath Reports the bed is uncomfortable and he was having some shortness of breath overnight but feels better once he sits up in chair. No chest pain. Does feel better somewhat overall, leg swelling very mildly improved though it still remains. Eating and drinking well, passing gas, urinating well Objective Data Objective Data Vital Signs: Vital Signs Temp Pulse Resp BP Pulse Ox O2 Del Method O2 Flow Rate 97.9 F 105 H 18 118/98 H 94 Nasal Cannula 2 08/03/22 06:49 08/03/22 06:51 08/03/22 06:49 08/03/22 06:49 08/03/22 06:49 08/03/22 06:49 08/03/22 06:49 Oxygen Flow Rate (L/min) 2 Oxygen Delivery Method Nasal Cannula Weight: 150.3 kg Body Mass Index (BMI) 45.5 Intake & Output: Intake and Output for Last 24 Hours 08/01/22 08/02/22 08/03/22 23:59 23:59 23:59 Intake Total 810 / 810 600 / 600 Output Total 1675 / 1675 Balance -865 / -865 600 / 600 Lab / Micro Data Result Diagrams: 08/03/22 04:20 08/03/22 04:20 Labs: Laboratory Results - last 24 hr 08/02/22 05:17: Phosphorus 4.0, Magnesium 2.3 08/02/22 11:06: POC Glucose 198 H 08/02/22 15:33: POC Glucose 163 H 08/02/22 21:08: POC Glucose 146 H 08/03/22 04:20: WBC 5.5, RBC 4.63, Hgb 13.3, Hct 40.7, MCV 87.9, MCH 28.7, MCHC 32.7, RDW Std Deviation 45.9 H, RDW Coeff of Yamilet 14.3, Plt Count 190, MPV 11.5, Immature Gran % (Auto) 0.200, Neut % (Auto) 60.2, Lymph % (Auto) 27.2, [place] % (Auto) 10.1 H, Eos % (Auto) 1.6, Baso % (Auto) 0.7, Absolute Neuts (auto) 3.3, Absolute Lymphs (auto) 1.49, Nucleated RBC % 0 08/03/22 04:20: Sodium 145, Potassium 3.7, Chloride 108 H, Carbon Dioxide 29.0, Anion Gap 8, BUN 38 H, Creatinine 1.50 H, Estim Creat Clear Calc 55.33, Est GFR (MDRD) Af Amer 61, Est GFR (MDRD) Non-Af 50 L, BUN/Creatinine Ratio 25.3 H, Glucose 165 H, Calcium 9.1 08/03/22 06:54: POC Glucose 152 H Physical Exam Const alert and no apparent distress Constitutional Narrative: Oriented HEENT normocephalic and head/scalp atraumatic Eyes Eyes Narrative: EOM grossly intact, anicteric Neck supple Resp Resp Narrative: Somewhat diminished at the bases, very faint wheeze x1 in the right upper lobe Cardio Cardio Narrative: Irregularly irregular GI soft to palpation, non-tender and non-distended Extremity Extremity Narrative: 1+ bilateral lower extremity pitting edema superimposed on nonpitting edema Skin Skin Narrative: Chronic changes of both shins Neuro moves all extremities Neuro Narrative: No overt focal deficits appreciated Psych Psych Narrative: Cooperative Assessment & Plan Assessment/Plan (1) Acute exacerbation of congestive heart failure: (2) Atrial fibrillation: PLAN: Plan 61-year-old male history of COVID-19 06/29/2022, hypertension who presented 07/31 with increased shortness of breath, orthopnea, lower extremity edema. Had done fine until April when he had increasing shortness of breath and increasing lower extremity swelling. A month ago had COVID and was diagnosed with new onset A. fib and was started on metoprolol and p.o. Lasix and Eliquis #Shortness of breath due to new onset heart failure with reduced ejection fraction New diagnosis Echo on admission with EF of 25% with global hypokinesis, suspicious for viral etiology IV Lasix 40 IV twice daily Cardiac cath today 08/03, if negative may need outpatient cardiac MRI Cardiology following Coreg, Jardiance Daily weights, overall is down from admission #Atrial fibrillation Rate control Cardiac catheter 08/03 Metoprolol transition to Coreg On Eliquis, this was switched to full dose Lovenox in anticipation of cardiac cath #JORDON Appears to have JORDON compared to baseline, creatinine however is been fairly stable now on admission ?new baseline Was started on POLLY/ARB when appropriate #Type 2 diabetes mellitus Sliding scale insulin with Accu-Cheks Started on Jardiance #DVT ppx: Eliquis transition to therapeutic Lovenox due to possibility of cardiac cath Catia Corral MD Charges/Coding Visit Charges Inpatient E&M: 59613 Subs Hosp L2
--- NOTE | 2022-08-03 07:55 | CASEMGMT ---
According to the [facility] website, the following are in-network tertiary facilities: [facility], [place], [facility], [facility], [facility], [facility], [facility], and . Rubi PINO CM
[2022-08-03] MEDS: Furosemide 40 MG/4 ML Vial IV ×2 (09:30→17:08)
--- NOTE | 2022-08-03 09:45 | NURSING ---
Dropped aspirin on floor by accented. Will give once we have aspirin again. KUMAR King
[2022-08-03] MEDS: Aspirin 81 MG TAB.CHEW PO (10:17)
--- NOTE | 2022-08-03 12:21 | PN.CARD_ITS ---
Subjective Subjective Seen and related. Underwent cardiac catheterization Objective Data Vital Signs: Vital Signs Temp Pulse Resp BP Pulse Ox O2 Del Method O2 Flow Rate 97.7 F L 94 18 107/82 H 89 Room Air 2 08/03/22 08:53 08/03/22 10:13 08/03/22 08:53 08/03/22 08:53 08/03/22 08:53 08/03/22 08:53 08/03/22 06:49 Oxygen Flow Rate (L/min) 2 Oxygen Delivery Method Room Air Weight: 331 lb 5.676 oz Body Mass Index (BMI) 45.5 Intake & Output: Intake and Output for Last 24 Hours 08/01/22 08/02/22 08/03/22 23:59 23:59 23:59 Intake Total 810 / 810 600 / 600 25 Output Total 1675 / 1675 1450 / 1450 Balance -865 / -865 600 / 600 -1425 / -1425 Lab / Micro Data Result Diagrams: 08/03/22 04:20 08/03/22 04:20 Labs: Laboratory Results - last 24 hr 08/02/22 15:33: POC Glucose 163 H 08/02/22 21:08: POC Glucose 146 H 08/03/22 04:20: WBC 5.5, RBC 4.63, Hgb 13.3, Hct 40.7, MCV 87.9, MCH 28.7, MCHC 32.7, RDW Std Deviation 45.9 H, RDW Coeff of [place] 14.3, Plt Count 190, MPV 11.5, Immature Gran % (Auto) 0.200, Neut % (Auto) 60.2, Lymph % (Auto) 27.2, [place] % (Auto) 10.1 H, Eos % (Auto) 1.6, Baso % (Auto) 0.7, Absolute Neuts (auto) 3.3, Absolute Lymphs (auto) 1.49, Nucleated RBC % 0 08/03/22 04:20: Sodium 145, Potassium 3.7, Chloride 108 H, Carbon Dioxide 29.0, Anion Gap 8, BUN 38 H, Creatinine 1.50 H, Estim Creat Clear Calc 55.33, Est GFR (MDRD) Af Amer 61, Est GFR (MDRD) Non-Af 50 L, BUN/Creatinine Ratio 25.3 H, Glucose 165 H, Calcium 9.1 08/03/22 06:54: POC Glucose 152 H Cardiology Labs/Tests 08/03/22 04:20: WBC 5.5, RBC 4.63, Hgb 13.3, Hct 40.7, MCV 87.9, MCH 28.7, MCHC 32.7, Plt Count 190, MPV 11.5, Immature Gran % (Auto) 0.200, Neut % (Auto) 60.2, Lymph % (Auto) 27.2, [place] % (Auto) 10.1 H, Eos % (Auto) 1.6, Baso % (Auto) 0.7, Absolute Neuts (auto) 3.3, Nucleated RBC % 0 08/03/22 04:20: Sodium 145, Potassium 3.7, Chloride 108 H, Carbon Dioxide 29.0, Anion Gap 8, BUN 38 H, Creatinine 1.50 H, Est GFR (MDRD) Af Amer 61, Est GFR (MDRD) Non-Af 50 L, BUN/Creatinine Ratio 25.3 H, Glucose 165 H, Calcium 9.1 Rhythm: EKG: ECHO: Stress Test: Cardiac Cath: PCI: CT Surgery: Holter monitor: EPS: PPM: CXR: Chest CT Scan: Physical Exam Const alert and no apparent distress Constitutional Narrative: Oriented HEENT normocephalic and head/scalp atraumatic Eyes Eyes Narrative: EOM grossly intact, anicteric Neck supple Resp Resp Narrative: Somewhat diminished at the bases, very faint wheeze x1 in the right upper lobe Cardio Cardio Narrative: Irregularly irregular GI soft to palpation, non-tender and non-distended Extremity Extremity Narrative: 1+ bilateral lower extremity pitting edema superimposed on nonpitting edema Skin Skin Narrative: Chronic changes of both shins Neuro moves all extremities Neuro Narrative: No overt focal deficits appreciated Psych Psych Narrative: Cooperative Assessment & Plan Assessment/Plan (1) Acute exacerbation of congestive heart failure: PLAN: He does appear to have an exacerbation of congestive heart failure and has heart failure with reduced ejection fraction. My recommendation at this time would be to start diuresis with intravenous Lasix Would recommend to oral carvedilol We will monitor his renal function and start him on an ARB or Arni as appropriate We will put him on an SGLT2 inhibitor His coronary arteries were evaluated today and demonstrate no significant obstructive coronary disease. (2) New onset atrial fibrillation: PLAN: He will continue anticoagulation for now Would also pursue rate control with a beta-neto (3) Bilateral lower extremity edema: PLAN: He does have evidence of bilateral pedal edema likely secondary to his congestive heart failure. We will continue with intravenous diuresis.
--- NOTE | 2022-08-03 12:26 | CL.D_ITS ---
Patient Name: ASH PARMAR Study Date: 08/03/2022 Performing: Cody Hensley MD Ht: 72 inches 182.88 cm : 1960 Wt: 331.8 lbs 150.3 kg Age: 61 Gender: male BSA: 2.64 PROCEDURE(S) PERFORMED DC02-([id number])C/COR CLINICAL PROFILE AND INDICATIONS Indications: Cardiomyopathy Heart Failure: NYHA Class: 3, Newly Diagnosed: Yes, Heart Failure Type: Systolic Stress/Imaging Stress/Image Study Performed: No CAD Presentations: Other: SOB CONCLUSIONS No significant coronary artery disease noted with a cardiomyopathy present. RECOMMENDATIONS Medical therapy DESCRIPTION OF PROCEDURE The patient arrived to the procedure lab. The risks and benefits of the procedure as well as a full description of our services here and current unavailability of surgical backup were fully explained to the patient and/or their significant other prior to the catheterization. The Timeout was completed, verifying the correct patient and procedure. The patient's procedural site was prepped and draped in the usual fashion. Local anesthetic was given subcutaneously to right radial region with Lidocaine 2%. Using a modified Seldinger technique, arterial access was obtained via the right radial artery, a 6Fr sheath was inserted. Left Coronary Artery selective angiography was performed in multiple views using a 5 Fr. 4.0 [place] catheter. Right Coronary Artery selective angiography was then performed in multiple views using a 5 Fr. JR 5 catheter. LV to AO pullback pressures were then recorded.The arterial sheath was pulled and a TR Band was applied for hemostasis. 15CC AIR CORONARY ANGIOGRAPHY DOMINANCE: Right Dominant LEFT HEART ASSESSMENT Left Ventricular Ejection Fraction: by Echo 25 % Global Hypokinesis - Severe Depressed Left Ventricular systolic function LEFT MAIN: Angiographically normal LEFT ANTERIOR DESCENDING ARTERY: Mild luminal irregularities less than 30% CIRCUMFLEX ARTERY: Mild luminal irregularities RIGHT CORONARY ARTERY: Mild luminal irregularities COMPLICATIONS No Complications PROCEDURE MEDICATIONS Fentanyl 50 mcg IV Versed 1 mg IV Versed 1 mg IV Oxygen: 2 L/min via nasal cannula Heparin given IA 08/03/2022 11:35:20 Verapamil 2.5mg, Ntg 100mcgs, 3000 units of Heparin given IA 08/03/2022 11:35:20 SUMMARY OF HEMODYNAMIC DATA Time AIR REST ECG 11:23:16 AO 117/81 (95) SA 11:37:40 LV 120/21, 28 12:03:35 LV 122/20, 29 12:03:42 LVp 121/22, 28 12:03:47 Signed By Cody Hensley MD On 08/03/2022 12:25:44 Cody Hensley MD
[2022-08-03] MEDS: Empagliflozin 10 MG Tablet PO (12:51)
[2022-08-03 13:40] LABS: Bedside Glucose 148 mg/dL (74-106)
--- NOTE | 2022-08-03 14:32 | CHAPLAIN ---
Type of Pastoral Visit _x__ Initial Visit ___ Follow-up Visit ___ On-call Visit ___ General Patient Visit ___ Spiritual Assessment ___ Family Conference ___ Bereavement ___ Rapid Response ___ Code Blue ___ Other (describe below) Pastoral Care Referral From _x__ Patient ___ Family ___ Nurse ___ Physician ___ Supervisor Yard ___ Soft Drink Powder Mixer ___ Other (describe below) Sacrament/Intervention _x__ Active listening ___ Anointing ___ Adventist ___ Bereavement ___ Communion ___ [place]anza exploration ___ ___ Life review ___ Prayer ___ Reconciliation ___ Sacrament of Sick _x__ Supportive presence ___ Wedding ___ Other (describe below) Pastoral Comments patient was sitting up in chair and eating lunch; pt stated that he has had COVID and needed a heart cath; pt states that no intervention needed and may go home; pt welcomes presence but states he has no other needs at this time
[2022-08-03] MEDS: Insulin Lispro 100 UNIT/ML INSULN.PEN SC ×2 (16:26→21:37)
[2022-08-03 16:45] LABS: Bedside Glucose 198 mg/dL (74-106)
[2022-08-03] MEDS: 0.9% Saline Lock 10 ML Syringe IV (17:08)
[2022-08-03] MEDS: Carvedilol 12.5 MG Tablet PO (21:36)
[2022-08-03] MEDS: APIXABAN 2.5 MG TABLET (WCH) PO (21:37)
[2022-08-03 21:55] LABS: Anion Gap 5 (5-15); BUN 42 mg/dL (7-18); BUN/Creat Ratio 25.8 RATIO (10-20); Calcium,Total 9.4 mg/dL (8.5-10.1); Chloride 106 mmol/L (98-107); Creatinine, Serum 1.63 mg/dL (0.70-1.30); EST Glomerular Filtration Rate 46 mL/min (>60); Est Glom Filt Rate - Afr Amer 55 mL/min (>60); Estimated Creatinine Clearance 50.91 ml/min; Glucose 228 mg/dL (74-106); Magnesium 2.6 mg/dL (1.6-2.6); Potassium 4.1 mmol/L (3.5-5.1); Sodium Level 144 mmol/L (136-145)
[2022-08-03 22:06] LABS: Bedside Glucose 227 mg/dL (74-106)
[2022-08-04] VITALS (8 sets, daily range): BP systolic 122–131; BP diastolic 65–92; PULSE 81–96; RESP 16–18; TEMP 36.4–36.6; O2SAT 88–96
[2022-08-04] MEDS: Insulin Lispro 100 UNIT/ML INSULN.PEN SC ×2 (06:55→11:30)
--- NOTE | 2022-08-04 06:58 | PCM.PN.CARD ---
Subjective Subjective Patient with seen and evaluated. Appears to be doing quite well. No complaints this morning. Objective Data Vital Signs: Vital Signs Temp Pulse Resp BP Pulse Ox O2 Del Method O2 Flow Rate 97.5 F L 81 18 128/65 H 93 Nasal Cannula 2 08/04/22 03:30 08/04/22 03:30 08/04/22 03:30 08/04/22 03:30 08/04/22 03:30 08/04/22 04:32 08/04/22 04:32 Oxygen Flow Rate (L/min) 2 Oxygen Delivery Method Nasal Cannula Weight: 329 lb 12.984 oz Body Mass Index (BMI) 45.5 Intake & Output: Intake and Output for Last 24 Hours 08/02/22 08/03/22 08/04/22 23:59 23:59 23:59 Intake Total 600 / 600 505 / 847 342 / 342 Output Total 1450 / 1450 Balance 600 / 600 -945 / -603 342 / 342 Lab / Micro Data Result Diagrams: 08/03/22 04:20 08/03/22 21:27 Labs: Laboratory Results - last 24 hr 08/03/22 06:54: POC Glucose 152 H 08/03/22 12:38: POC Glucose 148 H 08/03/22 16:25: POC Glucose 198 H 08/03/22 21:27: Sodium 144, Potassium 4.1, Chloride 106, Carbon Dioxide 33.0 H, Anion Gap 5, BUN 42 H, Creatinine 1.63 H, Estim Creat Clear Calc 50.91, Est GFR (MDRD) Af Amer 55 L, Est GFR (MDRD) Non-Af 46 L, BUN/Creatinine Ratio 25.8 H, Glucose 228 H, Calcium 9.4, Magnesium 2.6 08/03/22 21:31: POC Glucose 227 H Cardiology Labs/Tests 08/03/22 21:27: Sodium 144, Potassium 4.1, Chloride 106, Carbon Dioxide 33.0 H, Anion Gap 5, BUN 42 H, Creatinine 1.63 H, Est GFR (MDRD) Af Amer 55 L, Est GFR (MDRD) Non-Af 46 L, BUN/Creatinine Ratio 25.8 H, Glucose 228 H, Calcium 9.4, Magnesium 2.6 Rhythm: EKG: ECHO: Stress Test: Cardiac Cath: PCI: CT Surgery: Holter monitor: EPS: PPM: CXR: Chest CT Scan: Physical Exam Const alert and no apparent distress Constitutional Narrative: Oriented HEENT normocephalic and head/scalp atraumatic Eyes Eyes Narrative: EOM grossly intact, anicteric Neck supple Resp Resp Narrative: Somewhat diminished at the bases, very faint wheeze x1 in the right upper lobe Cardio Cardio Narrative: Irregularly irregular GI soft to palpation, non-tender and non-distended Extremity Extremity Narrative: 1+ bilateral lower extremity pitting edema superimposed on nonpitting edema Skin Skin Narrative: Chronic changes of both shins Neuro moves all extremities Neuro Narrative: No overt focal deficits appreciated Psych Psych Narrative: Cooperative Assessment & Plan Assessment/Plan (1) Acute exacerbation of congestive heart failure: PLAN: He does appear to have an exacerbation of congestive heart failure and has heart failure with reduced ejection fraction. My recommendation at this time would be to switch him to oral Lasix and he can be discharged on that. Would recommend to oral carvedilol We will monitor his renal function and start him on an ARB or Arni as appropriate We will put him on an SGLT2 inhibitor His coronary arteries were evaluated and demonstrate no significant obstructive coronary disease. It appears at this point that he has a nonischemic cardiomyopathy likely secondary to either hypertensive heart disease or atrial fibrillation. (2) New onset atrial fibrillation: PLAN: He will continue anticoagulation for now Would also pursue rate control with a beta-neto (3) Bilateral lower extremity edema: PLAN: He does have evidence of bilateral pedal edema likely secondary to his congestive heart failure. We will continue with intravenous diuresis.
[2022-08-04 07:16] LABS: Bedside Glucose 175 mg/dL (74-106)
[2022-08-04] MEDS: Carvedilol 12.5 MG Tablet PO (09:37)
[2022-08-04] MEDS: Furosemide 40 MG Tablet PO (09:37)
[2022-08-04] MEDS: Empagliflozin 10 MG Tablet PO (09:37)
[2022-08-04] MEDS: APIXABAN 5 MG TABLET PO (09:37)
[2022-08-04 11:11] LABS: Absolute Lymphocyte Count 0.94 X10^3/uL (0.83-4.51); Absolute Neutrophil Count 3.5 X10^3/uL (2.0-7.7); Basophil# 0.03 X10^3/uL; Basophil% 0.6 % (0-1); Eosinophil# 0.07 X10^3/uL; Eosinophils% 1.4 % (0-5); Hemoglobin 13.5 g/dL (13.0-16.5); Lymphocyte # 0.94 X10^3/ul (0.83-4.51); Lymphocyte % 18.7 % (19-41); Mean Corp Hgb Conc 31.4 g/dL (32-36); Mean Corpuscular Hgb 28.1 pg (27.0-32.0); Mean Corpuscular Volume 89.4 fL (80-94); Mean Platelet Vol. 11.6 fl (6.2-12.0); Monocyte% 9.9 % (0-10); NRBC Flagged by Analyzer 0 % (0-5); Neutrophil # 3.47 X10^3/uL (2.7-7.7); Platelet Count 197 K/mm3 (150-450); RBC Distribution Width CV 14.2 % (11.6-14.6); RBC Distribution Width SD 46.4 fl (35.1-43.9); Red Blood Count 4.81 M/mm3 (4.6-6.2)
[2022-08-04 11:21] LABS: Anion Gap 5 (5-15); BUN 37 mg/dL (7-18); BUN/Creat Ratio 23.4 RATIO (10-20); Calcium,Total 9.4 mg/dL (8.5-10.1); Chloride 105 mmol/L (98-107); Creatinine, Serum 1.58 mg/dL (0.70-1.30); EST Glomerular Filtration Rate 47 mL/min (>60); Est Glom Filt Rate - Afr Amer 57 mL/min (>60); Estimated Creatinine Clearance 52.52 ml/min; Glucose 354 mg/dL (74-106); Magnesium 2.6 mg/dL (1.6-2.6); Potassium 3.8 mmol/L (3.5-5.1); Sodium Level 142 mmol/L (136-145)
[2022-08-04 11:51] LABS: Bedside Glucose 354 mg/dL (74-106)
--- NOTE | 2022-08-04 13:35 | CASEMGMT ---
Pt qualifies for 2L w/ exertion home oxygen and states no preference for DME company. Pt declines DME list and any further needs for discharge. Pt has been set up for [facility] Patient link program. Order for home oxygen sent to [facility] thru [facility]. CM to follow. Rubi PINO CM
--- NOTE | 2022-08-04 14:37 | PCM.DC ---
Discharge Instructions Diet Discharge Diet: - (2L fluid restriction) Activity Discharge Activity: Return to Normal Activity Follow Up Care Test Results: Test results from this visit will be discussed in further detail at your follow-up appointment, if applicable. Discharge Plan Admission Admit Date/Time: 07/31/22 12:38 Primary Reason for Your Visit: Increased shortness of breath Attending Provider: Catia Corral Primary Care Provider: Deni Andujar NP Consulting Providers: Cody Hensley ; Jaime Allen Instructions Patient Instructions: ED Heart Failure, Congestive (CHF) Additional Instructions / Restrictions: *Please take this with you to your next doctors appointment* ?Resume your home Trulicity and metformin ? Continue home Eliquis ? Your Lasix has been increased to 40 mg twice daily ? You can resume your home hydrochlorothiazide ? Your home metoprolol will be stopped and replaced with carvedilol 12.5 mg twice daily ?Your glipizide has been held due to the decrease in your kidney function but you have been started on an alternative oral diabetes medicine to help with your sugar and your heart, empagliflozin (Jardiance) and a prescription was sent to your preferred pharmacy on file ?Please hold your amlodipine and doxazosin until discussing with your primary care physician at your follow-up appointment ?Your lisinopril was held due to the decrease in your kidney function, recommend repeat BMP (lab work) in 3-5 days on an outpatient basis and when able, resume lisinopril or alternative medication with similar properties at the discretion of your outpatient physician ? You will need follow-up with cardiology upon discharge, please follow-up in 2 to 4 weeks ? You will likely need an outpatient cardiac MRI because of your decreased heart function, please discuss this with cardiology and with your primary care physician ?You have been discharged on 2 L of home oxygen. It is likely will not need to be on this long-term but is important you use this upon discharge at this time ?Recommend you obtain lab work (BMP) with your primary care physician in 3 to 5 days, please call upon discharge to obtain this order -Please call your primary care provider's office upon discharge to schedule a hospital follow up within 1 week. -For any concerning signs or symptoms please call 911 or proceed to the nearest emergency department -Weigh yourself every day. A sudden weight gain can mean you are retaining fluid. Weigh yourself at the same time of day and in the same kind of clothes. Ideally, weigh yourself first thing in the morning after you empty your bladder, but before you eat breakfast. -Please call your physician if your weight goes up by more than 2 pounds in 1 day or 5 pounds in 1 week. This can be a sign that you are retaining more fluid than you should be. Clues to weight gain include checking your ankles for swelling, or noticing you are short of breath when you lie down -Please limit your sodium intake to less than 3 g/day. Here are tips: Limit canned, dried, packaged, and fast foods. Don't add salt to your food at the table. Season foods with herbs instead of salt when you cook. When you eat out, ask that the industrial gas production operator not add any salt to your dish. Don't eat fried or greasy foods. Be careful of bottled beverages. They can contain a lot of salt -Call 911 right away if you have: -Severe shortness of breath, such that you can't catch your breath even while resting -Severe chest pain that does not resolve with rest or nitroglycerin -Ravalli, foamy mucus with cough and shortness of breath -An ongoing rapid or irregular heartbeat -Passing out or fainting -Stroke symptoms such as sudden numbness or weakness on one side of your face, arm, or leg or sudden confusion, trouble speaking or vision changes Discharge Orders/Prescriptions Prescriptions: New carvedilol 12.5 mg Tablet 12.5 mg PO BID 30 Days Qty: 60 0RF Jardiance 10 mg Tablet 10 mg PO DAILY 30 Days Qty: 30 0RF Continued Eliquis 5 mg tablet 5 mg PO BID Qty: 180 1RF diclofenac sodium [Voltaren Arthritis Pain] 1 % gel 4 g topical DAILY PRN (Reason: joint pain) Qty: 100 3RF Rx Instructions: apply to single knee, ankle, foot; for foot includes sole/toes/top of foot hydrochlorothiazide 25 mg Tablet 25 mg PO DAILY dulaglutide 3 mg/0.5 mL pen injector 3 mg SC QWEEK Qty: 2 10RF metformin 1,000 mg tablet 1,000 mg PO BID Qty: 180 3RF Rx Instructions: TAKE ONE (1) TABLET BY MOUTH TWICE DAILY Changed furosemide 40 mg tablet 40 mg PO BID 30 Days Qty: 60 0RF Held lisinopril 40 mg Tablet 40 mg PO DAILY Hold Instructions: Resume on 08/12/22. Discontinued metoprolol succinate 25 mg tablet extended release 24 hr 25 mg PO DAILY Qty: 90 1RF tramadol 50 mg tablet 50 mg PO Q12H PRN (Reason: pain) Qty: 14 0RF glipizide 10 mg tablet 10 mg PO DAILY Qty: 90 1RF amlodipine 10 mg tablet 10 mg PO QHS Qty: 90 3RF doxazosin 4 mg tablet 4 mg PO BID Qty: 180 3RF No Action (DME) blood pressure monitor [Blood Pressure Kit] Kit See Rx Instructions .ROUTE .MEDSUPPLY Qty: 1 0RF Rx Instructions: Check blood pressure daily for hypertension I10 (DME) blood-glucose meter [OneTouch Verio Reflect Start] Kit See Rx Instructions .ROUTE .MEDSUPPLY Qty: 1 3RF Rx Instructions: check one to two times daily for type 2 DM (DME) OneTouch Verio test strips Strip See Rx Instructions .ROUTE .MEDSUPPLY Qty: 100 2RF Rx Instructions: As directed check daily (DME) cary.stocking,knee,reg,xlrg Misc See Rx Instructions .ROUTE .MEDSUPPLY Qty: 2 1RF Rx Instructions: wear daily for pvd 20-30 mmhg (DME) lancets [FreeStyle Lancets] 28 gauge misc See Rx Instructions .ROUTE .COMPLEX Qty: 100 10RF Dose Instruction: USE TO TEST BLOOD SUGAR ONCE DAILY Rx Instructions: USE TO TEST BLOOD SUGAR ONCE DAILY Referrals / Follow Up: Cody Hensley MD [Med Staff - Active Staff] - 08/19/22 1:00 pm (Please follow-up in Dr. Hensley's office with his nurse practitioner in 2 to 4 weeks, please call upon discharge to schedule this hospital follow-up appointment) Deni Andujar NP, FARM OPERATOR-C [Primary Care Provider] - 08/11/22 9:00 am Disposition Disposition (needs filled in before D/C Order can be placed): Home, Self Care
--- NOTE | 2022-08-04 14:49 | DS.PCM_ITS ---
Providers Date of Admission: 07/31/22 Date of Discharge: 08/04/22 Primary Care Physician: MARJORIE Owens Consultations 08/01/22 07:35 Consult: Cardiology Routine Consulting Provider: Cody Hensley Reason for Consult: CHF and afib EMERGENT Consult: No MD Notified: Yes Date Notified: 07/31/22 Time Notified: 10:00 Method of Notification: ED Physician Initiated Reason For Visit: CHF WITHOUT HYPOXIA, AFIB WITH RVR Diagnosis Discharge Diagnosis (1) Acute exacerbation of congestive heart failure: Status: Chronic Code(s): I50.9 - Heart failure, unspecified (2) New onset atrial fibrillation: Status: Acute Code(s): I48.91 - Unspecified atrial fibrillation (3) Bilateral lower extremity edema: Status: Acute Code(s): R60.0 - Localized edema Plan #Shortness of breath due to new onset heart failure with reduced ejection fraction #Atrial fibrillation #JORDON- present on admission #Type 2 diabetes mellitus Medications at Discharge Home Medications blood pressure monitor (Blood Pressure Kit) #1 ea 11/14/19 cary.stocking,knee,reg,xlrg #2 ea 04/24/20 lancets 28 gauge (FreeStyle Lancets) #100 ea 11/05/20 blood-glucose meter ([employer]Touch Verio Reflect Start kit) #1 ea 12/03/20 blood sugar diagnostic ([employer]ure[employer]Touch Verio test strips) #100 ea 04/01/21 dulaglutide 3 mg/0.5 mL subcutaneous pen injector 3 mg (0.5 mL) subcut QWEEK #2 mL 04/03/22 diclofenac sodium 1 % topical gel (Voltaren Arthritis Pain) 4 g topical DAILY PRN joint pain #100 grams 05/26/22 metformin 1,000 mg tablet 1,000 mg PO BID #180 tabs 06/11/22 apixaban 5 mg tablet (Eliquis) 5 mg PO BID #180 tabs 07/29/22 hydrochlorothiazide 25 mg tablet 25 mg PO DAILY 07/31/22 lisinopril 40 mg tablet 40 mg PO DAILY 07/31/22 carvedilol 12.5 mg tablet 12.5 mg PO BID 30 days #60 tabs 08/04/22 empagliflozin 10 mg tablet (Jardiance) 10 mg PO DAILY 30 days #30 tabs 08/04/22 furosemide 40 mg tablet 40 mg PO BID 30 days #60 tabs 08/04/22 Hospital Course Procedures Cardiac catheterization and Transthoracic echo Summary of Care Provided Minutes Spent on Discharge: 33 Hospital Course: 61-year-old male history of COVID-19 06/29/2022, hypertension who presented 07/31 with increased shortness of breath, orthopnea, lower extremity edema. Had done fine until April when he had increasing shortness of breath and increasing lower extremity swelling. A month ago had COVID and was diagnosed with new onset A. fib and was started on metoprolol and p.o. Lasix and Eliquis. On the admission he was found to have heart failure with reduced ejection fraction and was in an acute exacerbation. Was placed on IV Lasix and had a cardiac catheterization which did not show any underlying disease in need of intervention. It was felt his cardiomyopathy was nonischemic and likely due to his atrial fibrillation. He was maintained on a beta-neto (home metoprolol was switched to Coreg) and was placed on SGLT2 inhibitor. Anticoagulation was continued and he was transitioned to oral Lasix at an increased dose from what he was on admission. Of note he had an JORDON on admission which did begin to improve upon discharge though did not appear back to baseline. His lisinopril was held and advised to follow-up with his primary care physician closely and to obtain lab work within 3 to 5 days. He did have walk test prior to discharge and was noted to need 2 L of oxygen with ambulation. Instructions provided for patient as below: *Please take this with you to your next doctors appointment* ?Resume your home Trulicity and metformin ? Continue home Eliquis ? Your Lasix has been increased to 40 mg twice daily ? You can resume your home hydrochlorothiazide ? Your home metoprolol will be stopped and replaced with carvedilol 12.5 mg twice daily ?Your glipizide has been held due to the decrease in your kidney function but you have been started on an alternative oral diabetes medicine to help with your sugar and your heart, empagliflozin (Jardiance) and a prescription was sent to your preferred pharmacy on file ?Please hold your amlodipine and doxazosin until discussing with your primary care physician at your follow-up appointment ?Your lisinopril was held due to the decrease in your kidney function, recommend repeat BMP (lab work) in 3-5 days on an outpatient basis and when able, resume lisinopril or alternative medication with similar properties at the discretion of your outpatient physician ? You will need follow-up with cardiology upon discharge, please follow-up in 2 to 4 weeks ? You will likely need an outpatient cardiac MRI because of your decreased heart function, please discuss this with cardiology and with your primary care physician ?You have been discharged on 2 L of home oxygen.? It is likely will not need to be on this long-term but is important you use this upon discharge at this time ?Recommend you obtain lab work (BMP) with your primary care physician in 3 to 5 days, please call upon discharge to obtain this order -Please call your primary care provider's office upon discharge to schedule a hospital follow up within 1 week. -For any concerning signs or symptoms please call 911 or proceed to the nearest emergency department -Weigh yourself every day. A sudden weight gain can mean you are retaining fluid. Weigh yourself at the same time of day and in the same kind of clothes. Ideally, weigh yourself first thing in the morning after you empty your bladder, but before you eat breakfast. -Please call your physician if your weight goes up by more than 2 pounds in 1 day or 5 pounds in 1 week. This can be a sign that you are retaining more fluid than you should be. Clues to weight gain include checking your ankles for swelling, or noticing you are short of breath when you lie down -Please limit your sodium intake to less than 3 g/day. Here are tips: Limit canned, dried, packaged, and fast foods. Don't add salt to your food at the table. Season foods with herbs instead of salt when you cook. When you eat out, ask that the chef de froid not add any salt to your dish. Don't eat fried or greasy foods. Be careful of bottled beverages. They can contain a lot of salt -Call 911 right away if you have: -Severe shortness of breath, such that you can't catch your breath even while resting -Severe chest pain that does not resolve with rest or nitroglycerin -[place], foamy mucus with cough and shortness of breath -An ongoing rapid or irregular heartbeat -Passing out or fainting -Stroke symptoms such as sudden numbness or weakness on one side of your face, arm, or leg or sudden confusion, trouble speaking or vision changes Physical Exam Const alert and no apparent distress Constitutional Narrative: Oriented HEENT normocephalic and head/scalp atraumatic Eyes Eyes Narrative: EOM grossly intact, anicteric Neck supple Resp Resp Narrative: Somewhat diminished at the bases Cardio Cardio Narrative: Irregularly irregular GI soft to palpation, non-tender and non-distended Extremity Extremity Narrative: 1+ bilateral lower extremity pitting edema superimposed on nonpitting edema Skin Skin Narrative: Chronic changes of both shins Neuro moves all extremities Neuro Narrative: No overt focal deficits appreciated Psych Psych Narrative: Cooperative Weight / BMI Weight Weight: 149.6 kg Body Mass Index (BMI) 45.5 ABG / Lab / Microbiology Data Result Diagrams: 08/04/22 11:03 08/04/22 11:03 Laboratory: Laboratory Results - last 24 hr 08/03/22 16:25: POC Glucose 198 H 08/03/22 21:27: Sodium 144, Potassium 4.1, Chloride 106, Carbon Dioxide 33.0 H, Anion Gap 5, BUN 42 H, Creatinine 1.63 H, Estim Creat Clear Calc 50.91, Est GFR (MDRD) Af Amer 55 L, Est GFR (MDRD) Non-Af 46 L, BUN/Creatinine Ratio 25.8 H, Glucose 228 H, Calcium 9.4, Magnesium 2.6 08/03/22 21:31: POC Glucose 227 H 08/04/22 06:53: POC Glucose 175 H 08/04/22 11:03: WBC 5.0, RBC 4.81, Hgb 13.5, Hct 43.0, MCV 89.4, MCH 28.1, MCHC 31.4 L, RDW Std Deviation 46.4 H, RDW Coeff of [place] 14.2, Plt Count 197, MPV 11.6, Immature Gran % (Auto) 0.400, Neut % (Auto) 69.0, Lymph % (Auto) 18.7 L, [place] % (Auto) 9.9, Eos % (Auto) 1.4, Baso % (Auto) 0.6, Absolute Neuts (auto) 3.5, Absolute Lymphs (auto) 0.94, Nucleated RBC % 0 08/04/22 11:03: Sodium 142, Potassium 3.8, Chloride 105, Carbon Dioxide 32.0, Anion Gap 5, BUN 37 H, Creatinine 1.58 H, Estim Creat Clear Calc 52.52, Est GFR (MDRD) Af Amer 57 L, Est GFR (MDRD) Non-Af 47 L, BUN/Creatinine Ratio 23.4 H, Glucose 354 H, Calcium 9.4, Magnesium 2.6 08/04/22 11:28: POC Glucose 354 H D/C Instructions Discharge Diet: - (2L fluid restriction) Meaningful Use Info Meaningful Use Diagnoses (Choose all that apply): CHF AMI/Post PCI/Angioplasty Documented LVEF (%): 25 CHF POLLY/ARB ordered at discharge?: No Reason POLLY/ARB not ordered?: Worsening renal function Documented LVEF (%): 25 Discharge Plan Admission Admit Date/Time: 07/31/22 12:38 Primary Reason for Your Visit: Increased shortness of breath Attending Provider: Catia Corral Primary Care Provider: Deni Andujar NP Consulting Providers: Cody Hensley ; Jaime Allen Instructions Patient Instructions: ED Heart Failure, Congestive (CHF) Additional Instructions / Restrictions: *Please take this with you to your next doctors appointment* ?Resume your home Trulicity and metformin ? Continue home Eliquis ? Your Lasix has been increased to 40 mg twice daily ? You can resume your home hydrochlorothiazide ? Your home metoprolol will be stopped and replaced with carvedilol 12.5 mg twice daily ?Your glipizide has been held due to the decrease in your kidney function but you have been started on an alternative oral diabetes medicine to help with your sugar and your heart, empagliflozin (Jardiance) and a prescription was sent to your preferred pharmacy on file ?Please hold your amlodipine and doxazosin until discussing with your primary care physician at your follow-up appointment ?Your lisinopril was held due to the decrease in your kidney function, recommend repeat BMP (lab work) in 3-5 days on an outpatient basis and when able, resume lisinopril or alternative medication with similar properties at the discretion of your outpatient physician ? You will need follow-up with cardiology upon discharge, please follow-up in 2 to 4 weeks ? You will likely need an outpatient cardiac MRI because of your decreased heart function, please discuss this with cardiology and with your primary care physician ?You have been discharged on 2 L of home oxygen. It is likely will not need to be on this long-term but is important you use this upon discharge at this time ?Recommend you obtain lab work (BMP) with your primary care physician in 3 to 5 days, please call upon discharge to obtain this order -Please call your primary care provider's office upon discharge to schedule a hospital follow up within 1 week. -For any concerning signs or symptoms please call 911 or proceed to the nearest emergency department -Weigh yourself every day. A sudden weight gain can mean you are retaining fluid. Weigh yourself at the same time of day and in the same kind of clothes. Ideally, weigh yourself first thing in the morning after you empty your bladder, but before you eat breakfast. -Please call your physician if your weight goes up by more than 2 pounds in 1 day or 5 pounds in 1 week. This can be a sign that you are retaining more fluid than you should be. Clues to weight gain include checking your ankles for swelling, or noticing you are short of breath when you lie down -Please limit your sodium intake to less than 3 g/day. Here are tips: Limit canned, dried, packaged, and fast foods. Don't add salt to your food at the table. Season foods with herbs instead of salt when you cook. When you eat out, ask that the chef de froid not add any salt to your dish. Don't eat fried or greasy foods. Be careful of bottled beverages. They can contain a lot of salt -Call 911 right away if you have: -Severe shortness of breath, such that you can't catch your breath even while resting -Severe chest pain that does not resolve with rest or nitroglycerin -[place], foamy mucus with cough and shortness of breath -An ongoing rapid or irregular heartbeat -Passing out or fainting -Stroke symptoms such as sudden numbness or weakness on one side of your face, arm, or leg or sudden confusion, trouble speaking or vision changes Discharge Orders/Prescriptions Prescriptions: New carvedilol 12.5 mg Tablet 12.5 mg PO BID 30 Days Qty: 60 0RF Jardiance 10 mg Tablet 10 mg PO DAILY 30 Days Qty: 30 0RF Continued Eliquis 5 mg tablet 5 mg PO BID Qty: 180 1RF diclofenac sodium [Voltaren Arthritis Pain] 1 % gel 4 g topical DAILY PRN (Reason: joint pain) Qty: 100 3RF Rx Instructions: apply to single knee, ankle, foot; for foot includes sole/toes/top of foot hydrochlorothiazide 25 mg Tablet 25 mg PO DAILY dulaglutide 3 mg/0.5 mL pen injector 3 mg SC QWEEK Qty: 2 10RF metformin 1,000 mg tablet 1,000 mg PO BID Qty: 180 3RF Rx Instructions: TAKE ONE (1) TABLET BY MOUTH TWICE DAILY Changed furosemide 40 mg tablet 40 mg PO BID 30 Days Qty: 60 0RF Held lisinopril 40 mg Tablet 40 mg PO DAILY Hold Instructions: Resume on 08/12/22. Discontinued metoprolol succinate 25 mg tablet extended release 24 hr 25 mg PO DAILY Qty: 90 1RF tramadol 50 mg tablet 50 mg PO Q12H PRN (Reason: pain) Qty: 14 0RF glipizide 10 mg tablet 10 mg PO DAILY Qty: 90 1RF amlodipine 10 mg tablet 10 mg PO QHS Qty: 90 3RF doxazosin 4 mg tablet 4 mg PO BID Qty: 180 3RF No Action (DME) blood pressure monitor [Blood Pressure Kit] Kit See Rx Instructions .ROUTE .MEDSUPPLY Qty: 1 0RF Rx Instructions: Check blood pressure daily for hypertension I10 (DME) blood-glucose meter [OneTouch Verio Reflect Start] Kit See Rx Instructions .ROUTE .MEDSUPPLY Qty: 1 3RF Rx Instructions: check one to two times daily for type 2 DM (DME) OneTouch Verio test strips Strip See Rx Instructions .ROUTE .MEDSUPPLY Qty: 100 2RF Rx Instructions: As directed check daily (DME) cary.stocking,knee,reg,xlrg Misc See Rx Instructions .ROUTE .MEDSUPPLY Qty: 2 1RF Rx Instructions: wear daily for pvd 20-30 mmhg (DME) lancets [FreeStyle Lancets] 28 gauge misc See Rx Instructions .ROUTE .COMPLEX Qty: 100 10RF Dose Instruction: USE TO TEST BLOOD SUGAR ONCE DAILY Rx Instructions: USE TO TEST BLOOD SUGAR ONCE DAILY Referrals / Follow Up: Cody Hensley MD [Med Staff - Active Staff] - 08/19/22 1:00 pm (Please follow-up in Dr. Hensley's office with his nurse practitioner in 2 to 4 weeks, please call upon discharge to schedule this hospital follow-up appointment) Deni Andujar EPIC WILLOW ANALYST, EPIC WILLOW ANALYST-C [Primary Care Provider] - 08/11/22 9:00 am Disposition Disposition (needs filled in before D/C Order can be placed): Home, Self Care Charges/Coding Visit Charges Inpatient E&M: 78942 Disch Hosp
== END 2022-08-04 15:45 | disposition home or self-care (01) | DRG 192 ==
LOC: ED 12:46 → PCU 08-01 12:09
PROVIDERS: Family Medicine; Admitting Provider Family Medicine; Emergency Provider Emergency Medicine; PCP Nurse Practitioner Family; Visit Provider Internal Medicine
DX: I11.0 Hypertensive heart disease with heart failure (principal); I42.8 Other cardiomyopathies; N17.9 Acute kidney failure, unspecified; E11.40 Type 2 diabetes mellitus with diabetic neuropathy, unspecified; I48.91 Unspecified atrial fibrillation; I50.21 Acute systolic (congestive) heart failure; Z68.42 Body mass index [BMI] 45.0-49.9, adult; E78.5 Hyperlipidemia, unspecified; E66.9 Obesity, unspecified; Z23 Encounter for immunization; Z79.01 Long term (current) use of anticoagulants; Z79.84 Long term (current) use of oral hypoglycemic drugs; Z79.899 Other long term (current) drug therapy; Z86.16 Personal history of COVID-19
CPT/HCPCS: 36415; 71046; 80048; 80053; 82962; 83735; 83880; 84100; 84153; 84443; 85025; 93005; 93306; 93454; 97802; 99152; 99153; 99285; Q9957; 90686; A4216; C1769; C1894; C8929; G0103; J1940; Q9967

== ENCOUNTER → 2022-07-31 | Outpatient (CLI) | payer MEDICAID, SELFPAY ==
[2022-07-31 12:27] LABS: Anion Gap 10 (5-15); BUN 35 mg/dL (7-18); BUN/Creat Ratio 25.2 RATIO (10-20); Calcium,Total 9.6 mg/dL (8.5-10.1); Chloride 108 mmol/L (98-107); Creatinine, Serum 1.39 mg/dL (0.70-1.30); EST Glomerular Filtration Rate 55 mL/min (>60); Est Glom Filt Rate - Afr Amer 66 mL/min (>60); Glucose 137 mg/dL (74-106); Potassium 3.8 mmol/L (3.5-5.1); Sodium Level 144 mmol/L (136-145)
== END | disposition home or self-care (01) ==
LOC: BIMLAB 09:30
PROVIDERS: PCP Nurse Practitioner Family; Referring Provider Nurse Practitioner Family; Visit Provider Nurse Practitioner Family
DX: R06.01 Orthopnea (principal)
CPT/HCPCS: 36415; 80048

== ENCOUNTER 2022-08-11 10:00 | Outpatient (CLI) | payer MEDICAID, SELFPAY ==
[2022-08-11 12:11] LABS: Hemoglobin 13.7 g/dL (13.0-16.5); Mean Corp Hgb Conc 31.9 g/dL (32-36); Mean Corpuscular Hgb 28.6 pg (27.0-32.0); Mean Corpuscular Volume 89.8 fL (80-94); Mean Platelet Vol. 11.9 fl (6.2-12.0); Platelet Count 183 K/mm3 (150-450); RBC Distribution Width CV 14.6 % (11.6-14.6); RBC Distribution Width SD 48.2 fl (35.1-43.9); Red Blood Count 4.79 M/mm3 (4.6-6.2)
[2022-08-11 12:27] LABS: AST(SGOT) 15 U/L (15-37); Alanine Aminotransfer ALT/SGPT 28 U/L (16-61); Albumin, Serum 3.3 g/dL (3.2-5.0); Alkaline Phosphatase 92 U/L (45-117); Anion Gap 4 (5-15); BUN 23 mg/dL (7-18); BUN/Creat Ratio 16.9 RATIO (10-20); Calcium,Total 9.3 mg/dL (8.5-10.1); Chloride 108 mmol/L (98-107); Creatinine, Serum 1.36 mg/dL (0.70-1.30); EST Glomerular Filtration Rate 56 mL/min (>60); Est Glom Filt Rate - Afr Amer 68 mL/min (>60); Globulin 3.4 g/dL (2.2-4.2); Glucose 202 mg/dL (74-106); Potassium 3.9 mmol/L (3.5-5.1); Protein, Total 6.7 g/dL (6.4-8.2); Sodium Level 144 mmol/L (136-145)
== END 2022-08-11 23:59 | disposition home or self-care (01) ==
LOC: BIMLAB 10:01
PROVIDERS: PCP Nurse Practitioner Family; Referring Provider Nurse Practitioner Family; Visit Provider Nurse Practitioner Family
DX: I48.91 Unspecified atrial fibrillation (principal); I50.9 Heart failure, unspecified; R60.0 Localized edema; R06.01 Orthopnea; N28.9 Disorder of kidney and ureter, unspecified
CPT/HCPCS: 36415; 80053; 85027

== ENCOUNTER 2022-08-19 14:05 | Outpatient (CLI) | payer MEDICAID, SELFPAY ==
[2022-08-19] MEDS: Furosemide 40 MG/4 ML Vial IV (14:46)
[2022-08-19] MEDS: 0.9% NaCl Peripheral Flush Adult/Peds IV ×2 (14:46→14:51)
[2022-08-19 15:02] VITALS: BP 120/88; PULSE 104; O2SAT 95
== END 2022-08-19 23:59 | disposition home or self-care (01) ==
LOC: MEDOUTP 14:07
PROVIDERS: PCP Nurse Practitioner Family; Referring Provider Physician Assistant Medical; Visit Provider Physician Assistant Medical
DX: I50.9 Heart failure, unspecified (principal)
CPT/HCPCS: 96374; A4216; J1940

== ENCOUNTER 2022-08-20 11:29 | Outpatient (CLI) | payer MEDICAID, SELFPAY ==
[2022-08-20 11:45] VITALS: BP 124/84; PULSE 105; RESP 18; TEMP 36.1; O2SAT 94; BMI 43.9
[2022-08-20] MEDS: 0.9% NaCl Peripheral Flush Adult/Peds IV ×2 (11:52→11:57)
[2022-08-20] MEDS: Furosemide 40 MG/4 ML Vial IV (11:52)
== END 2022-08-20 23:59 | disposition home or self-care (01) ==
LOC: MEDOUTP 11:29
PROVIDERS: PCP Nurse Practitioner Family; Referring Provider Physician Assistant Medical; Visit Provider Physician Assistant Medical
DX: I50.9 Heart failure, unspecified (principal)
CPT/HCPCS: 96374; A4216; J1940

== ENCOUNTER 2022-08-21 10:56 | Outpatient (CLI) | payer MEDICAID, SELFPAY ==
[2022-08-21 11:10] VITALS: BP 114/80; PULSE 101; O2SAT 92
[2022-08-21] MEDS: 0.9% NaCl Peripheral Flush Adult/Peds IV ×2 (11:10→11:19)
[2022-08-21] MEDS: Furosemide 40 MG/4 ML Vial IV (11:10)
== END 2022-08-21 23:59 | disposition home or self-care (01) ==
LOC: MEDOUTP 10:56
PROVIDERS: PCP Nurse Practitioner Family; Referring Provider Physician Assistant Medical; Visit Provider Physician Assistant Medical
DX: I50.9 Heart failure, unspecified (principal)
CPT/HCPCS: 96374; A4216; J1940

== ENCOUNTER 2022-08-24 10:50 | Outpatient (CLI) | payer MEDICAID, SELFPAY ==
[2022-08-24] MEDS: 0.9% NaCl Peripheral Flush Adult/Peds IV (10:59)
[2022-08-24] MEDS: Furosemide 40 MG/4 ML Vial IV (11:00)
[2022-08-24 11:15] VITALS: BP 134/80; PULSE 60; RESP 14; TEMP 36.4; O2SAT 98; BMI 42.4
[2022-08-24 11:42] LABS: Anion Gap 3 (5-15); BUN 24 mg/dL (7-18); BUN/Creat Ratio 16.9 RATIO (10-20); Calcium,Total 9.1 mg/dL (8.5-10.1); Chloride 106 mmol/L (98-107); Creatinine, Serum 1.42 mg/dL (0.70-1.30); EST Glomerular Filtration Rate 53 mL/min (>60); Est Glom Filt Rate - Afr Amer 65 mL/min (>60); Estimated Creatinine Clearance 58.44 ml/min; Glucose 226 mg/dL (74-106); Sodium Level 142 mmol/L (136-145)
== END 2022-08-24 23:59 | disposition home or self-care (01) ==
LOC: MEDOUTP 10:50
PROVIDERS: PCP Nurse Practitioner Family; Referring Provider Physician Assistant Medical; Visit Provider Physician Assistant Medical
DX: I50.9 Heart failure, unspecified (principal)
CPT/HCPCS: 96372; 80048; A4216; J1940

== ENCOUNTER 2022-08-25 10:32 | Outpatient (CLI) | payer MEDICAID, SELFPAY ==
[2022-08-25 10:37] VITALS: BP 139/90; PULSE 91; RESP 20; TEMP 36.2; O2SAT 95; BMI 42.1
[2022-08-25] MEDS: 0.9% NaCl Peripheral Flush Adult/Peds IV ×2 (10:51→10:52)
[2022-08-25] MEDS: Furosemide 40 MG/4 ML Vial IV (10:52)
== END 2022-08-25 23:59 | disposition home or self-care (01) ==
LOC: MEDOUTP 10:32
PROVIDERS: PCP Nurse Practitioner Family; Referring Provider Physician Assistant Medical; Visit Provider Physician Assistant Medical
DX: I50.9 Heart failure, unspecified (principal)
CPT/HCPCS: 96374; A4216; J1940

== ENCOUNTER 2022-09-07 10:36 | Day surgery (SDC) | payer MEDICAID, SELFPAY ==
[2022-09-03 08:54] VITALS: BMI 43.9
--- NOTE | 2022-09-07 13:02 | PCM.OP.BLANK ---
Problems Associated Problem List Diagnoses (1) Atrial fibrillation: Operative Report Date of Procedure: 09/07/22 DC cardioversion. 62-year-old man with a history of a cardiomyopathy and atrial fibrillation. The patient had been on anticoagulation for minimum of 4 weeks. Patient presented for an outpatient elective DC cardioversion. After informed consent was obtained the patient was seen by Dr. Moralez of the critical care division. Anterior-posterior pads were applied. The patient was then administered 8 mg of intravenous etomidate due to the low ejection fraction. 300 J of synchronized biphasic DC cardioversion energy were applied with reversal to sinus rhythm which was intermittent. The patient received a bolus of intravenous amiodarone. Conclusion: Successful DC cardioversion from atrial fibrillation to sinus rhythm which appears to be intermittent. Would add amiodarone 200 mg once a day to see whether patient will maintain sinus rhythm. Continue other current medications.
--- NOTE | 2022-09-07 13:19 | PRO.PCM_ITS ---
Procedure Report Date of Procedure: 09/07/22 CONSCIOUS SEDATION REPORT BRIEF HISTORY OF PRESENT ILLNESS: The patient is a 62-year-old male who presented to [facility] for an elective outpatient cardioversion due to underlying atrial fibrillation. The patient reports no PO intake since midnight, but is currently therapeutic on anticoagulation. The patient does have a history of SABA, but is noncompliant with therapy. The patient reports denies history of smoking or COPD. The patient denies any recent constitutional symptoms such as fevers, chills, nausea or vomiting. The patient denies previous applicable anesthetic complications. Patient's last known ejection fraction was 20%. Patient has used 2 L nasal ca nnula oxygen with sleep in the past. Patient did take anticoagulation PHYSICAL EXAMINATION: VITAL SIGNS: Reviewed and were acceptable. GENERAL: The patient is a male, in no apparent distress, speaking in full sentences. HEENT: Normocephalic, atraumatic. Mucous membranes are moist and pink. Good mouth opening noted. Trachea is midline. Good neck mobility. MP IV CHEST: S1, S2 irregularly irregular. No murmurs, rubs or gallops were noted. LUNGS: Clear to auscultation bilaterally without appreciable wheezes, rales or rhonchi. ABDOMEN: Soft, nontender, nondistended. Positive bowel sounds. EXTREMITIES: There is no clubbing, cyanosis or edema. ASA Class: II DESCRIPTION OF PROCEDURE: After confirmation of informed consent, the patient's anesthesia plan was reviewed in detail. Etomidate was chosen. Risks and benefits were reviewed and the patient agreed to proceed. At 12:22 PM, the patient was given 4 mg of etomidate. The patient required a total of 8 mg of etomidate throughout the procedure to achieve appropriate sedation. The patient achieved an appropriate level of sedation and received 1 attempt synchronized cardioversion, at [address] Hensley at the bedside. This was successful in achieving normal sinus rhythm. However, patient appeared to be going back and forth between sinus rhythm and A. fib. Patient was ordered amiodarone by cardiology. The patient was monitored until 12:36 PM, at which time the patient reached their baseline mental status and function. The patient tolerated the procedure well. COMPLICATIONS: None ESTIMATED BLOOD LOSS: None RECOMMENDATIONS: Okay to recover in usual fashion. Procedures Pulmonary 9xxxx: [id number] Con Sedation
== END 2022-09-07 13:30 | disposition home or self-care (01) ==
PROVIDERS: PCP Nurse Practitioner Family; Referring Provider Internal Medicine Cardiovascular Disease; Visit Provider Internal Medicine Cardiovascular Disease
DX: I48.91 Unspecified atrial fibrillation (principal); I42.8 Other cardiomyopathies; I11.0 Hypertensive heart disease with heart failure; I50.9 Heart failure, unspecified; E11.9 Type 2 diabetes mellitus without complications; G47.33 Obstructive sleep apnea (adult) (pediatric); E66.9 Obesity, unspecified; Z86.16 Personal history of COVID-19; Z79.01 Long term (current) use of anticoagulants; Z79.84 Long term (current) use of oral hypoglycemic drugs; Z79.899 Other long term (current) drug therapy
CPT/HCPCS: 92960; 93005; J7040

== ENCOUNTER → 2022-10-05 | Outpatient (CLI) | payer MEDICAID, SELFPAY ==
[2022-10-05 12:06] LABS: Absolute Lymphocyte Count 1.57 X10^3/uL (0.83-4.51); Absolute Neutrophil Count 3.4 X10^3/uL (2.0-7.7); Basophil# 0.04 X10^3/uL; Basophil% 0.7 % (0-1); Eosinophils% 1.7 % (0-5); Hematocrit 50.2 % (40-54); Hemoglobin 14.9 g/dL (13.0-16.5); Lymphocyte # 1.57 X10^3/ul (0.83-4.51); Lymphocyte % 27.2 % (19-41); Mean Corp Hgb Conc 29.7 g/dL (32-36); Mean Corpuscular Hgb 25.8 pg (27.0-32.0); Mean Platelet Vol. 11.1 fl (6.2-12.0); Monocyte# 0.62 X10^3/uL; Monocyte% 10.7 % (0-10); NRBC Flagged by Analyzer 0 % (0-5); Neutrophil # 3.43 X10^3/uL (2.7-7.7); Neutrophil % 59.5 % (47-70); Platelet Count 205 K/mm3 (150-450); RBC Distribution Width CV 15.9 % (11.6-14.6); RBC Distribution Width SD 49.7 fl (35.1-43.9); Red Blood Count 5.77 M/mm3 (4.6-6.2); White Blood Count 5.8 K/mm3 (4.4-11.0)
[2022-10-05 12:44] LABS: Hemoglobin A1c 8.8 % (3.8-5.6)
[2022-10-05 12:46] LABS: ALB/GLOB Ratio 0.9 RATIO (0.9-2.4); AST(SGOT) 13 U/L (15-37); Alanine Aminotransfer ALT/SGPT 19 U/L (16-61); Albumin, Serum 3.3 g/dL (3.2-5.0); Alkaline Phosphatase 90 U/L (45-117); Anion Gap 8 (5-15); BUN 33 mg/dL (7-18); BUN/Creat Ratio 21.7 RATIO (10-20); Calcium,Total 9.1 mg/dL (8.5-10.1); Chloride 107 mmol/L (98-107); Cholesterol 91 mg/dL (200); Creatinine, Serum 1.52 mg/dL (0.70-1.30); EST Glomerular Filtration Rate 49 mL/min (>60); Est Glom Filt Rate - Afr Amer 60 mL/min (>60); Globulin 3.8 g/dL (2.2-4.2); Glucose 172 mg/dL (74-106); High Density Lipoprotein 39 mg/dL; Potassium 5.4 mmol/L (3.5-5.1); Protein, Total 7.1 g/dL (6.4-8.2); Sodium Level 144 mmol/L (136-145); Triglycerides 60 mg/dL; Very Low Density Lipoprotein 12 mg/dL (5-40)
== END | disposition home or self-care (01) ==
LOC: BIMLAB 11:11
PROVIDERS: PCP Nurse Practitioner Family; Referring Provider Internal Medicine; Visit Provider Internal Medicine
DX: E11.9 Type 2 diabetes mellitus without complications (principal)
CPT/HCPCS: 36415; 80053; 80061; 83036; 85025

== ENCOUNTER → 2025-03-27 | Outpatient (CLI) | payer MEDICARE, SELFPAY ==
[2025-03-27 11:01] LABS: Hematocrit 46.9 % (40-54); Hemoglobin 15.4 g/dL (13.0-16.5); Immature Granulocytes Count 0.010 X10^3/uL (0.0-0.0); Mean Corp Hgb Conc 32.8 g/dL (32-36); Mean Corpuscular Volume 88.2 fL (80-94); Mean Platelet Vol. 10.8 fl (6.2-12.0); NRBC Flagged by Analyzer 0 % (0-5); Platelet Count 158 K/mm3 (150-450); RBC Distribution Width CV 13.3 % (11.6-14.6); RBC Distribution Width SD 43.1 fl (35.1-43.9); Red Blood Count 5.32 M/mm3 (4.6-6.2); White Blood Count 4.8 K/mm3 (4.4-11.0)
[2025-03-27 11:48] LABS: Anion Gap 9 (5-15); BUN 20 mg/dL (4-19); BUN/Creat Ratio 15.7 RATIO (10-20); Calcium,Total 9.6 mg/dL (7.6-11.0); Carbon Dioxide 26.4 mmol/L (21.0-32.0); Chloride 106 mmol/L (98-108); Glucose 166 mg/dL (70-99); Potassium 4.5 mmol/L (3.3-5.1)
== END | disposition home or self-care (01) ==
PROVIDERS: Referring Provider Student in an Organized Health Care Education/Training Program; Visit Provider Student in an Organized Health Care Education/Training Program
DX: I42.8 Other cardiomyopathies (principal); I10 Essential (primary) hypertension
CPT/HCPCS: 36415; 80048; 85025

== ENCOUNTER → 2025-03-30 | Outpatient (CLI) | payer MEDICARE, SELFPAY ==
--- NOTE | 2025-03-30 10:25 | ECHOD_ITS ---
Reason For Study : CHF Procedure This was a 2D Doppler, Color Flow transthoracic echocardiogram. Exam performed in department. Left Ventricle Normal LV size. Mild concentric left ventricular hypertrophy. Left ventricular systolic function is normal. The left ventricular ejection fraction is 45 %. Stage 1 diastolic dysfunction. Right Ventricle Normal RV size. Normal systolic function. Tricuspid Valve Normal tricuspid valve. Mild tricuspid valve insufficiency. Pulmonary artery systolic pressure is 22 mmHg. Aortic Valve Trisinus/trileaflet aortic valve. Mild focal aortic valve calcification. Pulmonic Valve Normal pulmonic valve. Great Vessels Mildly dilated aortic root. The pulmonary artery is normal size. Normal inferior vena cava. Pericardium/Pleural No pericardial effusion. MMode/2D Measurements & Calculations LVIDd: 5.8 cm IVSd: 1.2 cm Ao root diam: 3.8 cm LVIDs: 4.6 cm LVPWd: 1.2 cm RVDd: 3.6 cm FS: 20.3 % LAV(MOD-bp): 56.5 ml LVAd ap4: 34.3 cm2 LVAd ap2: 26.9 cm2 LAV(MOD-bp) Indexed: 21.2 ml/m2 LVLd ap4: 9.1 cm LVLd ap2: 7.9 cm LAV(MOD-sp2): 59.3 ml EDV(MOD-sp4): 105.9 ml EDV(MOD-sp2): 77.4 ml LAV(MOD-sp4): 52.5 ml EDV(sp4-el): 109.5 ml EDV(sp2-el): 77.3 ml LVAs ap4: 24.8 cm2 LVAs ap2: 19.1 cm2 LVLs ap4: 8.1 cm LVLs ap2: 7.2 cm ESV(MOD-sp4): 63.2 ml ESV(MOD-sp2): 44.2 ml ESV(sp4-el): 65.1 ml ESV(sp2-el): 42.9 ml EF(MOD-sp4): 40.3 % EF(MOD-sp2): 42.9 % EF(sp4-el): 40.5 % SV(MOD-sp4): 42.7 ml SV(MOD-sp2): 33.2 ml SV(sp4-el): 44.4 ml SI(MOD-sp4): 16.0 ml/m2 SI(MOD-sp2): 12.5 ml/m2 LA dimension(2D): 4.4 cm LA A4 area: 18.9 cm2 RA A4 area: 15.4 cm2 TAPSE: 1.3 cm Time Measurements MV dec time: 0.29 sec Doppler Measurements & Calculations MV E max shaw: 61.6 cm/sec Lat Peak E' Shaw: 5.6 cm/sec Med Peak E' Shaw: 6.8 cm/sec MV A max shaw: 78.3 cm/sec E/E' lat: 10.9 E/E' med: 9.0 MV E/A: 0.79 Ao V2 max: 94.6 cm/sec LV V1 max: 72.1 cm/sec PA V2 max: 96.1 cm/sec Ao max P.6 mmHg LV V1 max P.1 mmHg TR max shaw: 214.3 cm/sec TR max P.4 mmHg ECHO/Echo Complete Interpretation Summary Normal LV size. Mild concentric left ventricular hypertrophy. Left ventricular systolic function is normal. The left ventricular ejection fraction is 45 %. Stage 1 diastolic dysfunction. Pulmonary artery systolic pressure is 22 mmHg. Ordering Physician: David Cardoza Referring Physician: MERON BROTHERS Performed By: Pat Reyes RDCS
== END | disposition home or self-care (01) ==
PROVIDERS: Referring Provider Student in an Organized Health Care Education/Training Program; Visit Provider Student in an Organized Health Care Education/Training Program
DX: I42.8 Other cardiomyopathies (principal)
CPT/HCPCS: 93306

== ENCOUNTER → 2025-06-18 | Outpatient (CLI) | payer MEDICARE, SELFPAY ==
[2025-06-18 11:35] LABS: Creatinine, Urine (random) 92.40 mg/dL (39.00-259.00); Microalbumin,Random Urine 30.1 mg/L (<20 mg/L)
[2025-06-18 11:37] LABS: AST(SGOT) 22 U/L (<=37); Alanine Aminotransfer ALT/SGPT 15 U/L (<=46); Albumin, Serum 4.0 g/dL (3.4-4.8); Alkaline Phosphatase 181 U/L (40-129); Bilirubin, Direct 0.24 mg/dL (0.00-0.30); Cholesterol 90 mg/dL (<=200); Globulin 3.5 g/dL (2.2-4.2); Low Density Lipoprotein Calc. 40 mg/dL; Triglycerides 64 mg/dL; Very Low Density Lipoprotein 13 mg/dL (5-40); cholesterol:hdl ratio screen 2.41
== END | disposition home or self-care (01) ==
PROVIDERS: Student in an Organized Health Care Education/Training Program
DX: E78.49 Other hyperlipidemia (principal); E11.9 Type 2 diabetes mellitus without complications
CPT/HCPCS: 36415; 80061; 80076; 82043; 82570

== ENCOUNTER → 2025-08-02 | Outpatient (CLI) | payer MEDICARE, MEDICAID, SELFPAY ==
--- OUTSIDE RECORDS SUMMARY | 2025-08-02 06:11 | XMS RPT_ITS | CCD ---
Author Organization [facility] Care Team Providers Care Mold Maker Name Role Phone Phan Aguilar MD Primary Care Provider [phone] Dr. Phan Aguilar Primary Care Provider [phone] Dr. Phan Aguilar Referring Provider Con ALLERGIST/IMMUNOLOGIST, ALLERGIST/IMMUNOLOGIST-C Ashvin Attending Provider [phone] Con ALLERGIST/IMMUNOLOGIST, ALLERGIST/IMMUNOLOGIST-C Ashvin Primary Care Provider Con ALLERGIST/IMMUNOLOGIST, ALLERGIST/IMMUNOLOGIST-C Ashvin Referring Provider [phone] Hilda Love Attending Provider Unavailable Dr. Castillo Diaz Emergency Provider Dr. Jaime Allen Admit Provider Dr. Jaime Allen Attending Provider Dr. Jaime Allen Other Provider Dr. Cody Hensley Attending Provider Dr. Cody Hensley Other Provider Dr. Catia Corral Attending Provider Dr. Catia Corral Other Provider Juarez HORTON, PA Tenisha Rea Attending Provider Phan Aguilar MD Primary Care Provider [phone] PHAN AGUILAR Primary Care Unavailable ELVIS OVALLES Referring Unavailable ELVIS OVALLES Attending Unavailable PHAN AGUILAR Primary Care Unavailable PHAN AGUILAR Primary Care Unavailable TONI CORRAL Attending Unavailable Con ALLERGIST/IMMUNOLOGIST, ALLERGIST/IMMUNOLOGIST-C Ashvin Attending Provider [phone] Dr. Phan Aguilar Referring Provider [phone] Dr. Cody Hensley Referring Provider Dr. Seth Moralez Attending Provider Con ALLERGIST/IMMUNOLOGIST, ALLERGIST/IMMUNOLOGIST-C Ashvin Primary Care Provider Con ALLERGIST/IMMUNOLOGIST, ALLERGIST/IMMUNOLOGIST-C Ashvin Attending Provider [phone] Con ALLERGIST/IMMUNOLOGIST, ALLERGIST/IMMUNOLOGIST-C Ashvin Referring Provider [phone] Sandy Tellez Attending Provider Unavailable Dr. Phan Aguilar Attending Provider [phone] Phan Aguilar MD Primary Care Provider [phone] Demsanjay PA, David Attending Provider Beam ALLERGIST/IMMUNOLOGIST-C, Zebulun Primary Care Provider Demiter PA, David Referring Provider Dr. Cody Hensley MD Attending Provider Rocio Smith Attending Provider Unavailable Beam ALLERGIST/IMMUNOLOGIST-C, Zebulun Referring Provider Demiter PA, David Attending Physician Beam ALLERGIST/IMMUNOLOGIST-C, [place] Primary Care Physician Dr. Cody Hensley MD Attending Physician Beam ALLERGIST/IMMUNOLOGIST-C, [place]ebulun Attending Physician Demiter PA, David Nurse Practitioner Demiter, David Referring Unavailable Beam VSC, Zebulun Primary Care Unavailable Demiter, David Attending Unavailable Demiter, David Referring Unavailable Beam VSC, Zebulun Primary Care Unavailable Demiter, David Attending Unavailable Beam VSC, [place]ebulun Referring Unavailable Beam VSC, [place]ebulun Primary Care Unavailable Demiter, David Attending Unavailable Cody Hensley Attending Unavailable Beam VSC, [place]ulun Primary Care Unavailable Cody Hensley Attending Unavailable Beam VSC, [place] Primary Care Unavailable Cody Hensley Attending Unavailable Beam VSC, [place] Referring Unavailable Beam VSC, [place]ebulun Primary Care Unavailable Demiter, David Attending Unavailable Cody Hensley Attending Unavailable Beam VSC, Zebuluravindra Primary Care Unavailable Cody Hensley Attending Unavailable Beam VSC, Zebuluravindra Primary Care Unavailable Beam VSC, Zebulun Attending Unavailable Beam VSC, [place]ebulun Referring Unavailable Beam VSC, Zebulun Primary Care Unavailable David Cardoza Consulting Unavailable Beam ALLERGIST/IMMUNOLOGIST-C, Zebulun Primary Care Physician David Strong Attending Physician David Strong Referring Provider Ayden JACKSON, Dr. Ross Attending Physician Beam ALLERGIST/IMMUNOLOGIST-C, Zebuluravindra Referring Provider Beam ALLERGIST/IMMUNOLOGIST-C, Zebuluravindra Attending Physician David Strong Nurse Practitioner Medications Current Medications Medication Drug Class(es) Dates Sig (Normalized) Sig (Original) apixaban 5 mg oral tablet (20 sources) Factor Xa Inhibitor Start: 07-29-2022 End: 11-25-2022 take 1 tablet by mouth twice daily Comment on above: Take 5 mg by mouth t wice daily. atorvastatin 40 mg oral tablet (9 sources) HMG-CoA Reductase Inhibitor Start: 03-27-2025 take 1 tablet by mouth once daily Blood Pressure Monitor (Blood Pressure Kit) kit (17 sources) Start: 11-14-2019 Blood Pressure Monitor (Blood Pressure Kit) kit Active 0 .ROUTE .MEDSUPPLY 1 0 November 14, 2019 12:00am Check blood pressure daily for hypertension I10 Start: 11-14-2019 Blood Pressure Monitor (Blood Pressure Kit) kit Active 0 .ROUTE .MEDSUPPLY 1 0 November 14, 2019 1:00am Check blood pressure daily for hypertension I10 Start: 11-14-2019 Blood Pressure Monitor (Blood Pressure Kit) kit Active 0 .ROUTE .MEDSUPPLY 1 November 14, 2019 12:00am Check blood pressure daily for hypertension I10 Blood-Glucose Meter (Onetouc h Verio Reflect Start) kit (20 sources) Start: 11-25-2022 Blood-Glucose Meter (Onetouch Verio Reflect Start) kit Active 0 .ROUTE .MEDSUPPLY 1 3 November 25, 2022 3:53pm Type 2 diabetes mellitus without complications check one to two times daily for type 2 DM Start: 11-25-2022 Blood-Glucose Meter (Onetouch Verio Reflect Start) kit Active 0 .ROUTE .MEDSUPPLY 1 November 25, 2022 4:53pm Type 2 diabetes mellitus without complications check one to two times daily for type 2 DM Start: 12-03-2020 End: 11-25-2022 Blood-Glucose Meter (Onetouc h Verio Reflect Start) kit Discontinued 0 .ROUTE .MEDSUPPLY 1 3 December 03, 2020 9:33am November 25, 2022 3:55pm Type 2 diabetes mellitus without complications check one to two times daily for type 2 DM Start: 12-03-2020 End: 11-25-2022 Blood-Glucose Meter (Onetouc h Verio Reflect Start) kit Discontinued 0 .ROUTE .MEDSUPPLY 1 3 December 03, 2020 10:33am November 25, 2022 4:55pm Type 2 diabetes mellitus without complications check one to two times daily for type 2 DM Start: 12-03-2020 Blood-Glucose Meter (Onetouch Verio Reflect Start) kit Active 0 .ROUTE .MEDSUPPLY 1 December 03, 2020 9:33am check one to two times daily for type 2 DM Start: 12-03-2020 End: 12-03-2020 Blood-Glucose Meter (Onetouc h Verio Reflect Start) kit Discontinued 0 .ROUTE .MEDSUPPLY 1 December 02, 2020 11:00pm December 03, 2020 9:34am Type 2 diabetes mellitus without complications check one to two times daily for type 2 DM Start: 12-03-2020 End: 12-03-2020 Blood-Glucose Meter (Onetouc h Verio Reflect Start) kit Discontinued 0 .ROUTE .MEDSUPPLY 1 December 03, 2020 12:00am December 03, 2020 10:34am Type 2 diabetes mellitus without complications check one to two times daily for type 2 DM Start: 12-03-2020 End: 12-03-2020 Blood-Glucose Meter (Onetouc h Verio Reflect Start) kit Discontinued 0 .ROUTE .MEDSUPPLY 1 December 02, 2020 11:00pm December 03, 2020 9:34am check one to two times daily for type 2 DM carvedilol 25 mg oral tablet (20 sources) alpha-Adrenergic Kg, beta-Adrenergic Kg Start: 03-27-2025 take 2 tablets by mouth once daily in the morning Start: 03-27-2025 take 1 tablet by ariel th once daily at mealtime Start: 08-19-2022 End: 03-27-2025 take 1 tablet by mouth twice daily Carvedilol 25 mg tablet Discontinued 25 mg PO TWICE A DAY 180 3 November 25, 2022 3:53pm March 27, 2025 8:39am Start: 08-04-2022 End: 08-19-2022 take 1 tablet by mouth twice daily Carvedilol 12.5 mg Tablet Discontinued 12.5 mg PO TWICE A DAY 60 30 0 August 04, 2022 12:00am August 19, 2022 1:56pm Comment on above: Take 12.5 mg by mout h twice daily with meals. Cary.Stocking,Knee, Reg,Xlrg (8 sources) Start: 04-24-2020 Cary.Stocking,Knee,Reg ,Xlrg Active 0 .ROUTE .MEDSUPPLY 2 April 23, 2020 11:00pm wear daily for pvd 20-30 mmhg Cary.Stocking,Knee, Reg,Xlrg misc (18 sources) Start: 11-25-2022 Cary.Stocking,Knee,Reg ,Xlrg misc Active 0 .ROUTE .MEDSUPPLY 2 November 25, 2022 3:53pm Peripheral vascular disease, unspecified wear daily for pvd 20-30 mmhg Start: 11-25-2022 Cary.Stocki ng,Knee,Reg,Xlrg misc Active 0 .ROUTE .MEDSUPPLY 2 November 25, 2022 4:53pm Peripheral vascular disease, unspecified wear daily for pvd 20-30 mmhg Start: 04-24-2020 End: 11-25-2022 Cary.Stocking,Knee,Reg,Xl rg misc Discontinued 0 .ROUTE .MEDSUPPLY 2 April 23, 2020 11:00pm November 25, 2022 3:55pm Peripheral vascular disease, unspecified wear daily for pvd 20-30 mmhg Start: 04-24-2020 End: 11-25-2022 Cary.Stocking,Knee,Reg,Xl rg misc Discontinued 0 .ROUTE .MEDSUPPLY 2 April 24, 2020 12:00am November 25, 2022 4:55pm Peripheral vascular disease, unspecified wear daily for pvd 20-30 mmhg dulaglutide (TRULICITY) 3 mg/0.5 mL pen injector (5 sources) inject 3 mg by subcu taneous injection every week dulaglutide (TRULICITY) 3 mg/0.5 mL pen injector Inject 3 mg subcutaneously one time a week. Active inject 3 mg by subcu taneous injection every week dulaglutide (TRULICITY) 3 mg/0.5 mL pen injector Inject 3 mg subcutaneously one time a week. 0 Active Comment on above: Inject 3 mg subcutan eously one time a week. empagliflozin 25 mg oral tablet (20 sources) Sodium-Glucose Cotransporter 2 Inhibitor Start: 10-05-2022 End: 11-25-2022 take 1 tablet by mouth once daily Start: 08-04-2022 End: 10-05-2022 take 1 tablet by mouth once daily Empagliflozin (Jardiance) 10 mg tablet Discontinued 10 mg PO DAILY 90 1 September 03, 2022 3:38pm October 05, 2022 4:01pm Comment on above: Take 10 mg by mouth daily with breakfast. gabapentin 100 mg oral capsule (9 sources) Anti-epileptic Agent Start: take 1 capsule by mouth three times daily hydroCHLOROthiazide 25 mg / triamterene 37.5 mg oral capsule (5 sources) Potassium-sparing Diuretic, Thiazide Diuretic Start: take 1 capsule by mouth once daily triamterene-hydroch lorothiazide 37.5-25 mg per capsule Indications: Hypertension Take 1 capsule by mouth once daily. 90 capsule 1 10/24/2012 Active Comment on above: Take 1 capsule by [facility] once daily. magnesium oxide 400 mg oral tablet (9 sources) Start: take 1 tablet by mouth once daily mecobalamin 1 mg chewable tablet (9 sources) Start: take 1 tablet by mouth once daily meloxicam 15 mg oral tablet (5 sources) Nonsteroidal Anti-inflammatory Drug Start: take 1 tablet by mouth once daily meloxicam (MOBIC) 15 mg tablet Take 1 tablet by mouth once daily. 30 tablet 1 05/21/2022 Active Comment on above: Take 1 tablet by [facility] once daily. metFORMIN hydrochloride 500 mg oral tablet (20 sources) Biguanide Start: 025 take 1 tablet by mouth once daily Start: 11-14-2019 End: 03-27-2025 take 1 tablet by mouth twice daily Metformin 1,000 mg tablet Discontinued 1000 mg PO TWICE A DAY 3 November 25, 2022 3:54pm March 27, 2025 8:35am TAKE ONE (1) TABLET BY MOUTH TWICE DAILY Comment on above: Take 1,000 mg by [facility] twice daily with meals. potassium chloride 10 meq extended release oral tablet (9 sources) Start: End: 5 take 1 tablet by mouth twice daily Potassium Chloride 10 mEq tablet extended release Discontinued 10 meq PO TWICE A DAY March 26, 2025 11:00pm July 16, 2025 1:55pm predniSONE 10 mg oral tablet (5 sources) Start: 9 take 1 tablet by mouth once daily, then take 4 tablets by mouth once daily, then take 3 tablets by mouth once daily, then take 2 tablets by mouth once daily, then take 1 tablet by mouth once daily predniSONE (DELTASONE) 10 mg tablet Indications: Contact dermatitis due to plant Take 1 tablet by mouth once daily. 4 tabs PO QD x 3 days, 3 tabs PO QD x 3 days, 2 tabs PO QD x 3 days, 1 tab PO QD x 3 days 30 tablet 05/29/2019 Active Comment on above: Take 1 tablet by [facility] once daily. 4 tabs PO QD x 3 days, 3 tabs PO QD x 3 days, 2 tabs PO QD x 3 days, 1 tab PO QD x 3 days sacubitril 49 mg / valsartan 51 mg oral tablet (20 sources) Angiotensin 2 Receptor Kg Start: 2 End: 5 Semaglutide (2 sources) Start: 5 Start: 03-27-2025 Semaglutide (Ozempic) 2 mg/dose (8 mg/3 mL) pen injector (7 sources) Start: 03-27-2025 Semaglutide (Ozempic) 2 mg/dose (8 mg/3 mL) pen injector Active mg SC March 27, 2025 12:00am spironolactone 25 mg oral tablet (20 sources) Aldosterone Antagonist Start: 07-16-2025 take 1 tablet by mouth once daily in the morning Start: 08-19-2022 End: 03-27-2025 take 1 tablet by mouth once daily Spironolactone 25 mg tablet Discontinued 25 mg PO DAILY 30 November 25, 2022 3:54pm March 27, 2025 8:36am triamcinolone acetonide 1 mg/ml topical cream (5 sources) Corticosteroid Start: 05-29-2019 triamcinolone acetonide (KENALOG) 0.1 % cream Indications: Contact dermatitis due to plant Apply 1 application to affected area twice daily. 45 g 05/29/2019 Active Comment on above: Apply 1 application to affected area twice daily. vit k2 + D3 (9 sources) Start: 03-27-2025 Start: 03-27-2025 Start: 03-27-2025 vit k2 + D3 Ac tive PO DAILY March 27, 2025 12:00am Zinc (9 sources) Start: 03-27-2025 take 1 mg by mouth once daily Start: 03-27-2025 take 1 mg by mouth once daily Start: 03-27-2025 take 1 mg by mouth once daily Zinc 22 mg tablet Active mg PO daily March 27, 2025 12:00am Completed/Discontinued Medications Medication Drug Class(es) Dates Sig (Normalized) Sig (Original) acetaminophen 325 mg / oxyCODONE hydrochloride 5 mg oral tablet (20 sources) Opioid Agonist Start: 05-12-2022 End: 07-29-2022 Oxycodone-Acetamino phen (Percocet) 5-325 mg tablet Discontinued 1 {tbl} PO EVERY 6 HOURS as needed for pain 10 3 0 May 12, 2022 July 29, 2022 9:15am Compression fracture of lumbar vertebra Scapholunate dissociation of left wrist Other instability, left wrist oxyCODONE-acetam inophen (PERCOCET) 5-325 mg tablet Take by mouth every 8 hours as needed for pain. Active Comment on above: Take by mouth every 8 hours as needed for pain. amiodarone hydrochloride 200 mg oral tablet (20 sources) Antiarrhythmic Start: 10-05-19 End: 03-27-20 take 1 tablet by mouth once daily Amiodarone 200 mg tablet Discontinued 200 mg PO DAILY 90 3 November 25, 2022 3:52pm March 27, 2025 8:34am amLODIPine 10 mg oral tablet (20 sources) Dihydropyridine Calcium Channel Kg Start: 08-22-20 End: 08-04-20 take 1 tablet by mouth at bedtime Amlodipine 10 mg tablet Discontinued 10 mg PO AT BEDTIME 90 3 May 12, 2022 7:49am August 04, 2022 2:41pm Comment on above: Take 1 tablet by ariel th once daily. amoxicillin 875 mg / clavulanate 125 mg oral tablet (17 sources) Penicillin-class Antibacterial Start: 07-02-20 18 End: 07-15-20 18 take 1 tablet by mouth every twelve hours Amoxicillin-Pot Clavulanate 875 MG tablet Discontinued 875 mg PO Q12H 20 0 July 01, 2018 11:00pm July 15, 2018 9:16am benzonatate 100 mg oral capsule (17 sources) Non-narcotic Antitussive Start: 08-22-20 End: 12-04-19 21 take 1 capsule by mouth three times daily as needed for cough Benzonatate (Tessalon Perles) 100 mg capsule Discontinued 100 mg PO THREE TIMES A DAY as needed for cough 30 0 August 22, 2020 12:00am December 03, 2020 8:54am betamethasone 0.5 mg/ml / clotrimazole 10 mg/ml topical cream (17 sources) Azole Antifungal, Corticosteroid Start: 06-07-20 19 End: 08-15-20 19 Clotrimazole-Betame thasone 1-0.05 % cream Discontinued 1 NMA TOPICAL TWICE A DAY 45 14 1 June 06, 2019 11:00pm August 15, 2019 11:27am Start: 06-07-2019 End: 08-15-2019 Clotrimazole-Betamethasone D iscontinued 1 APPLIC TOPICAL TWICE A DAY 45 14 June 06, 2019 11:00pm August 15, 2019 11:27am Blood-Glucose Meter (Freesty le System Kit) kit (17 sources) Start: 11-14-2019 End: 04-01-2021 Blood-Glucose Meter (Freesty le System Kit) kit Discontinued 0 .ROUTE .MEDSUPPLY 1 0 November 14, 2019 12:00am April 01, 2021 9:28am Type 2 diabetes mellitus with other specified complication check blood glucose daily for type 2 DM Start: 11-14-2019 End: 04-01-2021 Blood-Glucose Meter (Freesty le System Kit) kit Discontinued 0 .ROUTE .MEDSUPPLY 1 0 November 14, 2019 1:00am April 01, 2021 10:28am Type 2 diabetes mellitus with other specified complication check blood glucose daily for type 2 DM Start: 11-14-2019 End: 04-01-2021 Blood-Glucose Meter (Freesty le System Kit) kit Discontinued 0 .ROUTE .MEDSUPPLY 1 November 14, 2019 12:00am April 01, 2021 9:28am check blood glucose daily for type 2 DM diclofenac sodium 0.01 mg/mg topical gel (20 sources) Nonsteroidal Anti-inflammatory Drug Start: 05-26-2022 End: 03-27-2025 Diclofenac Sodium (Voltaren Arthritis Pain) 1 % gel Discontinued 4 g TOPICAL DAILY as needed for joint pain 100 3 November 25, 2022 3:53pm March 27, 2025 8:35am apply to single knee, ankle, foot; for foot includes sole/toes/top of foot doxazosin 4 mg oral tablet (20 sources) alpha-Adrenergic Kg Start: 12-03-2020 End: 08-04-2022 take 1 tablet by mouth twice daily Doxazosin 4 mg tablet Discontinued 4 mg PO TWICE A DAY 180 3 June 03, 2022 11:40am August 04, 2022 2:41pm Start: 02-21-2020 End: 12-03-2020 take 1 tablet by mouth twice daily Doxazosin 8 mg tablet Discontinued 0 .ROUTE .COMPLEX 60 10 August 06, 2020 1:37pm December 03, 2020 9:22am TAKE ONE (1) TABLET BY MOUTH TWICE DAILY Start: 02-21-2020 End: 02-21-2020 take 2 tablets by mouth once daily Doxazosin 8 mg tablet Discontinued 16 mg PO DAILY February 21, 2020 10:30am February 21, 2020 10:31am Start: 02-21-2020 End: 02-21-2020 take 16 mg by mouth once daily Doxazosin Discontinued 16 MG PO DAILY February 21, 2020 10:30am February 21, 2020 10:31am Start: 02-28-2019 End: 02-21-2020 take 3 tablets by mouth once daily Doxazosin 8 mg tablet Discontinued 24 mg PO DAILY February 28, 2019 9:09am February 21, 2020 10:30am Start: 02-28-2019 End: 02-21-2020 take 24 mg by mouth once daily Doxazosin Discontinued 24 MG PO DAILY February 28, 2019 9:09am February 21, 2020 10:30am Start: 02-17-2019 End: 02-28-2019 take 2 tablets by mouth once daily Doxazosin 8 mg tablet Discontinued 16 mg PO DAILY 60 0 February 17, 2019 9:58am February 28, 2019 9:10am Start: 02-17-2019 End: 02-28-2019 take 16 mg by mouth once daily Doxazosin Discontinued 16 MG PO DAILY 60 February 17, 2019 9:58am February 28, 2019 9:10am Start: 10-24-2012 End: 02-17-2019 take 1 tablet by mouth once daily Doxazosin 8 mg tablet Discontinued 8 mg PO DAILY 90 3 July 15, 2018 10:04am February 17, 2019 9:58am Comment on above: Take 1 tablet by ariel once daily. doxycycline hyclate 100 mg oral capsule (17 sources) Tetracycline-class Drug Start: 1 End: 1 take 1 capsule by mouth twice daily Doxycycline Hyclate 100 mg capsule Discontinued 100 mg PO TWICE A DAY 20 10 0 November 04, 2020 12:00am November 13, 2020 12:00am November 14, 2020 12:03am Acute sinusitis, unspecified Dulaglutide (20 sources) GLP-1 Receptor Agonist Start: 3 End: Dulaglutide 3 mg/0.5 mL pen injector Discontinued 3 mg SC EVERY WEEK 02 27November 25, 2022 5:06pm March 27, 2025 8:35am Start: 11-25-2022 End: 03-27-2025 Dulaglutide 3 mg/0.5 mL pen injector Discontinued 3 mg SC EVERY WEEK 6 November 25, 2022 6:06pm March 27, 2025 9:35am Start: 11-25-2022 End: 11-25-2022 Dulaglutide 3 mg/0.5 mL pen injector Discontinued 3 mg SC EVERY WEEK 6 November 25, 2022 3:54pm November 25, 2022 5:06pm Start: 11-25-2022 End: 11-25-2022 Dulaglutide 3 mg/0.5 mL pen injector Discontinued 3 mg SC EVERY WEEK 6 November 25, 2022 4:54pm November 25, 2022 6:06pm Start: 10-06-2022 End: 11-25-2022 Dulaglutide 3 mg/0.5 mL pen injector Discontinued 3 mg SC EVERY WEEK 2 October 06, 2022 9:14am November 25, 2022 3:55pm Start: 10-06-2022 End: 11-25-2022 Dulaglutide 3 mg/0.5 mL pen injector Discontinued 3 mg SC EVERY WEEK 2 October 06, 2022 10:14am November 25, 2022 4:55pm Start: 10-06-2022 Dulaglutide Ac tive 3 MG SC EVERY WEEK 2 October 06, 2022 9:14am Start: 04-03-2022 End: 10-06-2022 Dulaglutide 3 mg/0.5 mL pen injector Discontinued 3 mg SC EVERY WEEK 2 April 03, 2022 1:22pm October 06, 2022 9:14am Start: 04-03-2022 End: 10-06-2022 Dulaglutide 3 mg/0.5 mL pen injector Discontinued 3 mg SC EVERY WEEK 2 April 03, 2022 2:22pm October 06, 2022 10:14am Start: 04-03-2022 End: 10-06-2022 Dulaglutide Discontinued 3 M G SC EVERY WEEK 2 April 03, 2022 1:22pm October 06, 2022 9:14am Start: 04-03-2022 Dulaglutide Ac tive 3 MG SC EVERY WEEK 2 April 03, 2022 1:22pm Start: 12-23-2021 End: 04-03-2022 Dulaglutide 3 mg/0.5 mL pen injector Discontinued 3 mg SC EVERY WEEK 2 December 23, 2021 12:23pm April 03, 2022 1:22pm Start: 12-23-2021 End: 04-03-2022 Dulaglutide 3 mg/0.5 mL pen injector Discontinued 3 mg SC EVERY WEEK 2 December 23, 2021 1:23pm April 03, 2022 2:22pm Start: 12-23-2021 End: 04-03-2022 Dulaglutide Discontinued 3 M G SC EVERY WEEK 2 December 23, 2021 12:23pm April 03, 2022 1:22pm Start: 12-04-2020 End: 12-23-2021 Dulaglutide 3 mg/0.5 mL pen injector Discontinued 3 mg SC EVERY WEEK 2 December 04, 2020 2:04pm December 23, 2021 12:23pm Start: 12-04-2020 End: 12-23-2021 Dulaglutide 3 mg/0.5 mL pen injector Discontinued 3 mg SC EVERY WEEK 2 December 04, 2020 3:04pm December 23, 2021 1:23pm Start: 12-04-2020 End: 12-23-2021 Dulaglutide Discontinued 3 M G SC EVERY WEEK 2 December 04, 2020 2:04pm December 23, 2021 12:23pm Start: 12-03-2020 End: 12-04-2020 Dulaglutide 3 mg/0.5 mL pen injector Discontinued 3 mg .ROUTE .COMPLEX 2 December 03, 2020 9:33am December 04, 2020 2:05pm 3 mg; Start: 12-03-2020 End: 12-04-2020 Dulaglutide 3 mg/0.5 mL pen injector Discontinued 3 mg .ROUTE .COMPLEX 2 December 03, 2020 10:33am December 04, 2020 3:05pm 3 mg; Start: 12-03-2020 End: 12-04-2020 Dulaglutide Discontinued 3 M G .ROUTE .COMPLEX 2 December 03, 2020 9:33am December 04, 2020 2:05pm 3 mg; Start: 12-03-2020 End: 12-03-2020 Dulaglutide 3 mg/0.5 mL pen injector Discontinued 3 mg .ROUTE .COMPLEX 2 December 03, 2020 9:09am December 03, 2020 9:34am 3 mg; Start: 12-03-2020 End: 12-03-2020 Dulaglutide 3 mg/0.5 mL pen injector Discontinued 3 mg .ROUTE .COMPLEX 2 December 03, 2020 10:09am December 03, 2020 10:34am 3 mg; Start: 12-03-2020 End: 12-03-2020 Dulaglutide Discontinued 3 M G .ROUTE .COMPLEX 2 December 03, 2020 9:09am December 03, 2020 9:34am 3 mg; Start: 11-14-2019 End: 12-03-2020 inject 1.5 mg by subcutaneous injection every week Dulaglutide (Trulicity) 1.5 mg/0.5 mL pen injector Discontinued 0 .ROUTE .COMPLEX 2 November 05, 2020 3:49pm December 03, 2020 9:13am INJECT 1.5MG (0.5ML) SUBCUTANEOUSLY ONCE WEEKLY Start: 07-15-2018 End: 08-16-2018 Dulaglutide (Trulicity) 1.5 mg/0.5 mL pen injector Discontinued 1.5 mg SC EVERY WEEK 2 July 14, 2018 11:00pm August 16, 2018 10:00am Start: 05-30-2018 End: 07-15-2018 Dulaglutide (Trulicity) 0.75 mg/0.5 mL pen injector Discontinued 0.75 mg SC EVERY WEEK 2 May 29, 2018 11:00pm July 15, 2018 9:59am 0.85 ml exenatide 2.35 mg/ml auto-injector (20 sources) GLP-1 Receptor Agonist Start: 07-20-2018 End: 11-14-2019 Exenatide Microspheres (Bydureon Bcise) 2 mg/0.85 mL auto-injector Discontinued 0 .ROUTE .COMPLEX 3.4 July 21, 2019 2:29pm November 14, 2019 11:00am INJECT 1 SYRINGE EVERY WEEK Comment on above: Q7D furosemide 40 mg oral tablet (20 sources) Loop Diuretic Start: 07-29-2022 End: 11-25-2022 take 1 tablet by mouth twice daily Furosemide 40 mg tablet Discontinued 40 mg PO TWICE A DAY 60 30 0 August 04, 2022 2:46pm August 19, 2022 1:56pm Start: 07-29-2022 End: 08-04-2022 take 1 tablet by mouth once daily in the morning Furosemide 40 mg tablet Discontinued 40 mg PO EVERY MORNING 30 July 29, 2022 12:00am November 15th, 2022 2:46pm Comment on above: Take 40 mg by mouth twice daily. glipiZIDE 10 mg oral tablet (20 sources) Sulfonylurea Start: End: 2 take 1 tablet by mouth once daily Glipizide 10 mg tablet Discontinued 10 mg PO DAILY 90 1 April 14, 2022 9:37am August 04, 2022 2:42pm Start: 11-14-2019 End: 04-01-2021 take 1 tablet by mouth twice daily Glipizide 10 mg tablet Discontinued 0 .ROUTE .COMPLEX 180 October 08, 2020 8:53am April 01, 2021 9:56am TAKE ONE (1) TABLET BY MOUTH TWICE DAILY Comment on above: Take 10 mg by mouth once daily. glipiZIDE 2.5 mg / metFORMIN hydrochloride 500 mg oral tablet (20 sources) Biguanide, Sulfonylurea Start: 05-27-2018 End: 11-14-2019 Glipizide-Metformin 2.5-500 mg tablet Discontinued 2 {tbl} PO TWICE A DAY 360 3 May 24, 2019 8:18am November 14, 2019 11:21am Start: 05-27-2018 End: 11-14-2019 take 2 tablets by mouth twice daily Glipizide-Metformin Discontinued 2 TABLET PO TWICE A DAY 360 May 24, 2019 8:18am November 14, 2019 11:21am Start: 10-24-2012 take 2 tablets by mo [facility] once daily glipiZIDE-metFORMIN 2.5-500 mg per tablet Indications: Diabetes mellitus, type 2 (HCC) Take 2 tablets by mouth once daily. 180 tablet 1 10/24/2012 Active Comment on above: Take 2 tablets by mo [facility] once daily. hydrALAZINE hydrochloride 25 mg oral tablet (20 sources) Arteriolar Vasodilator Start: 2020 End: 2021 take 1 tablet by mouth three times daily Hydralazine 25 mg tablet Discontinued 25 mg PO THREE TIMES A DAY 90 April 24, 2022 3:41pm July 28, 2022 10:00am Comment on above: Take 25 mg by mouth three times daily. hydroCHLOROthiazide 25 mg oral tablet (20 sources) Thiazide Diuretic Start: 2021 End: 2021 take 1 tablet by mouth once daily Hydrochlorothiazide 25 mg Tablet Discontinued 25 mg PO DAILY July 31, 2022 12:00am August 19, 2022 1:48pm Start: 07-15-2018 End: 07-29-2022 take 1 tablet by mouth once daily Hydrochlorothiazide 25 mg tablet Discontinued 25 mg PO DAILY 90 3 May 12, 2022 7:49am July 29, 2022 10:19am Comment on above: Take 25 mg by mouth once daily. hydrOXYzine hydrochloride 25 mg oral tablet (17 sources) Antihistamine Start: 06-07-20 End: 08-15-20 take 1 tablet by mouth three to four times daily as needed Hydroxyzine Hcl 25 mg tablet Discontinued 25 mg PO 3 to 4 times per day as needed for itching 30 0 June 06, 2019 11:00pm August 15, 2019 11:28am lisinopril 40 mg oral tablet (20 sources) Angiotensin Converting Enzyme Inhibitor Start: 07-31-20 End: 08-19-20 take 1 tablet by mouth once daily Lisinopril 40 mg Tablet Discontinued 40 mg PO DAILY July 31, 2022 12:00am August 19, 2022 1:48pm On Hold: Resume on 08/12/22. Start: 05-01-2019 End: 09-25-2021 take 1 tablet by mouth once daily Lisinopril 40 mg tablet Discontinued 0 .ROUTE .COMPLEX 30 10 November 05, 2020 3:49pm September 25, 2021 9:58am TAKE (1) TABLET BY MOUTH DAILY Start: 07-15-2018 End: 05-01-2019 take 1 tablet by mouth twice daily Lisinopril 40 mg tablet Discontinued 40 mg PO TWICE A DAY 180 July 15, 2018 4:23pm May 01, 2019 11:01am Start: 05-27-2018 End: 07-15-2018 take 1 tablet by mouth once daily Lisinopril 40 mg tablet Discontinued 40 mg PO DAILY 90 July 15, 2018 10:04am July 15, 2018 4:23pm Start: 08-22-2012 take 2 tablets by mo [facility] twice daily lisinopril 20 mg tablet Indications: Type II or unspecified type diabetes mellitus without mention of complication, uncontrolled , Essential hypertension, benign Take 2 tablets by mouth twice daily. 120 tablet 5 08/22/2012 Active Comment on above: Take 2 tablets by mo [facility] twice daily. 24 hr metoprolol succinate 25 mg extended release oral tablet (20 sources) beta-Adrenergic Kg Start: 10-05-2022 End: 03-27-2025 take 1 tablet by mouth once daily Metoprolol Succinate 25 mg tablet extended release 24 hr Discontinued 0 .ROUTE .COMPLEX 90 0 November 25, 2022 3:54pm March 27, 2025 8:36am TAKE 1 TABLET BY MOUTH ONCE DAILY Start: 07-29-2022 End: 08-04-2022 take 1 tablet by mouth once daily Metoprolol Succinate 25 mg tablet extended release 24 hr Discontinued 25 mg PO DAILY 90 1 July 29, 2022 12:00am August 04, 2022 2:44pm Comment on above: Take 25 mg by mouth once daily. Prednisone dose pack (17 sources) Start: 06-07-2019 End: 08-15-2019 Prednisone dose pack Discontinued PO 0 June 06, 2019 11:00pm August 15, 2019 11:28am Start: 06-07-2019 End: 08-15-2019 Prednisone dose pack Discont inued PO 0 June 07, 2019 12:00am August 15, 2019 12:28pm Start: 06-07-2019 End: 08-15-2019 Prednisone dose pack Discont inued PO June 06, 2019 11:00pm August 15, 2019 11:28am traMADol hydrochloride 50 mg oral tablet (20 sources) Opioid Agonist Start: 05-14-2022 End: 08-04-2022 take 1 tablet by mouth every twelve hours as needed for pain Tramadol 50 mg tablet Discontinued 50 mg PO Q12H as needed for pain 14 0 May 13, 2022 11:00pm August 04, 2022 2:44pm take 1 tablet by ariel th every six hours as needed traMADol (ULTRAM) 50 mg tablet Take 50 m g by mouth every 6 hours as needed for pain. Active Comment on above: Take 50 mg by mouth every 6 hours as needed for pain. traZODone hydrochloride 50 mg oral tablet (20 sources) Serotonin Reuptake Inhibitor Start: End: take 1 tablet by mouth at bedtime as needed Trazodone 50 mg tablet Discontinued 50 mg PO AT BEDTIME as needed for insomnia 30 2 November 25, 2022 3:55pm March 27, 2025 8:36am Start: 12-31-2021 End: 07-28-2022 take 1 tablet by mouth at bedtime as needed Trazodone 50 mg tablet Discontinued 50 mg PO AT BEDTIME as needed for insomnia 30 February 12, 2022 2:28pm July 28, 2022 10:00am Comment on above: Take 50 mg by mouth daily at bedtime. Problems Active Problems Problem Classification Problem Date Documented Da te Episodic/Chronic Cardiac dysrhythmias (20 sources) Atrial fibrillation; Translations: [Unspecified atrial fibrillation] Onset: 04-27-2025 Chronic Chronic ulcer of skin (17 sources) Non-pressure chronic ulcer of other part of right foot with fat layer exposed; Translations: [Ulcer of right foot with fat layer exposed] 07-21-2018 Chronic Conduction disorders (20 sources) Cardiac defibrillator in situ; Translations: [Presence of automatic (implantable) cardiac defibrillator] Onset: 05-18-2025 03-27-2025 Chronic Congestive heart failure; nonhypertensive (20 sources) Acute exacerbation of chronic congestive heart failure; Translations: [Heart failure, unspecified] Chronic Diabetes mellitus with complications (20 sources) Diabetic foot ulcer; Translations: [Type 2 diabetes mellitus with foot ulcer] 07-21-2018 Chronic Diabetes mellitus without complication (20 sources) Type 2 diabetes mellitus; Translations: [Type 2 diabetes mellitus without complications] Onset: 08-13-2008 09-15-2021 Chronic Disorders of lipid metabolism (20 sources) Hyperlipidemia; Translations: [Hyperlipidemia, unspecified] Onset: 05-30-2025 04-01-2021 Chronic E Codes: Fall (17 sources) Fall in home; Translations: [Unspecified fall, initial encounter] 05-20-2022 Episodic Essential hypertension (20 sources) Benign essential hypertension; Translations: [Essential (primary) hypertension] Onset: 08-10-2008 08-13-2008 Chronic Osteoarthritis (2 sources) Scapholunate advanced collapse; 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, left wrist] Chronic Other diseases of kidney and ureters (17 sources) Acute renal insufficiency; Translations: [Disorder of kidney and ureter, unspecified] 08-11-2022 Episodic Other diseases of kidney and ureters (14 sources) Disorder of kidney and ureter, unspecified; Translations: [Unspecified disorder of kidney and ureter] Episodic Other fractures (17 sources) Compression fracture of lumbar spine; Translations: [Wedge compression fracture of unspecified lumbar vertebra, initial encounter for closed fracture] 05-20-2022 Episodic Other gastrointestinal disorders (2 sources) Swelling of inguinal region; Translations: [Other intra-abdominal and pelvic swelling, mass and lump] Episodic Other gastrointestinal disorders (1 source) Other intra-abdominal and pelvic swelling, mass and lump; Translations: [Groin swelling] Onset: 08-20-2022 Episodic Other injuries and conditions due to external causes (17 sources) Delayed healing of wound; Translations: [Other injury of unspecified body region, subsequent encounter] 07-21-2018 Episodic Other lower respiratory disease (17 sources) Orthopnea; Translations: [Orthopnea] 07-29-2022 Episodic Other lower respiratory disease (17 sources) Dyspnea; Translations: [Dyspnea, unspecified] 07-29-2022 Episodic Other lower respiratory disease (8 sources) Dyspnea, unspecified; Translations: [Other respiratory abnormalities] Episodic Other lower respiratory disease (14 sources) Orthopnea; Translations: [Orthopnea] Episodic Other male genital disorders (15 sources) Edema of scrotum; Translations: [Other specified disorders of the male genital organs] 08-11-2022 Episodic Other male genital disorders (6 sources) Other specified disorders of the male genital organs; Translations: [Edema of male genital organs] Episodic Other nervous system disorders (17 sources) Neuropathy; Translations: [Polyneuropathy, unspecified] 07-21-2018 Chronic Other non-traumatic joint disorders (1 source) Pain of left wrist; Translations: [Pain in left wrist] Episodic Other non-traumatic joint disorders (17 sources) Carpal instability; Translations: [Other instability, left wrist] 05-20-2022 Episodic Other non-traumatic joint disorders (17 sources) Hip pain; Translations: [Pain in left hip] 07-21-2018 Episodic Other nutritional; endocrine; and metabolic disorders (5 sources) Morbid obesity; Translations: [Morbid (severe) obesity due to excess calories] Onset: 08-10-2008 08-13-2008 Chronic Tessie-; endo-; and myocarditis; cardiomyopathy (except that caused by tuberculosis or sexually transmitted disease) (20 sources) Cardiomyopathy; Translations: [Other cardiomyopathies] Onset: 05-18-2025 Chronic Residual codes; unclassified (5 sources) Obstructive sleep apnea syndrome; Translations: [Obstructive sleep apnea (adult) (pediatric)] 09-15-2021 Chronic Residual codes; unclassified (17 sources) Sleep apnea; Translations: [Sleep apnea, unspecified] 07-21-2018 Chronic Residual codes; unclassified (17 sources) Mixed sleep apnea; Translations: [Other sleep apnea] 09-02-2022 Chronic Residual codes; unclassified (2 sources) Other sleep apnea; Translations: [Other organic sleep apnea] Chronic Residual codes; unclassified (17 sources) Bilateral lower limb edema; Translations: [Localized edema] 07-29-2022 Episodic Residual codes; unclassified (17 sources) Edema of lower extremity; Translations: [Localized edema] 07-21-2018 Episodic Residual codes; unclassified (20 sources) Localized edema; Translations: [Edema] Episodic Skin and subcutaneous tissue infections (17 sources) Cellulitis of right ankle; Translations: [Cellulitis of right lower limb] 11-04-2020 Episodic Sprains and strains (17 sources) Strain of muscle and/or tendon of lower leg; Translations: [Strain of unspecified muscle and tendon at ankle and foot level, right foot, initial encounter] 11-04-2020 Episodic Past or Other Problems Problem Classification Problem Date Documented Da te Episodic/Chronic Genitourinary symptoms and ill-defined conditions (5 sources) Proteinuria; Translations: [Proteinuria, unspecified] Onset: 10-24-2012 10-24-2012 Episodic Residual codes; unclassified (2 sources) Family history of diabetes mellitus; Translations: [Family history of diabetes mellitus] Onset: 08-10-2008 Resolved: 10-24-2012 10-24-2012 Episodic Unclassified (17 sources) history of right flank surgery 04-16-2022 Comment on above: 1981, to remove a pi katia of metal that was lodged in. Results Test Name Value Interpretation Reference Range Facility Bilirubin directOrdered By: David Cardoza on 06-18-2025 Bilirubin.direct [Mass/Vol] 0.24 mg/dL 0.00-0.30 [facility] Bilirubin, totalOrdered By: David Cardoza on 06-18-2025 Bilirubin [Mass/Vol] 0.52 mg/dL 0.00-1.30 [facility] Calculated very low density lipoprotein (VLDL) cholesterol measurementOrdered By: David Cardoza on 06-18-2025 Calculated very low density lipoprotein (VLDL) cholesterol measurement 13 mg/dL 5-40 [facility] LDL calc ser/plasOrdered By: David Cardoza on 06-18-2025 Cholesterol in LDL [Mass/Vol] 40 mg/dL [facility] Comment on above: Ivnyybglip=744-760 m g/dL & Higher Lntn=023 mg/dL or greaterFriedwald Equation for LDL-C Laboratory - Chemistry and C hemistry - challengeOrdered By: David Cardoza on 06-18-2025 AST [Catalytic activity/Vol] 22 U/L <38 [facility] Lipid Profileon 06-18-2025 CHOL:HDL 2.41 Normal [facility] Comment on above: Order Comment: ADRYAN Garcia SEND LIPID RESULTS TO [facility] Performed By: #### L 500.4100, L500.3400 #### [facility] [address] [place], [address] Cholesterol [Mass/Vol] 90 mg/dL Normal <=200 [facility] Comment on above: Order Comment: ADRYAN Garcia SEND LIPID RESULTS TO [facility] Result Comment: Chol esterol level, Desirable <200 mg/dL Borderline high cholesterol 200-239 mg/dL High cholesterol >=240 mg/dL Recommendations of the NCEP Adult Treatment Panel for the following risk-cutoff thresholds for the [place] population. Performed By: #### L 500.4100, L500.3400 #### [facility] [address] [place], [address] Cholesterol in HDL [Mass/Vol] 37 mg/dL Low [facility] Comment on above: Order Comment: ADRYAN Garcia SEND LIPID RESULTS TO [facility] Result Comment: Tamiko onal Cholesterol Education Program (NCEP) guidelines: <40 mg/dL: Low HDL-cholesterol (major risk factor for CHD) >= 60 mg/dL: High HDL-cholesterol (negative risk factor for CHD) HDL-cholesterol is affected by a number of factors, e.g. smoking, exercise, hormones, sex and age. Performed By: #### L 500.4100, L500.3400 #### [facility] [address] [place], [address] Cholesterol in LDL [Mass/Vol] 40 mg/dL Normal [facility] Comment on above: [facility]: [facility] Result Comment: Bord mxbvcx=603-791 mg/dL Higher Khfc=925 mg/dL or greater Friedwald Equation for LDL-C Performed By: #### L 500.4100, L500.3400 #### [facility] [address] [place], [address] Cholesterol in VLDL [Mass/Vol] 13 mg/dL Normal 5-40 [facility] Comment on above: Order Comment: [facility] E SEND LIPID RESULTS TO [facility] Performed By: #### L 500.4100, L500.3400 #### [facility] [address] [place], [address] Triglyceride [Mass/Vol] 64 mg/dL Normal [facility] Comment on above: Order Comment: [facility] E SEND LIPID RESULTS TO [facility] Result Comment: The drugs N-Acetylcysteine and Metamizole may falsely depress this assay. Normal range: <150 mg/dL Borderline High: 150-199 mg/dL High: 200-499 mg/dL Very High: >500 mg/dL Performed By: #### L 500.4100, L500.3400 #### [facility] [address] [place], [address] Liver Profileon 06-18-2025 Albumin [Mass/Vol] 4.0 g/dL Normal 3.4-4.8 [facility] Comment on above: Order Comment: [facility] E SEND LIPID RESULTS TO [facility] Performed By: #### L 500.4100, L500.3400 #### [facility] [address] [place], [address] ALK PHOS 181 U/L High 40-129 [facility] Comment on above: Order Comment: [facility] E SEND LIPID RESULTS TO [facility] Performed By: #### L 500.4100, L500.3400 #### [facility] [address] [place], [address] ALT [Catalytic activity/Vol] 15 U/L Normal <=46 [facility] Comment on above: Order Comment: PLEAS E SEND LIPID RESULTS TO [facility] Performed By: #### L 500.4100, L500.3400 #### [facility] [address] [place], [address] AST [Catalytic activity/Vol] 22 U/L Normal <=37 [facility] Comment on above: Order Comment: PLEAS E SEND LIPID RESULTS TO [facility] Performed By: #### L 500.4100, L500.3400 #### [facility] [address] [place], [address] Bilirubin [Mass/Vol] 0.52 mg/dL Normal 0.00-1.30 [facility] Comment on above: Order Comment: PLEAS E SEND LIPID RESULTS TO [facility] Performed By: #### L 500.4100, L500.3400 #### [facility] [address] [place], [address] Bilirubin.direct [Mass/Vol] 0.24 mg/dL Normal 0.00-0.30 [facility] Comment on above: Order Comment: PLEAS E SEND LIPID RESULTS TO [facility] Performed By: #### L 500.4100, L500.3400 #### [facility] [address] [place], [address] Globulin (S) [Mass/Vol] 3.5 g/dL Normal 2.2-4.2 [facility] Comment on above: Order Comment: PLEAS E SEND LIPID RESULTS TO [facility] Performed By: #### L 500.4100, L500.3400 #### [facility] [address] [place], [place], [id number] T PROT 7.5 g/dL Normal 5.9-8.4 [facility] Comment on above: Order Comment: ADRYAN Garcia SEND LIPID RESULTS TO [facility] Performed By: #### L 500.4100, L500.3400 #### [facility] [address] [place], [place], [id number] Microalb:Creat Ratio,Random URon 06-18-2025 Creatinine [Mass/Vol] 92.40 mg/dL Normal 39.00-259.00 [facility] Comment on above: Performed By: #### L 502.0250 #### [facility] [address] [place], [place], [id number] MALB:CREAT 32.6 mg/g CRE High <30 mg/g CRE [facility] Comment on above: Performed By: #### L 502.0250 #### [facility] [address] [place], [place], [id number] MICROALBUMIN,UR 30.1 mg/L Normal <20 mg/L [facility] Comment on above: Performed By: #### L 502.0250 #### [facility] [address] [place], [place], [id number] Random urine creatinine eliane urement (mass/volume)Ordered By: Davidson Kulkarni on 06-18-2025 Creatinine Unsp time (U) [Mass/Vol] 92.40 mg/dL 39.00-259.00 [facility] Screening total cholesterol/ high density lipoprotein (HDL) cholesterol ratioOrdered By: David Cardoza on 06-18-2025 Cholesterol.total/Choles terol in HDL [Mass ratio] 2.41 {ratio} [facility] Serum globulin measurementOr dered By: David Cardoza on 06-18-2025 Globulin (S) [Mass/Vol] 3.5 g/dL 2.2-4.2 [facility] Serum or plasma alanine torres otransferase (ALT) measurementOrdered By: David Cardoza on 06-18-2025 ALT [Catalytic activity/Vol] 15 U/L <47 [facility] Serum or plasma albumin eliane urement (mass/volume)Ordered By: David Cardoza on 06-18-2025 Albumin [Mass/Vol] 4.0 g/dL 3.4-4.8 [facility] Serum or plasma alkaline grupo sphatase measurementOrdered By: David Cardoza on 06-18-2025 ALP [Catalytic activity/Vol] 181 U/L High 40-129 [facility] Serum or plasma cholesterol in HDL measurement (mass/volume)Ordered By: David Cardoza on 06-18-2025 Cholesterol in HDL [Mass/Vol] 37 mg/dL Low >40 [facility] Comment on above: National Cholesterol Education Program (NCEP) guidelines:<40 mg/dL: Low HDL-cholesterol (major risk factor for CHD)>= 60 mg/dL: High HDL-cholesterol (negative risk factor for CHD)HDL-cholesterol is affected by a number of factors, e.g. smoking, exercise, hormones, sex and age. Serum or plasma cholesterol measurement (mass/volume)Ordered By: David Cardoza on 06-18-2025 Cholesterol [Mass/Vol] 90 mg/dL <201 [facility] Comment on above: Cholesterol level, D esirable <200 mg/dLBorderline high cholesterol 200-239 mg/dLHigh cholesterol >=240 mg/dLRecommendations of the NCEP Adult Treatment Panel for the following risk-cutoff thresholds for the [place] population. Total proteinOrdered By: Michael Cardoza on 06-18-2025 Protein [Mass/Vol] 7.5 g/dL 5.9-8.4 [facility] Triglycerides measurementOrd ered By: David Cardoza on 06-18-2025 Triglyceride [Mass/Vol] 64 mg/dL <199 [facility] Comment on above: The drugs N-Acetylcy steine and Metamizole may falsely depress this assay. Normal range: <150 mg/dLBorderline High: 150-199 mg/dLHigh: 200-499 mg/dLVery High: >500 mg/dL Urine albumin measurement wi detection limit of 20 mg/L or less (mass/volume)Ordered By: Davidson Kulkarni on 06-18-2025 Albumin DL <= 20 mg/L (U) [Mass/Vol] 30.1 mg/L <20 mg/L [facility] Cardiology Visit Reporton Cardiology Visit Report [facility] [address] [place] [address] OFFICE VISIT Date of Service: 05/30/25 MR#: [id number] Acct: [id number] Name: ASH REGALADO Rep #: [id number] : 1960 Provider: CLIFFORD Espana Age/Sex: 64/M Location: [facility] Status: Signed HPI HPI History of Present Illness Details: Ash Regalado is a 64-year-old male who presents to office today for follow-up for monitoring his cardiovascular health. Back in 2021, patient presented to the emergency room with shortness of breath, orthopnea and lower extremity edema. Patient was noted to be in atrial fibrillation with RVR. His echocardiogram demonstrated decreased ejection fraction at 20%. His heart catheterization demonstrated normal coronary arteries. It was felt that his cardiomyopathy was nonischemic and likely viral related as he recently had COVID-19. Patient was discharged home on GDMT which was then limited secondary to renal function. Patient has a history of SABA and does not use CPAP. Patient has a history of hypertension. Patient was last seen in our office July 2022. Shortly after that time, he moved to [place] and established with cardiology there. He underwent ICD placement June 2023. He has history of paroxysmal supraventricular tachycardia. In September 2024, patient was noted to have a VT episode treated with successful ATP on 09/30/2024 at 12:41 AM, device aborted shock. In December 2023, it was noted that his ejection fraction had improved to 45%. His echocardiogram in October 2024 demonstrated a slight decrease in his ejection fraction in which his GDMT was adjusted. Repeat echocardiogram March 2025 demonstrated a recovery in his ejection fraction back to his baseline of 45%. Further ROS below Upon presentation today, patient reports one incidence of dizziness this summer described as becoming lightheaded while not doing anything in which he had to sit down and it resolved. He notices mild lower extremity edema that is unchanged from prior and indentation from socks are noted to resolve overnight. Further ROS below. Intake Vital Signs 03/27/25 09:45 05/30/25 07:54 05/30/25 14:22 Height 6 ft 6 ft Weight: 251 lb BMI 34.0 BP 150/100 H 150/82 H Blood Pressure Location Lt brachial Lt brachial Position Sitting Sitting Respiration 18 Pulse 74 Pulse Source Monitor Intake Visit Reasons: 2 M [employer] Required: No Is patient in pain?: No Allergies No Known Allergies Allergy (Verified 05/30/25 14:04) Medications ???Medication ???Instructions ???Recorded ???Confirmed ???Type blood pressure monitor (Blood #1 ea 11/14/19 05/30/25 Rx Pressure Kit) apixaban 5 mg tablet (Eliquis) 5 mg PO BID #180 tabs 11/25/2207/14 Rx blood sugar diagnostic (OneTouch #100 ea 11/25/22 05/30/25 Rx Verio test strips) blood-glucose meter (OneTouch #1 ea 11/25/22 05/30/25 Rx Verio Reflect Start kit) cary.stocking,knee, reg,xlrg #2 ea 11/25/22 05/30/25 Rx empagliflozin 25 mg tablet 25 mg PO DAILY #90 tabs 11/25/22 0 05/30/25 Rx furosemide 40 mg tablet 40 mg PO BID #60 tabs 11/25/2207/14 Rx lancets 28 gauge (FreeStyle #100 ea 11/25/22 05/30/25 Rx Lancets) sacubitril 49 mg-valsartan 51 mg 1 tab PO BID #60 tabs 11/25/2207/14 Rx tablet (Entresto) atorvastatin 40 mg tablet 40 mg PO QDAY 03/27/25 05/30/25 Hi story carvedilol 25 mg tablet 25 mg PO QPM 03/27/25 05/30/25 His tory carvedilol 25 mg tablet 50 mg PO QAM 03/27/25 05/30/25 His tory gabapentin 100 mg capsule 100 mg PO TID 03/27/25 05/30/25 Hi story magnesium oxide 400 mg PO QDAY 03/27/25 05/30/25 H istory mecobalamin (vitamin B12) 1,000 1,000 mcg PO QDAY 03/27/25 5 History mcg chewable tablet potassium chloride 10 mEq 10 meq PO BID 03/27/25 05/30/25 Hi story tablet,extended release semaglutide 2 mg/dose (8 mg/3 mL) mg subcut 03/27/25 05/30/25 Histo ry subcutaneous pen injector (Ozempic) vit k2 + D3 PO DAILY 03/27/25 05/30/25 History zinc 22 mg tablet mg PO QDAY 03/27/25 05/30/25 Histo ry metformin 500 mg tablet 500 mg PO QDAY 05/30/25 05/30/25 H istory Ejection fraction %: 45 Have you fallen in the past year?: No PFSH Medical History Cardiac defibrillator in place History of cardioversion Nonischemic cardiomyopathy Edema of scrotum COVID-19 ( 06/29/22) Acute renal insufficiency Acute exacerbation of congestive heart failure Bilateral lower extremity edema Dyspnea Orthopnea Encounter for preventative adult health care examination Hyperlipidemia Neuropathy Diabetes Hypertension Surgical History history of right flank surgery History of tonsillectomy (more content not included)... Normal [facility] Pacemaker Checkon 04-10-2025 Pacemaker Check [facility] [facility] [address] [place] [address] Pacemaker Check Date of Service: 04/10/25 115 MR#: [id number] Acct: [id number] Name: ASH REGALADO Heriberto Rep #: [id number] : 1960 From: Rocio Smith Age/Sex: 64/M Location: [facility] [place] Status: Signed Billing Codes ICD Device Billin ICD Dev Prog Eval, Multi Assessment and Plan Assessment and Plan (1) Nonischemic cardiomyopathy: Status: Chronic (2) Cardiac defibrillator in place: Status: Chronic 04/10/25 1152 Date Rocio Moreno Signature: Date (if applicable) CC: Normal [facility] Echocardiogram study reportO rdered By: Cody Hensley on 04-01-2025 Study report [facility] [address] [place] [address] Echo Complete 03/30/25 1040 MR#: [id number] Acct: [id number] Name: ASH REGALADO Rep #:[id number] : 1960 64 From: Cody Lam Attending Dr: CLIFFORD Espana atus: REG CLI Ordering Dr: David Cardoza Date: 03/30/25 Location: CVS Sex: M C Admitted: Reason For Study : CHF Procedure This was a 2D Doppler, Color Flow transthoracic echocardiogram. Exam performed in department. Left Ventricle Normal LV size. Mild concentric left ventricular hypertrophy. Left ventricular systolic function is normal. The left ventricular ejection fraction is 45 %. Stage 1 diastolic dysfunction. Right Ventricle Normal RV size. Normal systolic function. Tricuspid Valve Normal tricuspid valve. Mild tricuspid valve insufficiency. Pulmonary artery systolic pressure is 22 mmHg. Aortic Valve Trisinus/trileaflet aortic valve. Mild focal aortic valve calcification. Pulmonic Valve Normal pulmonic valve. Great Vessels Mildly dilated aortic root. The pulmonary artery is normal size. Normal inferiorvena cava. Pericardium/Pleural No pericardial effusion. MMode/2D Measurements & Calculations LVIDd: 5.8 cm IVSd: 1.2 cm Ao root diam: 3.8 cm LVIDs: 4.6 cm LVPWd: 1.2 cm RVDd: 3.6 cm FS: 20.3 % LAV(MOD-bp): 56.5 ml LVAd ap4: 34.3 cm2 LVAd ap2: 26.9 cm2 LAV(MOD-bp) Indexed: 21.2 ml/m2 LVLd ap4: 9.1 cm LVLd ap2: 7.9 cm LAV(MOD-sp2): 59.3 ml EDV(MOD-sp4): 105.9 ml EDV(MOD-sp2): 77.4 ml LAV(MOD-sp4): 52.5 ml EDV(sp4-el): 109.5 ml EDV(sp2-el): 77.3 ml LVAs ap4: 24.8 cm2 LVAs ap2: 19.1 cm2 LVLs ap4: 8.1 cm LVLs ap2: 7.2 cm ESV(MOD-sp4): 63.2 ml ESV(MOD-sp2): 44.2 ml ESV(sp4-el): 65.1 ml ESV(sp2-el): 42.9 ml EF(MOD-sp4): 40.3 % EF(MOD-sp2): 42.9 % EF(sp4-el): 40.5 % SV(MOD-sp4): 42.7 ml SV(MOD-sp2): 33.2 ml SV(sp4-el): 44.4 ml SI(MOD-sp4): 16.0 ml/m2 SI(MOD-sp2): 12.5 ml/m2 LA dimension(2D): 4.4 cm LA A4 area: 18.9 cm2 RA A4 area: 15.4 cm2 TAPSE: 1.3 cm Time Measurements MV dec time: 0.29 sec Doppler Measurements & Calculations MV E max usha: 61.6 cm/sec Lat Peak E' Usha: 5.6 cm/sec Med Peak E' Usha: 6.8 cm/sec MV A max usha: 78.3 cm/sec E/E' lat: 10.9 E/E' med: 9.0 MV E/A: 0.79 Ao V2 max: 94.6 cm/sec LV V1 max: 72.1 cm/sec PA V2 max: 96.1 cm/sec Ao max P.6 mmHg LV V1 max P.1 mmHg TR max usha: 214.3 cm/sec TR max P.4 mmHg ECHO/Echo Complete Interpretation Summary Normal LV size. Mild concentric left ventricular hypertrophy. Left ventricular systolic function is normal. The left ventricular ejection fraction is 45 %. Stage 1 diastolic dysfunction. Pulmonary artery systolic pressure is 22 mmHg. Ordering Physician: David Cardoza Referring Physician: DAVIDSON KULKARNI Performed By: Pat Reyes RDCS 04/01/25 1609 Date _ Cody Hensley MD CC: CLIFFORD Espana; Davidson [facility] ALLERGIST/IMMUNOLOGIST-C Beam ~ Date Dictated: 03/30/25 1040 Date Transcribed: 04/01/25 160 Net Web Developer: Signed [facility] Work Phone: Echo Completeon 03-30-2025 Echo Complete [facility] [address] [facility] [place] [address] Echo Complete 03/30/25 1040 MR#: [id number] Acct: [id number] Name: ASH REGALADO Rep #: [id number] : 1960 64 From: Cody Hensley MD Attending Dr: CLIFFORD Espana Status: REG CL I Ordering Dr: David Cardoza Date: 03/30/25 Location: [facility] Sex: M C Admitted: Reason For Study : CHF Procedure This was a 2D Doppler, Color Flow transthoracic echocardiogram. Exam performed in department. Left Ventricle Normal LV size. Mild concentric left ventricular hypertrophy. Left ventricular systolic function is normal. The left ventricular ejection fraction is 45 %. Stage 1 diastolic dysfunction. Right Ventricle Normal RV size. Normal systolic function. Tricuspid Valve Normal tricuspid valve. Mild tricuspid valve insufficiency. Pulmonary artery systolic pressure is 22 mmHg. Aortic Valve Trisinus/trileaflet aortic valve. Mild focal aortic valve calcification. Pulmonic Valve Normal pulmonic valve. Great Vessels Mildly dilated aortic root. The pulmonary artery is normal size. Normal inferior vena cava. Pericardium/Pleural No pericardial effusion. MMode/2D Measurements Calculations LVIDd: 5.8 cm IVSd: 1.2 cm Ao root diam: 3.8 cm LVIDs: 4.6 cm LVPWd: 1.2 cm RVDd: 3.6 cm FS: 20.3 % LAV(MOD-bp): 56.5 ml LVAd ap4: 34.3 cm2 LVAd ap2: 26.9 cm2 LAV(MOD-bp) Indexed: 21.2 ml/m2 LVLd ap4: 9.1 cm LVLd ap2: 7.9 cm LAV(MOD-sp2): 59.3 ml EDV(MOD-sp4): 105.9 ml EDV(MOD-sp2): 77.4 ml LAV(MOD-sp4): 52.5 ml EDV(sp4-el): 109.5 ml EDV(sp2-el): 77.3 ml LVAs ap4: 24.8 cm2 LVAs ap2: 19.1 cm2 LVLs ap4: 8.1 cm LVLs ap2: 7.2 cm ESV(MOD-sp4): 63.2 ml ESV(MOD-sp2): 44.2 ml ESV(sp4-el): 65.1 ml ESV(sp2-el): 42.9 ml EF(MOD-sp4): 40.3 % EF(MOD-sp2): 42.9 % EF(sp4-el): 40.5 % SV(MOD-sp4): 42.7 ml SV(MOD-sp2): 33.2 ml SV(sp4-el): 44.4 ml SI(MOD-sp4): 16.0 ml/m2 SI(MOD-sp2): 12.5 ml/m2 LA dimension(2D): 4.4 cm LA A4 area: 18.9 cm2 RA A4 area: 15.4 cm2 TAPSE: 1.3 cm Time Measurements MV dec time: 0.29 sec Doppler Measurements Calculations MV E max usha: 61.6 cm/sec Lat Peak E' Usha: 5.6 cm/sec Med Peak E' Usha: 6.8 cm/sec MV A max usha: 78.3 cm/sec E/E' lat: 10.9 E/E' med: 9.0 MV E/A: 0.79 Ao V2 max: 94.6 cm/sec LV V1 max: 72.1 cm/sec PA V2 max: 96.1 cm/sec Ao max P.6 mmHg LV V1 max P.1 mmHg TR max usha: 214.3 cm/sec TR max P.4 mmHg ECHO/Echo Complete Interpretation Summary Normal LV size. Mild concentric left ventricular hypertrophy. Left ventricular systolic function is normal. The left ventricular ejection fraction is 45 %. Stage 1 diastolic dysfunction. Pulmonary artery systolic pressure is 22 mmHg. Ordering Physician: David Cardoza Referring Physician: DAVIDSON KULKARNI Performed By: Pat Reyes RDCS 04/01/25 1609 Date Cody Hensley MD CC: CLIFFORD Espana; Davidson [facility] ALLERGIST/IMMUNOLOGIST-C Beam Date Dictated: 03/30/25 1040 Date Transcribed: 04/01/25 1608 Net Web Developer: Signed [facility] Absolute lymphocyte countOrd ered By: Davidcarol Cardoza on 03-27-2025 Lymphocytes Auto (Unsp spec) [#/Vol] 1.73 10*3/uL 0.83-4.51 [facility] Absolute neutrophil countOrd ered By: [facility] [employer] on 03-27-2025 Neutrophils (Bld) [#/Vol] 2.4 10*3/uL 2.0-7.7 [facility] Anion gap in Serum or Plasma Ordered By: David Cardoza on 03-27-2025 Anion gap [Moles/Vol] 9 mmol/L - [facility] Automated lymphocyte count a s percentage of total leukocytesOrdered By: Davidcarol Cardoza on 03-27-2025 Lymphocytes/100 WBC Auto (Unsp spec) 36.2 % [facility] BUN/creatinine ratioOrdered By: Davidcarol Cardoza on 03-27-2025 Urea nitrogen/Creatinine [Mass ratio] 15.7 mg/mg - [facility] Basic Metabolic Profile (BMP )on 03-27-2025 BUN/CRE 15.7 RATIO Normal - [facility] Comment on above: Performed By: #### L 500.2500, L100.0100 #### [facility] [address] [place], [address] Calcium [Mass/Vol] 9.6 mg/dL Normal 7.6-11.0 [facility] Comment on above: Performed By: #### L 500.2500, L100.0100 #### [facility] [address] [place], [address] Chloride [Moles/Vol] 106 mmol/L Normal 98-108 [facility] Comment on above: Performed By: #### L 500.2500, L100.0100 #### [facility] [address] [place], [address] CO2 [Moles/Vol] 26.4 mmol/L Normal 21.0-32.0 [facility] Comment on above: Performed By: #### L 500.2500, L100.0100 #### [facility] [address] [place], [address] Creatinine [Mass/Vol] 1.28 mg/dL High 0.70-1.20 [facility] Comment on above: Performed By: #### L 500.2500, L100.0100 #### [facility] [address] [place], [address] GAP 9 Normal 5-15 [facility] Comment on above: Performed By: #### L 500.2500, L100.0100 #### [facility] [address] [place], [address] GFR/1.73 sq M.predicted among non-blacks MDRD (S/P/Bld) [Vol rate/Area] 62 mL/min/{1.73_m2} Normal >60 [facility] Comment on above: Result Comment: mL/m in/1.73m2 CKD-EPI Creatinine Equation (2020) Performed By: #### L 500.2500, L100.0100 #### [facility] [address] [place], [address] Glucose [Mass/Vol] 166 mg/dL High 70-99 [facility] Comment on above: Performed By: #### L 500.2500, L100.0100 #### [facility] [address] [place], [address] Potassium [Moles/Vol] 4.5 mmol/L Normal 3.3-5.1 [facility] Comment on above: Performed By: #### L 500.2500, L100.0100 #### [facility] [address] [place], [address] Sodium [Moles/Vol] 142 mmol/L Normal 133-145 [facility] Comment on above: Performed By: #### L 500.2500, L100.0100 #### [facility] [address] [place], [address] Urea nitrogen [Mass/Vol] 20 mg/dL High 4-19 [facility] Comment on above: Performed By: #### L 500.2500, L100.0100 #### [facility] [address] [place], [address] Basophil percentageOrdered B y: David Demiter on 03-27-2025 Basophils/100 WBC (Bld) 0.6 % 0-1 [facility] CBC W/Diff, Automatedon Absolute Lymph 1.73 X10 3/uL Normal 0.83-4.51 [facility] Comment on above: Performed By: #### L 500.2500, L100.0100 #### [facility] [address] [place], [address] Absolute Neut 2.4 X10 3/uL Normal 2.0-7.7 [facility] Comment on above: Performed By: #### L 500.2500, L100.0100 #### [facility] [address] [place], [address] Basophils/100 WBC (Bld) 0.6 % Normal 0-1 [facility] Comment on above: Performed By: #### L 500.2500, L100.0100 #### [facility] [address] [place], [address] Eosinophils/100 WBC (Bld) 2.3 % Normal 0-5 [facility] Comment on above: Performed By: #### L 500.2500, L100.0100 #### [facility] [address] [place], [address] Erythrocyte distribution width (RBC) [Ratio] 13.3 % Normal 11.6-14.6 [facility] Comment on above: Performed By: #### L 500.2500, L100.0100 #### [facility] [address] [place], [address] Hematocrit (Bld) [Volume fraction] 46.9 % Normal 40-54 [facility] Comment on above: Performed By: #### L 500.2500, L100.0100 #### [facility] [address] [place], [address] Hemoglobin (Bld) [Mass/Vol] 15.4 g/dL Normal 13.0-16.5 [facility] Comment on above: Performed By: #### L 500.2500, L100.0100 #### [facility] [address] [place], [address] IG% 0.200 Normal 0.0-0.9 [facility] Comment on above: Result Comment: IG% - Immature Granulocytes (promyelocytes, myelocytes and metamyelocytes) > 1% indicates that a LEFT SHIFT is Present. Performed By: #### L 500.2500, L100.0100 #### [facility] [address] [place], [address] Lymphocytes/100 WBC (Bld) 36.2 % Normal 19-41 [facility] Comment on above: Performed By: #### L 500.2500, L100.0100 #### [facility] [address] [place], [address] MCH (RBC) [Entitic mass] 28.9 pg Normal 27.0-32.0 [facility] Comment on above: Performed By: #### L 500.2500, L100.0100 #### [facility] [address] [place], [address] MCHC (RBC) [Mass/Vol] 32.8 g/dL Normal 32-36 [facility] Comment on above: Performed By: #### L 500.2500, L100.0100 #### [facility] [address] [place], [address] MCV (RBC) [Entitic vol] 88.2 fL Normal 80-94 [facility] Comment on above: Performed By: #### L 500.2500, L100.0100 #### [facility] [address] [place], [address] Monocytes/100 WBC (Bld) 9.6 % Normal 0-10 [facility] Comment on above: Performed By: #### L 500.2500, L100.0100 #### [facility] [address] [place], [address] Neutrophils/100 WBC (Bld) 51.1 % Normal 47-70 [facility] Comment on above: Performed By: #### L 500.2500, L100.0100 #### [facility] [address] [place], [address] Nucleated RBC (Bld) [#/Vol] 0 10*3/uL Normal 0-5 [facility] Comment on above: Performed By: #### L 500.2500, L100.0100 #### [facility] [address] [place], [address] Platelet mean volume (Bld) [Entitic vol] 10.8 fL Normal 6.2-12.0 [facility] Comment on above: Performed By: #### L 500.2500, L100.0100 #### [facility] [address] [place], [address] Platelets (Bld) [#/Vol] 158 10*3/uL Normal 150-450 [facility] Comment on above: Performed By: #### L 500.2500, L100.0100 #### [facility] [address] [place], [address] RBC (Bld) [#/Vol] 5.32 10*6/uL Normal 4.6-6.2 [facility] Comment on above: Performed By: #### L 500.2500, L100.0100 #### [facility] [address] [place], [address] RDW SD 43.1 fl Normal 35.1-43.9 [facility] Comment on above: Performed By: #### L 500.2500, L100.0100 #### [facility] [address] [place], [address] WBC (Bld) [#/Vol] 4.8 10*3/uL Normal 4.4-11.0 [facility] Comment on above: Performed By: #### L 500.2500, L100.0100 #### [facility] [address] [place], [address] Carbon dioxide, total [Moles /volume] in Central venous bloodOrdered By: David Cardoza on 03-27-2025 CO2 [Moles/Vol] 26.4 mmol/L 21.0-32.0 [facility] Visit Reporton Cardiology Visit Report [facility] [address] [place] [address] OFFICE VISIT Date of Service: 03/27/25 MR#: [id number] Acct: [id number] Name: ASH REGALADO Rep #: [id number] : 1960 Provider: CLIFFORD Espana Age/Sex: 64/M Location: [facility] Status: Signed HPI HPI History of Present Illness Details: Ash Regalado is a 64-year-old male who presents to office today for follow-up for monitoring his cardiovascular health. Back in 2021, patient presented to the emergency room with shortness of breath, orthopnea and lower extremity edema. Patient was noted to be in atrial fibrillation with RVR. His echocardiogram demonstrated decreased ejection fraction at 20%. His heart catheterization demonstrated normal coronary arteries. It was felt that his cardiomyopathy was nonischemic and likely viral related as he recently had COVID-19. Patient was discharged home on GDMT which was then limited secondary to renal function. Patient has a history of SABA and does not use CPAP. Patient has a history of hypertension. Patient was last seen in our office July 2022. Shortly after that time, he moved to [place] and established with cardiology there. He underwent ICD placement June 2023. He has history of paroxysmal supraventricular tachycardia. In September 2024, patient was noted to have a VT episode treated with successful ATP on 09/30/2024 at 12:41 AM, device aborted shock. In December 2023, it was noted that his ejection fraction had improved to 45%. His most recent echocardiogram 10/23/2024 demonstrated an ejection fraction of 30-35%, mildly enlarged left atrium, trace MR, aortic valve sclerosis without stenosis or insufficiency, trace TR with RVSP 18, grade 1/grade 2 diastolic function, moderate LVH. Given his EF had slightly decreased, he reports that his GDMT was further adjusted and the plan was to repeat the echocardiogram to assess his ejection fraction in April. He has now moved back to [place] and is reestablishing with our office. Upon presentation today, patient reports doing well. He reports chronic fatigue that is unchanged. This is described as becoming tired after remaining active x 2 hours. He does not find himself needing to take frequent naps and does not have difficulty sleeping at night. He notices mild lower extremity edema in which he can see a sock indentation at the end of the day. Indentation resolves overnight. He reports chronic shortness of breath with activity. He is able to tolerate walking to the park with his grandkids and going up and down a flight of stairs without any concerns. Further ROS below. Intake Vital Signs 10/05/22 10:28 03/27/25 09:40 03/27/25 09:45 Height 6 ft 6 ft Weight: 249 lb BP 150/88 H 142/90 H Blood Pressure Location Lt brachial Lt brachial Position Sitting Sitting Respiration 18 Pulse 73 74 Pulse Source Monitor Monitor Intake Visit Reasons: 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) Attendant [employer] Required: No Accompanied by: Self Is patient in pain?: No Allergies No Known Allergies Allergy (Verified 03/27/25 09:30) Medications ???Medication ???Instructions ???Recorded ???Confirmed ???Type blood pressure monitor (Blood #1 ea 11/14/19 10/05/22 Rx Pressure Kit) apixaban 5 mg tablet (Eliquis) 5 mg PO BID #180 tabs 11/25/2205/14 Rx blood sugar diagnostic (OneTouch #100 ea 11/25/22 Rx Verio test strips) blood-glucose meter (OneTouch #1 ea 11/25/22 Rx Verio Reflect Start kit) cary.stocking,knee, reg,xlrg #2 ea 11/25/22 Rx empagliflozin 25 mg tablet 25 mg PO DAILY #90 tabs 11/25/22 0 03/27/25 Rx furosemide 40 mg tablet 40 mg PO BID #60 tabs 11/25/2205/14 Rx lancets 28 gauge (FreeStyle #100 ea 11/25/22 Rx Lancets) sacubitril 49 mg-valsartan 51 mg 1 tab PO BID #60 tabs 11/25/2205/14 Rx tablet (Entresto) atorvastatin 40 mg tablet 40 mg PO QDAY 03/27/25 03/27/25 Hi story carvedilol 25 mg tablet 25 mg PO QPM 03/27/25 03/27/25 His tory carvedilol 25 mg tablet 50 mg PO QAM 03/27/25 History gabapentin 100 mg capsule 100 mg PO TID 03/27/25 03/27/25 Hi story magnesium oxide 400 mg PO QDAY 03/27/25 03/27/25 H istory mecobalamin (vitamin B12) 1,000 1,000 mcg PO QDAY 03/27/25 5 History mcg chewable tablet potassium chloride 10 mEq 10 meq PO BID 03/27/25 03/27/25 Hi story tablet,extended release semaglutide 2 mg/dose (8 mg/3 mL) mg subcut 03/27/25 03/27/25 Histo ry subcutaneous pen injector (Ozempic) vit k2 + D3 PO DAILY 03/27/25 History zinc 22 mg tablet mg PO QDAY 03/27/25 03/27/25 Histo ry Have you fallen in the past year?: No [facility] Medical History (Updated 03/27/25 @ 12:54 by CLIFFORD Espana) Cardiac defibrillator in place History of cardioversion Nonischemic cardiomyopathy Edema of scro (more content not included)... Normal [facility] Chloride assayOrdered By: Bryson Cardoza on 03-27-2025 Chloride [Moles/Vol] 106 mmol/L 98-108 [facility] Eosinophil percentageOrdered By: David Cardoza on 03-27-2025 Eosinophils/100 WBC (Bld) 2.3 % 0-5 [facility] Erythrocyte distribution wid th ratioOrdered By: Davidcarol Cardoza on 03-27-2025 Erythrocyte distribution width (RBC) [Ratio] 13.3 % 11.6-14.6 [facility] Erythrocyte distribution wid th standard deviationOrdered By: Davidcarol Cardoza on 03-27-2025 Erythrocyte distribution width (RBC) [Ratio] 43.1 fl 35.1-43.9 [facility] Glomerular filtration rate ( GFR) estimation/1.73 sq m using serum, plasma, or whole bOrdered By: Davidcarol Cardoza on 03-27-2025 GFR/1.73 sq M.predicted among non-blacks MDRD (S/P/Bld) [Vol rate/Area] 62 mL/min/{1.73_m2} >60 [facility] Comment on above: mL/min/1.73m2 CKD-EP I Creatinine Equation (2020) Hematocrit Auto (Bld) [Volum e fraction]Ordered By: Davidcarol Cardoza on 03-27-2025 Hematocrit (Bld) [Volume fraction] 46.9 % 40-54 [facility] Hemoglobin measurementOrdere d By: David Cardoza on 03-27-2025 Hemoglobin (Bld) [Mass/Vol] 15.4 g/dL 13.0-16.5 [facility] Immature granulocytes/100 WB C Auto (Bld)Ordered By: David Cardoza on 03-27-2025 Immature granulocytes/100 WBC (Bld) 0.200 % 0.0-0.9 [facility] Comment on above: IG% - Immature Granu locytes (promyelocytes, myelocytes and metamyelocytes) > 1% indicates that a LEFT SHIFT is Present. MCV (mean corpuscular volume ) determinationOrdered By: David Cardoza on 03-27-2025 MCV (RBC) [Entitic vol] 88.2 fL 80-94 [facility] Mean corpuscular hemoglobin (MCH) determinationOrdered By: David Cardoza on 03-27-2025 MCH (RBC) [Entitic mass] 28.9 pg 27.0-32.0 [facility] Mean corpuscular hemoglobin concentration (MCHC) determinationOrdered By: David Cardoza on 03-27-2025 MCHC (RBC) [Mass/Vol] 32.8 g/dL 32-36 [facility] Mean platelet volume determi nationOrdered By: David Cardoza on 03-27-2025 Platelet mean volume (Bld) [Entitic vol] 10.8 fL 6.2-12.0 [facility] Monocyte percentageOrdered B y: David Cardoza on 03-27-2025 Monocytes/100 WBC (Bld) 9.6 % 0-10 [facility] Neutrophil percentageOrdered By: David Cardoza on 03-27-2025 Neutrophils/100 WBC (Bld) 51.1 % 47-70 [facility] Nucleated red blood cell per centageOrdered By: David Cardoza on 03-27-2025 Nucleated RBC/100 WBC (Bld) [Ratio] 0 % 0-5 [facility] Platelet countOrdered By: Bryson Cardoza on 03-27-2025 Platelets (Bld) [#/Vol] 158 10*3/uL 150-450 [facility] Potassium measurement (mass/ volume)Ordered By: David Cardoza on 03-27-2025 Potassium (Unsp spec) [Mass/Vol] 4.5 mmol/L 3.3-5.1 [facility] RBC Auto (Bld) [#/Vol]Ordere d By: David Cardoza on 03-27-2025 RBC (Bld) [#/Vol] 5.32 10*6/uL 4.6-6.2 [facility] Serum creatinine measurement (mass/volume)Ordered By: David Cardoza on 03-27-2025 Creatinine [Mass/Vol] 1.28 mg/dL High 0.70-1.20 [facility] Serum glucose measurement (m ass/volume)Ordered By: David Cardoza on 03-27-2025 Glucose [Mass/Vol] 166 mg/dL High 70-99 [facility] Serum or plasma calcium eliane urement (mass/volume)Ordered By: David Cardoza on 03-27-2025 Calcium [Mass/Vol] 9.6 mg/dL 7.6-11.0 [facility] Serum or plasma urea nitroge n measurement (mass/volume)Ordered By: David Cardoza on 03-27-2025 Urea nitrogen [Mass/Vol] 20 mg/dL High 4-19 [facility] Sodium levelOrdered By: Ramon Cardoza on 03-27-2025 Sodium [Moles/Vol] 142 mmol/L 133-145 [facility] White blood cell (WBC) count Ordered By: David Cardoza on 03-27-2025 WBC (Bld) [#/Vol] 4.8 10*3/uL 4.4-11.0 [facility] Absolute lymphocyte countOrd ered By: Dr. Aguilar on 10-05-2022 Lymphocytes Auto (Unsp spec) [#/Vol] 1.57 10*3/uL 0.83-4.51 [facility] Basophil percentageOrdered B y: Dr. Aguilar on 10-05-2022 Basophils/100 WBC (Bld) 0.7 % 0-1 [facility] Bilirubin [Mass/Vol] 0.70 mg/dL 0.20-1.00 [facility] Comment on above: For patients on eltr ombopag therapy, use of Dimension [place] TBIL is not recommended. Chloride [Moles/Vol] 107 mmol/L 98-107 [facility] Cholesterol [Mass/Vol] 91 mg/dL <200 [facility] Comment on above: <200 mg/dL Desirable 200-240 mg/dL Borderline >240 mg/dL High Risk Eosinophils/100 WBC (Bld) 1.7 % 0-5 [facility] Glucose [Mass/Vol] 172 mg/dL 74-106 [facility] Comment on above: Fasting Glucose resu lt greater than or equal to 126 mg/dL suggests DIABETES MELLITUS per A.D.A. criteria. Neutrophils (Bld) [#/Vol] 3.4 10*3/uL 2.0-7.7 [facility] Neutrophils/100 WBC (Bld) 59.5 % 47-70 [facility] Potassium [Moles/Vol] 5.4 mmol/L 3.5-5.1 [facility] Protein [Mass/Vol] 7.1 g/dL 6.4-8.2 [facility] Sodium [Moles/Vol] 144 mmol/L 136-145 [facility] Triglyceride [Mass/Vol] 60 mg/dL <199 [facility] Comment on above: The drugs N-Acetylcy steine and Metamizole may falsely depress this assay.Serum Triglycerides Reference Interval Normal <150 mg/dL Borderline high 150 - 199 mg/dL High 200 - 499 mg/dL Very High > or = 500 mg/dL WBC (Bld) [#/Vol] 5.8 10*3/uL 4.4-11.0 [facility] Blood erythrocytes count (nu mber/volume)Ordered By: Dr. Aguilar on 10-05-2022 RBC (Bld) [#/Vol] 5.77 10*6/uL 4.6-6.2 [facility] Blood hemoglobin measurement (mass/volume)Ordered By: Dr. Aguilar on 10-05-2022 Hemoglobin (Bld) [Mass/Vol] 14.9 g/dL 13.0-16.5 [facility] Blood lymphocytes/100 leukoc ytesOrdered By: Dr. Aguilar on 10-05-2022 Lymphocytes/100 WBC (Bld) 27.2 % 19-41 [facility] Blood monocytes/100 leukocyt esOrdered By: Dr. Aguilar on 10-05-2022 Monocytes/100 WBC (Bld) 10.7 % 0-10 [facility] Blood platelet mean volumeOr dered By: Dr. Aguilar on 10-05-2022 Platelet mean volume (Bld) [Entitic vol] 11.1 fL 6.2-12.0 [facility] Determination of erythrocyte mean corpuscular volume (MCV)Ordered By: Dr. Aguilar on 10-05-2022 MCV (RBC) [Entitic vol] 87.0 fL 80-94 [facility] Hematocrit Auto (Bld) [Volum e fraction]Ordered By: Dr. Aguilar on 10-05-2022 Hematocrit (Bld) [Volume fraction] 50.2 % 40-54 [facility] Laboratory - Chemistry and C hemistry - challengeOrdered By: Dr. Aguilar on 10-05-2022 ALP [Catalytic activity/Vol] 90 U/L 45-117 [facility] ALT [Catalytic activity/Vol] 19 U/L 16-61 [facility] CO2 [Moles/Vol] 29.0 mmol/L 21.0-32.0 [facility] Globulin (S) [Mass/Vol] 3.8 g/dL 2.2-4.2 [facility] Urea nitrogen/Creatinine [Mass ratio] 21.7 mg/mg 10-20 [facility] - Hematology and Cell countsOrdered By: Dr. Aguilar on 10-05-2022 Erythrocyte distribution width (RBC) [Entitic vol] 49.7 fL 35.1-43.9 [facility] Erythrocyte distribution width (RBC) [Ratio] 15.9 % 11.6-14.6 [facility] Immature granulocytes/100 WBC (Bld) 0.200 % 0.0-0.9 [facility] Comment on above: IG% - Immature Granu locytes (promyelocytes, myelocytes and metamyelocytes) > 1% indicates that a LEFT SHIFT is Present. MCH (RBC) [Entitic mass] 25.8 pg 27.0-32.0 [facility] Nucleated RBC/100 WBC (Bld) [Ratio] 0 % 0-5 [facility] MCHC Auto (RBC) [Mass/Vol]Or dered By: Dr. Aguilar on 10-05-2022 MCHC (RBC) [Mass/Vol] 29.7 g/dL 32-36 [facility] No Panel InformationOrdered By: Dr. Aguilar on 10-05-2022 Estimated GFR (MDRD) Amer 60 mL/min >60 [facility] Comment on above: GFR Calc Estimated GFR (MDRD) Non-Af Amer 49 mL/min >60 [facility] Comment on above: Non- GFR Calc Platelets bldOrdered By: Dr. Aguilar on 10-05-2022 Platelets (Bld) [#/Vol] 205 10*3/uL 150-450 [facility] Serum or plasma albumin eliane urement (mass/volume)Ordered By: Dr. Aguilar on 10-05-2022 Albumin [Mass/Vol] 3.3 g/dL 3.2-5.0 [facility] Serum or plasma albumin/glob ulin mass ratioOrdered By: Dr. Aguilar on 10-05-2022 Albumin/Globulin [Mass ratio] 0.9 {ratio} 0.9-2.4 [facility] Serum or plasma calcium eliane urement (mass/volume)Ordered By: Dr. Aguilar on 10-05-2022 Calcium [Mass/Vol] 9.1 mg/dL 8.5-10.1 [facility] Serum or plasma cholesterol in HDL measurement (mass/volume)Ordered By: Dr. Aguilar on 10-05-2022 Cholesterol in HDL [Mass/Vol] 39 mg/dL >40 [facility] Comment on above: The drugs N-Acetylcy steine and Metamizole may falsely depress this assay. Reference Range HDL <40 mg/dL Low HDL Cholesterol HDL >or= 60 mg/dL High HDL Cholesterol Serum or plasma cholesterol in VLDL measurement (mass/volume)Ordered By: Dr. Aguilar on 10-05-2022 Cholesterol in VLDL [Mass/Vol] 12 mg/dL 5-40 [facility] Serum or plasma creatinine m easurement (mass/volume)Ordered By: Dr. Aguilar on 10-05-2022 Creatinine [Mass/Vol] 1.52 mg/dL 0.70-1.30 [facility] Comment on above: The validity of the calculated GFR & GFRAA in patients over 70 years has not been determined. Clinical correlation is essential. Serum or plasma low density lipoprotein (LDL) cholesterol measurement (mass/volume)Ordered By: Dr. Aguilar on 10-05-2022 Cholesterol in LDL [Mass/Vol] 40 mg/dL 0-130 [facility] Serum or plasma urea nitroge n measurement (mass/volume)Ordered By: Dr. Aguilar on 10-05-2022 Urea nitrogen [Mass/Vol] 33 mg/dL 7-18 [facility] Thin prep Papanicolaou smear with manual screeningOrdered By: Dr. Aguilar on 10-05-2022 Thin prep Papanicolaou smear with manual screening 13 U/L 15-37 [facility] Thin prep Papanicolaou smear with manual screening 8 5-15 [facility] Whole blood hemoglobin A1c/t otal hemoglobin ratio (mass fraction)Ordered By: Dr. Aguilar on 10-05-2022 HbA1c (Bld) [Mass fraction] 8.8 % 3.8-5.6 [facility] Comment on above: Normal < 5.7 % Predi abetic 5.7 - 6.4 % Diabetic >or= 6.5 % Please note range changes. Basophil percentageOrdered B y: Tenisha Juarez on 08-24-2022 Chloride [Moles/Vol] 106 mmol/L 98-107 [facility] Glucose [Mass/Vol] 226 mg/dL 74-106 [facility] Comment on above: Glucose result great er than or equal to 200 mg/dLsuggests DIABETES MELLITUS per A.D.A. criteria. Potassium [Moles/Vol] 4.0 mmol/L 3.5-5.1 [facility] Sodium [Moles/Vol] 142 mmol/L 136-145 [facility] ASH REGALADO ([id number]) 1960 M Date Time Provider Department 08/24/22 ELVIS OVALLES During your visit today, we recorded the following information about you: Elvis Ovalles PA-C 08/24/2022 10:08 AM Signed Please let patient know that his scrotum US ws pretty normal the only findings are bilateral small hydrocele, not likely the cause of discomfort. And he had scrotum wall thickening and no pathology or pain associated with that. If this is not improving I will have him see Dr. Knapp to discuss Cord Block procedure. Elvis Ovalles MPAS, [place], YUE Bell LPN 08/24/2022 1:01 PM Signed Called patient. Verified name and date of . Patient informed and verbalizes understanding. States has had improvement and will let us know if he'd like follow up if it is needed. Asmita Bell DANIELLE Allergies As of Date: 08/24/2022 (No Known Allergies) Date Reviewed: 05/21/2022 Reviewed by: Toni Corral MD - Fully Assessed Reason for Visit: Results [95] Primary Visit Diagnosis:Groin swelling [R19.09] Prescriptions as of 08/24/2022 - ELIQUIS 5 mg tab(s) Take 5 mg by mouth twice daily. - carvedilol (COREG) 12.5 mg tablet Take 12.5 mg by mouth twice daily with meals. - JARDIANCE 10 mg tablet Take 10 mg by mouth daily with breakfast. - furosemide (LASIX) 40 mg tablet Take 40 mg by mouth twice daily. - metoprolol succinate ER (TOPROL XL) 25 mg 24 hr tablet Take 25 mg by mouth once daily. - traZODone (DESYREL) 50 mg tablet Take 50 mg by mouth daily at bedtime. - dulaglutide (TRULICITY) 3 mg/0.5 mL pen injector Inject 3 mg subcutaneously one time a week. - glipiZIDE (GLUCOTROL) 10 mg tablet Take 10 mg by mouth once daily. - hydrALAZINE (APRESOLINE) 25 mg tablet Take 25 mg by mouth three times daily. - hydroCHLOROthiazide (HYDRODIURIL, ESIDRIX) 25 mg tablet Take 25 mg by mouth once daily. - oxyCODONE-acetaminophe n (PERCOCET) 5-325 mg tablet Take by mouth every 8 hours as needed for pain. - metFORMIN (GLUCOPHAGE) 1,000 mg tablet Take 1,000 mg by mouth twice daily with meals. - traMADol (ULTRAM) 50 mg tablet Take 50 mg by mouth every 6 hours as needed for pain. - meloxicam (MOBIC) 15 mg tablet Take 1 tablet by mouth once daily. - triamcinolone acetonide (KENALOG) 0.1 % cream Apply 1 application to affected area twice daily. - predniSONE (DELTASONE) 10 mg tablet Take 1 tablet by mouth once daily. 4 tabs PO QD x 3 days, 3 tabs PO QD x 3 days, 2 tabs PO QD x 3 days, 1 tab PO QD x 3 days - blood sugar diagnostic (CONTOUR TEST STRIPS) test strip Inject 1 Strip subcutaneously once daily. - exenatide (BYDUREON BCISE) 2mg / 0.85 ml subcutaneous auto injector - Lancets lancets .MEDSUPPLY - triamterene-hydrochlor othiazide 37.5-25 mg per capsule Take 1 capsule by mouth once daily. - doxazosin (CARDURA) 8 mg tablet Take 1 tablet by mouth once daily. - glipiZIDE-metFORMIN 2.5-500 mg per tablet Take 2 tablets by mouth once daily. - lisinopril 20 mg tablet Take 2 tablets by mouth twice daily. - amLODIPine (NORVASC) 10 mg tablet Take 1 tablet by mouth once daily. Problem List As Of Date 08/24/2022 Noted Resolved MORBID OBESITY [E66.01] 08/10/2008 BENIGN HYPERTENSION [I10] 08/10/2008 Family history of diabetes mellitus [Z83.3] 08/10/2008 10/24/2012 Diabetes mellitus, type 2 (HCC) [E11.9] 08/13/2008 Proteinuria [R80.9] 10/24/2012 Obstructive sleep apnea [G47.33] Encounter Status:Closed by ASMITA BELL LPN on 08/24/22 Normal [facility] Laboratory - Chemistry and C hemistry - challengeOrdered By: Tenisha Pizarro on 08-24-2022 CO2 [Moles/Vol] 33.0 mmol/L 21.0-32.0 [facility] Urea nitrogen/Creatinine [Mass ratio] 16.9 mg/mg 10-20 [facility] No Panel InformationOrdered By: Tenisha Pizarro on 08-24-2022 Estimated Creatinine Clearance Calc 58.44 ml/min [facility] Estimated GFR (MDRD) Amer 65 mL/min >60 [facility] Comment on above: GFR Calc Estimated GFR (MDRD) Non-Af Amer 53 mL/min >60 [facility] Comment on above: Non- GFR Calc Serum or plasma calcium eliane urement (mass/volume)Ordered By: Tenisha Pizarro on 08-24-2022 Calcium [Mass/Vol] 9.1 mg/dL 8.5-10.1 [facility] Serum or plasma creatinine m easurement (mass/volume)Ordered By: Tenisha Pizarro on 08-24-2022 Creatinine [Mass/Vol] 1.42 mg/dL 0.70-1.30 [facility] Comment on above: The validity of the calculated GFR & GFRAA in patients over 70 years has not been determined. Clinical correlation is essential. Serum or plasma urea nitroge n measurement (mass/volume)Ordered By: Tenisha Pizarro on 08-24-2022 Urea nitrogen [Mass/Vol] 24 mg/dL 7-18 [facility] Thin prep Papanicolaou smear with manual screeningOrdered By: Tenisha Pizarro on 08-24-2022 Thin prep Papanicolaou smear with manual screening 3 5-15 [facility] No Panel Informationon 08-20 [facility] US DOPPLER COMPLETEon 2021 US DOPPLER COMPLETE * * *Final Report* * * DATE OF EXAM: Aug 20 2022 10:44AM WRU 1033 - US DOPPLER COMPLETE / PROCEDURE REASON: Groin swelling * * * * Physician Interpretation * * * * EXAMINATION: SCROTAL ULTRASOUND WITH DOPPLER IMAGING CLINICAL HISTORY: Groin swelling TECHNIQUE: Sonography of the scrotal contents with color flow and spectral Doppler imaging of the testicular vasculature was performed. Images were obtained and stored in a permanent archive. M: US_2 COMPARISON: None RESULT: Limitations: Body habitus and swelling. RIGHT SCROTUM: Right testis: 4.0 x 2.3 x 3.3 cm. Homogeneous with no calcifications or mass. Normal intratesticular arterial and venous flow with normal spectral waveforms. Epididymis: Normal. Vascular flow on Color Doppler is symmetric to the contralateral side. Hydrocele: small present Varicocele: absent LEFT SCROTUM: Left testis: 4.2 x 2.2 x 3.4 cm. Homogeneous with no calcifications or mass. Normal intratesticular arterial and venous flow with normal spectral waveforms. Epididymis: Normal. Vascular flow on Color Doppler is symmetric to the contralateral side. Hydrocele: small present Varicocele: absent Others: Diffuse bilateral scrotal wall thickening. IMPRESSION: Bilateral small hydroceles. Diffuse scrotal wall thickening. Net Web Developer: MAXIMINO Transcribe Date/Time: Aug 21 2022 5:11P Dictated by : IGNACIO AREVALO MD This examination was interpreted and the report reviewed and electronically signed by: IGNACIO AREVALO MD on Aug 21 2022 5:13PM EST [id number] Normal [facility] US SCROTUM AND CONTENTSon US SCROTUM AND CONTENTS * * *Final Repor t* * * DATE OF EXAM: Aug 20 2022 10:44AM WRU 1063 - US SCROTUM AND CONTENTS / PROCEDURE REASON: Groin swelling * * * * Physician Interpretation * * * * EXAMINATION: SCROTAL ULTRASOUND WITH DOPPLER IMAGING CLINICAL HISTORY: Groin swelling TECHNIQUE: Sonography of the scrotal contents with color flow and spectral Doppler imaging of the testicular vasculature was performed. Images were obtained and stored in a permanent archive. M: USC_2 COMPARISON: None RESULT: Limitations: Body habitus and swelling. RIGHT SCROTUM: Right testis: 4.0 x 2.3 x 3.3 cm. Homogeneous with no calcifications or mass. Normal intratesticular arterial and venous flow with normal spectral waveforms. Epididymis: Normal. Vascular flow on Color Doppler is symmetric to the contralateral side. Hydrocele: small present Varicocele: absent LEFT SCROTUM: Left testis: 4.2 x 2.2 x 3.4 cm. Homogeneous with no calcifications or mass. Normal intratesticular arterial and venous flow with normal spectral waveforms. Epididymis: Normal. Vascular flow on Color Doppler is symmetric to the contralateral side. Hydrocele: small present Varicocele: absent Others: Diffuse bilateral scrotal wall thickening. IMPRESSION: Bilateral small hydroceles. Diffuse scrotal wall thickening. Net Web Developer: [facility] Transcribe Date/Time: Aug 21 2022 5:11P Dictated by : IGNACIO AREVALO MD This examination was interpreted and the report reviewed and electronically signed by: IGNACIO AREVALO MD on Aug 21 2022 5:13PM EST [id number] Normal [facility] CNOVon 08-18-2022 CNOV Office Visit (UROLWS ) ASH REGALADO ([id number]) 1960 M Date Time Provider Department 08/18/22 11:20 AM ELVIS OVALLES During your visit today, we recorded the following information about you: Temperature Pulse Respiration Blood pressure 97.2 degrees 62/minute 20/minute 118/84 Weight Height 147 kg 1.829 m Asmita Bell LPN 08/19/2022 4:06 PM Signed Verified name and date of . CC Post Void Residual HPI: Ash Regalado is a 61 year old male. The patient is here now for an appointment with DAVID Hercules, ORTEGA, NARGIS. Procedure: Explained procedure to patient and verbalizes understanding. Performed a PVR. Patient urinated and instructed to empty bladder as much as possible just prior to having PVR done using bladder ultrasound scanner. Results of scan: 0 mL The patient tolerated the procedure well. Plan: Appointment with Brandon. Elvis Ovalles PA-C 08/18/2022 11:34 AM Signed > Scrotum US Elvis Ovalles PA-C 08/19/2022 4:06 PM Signed COUNTS INCLUDE 234 BEDS AT THE [facility] NEW PATIENT CLINIC NOTE SERVICE DATE: 08/18/2022 SERVICE TIME: 11:35 AM NAME: Ash Regalado CHIEF COMPLAINT: Scrotum Swelling HISTORY OF PRESENT ILLNESS: Ash Regalado is a 61 year old male with PMH including DM-2,HTN presenting with enlarged and firm sdcrotum The patient reports he has been having pain and the scrotum is thickened Recommended getting a Scrotum US soone LUTS: None Other symptoms: LABS: No results found for: TESTOST No results found for: TESTFREE No results found for: PSA Hematocrit (%) Date Value 08/10/2008 44.4 MEDICATIONS: ELIQUIS 5 mg tab(s) Take 5 mg by mouth twice daily. carvedilol (COREG) 12.5 mg tablet Take 12.5 mg by mouth twice daily with meals. JARDIANCE 10 mg tablet Take 10 mg by mouth daily with breakfast. furosemide (LASIX) 40 mg tablet Take 40 mg by mouth twice daily. metoprolol succinate ER (TOPROL XL) 25 mg 24 hr tablet Take 25 mg by mouth once daily. traZODone (DESYREL) 50 mg tablet Take 50 mg by mouth daily at bedtime. dulaglutide (TRULICITY) 3 mg/0.5 mL pen injector Inject 3 mg subcutaneously one time a week. glipiZIDE (GLUCOTROL) 10 mg tablet Take 10 mg by mouth once daily. hydrALAZINE (APRESOLINE) 25 mg tablet Take 25 mg by mouth three times daily. hydroCHLOROthiazide (HYDRODIURIL, ESIDRIX) 25 mg tablet Take 25 mg by mouth once daily. oxyCODONE-acetaminophe n (PERCOCET) 5-325 mg tablet Take by mouth every 8 hours as needed for pain. metFORMIN (GLUCOPHAGE) 1,000 mg tablet Take 1,000 mg by mouth twice daily with meals. traMADol (ULTRAM) 50 mg tablet Take 50 mg by mouth every 6 hours as needed for pain. meloxicam (MOBIC) 15 mg tablet Take 1 tablet by mouth once daily. triamcinolone acetonide (KENALOG) 0.1 % cream Apply 1 application to affected area twice daily. predniSONE (DELTASONE) 10 mg tablet Take 1 tablet by mouth once daily. 4 tabs PO QD x 3 days, 3 tabs PO QD x 3 days, 2 tabs PO QD x 3 days, 1 tab PO QD x 3 days blood sugar diagnostic (CONTOUR TEST STRIPS) test strip Inject 1 Strip subcutaneously once daily. exenatide (BYDUREON BCI) 2mg / 0.85 ml subcutaneous auto injector Lancets lancets .MEDSUPPLY triamterene-hydrochlor othiazide 37.5-25 mg per capsule Take 1 capsule by mouth once daily. doxazosin (CARDURA) 8 mg tablet Take 1 tablet by mouth once daily. glipiZIDE-metFORMIN 2.5-500 mg per tablet Take 2 tablets by mouth once daily. lisinopril 20 mg tablet Take 2 tablets by mouth twice daily. amLODIPine (NORVASC) 10 mg tablet Take 1 tablet by mouth once daily. PAST MEDICAL HISTORY: PAST MEDICAL HISTORY Diagnosis Date Diabetes mellitus, type 2 2000 with neprhopathy Hypertension Obesity Obstructive sleep apnea Sibilia PAST SURGICAL HISTORY: PAST SURGICAL HISTORY Procedure Laterality Date EXTRACTION, ERUPTED TOOTH OR EXPOSED ROOT (ELEVATION AND/OR FORCEPS REMOVAL) wisdom teeth PAST SURGICAL HISTORY OF 1979 metal in side, right (flank) TONSILLECTOMY PRIMARY/SECONDARY FAMILY HISTORY: FAMILY HISTORY Problem Relation Age of Onset Diabetes Mother Diabetes Father Coronary Artery Disease Father first MA 60's, CHF COPD Father Diabetes Brother Colon Cancer No Family History Prostate Cancer No Family History SOCIAL HISTORY: Social Connections: Not on file REVIEW OF SYSTEMS: GENERAL: No fever, chills, weight loss, or fatigue. ENMT: Negative CARDIOVASCULAR:NO CHEST PAIN, PALPITATIONS, ANKLE EDEMA RESPIRATORY: No chronic cough, wheezing, dyspnea, hemoptysis. GENITOURINARY: SEE HPI MUSCULOSKELETAL:NO CHRONIC BACK PAIN, ARTHRITIS, CHRONIC NECK PAIN SKIN: NO VARICOSE VEINS, RASH, ABNORMAL ITCHING HEME/LYMPH/IMMUNE:Nega tive for prolonged bleeding, bruising easily or swollen nodes NEUROLOGICAL: NO HEADACHES, NUMBNESS, SEI (more content not included)... Normal [facility] [place] Basophil percentageOrdered B y: Ashvin Andujar on 08-11-2022 Bilirubin [Mass/Vol] 0.50 mg/dL 0.20-1.00 [facility] Comment on above: For patients on eltr ombopag therapy, use of Dimension [place] TBIL is not recommended. Chloride [Moles/Vol] 108 mmol/L 98-107 [facility] Glucose [Mass/Vol] 202 mg/dL 74-106 [facility] Comment on above: Glucose result great er than or equal to 200 mg/dLsuggests DIABETES MELLITUS per A.D.A. criteria. Potassium [Moles/Vol] 3.9 mmol/L 3.5-5.1 [facility] Protein [Mass/Vol] 6.7 g/dL 6.4-8.2 [facility] Sodium [Moles/Vol] 144 mmol/L 136-145 [facility] WBC (Bld) [#/Vol] 5.0 10*3/uL 4.4-11.0 [facility] Blood erythrocytes count (nu mber/volume)Ordered By: Ashvin Andujar on 08-11-2022 RBC (Bld) [#/Vol] 4.79 10*6/uL 4.6-6.2 [facility] Blood hemoglobin measurement (mass/volume)Ordered By: Ashvin Andujar on 08-11-2022 Hemoglobin (Bld) [Mass/Vol] 13.7 g/dL 13.0-16.5 [facility] Blood platelet mean volumeOr dered By: Ashvin Andujar on 08-11-2022 Platelet mean volume (Bld) [Entitic vol] 11.9 fL 6.2-12.0 [facility] Determination of erythrocyte mean corpuscular volume (MCV)Ordered By: Ashvin Andujar on 08-11-2022 MCV (RBC) [Entitic vol] 89.8 fL 80-94 [facility] Hematocrit Auto (Bld) [Volum e fraction]Ordered By: Asvhin Andujar on 08-11-2022 Hematocrit (Bld) [Volume fraction] 43.0 % 40-54 [facility] - Chemistry and C hemistry - challengeOrdered By: Ashvin Andujar on 08-11-2022 ALP [Catalytic activity/Vol] 92 U/L 45-117 [facility] ALT [Catalytic activity/Vol] 28 U/L 16-61 [facility] CO2 [Moles/Vol] 32.0 mmol/L 21.0-32.0 [facility] Globulin (S) [Mass/Vol] 3.4 g/dL 2.2-4.2 [facility] Urea nitrogen/Creatinine [Mass ratio] 16.9 mg/mg 10-20 [facility] - Hematology and Cell countsOrdered By: Ashvin Andujar on 08-11-2022 Erythrocyte distribution width (RBC) [Entitic vol] 48.2 fL 35.1-43.9 [facility] Erythrocyte distribution width (RBC) [Ratio] 14.6 % 11.6-14.6 [facility] MCH (RBC) [Entitic mass] 28.6 pg 27.0-32.0 [facility] MCHC Auto (RBC) [Mass/Vol]Or dered By: Ashvin Andujar on 08-11-2022 MCHC (RBC) [Mass/Vol] 31.9 g/dL 32-36 [facility] No Panel InformationOrdered By: Ashvin Andujar on 08-11-2022 Estimated GFR (MDRD) Amer 68 mL/min >60 [facility] Comment on above: GFR Calc Estimated GFR (MDRD) Non-Af Amer 56 mL/min >60 [facility] Comment on above: Non- GFR Calc Platelets bldOrdered By: Madelyn Andujar on 08-11-2022 Platelets (Bld) [#/Vol] 183 10*3/uL 150-450 [facility] Serum or plasma albumin eliane urement (mass/volume)Ordered By: Ashvin Andujar on 08-11-2022 Albumin [Mass/Vol] 3.3 g/dL 3.2-5.0 [facility] Serum or plasma albumin/glob ulin mass ratioOrdered By: Ashvin Andujar on 08-11-2022 Albumin/Globulin [Mass ratio] 1.0 {ratio} 0.9-2.4 [facility] Serum or plasma calcium eliane urement (mass/volume)Ordered By: Ashvin Andujar on 08-11-2022 Calcium [Mass/Vol] 9.3 mg/dL 8.5-10.1 [facility] Serum or plasma creatinine m easurement (mass/volume)Ordered By: Ashvin Andujar on 08-11-2022 Creatinine [Mass/Vol] 1.36 mg/dL 0.70-1.30 [facility] Comment on above: The validity of the calculated GFR & GFRAA in patients over 70 years has not been determined. Clinical correlation is essential. Serum or plasma urea nitroge n measurement (mass/volume)Ordered By: Ashvin Andujar on 08-11-2022 Urea nitrogen [Mass/Vol] 23 mg/dL 7-18 [facility] Thin prep Papanicolaou smear with manual screeningOrdered By: Ashvin Andujar on 08-11-2022 Thin prep Papanicolaou smear with manual screening 15 U/L 15-37 [facility] Thin prep Papanicolaou smear with manual screening 4 5-15 [facility] Absolute lymphocyte countOrd ered By: Dr. Corral on 08-04-2022 Lymphocytes Auto (Unsp spec) [#/Vol] 0.94 10*3/uL 0.83-4.51 [facility] Basophil percentageOrdered B y: Dr. Corral on 08-04-2022 Basophils/100 WBC (Bld) 0.6 % 0-1 [facility] Chloride [Moles/Vol] 105 mmol/L 98-107 [facility] Eosinophils/100 WBC (Bld) 1.4 % 0-5 [facility] Glucose [Mass/Vol] 354 mg/dL 74-106 [facility] Comment on above: Glucose result great er than or equal to 200 mg/dLsuggests DIABETES MELLITUS per A.D.A. criteria. Neutrophils (Bld) [#/Vol] 3.5 10*3/uL 2.0-7.7 [facility] Neutrophils/100 WBC (Bld) 69.0 % 47-70 [facility] Potassium [Moles/Vol] 3.8 mmol/L 3.5-5.1 [facility] Sodium [Moles/Vol] 142 mmol/L 136-145 [facility] WBC (Bld) [#/Vol] 5.0 10*3/uL 4.4-11.0 [facility] Blood erythrocytes count (nu mber/volume)Ordered By: Dr. Corral on 08-04-2022 RBC (Bld) [#/Vol] 4.81 10*6/uL 4.6-6.2 [facility] Blood hemoglobin measurement (mass/volume)Ordered By: Dr. Corral on 08-04-2022 Hemoglobin (Bld) [Mass/Vol] 13.5 g/dL 13.0-16.5 [facility] Blood lymphocytes/100 leukoc ytesOrdered By: Dr. Corral on 08-04-2022 Lymphocytes/100 WBC (Bld) 18.7 % 19-41 [facility] Blood monocytes/100 leukocyt esOrdered By: Dr. Corral on 08-04-2022 Monocytes/100 WBC (Bld) 9.9 % 0-10 [facility] Blood platelet mean volumeOr dered By: Dr. Corral on 08-04-2022 Platelet mean volume (Bld) [Entitic vol] 11.6 fL 6.2-12.0 [facility] Determination of erythrocyte mean corpuscular volume (MCV)Ordered By: Dr. Corral on 08-04-2022 MCV (RBC) [Entitic vol] 89.4 fL 80-94 [facility] Glucose Glucometer (dC) [M ass/Vol]Ordered By: Dr. Corral on 08-04-2022 Glucose [Mass/Vol] 354 mg/dL 74-106 [facility] Comment on above: MANAGEMENT OF PATIEN T CARE PER NURSING PROTOCOL Hematocrit Auto (Bld) [Volum e fraction]Ordered By: Dr. Corral on 08-04-2022 Hematocrit (Bld) [Volume fraction] 43.0 % 40-54 [facility] - Chemistry and C hemistry - challengeOrdered By: Dr. Corarl on 08-04-2022 CO2 [Moles/Vol] 32.0 mmol/L 21.0-32.0 [facility] Magnesium [Mass/Vol] 2.6 mg/dL 1.6-2.6 [facility] Urea nitrogen/Creatinine [Mass ratio] 23.4 mg/mg 10-20 [facility] - Hematology and Cell countsOrdered By: Dr. Corral on 08-04-2022 Erythrocyte distribution width (RBC) [Entitic vol] 46.4 fL 35.1-43.9 [facility] Erythrocyte distribution width (RBC) [Ratio] 14.2 % 11.6-14.6 [facility] Immature granulocytes/100 WBC (Bld) 0.400 % 0.0-0.9 [facility] Comment on above: IG% - Immature Granu locytes (promyelocytes, myelocytes and metamyelocytes) > 1% indicates that a LEFT SHIFT is Present. MCH (RBC) [Entitic mass] 28.1 pg 27.0-32.0 [facility] Nucleated RBC/100 WBC (Bld) [Ratio] 0 % 0-5 [facility] MCHC Auto (RBC) [Mass/Vol]Or dered By: Dr. Corral on 08-04-2022 MCHC (RBC) [Mass/Vol] 31.4 g/dL 32-36 [facility] No Panel InformationOrdered By: Dr. Corral on 08-04-2022 Estimated Creatinine Clearance Calc 52.52 ml/min [facility] Estimated GFR (MDRD) Amer 57 mL/min >60 [facility] Comment on above: GFR Calc Estimated GFR (MDRD) Non-Af Amer 47 mL/min >60 [facility] Comment on above: Non- GFR Calc Platelets bldOrdered By: Dr. Corral on 08-04-2022 Platelets (Bld) [#/Vol] 197 10*3/uL 150-450 [facility] Serum or plasma calcium eliane urement (mass/volume)Ordered By: Dr. Corral on 08-04-2022 Calcium [Mass/Vol] 9.4 mg/dL 8.5-10.1 [facility] Serum or plasma creatinine m easurement (mass/volume)Ordered By: Dr. Corral on 08-04-2022 Creatinine [Mass/Vol] 1.58 mg/dL 0.70-1.30 [facility] Comment on above: The validity of the calculated GFR & GFRAA in patients over 70 years has not been determined. Clinical correlation is essential. Serum or plasma urea nitroge n measurement (mass/volume)Ordered By: Dr. Corral on 08-04-2022 Urea nitrogen [Mass/Vol] 37 mg/dL 7- [facility] Thin prep Papanicolaou smear with manual screeningOrdered By: Dr. Corral on 08-04-2022 Thin prep Papanicolaou smear with manual screening 5 - [facility] Basophil percentageOrdered B y: Dr. Allen on 08-02-2022 Basophil percentage 4.0 mg/dL 2.5-4.9 [facility] Absolute lymphocyte counton 08-01-2022 Lymphocytes Auto (Unsp spec) [#/Vol] 1.55 10*3/uL 0.83-4.51 [facility] Work Phone: Basophil percentageon 2021 Basophils/100 WBC (Bld) 0.8 % 0-1 [facility] Work Phone: Chloride [Moles/Vol] 107 mmol/L 98-107 [facility] Work Phone: Eosinophils/100 WBC (Bld) 2.3 % 0-5 [facility] Work Phone: Glucose [Mass/Vol] 135 mg/dL 74-106 [facility] Work Phone: Comment on above: Fasting Glucose resu lt greater than or equal to 126 mg/dL suggests DIABETES MELLITUS per A.D.A. criteria. Neutrophils (Bld) [#/Vol] 3.1 10*3/uL 2.0-7.7 [facility] Work Phone: Neutrophils/100 WBC (Bld) 57.8 % 47-70 [facility] Work Phone: Potassium [Moles/Vol] 3.3 mmol/L 3.5-5.1 [facility] Work Phone: Sodium [Moles/Vol] 143 mmol/L 136-145 [facility] Work Phone: WBC (Bld) [#/Vol] 5.3 10*3/uL 4.4-11.0 [facility] Work Phone: Blood erythrocytes count (nu mber/volume)on 08-01-2022 RBC (Bld) [#/Vol] 4.41 10*6/uL 4.6-6.2 [facility] Work Phone: Blood hemoglobin measurement (mass/volume)on 08-01-2022 Hemoglobin (Bld) [Mass/Vol] 12.4 g/dL 13.0-16.5 [facility] Work Phone: Blood lymphocytes/100 leukoc yteson 08-01-2022 Lymphocytes/100 WBC (Bld) 29.3 % 19-41 [facility] Work Phone: Blood monocytes/100 leukocyt eson 08-01-2022 Monocytes/100 WBC (Bld) 9.6 % 0-10 [facility] Work Phone: Blood platelet mean volumeon 08-01-2022 Platelet mean volume (Bld) [Entitic vol] 11.0 fL 6.2-12.0 [facility] Work Phone: Determination of erythrocyte mean corpuscular volume (MCV)on 08-01-2022 MCV (RBC) [Entitic vol] 88.9 fL 80-94 [facility] Work Phone: Glucose Glucometer (BldC) [M ass/Vol]on 08-01-2022 Glucose [Mass/Vol] 153 mg/dL 74-106 [facility] Work Phone: Comment on above: MANAGEMENT OF PATIEN T CARE PER NURSING PROTOCOL Hematocrit Auto (Bld) [Volum e fraction]on 08-01-2022 Hematocrit (Bld) [Volume fraction] 39.2 % 40-54 [facility] Work Phone: Laboratory - Chemistry and C hemistry - challengeon 08-01-2022 CO2 [Moles/Vol] 27.0 mmol/L 21.0-32.0 [facility] Work Phone: [phone] Urea nitrogen/Creatinine [Mass ratio] 24.0 mg/mg 10-20 [facility] Work Phone: [phone] Laboratory - Hematology and Cell countson 08-01-2022 Erythrocyte distribution width (RBC) [Entitic vol] 45.8 fL 35.1-43.9 [facility] Work Phone: [phone] Erythrocyte distribution width (RBC) [Ratio] 14.2 % 11.6-14.6 [facility] Work Phone: [phone] Immature granulocytes/100 WBC (Bld) 0.200 % 0.0-0.9 [facility] Work Phone: [phone] Comment on above: IG% - Immature Granu locytes (promyelocytes, myelocytes and metamyelocytes) > 1% indicates that a LEFT SHIFT is Present. MCH (RBC) [Entitic mass] 28.1 pg 27.0-32.0 [facility] Work Phone: [phone] Nucleated RBC/100 WBC (Bld) [Ratio] 0 % 0-5 [facility] Work Phone: [phone] MCHC Auto (RBC) [Mass/Vol]on 08-01-2022 MCHC (RBC) [Mass/Vol] 31.6 g/dL 32-36 [facility] Work Phone: [phone] No Panel Informationon 08-01 Estimated Creatinine Clearance Calc 55.33 ml/min [facility] Work Phone: [phone] Estimated GFR (MDRD) Amer 61 mL/min >60 [facility] Work Phone: [phone] Comment on above: GFR Calc Estimated GFR (MDRD) Non-Af Amer 50 mL/min >60 [facility] Work Phone: [phone] Comment on above: Non- GFR Calc Platelets bldon 08-01-2022 Platelets (Bld) [#/Vol] 178 10*3/uL 150-450 [facility] Work Phone: Serum or plasma calcium eliane urement (mass/volume)on 08-01-2022 Calcium [Mass/Vol] 8.7 mg/dL 8.5-10.1 [facility] Work Phone: Serum or plasma creatinine m easurement (mass/volume)on 08-01-2022 Creatinine [Mass/Vol] 1.50 mg/dL 0.70-1.30 [facility] Work Phone: Comment on above: The validity of the calculated GFR & GFRAA in patients over 70 years has not been determined. Clinical correlation is essential. Serum or plasma urea nitroge n measurement (mass/volume)on 08-01-2022 Urea nitrogen [Mass/Vol] 36 mg/dL 7-18 [facility] Work Phone: Thin prep Papanicolaou smear with manual screeningon 08-01-2022 Thin prep Papanicolaou smear with manual screening 9 5-15 [facility] Work Phone: Basophil percentageOrdered B y: Ashvin Andujar on 07-31-2022 Chloride [Moles/Vol] 108 mmol/L 98-107 [facility] Glucose [Mass/Vol] 137 mg/dL 74-106 [facility] Comment on above: Fasting Glucose resu lt greater than or equal to 126 mg/dL suggests DIABETES MELLITUS per A.D.A. criteria. Potassium [Moles/Vol] 3.8 mmol/L 3.5-5.1 [facility] Sodium [Moles/Vol] 144 mmol/L 136-145 [facility] Laboratory - Chemistry and C hemistry - challengeOrdered By: Dr. Diaz on 07-31-2022 Natriuretic peptide B (Bld) [Mass/Vol] 203.1 pg/mL 0-100 [facility] Laboratory - Chemistry and C hemistry - challengeOrdered By: Ashvin Andujar on 07-31-2022 CO2 [Moles/Vol] 26.0 mmol/L 21.0-32.0 [facility] Urea nitrogen/Creatinine [Mass ratio] 25.2 mg/mg 10-20 [facility] No Panel InformationOrdered By: Ashvin Andujar on 07-31-2022 Estimated GFR (MDRD) Amer 66 mL/min >60 [facility] Comment on above: GFR Calc Estimated GFR (MDRD) Non-Af Amer 55 mL/min >60 [facility] Comment on above: Non- GFR Calc Serum or plasma calcium eliane urement (mass/volume)Ordered By: Ashvin Andujar on 07-31-2022 Calcium [Mass/Vol] 9.6 mg/dL 8.5-10.1 [facility] Serum or plasma creatinine m easurement (mass/volume)Ordered By: Ashvin Andujar on 07-31-2022 Creatinine [Mass/Vol] 1.39 mg/dL 0.70-1.30 [facility] Comment on above: The validity of the calculated GFR & GFRAA in patients over 70 years has not been determined. Clinical correlation is essential. Serum or plasma urea nitroge n measurement (mass/volume)Ordered By: Ashvin Andujar on 07-31-2022 Urea nitrogen [Mass/Vol] 35 mg/dL 7-18 [facility] Thin prep Papanicolaou smear with manual screeningOrdered By: Ashvin Andujar on 07-31-2022 Thin prep Papanicolaou smear with manual screening 10 5-15 [facility] Absolute lymphocyte countOrd ered By: Ashvin Andujar on 07-29-2022 Lymphocytes Auto (Unsp spec) [#/Vol] 1.39 10*3/uL 0.83-4.51 [facility] Basophil percentageOrdered B y: Ashvin Andujar on 07-29-2022 Basophils/100 WBC (Bld) 0.8 % 0-1 [facility] Bilirubin [Mass/Vol] 0.50 mg/dL 0.20-1.00 [facility] Comment on above: For patients on eltr ombopag therapy, use of Dimension [place] TBIL is not recommended. Chloride [Moles/Vol] 108 mmol/L 98-107 [facility] Eosinophils/100 WBC (Bld) 2.8 % 0-5 [facility] Glucose [Mass/Vol] 153 mg/dL 74-106 [facility] Comment on above: Fasting Glucose resu lt greater than or equal to 126 mg/dL suggests DIABETES MELLITUS per A.D.A. criteria. Neutrophils (Bld) [#/Vol] 3.3 10*3/uL 2.0-7.7 [facility] Neutrophils/100 WBC (Bld) 61.3 % 47-70 [facility] Potassium [Moles/Vol] 4.5 mmol/L 3.5-5.1 [facility] Protein [Mass/Vol] 7.0 g/dL 6.4-8.2 [facility] Sodium [Moles/Vol] 144 mmol/L 136-145 [facility] WBC (Bld) [#/Vol] 5.3 10*3/uL 4.4-11.0 [facility] Blood erythrocytes count (nu mber/volume)Ordered By: Ashvin Andujar on 07-29-2022 RBC (Bld) [#/Vol] 4.71 10*6/uL 4.6-6.2 [facility] Blood hemoglobin measurement (mass/volume)Ordered By: Ashvin Andujar on 07-29-2022 Hemoglobin (Bld) [Mass/Vol] 13.1 g/dL 13.0-16.5 [facility] Blood lymphocytes/100 leukoc ytesOrdered By: Ashvin Andujar on 07-29-2022 Lymphocytes/100 WBC (Bld) 26.1 % 19-41 [facility] Blood monocytes/100 leukocyt esOrdered By: Ashvin Andujar on 07-29-2022 Monocytes/100 WBC (Bld) 8.6 % 0-10 [facility] Blood platelet mean volumeOr dered By: Ashvin Andujar on 07-29-2022 Platelet mean volume (Bld) [Entitic vol] 11.6 fL 6.2-12.0 [facility] Determination of erythrocyte mean corpuscular volume (MCV)Ordered By: Ashvin Andujar on 07-29-2022 MCV (RBC) [Entitic vol] 89.8 fL 80-94 [facility] Hematocrit Auto (Bld) [Volum e fraction]Ordered By: Ashvin Andujar on 07-29-2022 Hematocrit (Bld) [Volume fraction] 42.3 % 40-54 [facility] Laboratory - Chemistry and C hemistry - challengeOrdered By: Ashvin Andujar on 07-29-2022 ALP [Catalytic activity/Vol] 94 U/L 45-117 [facility] ALT [Catalytic activity/Vol] 23 U/L 16-61 [facility] CO2 [Moles/Vol] 28.0 mmol/L 21.0-32.0 [facility] Globulin (S) [Mass/Vol] 3.6 g/dL 2.2-4.2 [facility] Natriuretic peptide B (Bld) [Mass/Vol] 193.1 pg/mL 0-100 [facility] Urea nitrogen/Creatinine [Mass ratio] 21.7 mg/mg 10-20 [facility] Laboratory - Hematology and Cell countsOrdered By: Ashvin Andujar on 07-29-2022 Erythrocyte distribution width (RBC) [Entitic vol] 47.6 fL 35.1-43.9 [facility] Erythrocyte distribution width (RBC) [Ratio] 14.4 % 11.6-14.6 [facility] Immature granulocytes/100 WBC (Bld) 0.400 % 0.0-0.9 [facility] Comment on above: IG% - Immature Granu locytes (promyelocytes, myelocytes and metamyelocytes) > 1% indicates that a LEFT SHIFT is Present. MCH (RBC) [Entitic mass] 27.8 pg 27.0-32.0 [facility] Nucleated RBC/100 WBC (Bld) [Ratio] 0 % 0-5 [facility] Laboratory - Hematology and Cell countson 07-29-2022 HbA1c (Bld) [Mass fraction] 7.0 % 4.2-6.3 [facility] MCHC Auto (RBC) [Mass/Vol]Or dered By: Ashvin Andujar on 07-29-2022 MCHC (RBC) [Mass/Vol] 31.0 g/dL 32-36 [facility] No Panel InformationOrdered By: Ashvin Andujar on 07-29-2022 Estimated GFR (MDRD) Amer 67 mL/min >60 [facility] Comment on above: GFR Calc Estimated GFR (MDRD) Non-Af Amer 55 mL/min >60 [facility] Comment on above: Non- GFR Calc Prostate Specific Antigen Screen 1.10 ng/mL 0.00-4.00 [facility] Comment on above: This test was perfor med using the TPSA assay method for theDiStriped SailMeilishuo chemistry system. Values obtained with differentassay methods cannot be used interchangably.When changing PSA assays in the course of monitoring apatient, additional sequential testing should be carriedout to confirm baseline values. Thyroid Stimulating Hormone (TSH) 1.93 uIU/mL 0.358-3.74 [facility] Platelets bldOrdered By: Madelyn Andujar on 07-29-2022 Platelets (Bld) [#/Vol] 198 10*3/uL 150-450 [facility] Serum or plasma albumin eliane urement (mass/volume)Ordered By: Ashvin Andujar on 07-29-2022 Albumin [Mass/Vol] 3.4 g/dL 3.2-5.0 [facility] Serum or plasma albumin/glob ulin mass ratioOrdered By: Ashvin Andujar on 07-29-2022 Albumin/Globulin [Mass ratio] 0.9 {ratio} 0.9-2.4 [facility] Serum or plasma calcium eliane urement (mass/volume)Ordered By: Ashvin Andujar on 07-29-2022 Calcium [Mass/Vol] 9.3 mg/dL 8.5-10.1 [facility] Serum or plasma creatinine m easurement (mass/volume)Ordered By: Ashvin Andujar on 07-29-2022 Creatinine [Mass/Vol] 1.38 mg/dL 0.70-1.30 [facility] Comment on above: The validity of the calculated GFR & GFRAA in patients over 70 years has not been determined. Clinical correlation is essential. Serum or plasma urea nitroge n measurement (mass/volume)Ordered By: Ashvin Andujar on 07-29-2022 Urea nitrogen [Mass/Vol] 30 mg/dL 7-18 [facility] Thin prep Papanicolaou smear with manual screeningOrdered By: Ashvin Andujar on 07-29-2022 Thin prep Papanicolaou smear with manual screening 13 U/L 15-37 [facility] Thin prep Papanicolaou smear with manual screening 8 5-15 [facility] CNOVon 05-21-2022 CNOV Office Visit (ORTHWS ) ASH REGALADO ([id number]) 1960 M Date Time Provider Department 05/21/22 2:45 PM TONI CORRAL During your visit today, we recorded the following information about you: Weight Height 131.5 kg 1.829 m Toni Corral MD 05/21/2022 3:42 PM Signed Toni Corral MD Department of Orthopaedics [facility] [address] [place] [address] Dept: [phone] Dept May 21, 2022 CHIEF COMPLAINT: New and Pain of the Left Wrist HPI Patient states last Wednesday he was cutting the grass at home. He went to sit down on the porch to rest and when he got up to get off the porch his missed the step fell landing on is left side. He was seen at [facility]. X-rays done and given a wrist brace. He has been wearing the brace most of the time. He is left hand dominant. His pain is at the base of his thumb. States it is very painful when he makes a fist. He is currently not working due to injuring his back and wrist from the fall last week. 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 Taking Tramadol and Percocet for the pain. Patient hand carried copies of his x-rays today. 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 He may even get a little bit of Voltaren either for the wrist or the knee. Some bracing and we will also keep him off of work for another 2 weeks and a few days. As long as he is feeling better at that time getting his strength back in the left wrist, he can return. No surgery necessary for the SLAC, this is likely an exacerbation of a underlying chronic problem. If symptoms persist at the wrist however an injection in the office would be reasonable. FOLLOW UP INSTRUCTIONS: As needed Mr. Ash Regalado was advised as to contrast therapies and/or to take analgesics/anti-inflam matories as needed and all contraindications were reviewed. OBJECTIVE: Mr. Ash Regalado is a pleasant 61 year old in no apparent distress. Gen:There were no vitals taken for this visit. nl development, obese, no deformities ENT: Normocephalic, normal hearing, moist mucosa CV: Pulses:Radial= 2+ and symmetric, capillary refill < 2 secs, no peripheral edema/varicosities Skin: no rash, bruising or lesions. Good turgor. Psych: cooperative and appropriate, alert and oriented x 3, good mood and affect. Musculoskeletal: Some global swelling in the left wrist. He is a bit more tender to touch near the STT location and base of the joint. Minimally at the radiocarpal joint dorsally. Bit of discomfort with Willis but no mechanical symptoms or clunk. Median, radial and ulnar nerves intact. IMAGIN views of an outside system show a left wrist with widened scapholunate interval. No malalignment on the lateral. No fractures noted. He does have some mild CMC arthritis with some STT involvement. 4 views of the knee show moderate tricompartmental arthritis worse in the medial joint. Supporting Subjective Information Below: Past Medical History: PAST MEDICAL HISTORY Diagnosis Date Diabetes mellitus, type 2 1999 with neprhopathy Hypertension Obesity Obstructive sleep apnea Sibilia Past Surgical History: PAST SURGICAL HISTORY Procedure Laterality Date EXTRACTION, ERUPTED TOOTH OR EXPOSED ROOT (ELEVATION AND/OR FORCEPS REMOVAL) wisdom teeth PAST SURGICAL HISTORY OF 1979 metal in side, right (flank) TONSILLECTOMY PRIMARY/SECONDARY Family History: FAMILY HISTORY Problem Relation Age of Onset Diabetes Mother Diabetes Father Coronary Artery Disease Father first MA 60's, CHF COPD Father Diabetes Brother Colon Cancer No Family History Prostate Cancer No Family History Social History: Social History Tobacco Use Smoking status: Never Smokeless tobacco: Never Vaping Use Vaping Use: Never used Substance Use Topics Alcohol use: No Comment: very rare, none since Drug use: No Medications: Current Outpatient Medications Medication Sig traZODone (DESYREL) 50 mg tablet Take 50 mg by mouth daily at bedtime. dulaglutide (TRULICITY) 3 mg/0.5 mL pen injector Inject 3 mg subcutaneously one time a week. glipiZIDE (GLUCOTROL) 10 mg tablet Take 10 mg by mouth once daily. hydrALAZINE (APRESOLINE) 25 mg tablet Take 25 mg by mouth three times daily. hydroCHLOROthiazide (HYDRODIURIL, ESIDRIX) 25 mg tablet Take 25 mg by ariel (more content not included)... Normal [facility] Laboratory - Hematology and Cell countson 05-07-2022 HbA1c (Bld) [Mass fraction] 7.3 % 4.2-6.3 [facility] Work Phone: CT CARDIAC SCORINGon 022 CT CARDIAC SCORING Patient Name: ASH REGALADO STUDY: CT CARDIAC SCORING; 10/21/2021 11:00 am INDICATION: HYPERLIPIDEMIA , UNSPECIFIED TYPE 2 DM WITH DIABETIC POLYNOUROPATHY ESSENTIAL (PRIMARY) HTN. COMPARISON: None. ACCESSION NUMBER(S): [id number] ORDERING CLINICIAN: ASHVIN ANDUJAR TECHNIQUE: Using prospective ECG gating, CT scan of the coronary arteries was performed without intravenous contrast. Coronary calcium scoring was performed according to the method of Agatston. FINDINGS: The score and distribution of calcium in the coronary arteries is as follows: LM: 0. LAD: 106. LCx: 0. RCA: 13. Total: 119. The visualized segments of the lungs are normally expanded. The visualized mid/lower ascending thoracic aorta measures 4.5 cm in diameter. The heart is severely enlarged.. Trace pericardial fluid.. No gross evidence of mediastinal or hilar lymphadenopathy is identified. Partially imaged left gynecomastia. IMPRESSION: 1. Coronary artery calcium score of 119*. 2. Cardiomegaly. Dilatation of the ascending aorta up to 4.5 cm. *Coronary artery calcium scoring may be helpful in predicting the risk for future coronary heart disease events. According to the [place] [employer] Clinical Expert Consensus Task Force, such testing provides important prognostic information in patients with more than one coronary heart disease risk factor. The coronary artery calcium score correlates with the annual risk of a non-fatal myocardial infarction or coronary heart disease . Coronary artery score Annual Risk 0-99 0.4% 100-399 1.3% >400 2.4% These three breakpoints correspond to lower, intermediate and high risk states for future coronary events. Such information should be used, along with appropriate clinical judgment, to make decisions regarding the intensity of risk factor management strategies to treat blood lipids and to modify other non-lipid coronary risk factors. Reference: Joanne P et al. Circulation. 2007; 115:402-426 Electronically signed by: PAM MONIQUE MD [facility] Vital Signs Date Time Vital Sign Value Performing Clinician Sidney leon 05-30-2025 14:22-0400 Diastolic blood pressure 82 mm[Hg] Zebulun Beam ALLERGIST/IMMUNOLOGIST-C Work Phone: [phone] [address] 05-30-2025 14:22-0400 Systolic blood pressure 150 mm[Hg] Zebulun Beam ALLERGIST/IMMUNOLOGIST-C Work Phone: [phone] [place] [address] 05-30-2025 07:54-0400 Body height 182.88 cm Zebulun Beam ALLERGIST/IMMUNOLOGIST-C Work Phone: [phone] [place] [address] 05-30-2025 07:54-0400 Body mass index (BMI) [Ratio] 34 kg/m2 Zebulun Beam ALLERGIST/IMMUNOLOGIST-C Work Phone: [phone] [place] [address] 05-30-2025 07:54-0400 Body weight 113.85 kg Zebulun Beam ALLERGIST/IMMUNOLOGIST-C Work Phone: [phone] [place] [address] 05-30-2025 07:54-0400 Heart rate 74 /min Zebulun Beam ALLERGIST/IMMUNOLOGIST-C Work Phone: [phone] [place] [address] 05-30-2025 07:54-0400 Respiratory rate 18 /min Zebulun Beam ALLERGIST/IMMUNOLOGIST-C Work Phone: [phone] [address] 03-27-2025 09:45-0400 Body height 182.88 cm David Demiter PA Work Phone: [facility] 03-27-2025 09:45-0400 Diastolic blood pressure 90 mm[Hg] David Demiter PA Work Phone: [facility] 03-27-2025 09:45-0400 Heart rate 74 /min David Demiter PA Work Phone: [facility] 03-27-2025 09:45-0400 Systolic blood pressure 142 mm[Hg] David Demiter PA Work Phone: [facility] 03-27-2025 09:40-0400 Body weight 112.94 kg David Demiter PA Work Phone: [facility] 03-27-2025 09:40-0400 Respiratory rate 18 /min David Demiter PA Work Phone: [facility] 10-05-2022 10:28-0500 Body height 182.[address] Phan Aguilar Work Phone: [facility] 10-05-2022 10:28-0500 Body mass index (BMI) [Ratio] 43.5 kg/m2 Dr. Phan Aguilar Work Phone: [facility] 10-05-2022 10:28-0500 Body temperature 97.6 [degF] Dr. Phan Aguilar Work Phone: [facility] 10-05-2022 10:28-0500 Body weight 145.[address] Phan Aguilar Work Phone: [facility] 10-05-2022 10:28-0500 Diastolic blood pressure 82 mm[Hg] Dr. Phan Aguilar Work Phone: [facility] 10-05-2022 10:28-0500 Heart rate 98 /min Dr. Phan Aguilar Work Phone: [facility] 10-05-2022 10:28-0500 Respiratory rate 16 /min Dr. Phan Aguilar Work Phone: [facility] 10-05-2022 10:28-0500 SaO2% (BldA) [Mass fraction] 95 % Dr. Phan Aguilar Work Phone: [facility] 10-05-2022 10:28-0500 Systolic blood pressure 120 mm[Hg] Dr. Phan Aguilar Work Phone: [facility] 09-07-2022 11:18-0500 Body height 182.88 cm ALLERGIST/IMMUNOLOGIST-C Ashvin Andujar ALLERGIST/IMMUNOLOGIST Work Phone: [facility] Work Phone: 09-07-2022 11:18-0500 Body weight 146.96 kg ALLERGIST/IMMUNOLOGIST-C Ashvin Andujar ALLERGIST/IMMUNOLOGIST Work Phone: [facility] 09-03-2022 08:54-0500 Body mass index (BMI) [Ratio] 43.9 kg/m2 ALLERGIST/IMMUNOLOGIST-C Ashvin Andujar ALLERGIST/IMMUNOLOGIST Work Phone: [facility] 09-02-2022 09:58-0500 Body temperature 96.9 [degF] ALLERGIST/IMMUNOLOGIST-C Ashvin Andujar ALLERGIST/IMMUNOLOGIST Work Phone: [facility] 09-02-2022 09:58-0500 Body weight 144.01 kg ALLERGIST/IMMUNOLOGIST-C Ashvin Andujar ALLERGIST/IMMUNOLOGIST Work Phone: [facility] 09-02-2022 09:58-0500 Diastolic blood pressure 92 mm[Hg] ALLERGIST/IMMUNOLOGIST-C Ashvin Andujar ALLERGIST/IMMUNOLOGIST Work Phone: [facility] 09-02-2022 09:58-0500 Heart rate 111 /min ALLERGIST/IMMUNOLOGIST-C Ashvin Andujar ALLERGIST/IMMUNOLOGIST Work Phone: [facility] 09-02-2022 09:58-0500 Respiratory rate 18 /min ALLERGIST/IMMUNOLOGIST-C Ashvin Andujar ALLERGIST/IMMUNOLOGIST Work Phone: [facility] 09-02-2022 09:58-0500 SaO2% (BldA) [Mass fraction] 98 % ALLERGIST/IMMUNOLOGIST-C Ashvin Andujar ALLERGIST/IMMUNOLOGIST Work Phone: [facility] 09-02-2022 09:58-0500 Systolic blood pressure 124 mm[Hg] ALLERGIST/IMMUNOLOGIST-C Ashvin Andujar ALLERGIST/IMMUNOLOGIST Work Phone: [facility] 2022 10:37-0500 Body height [address] Phan Aguilar Work Phone: [facility] Work Phone: 2022 10:37-0500 Body mass index (BMI) [Ratio] 42.1 kg/m2 Dr. Phan Aguilar Work Phone: [facility] 2022 10:37-0500 Body temperature 97.1 [degF] Dr. Phan Aguilar Work Phone: [facility] 2022 10:37-0500 Body weight 141.[address] Phan Aguilar Work Phone: [facility] 2022 10:37-0500 Diastolic blood pressure 90 mm[Hg] Dr. Phan Aguilar Work Phone: [facility] 2022 10:37-0500 Heart rate 91 /min Dr. Phan Aguilar Work Phone: [facility] 2022 10:37-0500 Respiratory rate 20 /min Dr. Phan Aguilar Work Phone: [facility] 2022 10:37-0500 SaO2% (BldA) [Mass fraction] 95 % Dr. Phan Aguilar Work Phone: [facility] 2022 10:37-0500 Systolic blood pressure 139 mm[Hg] Dr. Phan Aguilar Work Phone: [facility] 08-24-2022 11:15-0500 Body mass index (BMI) [Ratio] 42.4 kg/m2 Dr. Phan Aguilar Work Phone: [facility] 08-24-2022 11:15-0500 Body temperature 97.5 [degF] Dr. Phan Aguilar Work Phone: [facility] 08-24-2022 11:15-0500 Body weight 141.[address] Phan Aguilar Work Phone: [facility] 08-24-2022 11:15-0500 Diastolic blood pressure 80 mm[Hg] Dr. Phan Aguilar Work Phone: [facility] 08-24-2022 11:15-0500 Heart rate 60 /min Dr. Phan Aguilar Work Phone: [facility] 08-24-2022 11:15-0500 Respiratory rate 14 /min Dr. Phan Aguilar Work Phone: [facility] 08-24-2022 11:15-0500 SaO2% (BldA) [Mass fraction] 98 % Dr. Phan Aguilar Work Phone: [facility] 08-24-2022 11:15-0500 Systolic blood pressure 134 mm[Hg] Dr. Phan Aguilar Work Phone: [facility] 08-21-2022 11:10-0500 Diastolic blood pressure 80 mm[Hg] Dr. Phan Aguilar Work Phone: [facility] 08-21-2022 11:10-0500 Heart rate 101 /min Dr. Phan Aguilar Work Phone: [facility] 08-21-2022 11:10-0500 SaO2% (BldA) [Mass fraction] 92 % Dr. Phan Aguilar Work Phone: [facility] 08-21-2022 11:10-0500 Systolic blood pressure 114 mm[Hg] Dr. Phan Aguilar Work Phone: [facility] 08-20-2022 11:45-0500 Body height 182.[address] Phan Aguilar Work Phone: [facility] Work Phone: 08-20-2022 11:45-0500 Body mass index (BMI) [Ratio] 43.9 kg/m2 Dr. Phan Aguilar Work Phone: [facility] 08-20-2022 11:45-0500 Body temperature 96.9 [degF] Dr. Phan Aguilar Work Phone: [facility] 08-20-2022 11:45-0500 Body weight 147.[address] Phan Aguilar Work Phone: [facility] 08-20-2022 11:45-0500 Diastolic blood pressure 84 mm[Hg] Dr. Phan Aguilar Work Phone: [facility] 08-20-2022 11:45-0500 Heart rate 105 /min Dr. Phan Aguilar Work Phone: [facility] 08-20-2022 11:45-0500 Inhaled oxygen flow rate 2 L/min Dr. Phan Aguilar Work Phone: [facility] 08-20-2022 11:45-0500 Respiratory rate 18 /min Dr. Phan Aguilar Work Phone: [facility] 08-20-2022 11:45-0500 SaO2% (BldA) [Mass fraction] 94 % Dr. Phan Aguilar Work Phone: [facility] 08-20-2022 11:45-0500 Systolic blood pressure 124 mm[Hg] Dr. Phan Aguilar Work Phone: [facility] 08-19-2022 15:02-0500 Diastolic blood pressure 88 mm[Hg] Dr. Phan Aguilar Work Phone: [facility] 08-19-2022 15:02-0500 Heart rate 104 /min Dr. Phan Aguilar Work Phone: [facility] 08-19-2022 15:02-0500 SaO2% (BldA) [Mass fraction] 95 % Dr. Phan Aguilar Work Phone: [facility] 08-19-2022 15:02-0500 Systolic blood pressure 120 mm[Hg] Dr. Phan Aguilar Work Phone: [facility] 08-19-2022 12:55-0500 Body mass index (BMI) [Ratio] 43.9 kg/m2 Dr. Phan Aguilar Work Phone: [facility] 08-19-2022 12:55-0500 Body weight 146.[address] Phan Aguilar Work Phone: [facility] 08-19-2022 12:55-0500 Diastolic blood pressure 89 mm[Hg] Dr. Phan Aguilar Work Phone: [facility] 08-19-2022 12:55-0500 Heart rate 110 /min Dr. Phan Aguilar Work Phone: [facility] 08-19-2022 12:55-0500 Inhaled oxygen flow rate 2 L/min Dr. Phan Aguilar Work Phone: [facility] 08-19-2022 12:55-0500 Respiratory rate 22 /min Dr. Phan Aguilar Work Phone: [facility] 08-19-2022 12:55-0500 Systolic blood pressure 120 mm[Hg] Dr. Phan Aguilar Work Phone: [facility] 08-11-2022 09:21-0500 Body temperature 96.5 [degF] Dr. Phan Aguilar Work Phone: [facility] 08-11-2022 09:21-0500 Body weight 148.[address] Phan Aguilar Work Phone: [facility] 08-11-2022 09:21-0500 Diastolic blood pressure 78 mm[Hg] Dr. Phan Aguilar Work Phone: [facility] 08-11-2022 09:21-0500 Heart rate 72 /min Dr. Phan Aguilar Work Phone: [facility] 08-11-2022 09:21-0500 Respiratory rate 18 /min Dr. Phan Aguilar Work Phone: [facility] 08-11-2022 09:21-0500 SaO2% (BldA) [Mass fraction] 90 % Dr. Phan Aguilar Work Phone: [facility] 08-11-2022 09:21-0500 Systolic blood pressure 118 mm[Hg] Dr. Phan Aguilar Work Phone: [facility] 08-05-2022 11:24-0500 Body weight 149.[address] Phan Aguilar Work Phone: [facility] 08-05-2022 11:24-0500 Diastolic blood pressure 88 mm[Hg] Dr. Phan Aguilar Work Phone: [facility] 08-05-2022 11:24-0500 Heart rate 125 /min Dr. Phan Aguilar Work Phone: [facility] 08-05-2022 11:24-0500 Respiratory rate 22 /min Dr. Phan Aguilar Work Phone: [facility] 08-05-2022 11:24-0500 SaO2% (BldA) [Mass fraction] 88 % Dr. Phan Aguilar Work Phone: [facility] 08-05-2022 11:24-0500 Systolic blood pressure 138 mm[Hg] Dr. Phan Aguilar Work Phone: [facility] 08-04-2022 14:52-0500 Body temperature 97.8 [degF] Dr. Phan Aguilar Work Phone: [facility] 08-04-2022 14:52-0500 Diastolic blood pressure 80 mm[Hg] Dr. Phan Aguilar Work Phone: [facility] 08-04-2022 14:52-0500 Heart rate 86 /min Dr. Phan Aguilar Work Phone: [facility] 08-04-2022 14:52-0500 Respiratory rate 16 /min Dr. Phan Aguilar Work Phone: [facility] 08-04-2022 14:52-0500 SaO2% (BldA) [Mass fraction] 96 % Dr. Phan Aguilar Work Phone: [facility] 08-04-2022 14:52-0500 Systolic blood pressure 122 mm[Hg] Dr. Phan Aguilar Work Phone: [facility] 08-04-2022 13:10-0500 Inhaled oxygen flow rate 2 L/min Dr. Phan Aguilar Work Phone: [facility] 08-04-2022 06:00-0500 Body weight 149.[address] Phan Aguilar Work Phone: [facility] 08-01-2022 16:11-0500 Heart rate 93 /min Dr. Phan Aguilar Work Phone: [facility] Work Phone: 08-01-2022 15:53-0500 Body temperature 99.1 [degF] Dr. Phan Aguilar Work Phone: [facility] Work Phone: 08-01-2022 15:53-0500 Diastolic blood pressure 81 mm[Hg] Dr. Phan Aguilar Work Phone: [facility] Work Phone: 08-01-2022 15:53-0500 Respiratory rate 16 /min Dr. Phan Aguilar Work Phone: [facility] Work Phone: 08-01-2022 15:53-0500 SaO2% (BldA) [Mass fraction] 94 % Dr. Phan Aguilar Work Phone: [facility] Work Phone: 08-01-2022 15:53-0500 Systolic blood pressure 109 mm[Hg] Dr. Phan Aguilar Work Phone: [facility] Work Phone: 08-01-2022 11:37-0500 Body height 182.[address] Phan Aguilar Work Phone: [facility] Work Phone: 08-01-2022 11:37-0500 Body weight 152.[address] Phan Aguilar Work Phone: [facility] Work Phone: 08-01-2022 09:48-0500 Inhaled oxygen flow rate 2 L/min Dr. Phan Aguilar Work Phone: [facility] Work Phone: 07-31-2022 10:21-0500 Body mass index (BMI) [Ratio] 45.5 kg/m2 Dr. Phan Aguilar Work Phone: [facility] 07-31-2022 09:22-0500 Body mass index (BMI) [Ratio] 45.6 kg/m2 Dr. Phan Aguilar Work Phone: [facility] 07-31-2022 09:22-0500 Body weight 152.[address] Phan Aguilar Work Phone: [facility] 07-31-2022 09:22-0500 Diastolic blood pressure 70 mm[Hg] Dr. Phan Aguilar Work Phone: [facility] 07-31-2022 09:22-0500 Heart rate 53 /min Dr. Phan Aguilar Work Phone: [facility] 07-31-2022 09:22-0500 Respiratory rate 22 /min Dr. Phan Aguilar Work Phone: [facility] 07-31-2022 09:22-0500 SaO2% (BldA) [Mass fraction] 93 % Dr. Phan Aguilar Work Phone: [facility] 07-31-2022 09:22-0500 Systolic blood pressure 102 mm[Hg] Dr. Phan Aguilar Work Phone: [facility] 05-26-2022 09:57-0400 Body mass index (BMI) [Ratio] 41.1 kg/m2 Dr. Phan Aguilar Work Phone: [facility] Work Phone: 05-26-2022 09:57-0400 Body temperature 98.2 [degF] Dr. Phan Aguilar Work Phone: [facility] Work Phone: 05-26-2022 09:57-0400 Body weight 137.[address] Phan Aguilar Work Phone: [facility] Work Phone: 05-26-2022 09:57-0400 Diastolic blood pressure 86 mm[Hg] Dr. Phan Aguilar Work Phone: [facility] Work Phone: 05-26-2022 09:57-0400 Heart rate 93 /min Dr. Phan Aguilar Work Phone: [facility] Work Phone: 05-26-2022 09:57-0400 Respiratory rate 14 /min Dr. Phan Aguilar Work Phone: [facility] Work Phone: 05-26-2022 09:57-0400 SaO2% (BldA) [Mass fraction] 95 % Dr. Phan Aguilar Work Phone: [facility] Work Phone: 05-26-2022 09:57-0400 Systolic blood pressure 154 mm[Hg] Dr. Phan Aguilar Work Phone: [facility] Work Phone: 05-21-2022 14:53-0400 Body height 182.9 cm Toni Corral MD Work Phone: [facility] 05-21-2022 14:53-0400 Body weight 131.54 kg Toni Corral MD Work Phone: [facility] 05-14-2022 13:17-0400 Body mass index (BMI) [Ratio] 39.6 kg/m2 Dr. Phan Aguilar Work Phone: [facility] Work Phone: 05-14-2022 13:17-0400 Body temperature 95.9 [degF] Dr. Phan Aguilar Work Phone: [facility] Work Phone: 05-14-2022 13:17-0400 Body weight 132.[address] Phan Aguilar Work Phone: [facility] Work Phone: 05-14-2022 13:17-0400 Diastolic blood pressure 78 mm[Hg] Dr. Phan Aguilar Work Phone: [facility] Work Phone: 05-14-2022 13:17-0400 Heart rate 100 /min Dr. Phan Aguilar Work Phone: [facility] Work Phone: 05-14-2022 13:17-0400 Respiratory rate 18 /min Dr. Phan Aguilar Work Phone: [facility] Work Phone: 05-14-2022 13:17-0400 SaO2% (BldA) [Mass fraction] 94 % Dr. Phan Aguilar Work Phone: [facility] Work Phone: 05-14-2022 13:17-0400 Systolic blood pressure 146 mm[Hg] Dr. Phan Aguilar Work Phone: [facility] Work Phone: 05-12-2022 21:12-0400 Diastolic blood pressure 93 mm[Hg] Dr. Phan Aguilar Work Phone: [facility] Work Phone: 05-12-2022 21:12-0400 Heart rate 92 /min Dr. Phan Aguilar Work Phone: [facility] Work Phone: 05-12-2022 21:12-0400 Respiratory rate 18 /min Dr. Phan Aguilar Work Phone: [facility] Work Phone: 05-12-2022 21:12-0400 SaO2% (BldA) [Mass fraction] 94 % Dr. Phan Aguilar Work Phone: [facility] Work Phone: 05-12-2022 21:12-0400 Systolic blood pressure 168 mm[Hg] Dr. Phan Aguilar Work Phone: [facility] Work Phone: 05-12-2022 15:57-0400 Body mass index (BMI) [Ratio] 39.3 kg/m2 Dr. Phan Aguilar Work Phone: [facility] Work Phone: 05-12-2022 15:57-0400 Body temperature 97.9 [degF] Dr. Phan Aguilar Work Phone: [facility] Work Phone: 05-12-2022 15:57-0400 Body weight 131.[address] Phan Aguilar Work Phone: [facility] Work Phone: 05-07-2022 10:17-0400 Body mass index (BMI) [Ratio] 39.6 kg/m2 Dr. Phan Aguilar Work Phone: [facility] Work Phone: 05-07-2022 10:17-0400 Body temperature 97.9 [degF] Dr. Phan Aguilar Work Phone: [facility] Work Phone: 05-07-2022 10:17-0400 Body weight 132.[address] Phan Aguilar Work Phone: [facility] Work Phone: 05-07-2022 10:17-0400 Diastolic blood pressure 84 mm[Hg] Dr. Phan Aguilar Work Phone: [facility] Work Phone: 05-07-2022 10:17-0400 Heart rate 88 /min Dr. Phan Aguilar Work Phone: [facility] Work Phone: 05-07-2022 10:17-0400 Respiratory rate 16 /min Dr. Phan Aguilar Work Phone: [facility] Work Phone: 05-07-2022 10:17-0400 SaO2% (BldA) [Mass fraction] 95 % Dr. Phan Aguilar Work Phone: [facility] Work Phone: 05-07-2022 10:17-0400 Systolic blood pressure 138 mm[Hg] Dr. Phan Aguilar Work Phone: [facility] Work Phone: Encounters Encounter Date Encounter Type Care Provider Facility Start: 06-19-2025 End: 06-19-2025 ambulatory Zebulun Beam ALLERGIST/IMMUNOLOGIST-C Work Phone: -[facility] Start: 06-19-2025 End: 06-19-[address] Cody Hensley MD -[facility] Work Phone: Start: 06-18-2025 End: 06-18-2025 ambulatory Zebulun Beam ALLERGIST/IMMUNOLOGIST-C Work Phone: -Laboratory Start: 06-18-2025 End: 06-18-2025 Patient encounter procedure Zebulun Beam ALLERGIST/IMMUNOLOGIST-C -Laboratory Work Phone: Start: 06-18-2025 End: 06-18-2025 ambulatory Zebulun Beam VSC Facility:[facility] Start: 05-30-2025 End: 05-30-2025 Patient encounter procedure David HORTON -[facility] Work Phone: Start: 05-30-2025 End: 05-30-2025 ambulatory Zebulun Beam ALLERGIST/IMMUNOLOGIST-C Work Phone: -[facility] Start: 05-19-2025 End: 05-19-2025 ambulatory Zebulun Beam ALLERGIST/IMMUNOLOGIST-C Work Phone: -[facility] Start: 05-19-2025 End: 05-19-[address] Cody Hensley MD -[facility] Work Phone: Start: 04-10-2025 End: 04-10-2025 Patient encounter procedure Rocoi Smith -[facility] Work Phone: Start: 04-10-2025 End: 04-10-2025 ambulatory Zebulun Beam ALLERGIST/IMMUNOLOGIST-C Work Phone: -[facility] Start: 03-30-2025 Non-patient / Non-visit Dr. Roxana JACKSON -[facility] Start: 03-30-2025 End: 03-30-2025 ambulatory Zebulun Beam ALLERGIST/IMMUNOLOGIST-C Work Phone: -Cardiovascular Services Start: 03-30-2025 End: 03-30-2025 Patient encounter procedure David Demiter PA -Cardiovascular Services Work Phone: Start: 03-30-2025 End: 03-30-2025 ambulatory David Cardoza Facility:[facility] Start: 03-27-2025 End: 03-27-2025 ambulatory Akashdaltonravindra Kulkarni ALLERGIST/IMMUNOLOGIST-C Work Phone: -Laboratory Start: 03-27-2025 End: 03-27-2025 Patient encounter procedure David Cardoza PA -Laboratory Work Phone: Start: 03-27-2025 End: 03-27-2025 Patient encounter procedure David Cardoza PA -[facility] Work Phone: Start: 03-27-2025 End: 03-27-2025 ambulatory David Dliter -[facility] Start: 03-27-2025 End: 03-27-2025 ambulatory David Dliter Facility:[facility] Start: 08-01-2024 End: 08-01-2024 Telephone encounter [facility] Provider Gastroenterology Start: 06-30-2024 End: 06-30-2024 Telephone encounter Miller Chamberlain MD Work Phone: Gastroenterology Comment on above: Procedure ([place] ) Start: 10-05-2022 End: 10-05-[address] Phan Aguilar Work Phone: [facility] Work Phone: Start: 10-05-2022 End: 10-05-[address] Phan Aguilar Work Phone: [facility] Start: 09-15-2022 End: 09-15-[address] Phan Aguilar Work Phone: [facility] Start: 09-07-2022 Non-patient / Non-visit ALLERGIST/IMMUNOLOGIST-C Rona Andujar ALLERGIST/IMMUNOLOGIST Work Phone: [facility] Start: 09-07-2022 End: 09-07-2022 Admission to same day surgery center ALLERGIST/IMMUNOLOGIST-C Ashvin Andujar ALLERGIST/IMMUNOLOGIST Work Phone: [facility] Start: 09-07-2022 End: 09-07-2022 ambulatory ALLERGIST/IMMUNOLOGIST-C Ashvin Andujar ALLERGIST/IMMUNOLOGIST Work Phone: [facility] Work Phone: Start: 09-02-2022 End: 09-02-2022 Patient encounter procedure ALLERGIST/IMMUNOLOGIST-C Ashvin Andujar ALLERGIST/IMMUNOLOGIST Work Phone: [facility] Start: 2022 End: [address] Phan Aguilar Work Phone: [facility] Work Phone: Start: 2022 End: [address] Phan Aguilar Work Phone: [facility] Start: 08-24-2022 Telephone encounter Elvis denney PA-C Work Phone: Urology Comment on above: Results Start: 08-24-2022 End: 08-24-[address] Phan Aguilar Work Phone: [facility] Start: 08-21-2022 End: 08-21-[address] Phan Aguilar Work Phone: [facility] Work Phone: Start: 08-21-2022 End: 08-21-[address] Phan Aguilar Work Phone: [facility] Start: 08-20-2022 End: 08-20-[address] Phan Aguilar Work Phone: [facility] Work Phone: Start: 08-20-2022 End: 08-20-[address] Phan Aguilar Work Phone: [facility] Start: 08-20-2022 End: 08-20-2022 Subsequent hospital visit by physician [facility] Work Phone: Radiology Comment on above: Groin swelling [R19. 09] Start: 08-19-2022 End: 08-19-[address] Phan Aguilar Work Phone: [facility] Work Phone: Start: 08-19-2022 End: 08-19-[address] Phan Aguilar Work Phone: [facility] Start: 08-19-2022 End: 08-19-[address] Phan Aguilar Work Phone: [facility] Start: 08-18-2022 End: 08-18-2022 ambulatory ELVIS OVALLES Facility:[facility] Start: 08-11-2022 End: 08-11-[address] Phan Aguilar Work Phone: [facility]-Laboratory, [facility] Start: 08-06-[address] Nolan Aguilar Work Phone: [facility] Start: 08-05-2022 End: 08-05-[address] Phan Aguilar Work Phone: [facility] Start: 08-04-2022 Non-patient / Non-visit Dr. Nella Aguilar Work Phone: [facility] Inpatient Physicians Start: 08-04-2022 Non-patient / Non-visit Dr. Nella Aguilar Work Phone: [facility] Start: 08-03-2022 Non-patient / Non-visit Dr. Nella Aguilar Work Phone: [facility] Start: 08-03-2022 Non-patient / Non-visit Dr. Nella Aguilar Work Phone: [facility] Start: 08-02-2022 Non-patient / Non-visit Dr. Nella Aguilar Work Phone: [facility] Start: 08-02-2022 Non-patient / Non-visit Dr. Nella Aguilar Work Phone: [facility] Start: 08-01-2022 Non-patient / Non-visit Dr. Nella Aguilar Work Phone: [facility] Start: 08-01-2022 Non-patient / Non-visit Dr. Nella Aguilar Work Phone: [facility] Start: 07-31-2022 Non-patient / Non-visit Dr. Nella Aguilar Work Phone: [facility] Start: 07-31-2022 Non-patient / Non-visit Dr. Nella Aguilar Work Phone: [facility] Start: 07-31-2022 End: 08-04-2022 Evaluation and management of inpatient Dr. Phan gAuilar Work Phone: [facility] Start: 07-31-2022 End: 07-31-[address] Phan Aguilar Work Phone: [facility] Start: 07-29-2022 End: 07-29-[address] Phan Aguilar Work Phone: [facility] Work Phone: Start: 07-29-2022 End: 07-29-[address] Phan Aguilar Work Phone: [facility] [place] Start: 07-29-2022 End: 07-29-[address] Phan Aguilar Work Phone: [facility] Internal [facility] Start: 05-26-2022 End: 05-26-[address] Phan Aguilar Work Phone: [facility] Internal [facility] Start: 05-21-2022 End: 05-21-2022 ambulatory PHAN AGUILAR Facility:[facility] Start: 05-21-2022 End: 05-21-2022 Patient encounter procedure Toni Corral MD Work Phone: Orthopaedics Comment on above: Left wrist pain (Aimee jony Dx); Slac (scapholunate advanced collapse) of wrist, left; Primary osteoarthritis of left knee Start: 05-14-2022 End: 05-14-[address] Phan Aguilar Work Phone: [facility] Start: 05-12-2022 End: 05-12-2022 Emergency department patient visit Dr. Phan Aguilar Work Phone: [facility]-Emergency Department Start: 05-07-2022 End: 05-07-[address] Phan Aguilar Work Phone: [facility] Start: 03-05-[address] Jose Aguilar Work Phone: [facility] Procedures Date Procedure Procedure Detail Performing Clinician Start: 06-18-2025 Urine microalbumin/creatinine ratio measurement Zebulun Beam ALLERGIST/IMMUNOLOGIST-C Work Phone: Start: 08-20-2022 Dup-scan artl radha abdl/pel/scrot&/rpr orgn com Elvis Ovalles PA-C Work Phone: Start: 08-20-2022 Us scrotum & contents B robson Ovalles PA-C Work Phone: Start: 07-31-2022 Plain chest X-ray Dr. Jose Aguilar Work Phone: Start: 07-29-2022 Plain chest X-ray Dr. Jose Aguilar Work Phone: Start: 05-12-2022 Plain x-ray of wrist Dr Isaura Aguilar Work Phone: Start: 05-12-2022 Plain x-ray of hand Dr. Phan Aguilar Work Phone: Start: 05-12-2022 CT of head without contrast Dr. Phan Aguilar Work Phone: Start: 05-12-2022 Plain X-ray of shoulder Dr. Phan Aguilar Work Phone: Start: 05-12-2022 Radiologic examinati on of knee Dr. Phan Aguilar Work Phone: Start: 05-12-2022 X-ray of lumbar spin e, two or three views Dr. Phan Aguilar Work Phone: Start: 08-30-2018 Jose Juan justice MD Work Phone: Plan of Treatment Date Care Activity Detail Author Start: 05-21-2024 Covid-19 Vaccine ( season) Covid-19 Vaccine ( season) [facility] Start: 05-21-2024 Influenza vaccination Influenza Vaccine (#1) [facility] Start: 09-20-2023 Advance Directive Discussion Advance Directive Discussion [facility] Start: 05-21-2023 Covid-19 Vaccine ( season) Covid-19 Vaccine ( season) [facility] Start: 05-21-2023 Influenza vaccination Influenza Vaccine (#1) [facility] Start: 09-20-2022 Depression Assessment Depression Assessment [facility] Start: 2022 Ther proph/dx njx iv push single/1st sbst/drug THER/PROPH/DIAG INJ IV PUSH [facility] Start: 2022 Therapeutic prophylactic/dx injection subq/im THER/PROPH/DIAG INJ SC/IM [facility] Work Phone: Start: 08-24-2022 Therapeutic prophylactic/dx injection subq/im THER/PROPH/DIAG INJ SC/IM [facility] Start: 08-21-2022 Ther proph/dx njx iv push single/1st sbst/drug THER/PROPH/DIAG INJ IV PUSH [facility] Work Phone: Start: 08-21-2022 Therapeutic prophylactic/dx injection subq/im THER/PROPH/DIAG INJ SC/IM [facility] Work Phone: Start: 08-04-2022 Patient discharge [facility] Start: 08-04-2022 Oxygen therapy [facility] Start: 08-03-2022 Notification of physician [facility] Start: 08-03-2022 Patient education [facility] Start: 08-03-2022 Pulse taking [facility] Start: 08-03-2022 Taking patient vital signs [facility] Start: 08-03-2022 Wound care [facility] Start: 08-03-2022 [facility] Start: 08-02-2022 Provision of activity privileges [facility] Start: 08-02-2022 Catheterization of vein [facility] Start: 08-02-2022 Medication not administered [facility] Start: 08-02-2022 End: 08-03-2022 [facility] Start: 08-02-2022 Blood chemistry [facility] Work Phone: Start: 08-01-2022 Admission procedure [facility] Start: 08-01-2022 Referral to tube repairer [facility] Start: 08-01-2022 Fluid restriction [facility] Start: 07-31-2022 Patient referral to dietitian [facility] Start: 07-31-2022 End: 07-31-2022 Following clinical pathway protocol [facility] Start: 07-31-2022 Ambulation without limitation [facility] Start: 07-31-2022 Assessment of risk of venous thromboembolism [facility] Start: 07-31-2022 Care regimes management [facility] Start: 07-31-2022 Insertion of catheter into peripheral vein [facility] Start: 07-31-2022 Measuring intake and output [facility] Start: 07-31-2022 Providing care according to standard [facility] Start: 07-31-2022 [facility] Start: 07-31-2022 Verification routine [facility] Work Phone: Start: 07-31-2022 Admission procedure [facility] Start: 07-29-2022 Assay of prostate specific antigen total ASSAY OF PSA TOTAL [facility] Start: 07-29-2022 Patient referral [facility] Work Phone: Start: 07-29-2022 Evaluation of diagnostic study results [facility] Start: 05-21-2022 Influenza vaccination INFLUENZA (#1) [facility] Start: 09-20-2021 DEPRESSION ASSESSMENT DEPRESSION ASSESSMENT [facility] Start: 03-29-2021 COVID-19 VACCINE (3 - Booster for Moderna series) COVID-19 VACCINE (3 - Booster for Moderna series) [facility] Start: 12-25-2020 COVID-19 VACCINE (3 - Booster for Moderna series) COVID-19 VACCINE (3 - Booster for Moderna series) [facility] Start: 05-22-2020 Urine microalbumin profile [facility] Start: 04-26-2020 3 comp foot exam completed DIABETIC FOOT EXAM [facility] Start: 04-26-2020 Diabetic foot examination Diabetic Foot Exam [facility] Start: 08-30-2019 Colonoscopy COLONOSCOPY [facility] Start: 08-30-2019 COLORECTAL CANCER SCREENING COLORECTAL CANCER SCREENING [facility] Start: 08-30-2019 Screening for malignant neoplasm of colon [facility] Start: 08-16-2019 Pneumococcal vaccination Pneumococcal Vaccine (2 - PCV) [facility] Start: 08-16-2019 Pneumococcal Vaccine: 65+ (2 of 2 - PCV) Pneumococcal Vaccine: 65+ (2 of 2 - PCV) [facility] Start: 2018 Hepatitis B Vaccine (1 of 3 - Risk 3-dose series) Hepatitis B Vaccine (1 of 3 - Risk 3-dose series) [facility] Start: 2018 RSV Vaccine (1 - 1-dose 60+ series) RSV Vaccine (1 - 1-dose 60+ series) [facility] Start: 2018 RSV Vaccine (1 - Risk 60-74 years 1-dose series) RSV Vaccine (1 - Risk 60-74 years 1-dose series) [facility] Start: 05-12-2015 PROSTATE CANCER SCREENING DISCUSSION PROSTATE CANCER SCREENING DISCUSSION [facility] Start: 05-12-2015 Prostate specific antigen measurement Prostate Cancer Screening Discussion [facility] Start: 08-22-2013 Hepatitis B screening URINE ALBUMIN:CREATININE RATIO [facility] Start: 08-22-2013 Hepatitis B surface antibody level LDL CHOLESTEROL [facility] Start: 03-17-2013 Glaucoma screening Dilated Retinal Exam [facility] Start: 03-17-2013 Hepatitis C antibody, confirmatory test DILATED RETINAL EXAM [facility] Start: 02-20-2013 Hemoglobin A1c measurement HbA1C [facility] Start: 02-20-2013 Hemoglobin A1c/Hemoglobin.total in Blood HBA1C [facility] Start: 08-10-2009 PNEUMOCOCCAL (2 - PCV) PNEUMOCOCCAL (2 - PCV) [facility] Start: 2008 SHINGRIX VACCINE (1 of 2) SHINGRIX VACCINE (1 of 2) [facility] Start: 2003 COLOGUARD (FIT-DNA) COLOGUARD (FIT-DNA) [facility] Start: [address] COLONOGRAPHY [facility] Start: 2003 FECAL OCCULT BLOOD FECAL OCCULT BLOOD [facility] Start: 2003 Screening for malignant neoplasm of colon [facility] Start: 2003 SIGMOIDOSCOPY SIGMOIDOSCOPY [facility] Start: 1976 ANNUAL PCP TEAM CHRONIC DISEASE VISIT ANNUAL PCP TEAM CHRONIC DISEASE VISIT [facility] Start: 1976 Anxiety Screening Anxiety Screening [facility] Start: 1976 BP CONTROLLED (<130/80) BP CONTROLLED (<130/80) [facility] Start: 1976 Depression Screening Depression Screening [facility] Start: 1976 HEPATITIS C SCREENING HEPATITIS C SCREENING [facility] Start: 1976 Hepatitis C screening Hepatitis C Screening [facility] Start: 1976 HIV SCREENING HIV SCREENING [facility] Start: 1976 HIV screening HIV Screening [facility] Start: 1970 Adult depression screening assessment DEPRESSION SCREENING [facility] Basic metabolic 2008 panel with ionized calcium - Serum or Plasma [facility] CBC W Auto Different ial panel - Blood [facility] Electrocardiographic procedure [facility] Work Phone: Electrocardiographic procedure [facility] Evaluation of diagno stic study results [facility] Work Phone: Hepatic function panel [facility] Lipid 1996 panel - S kev or Plasma [facility] Patient Education [facility] Work Phone: Patient referral [facility] Work Phone: [facility] Work Phone: [facility] Immunizations Immunization Date Immunization Notes [facility] Provider [facility] 08-01-2022 influenza, injectabl e, quadrivalent, preservative free David HORTON Work Phone: [facility] 08-01-2022 influenza, seasonal, injectable Dr. Phan Aguilar Work Phone: [facility] 08-01-2022 influenza virus vacc ine, unspecified formulation Us Work Phone: [facility] 10-30-2020 Covid (Moderna) Dr. Mario Aguilar Work Phone: [facility] 08-15-[address] Phan Aguilar Work Phone: [facility] 08-16-2018 pneumococcal polysaccharide vaccine, [address] Phan Aguilar Work Phone: [facility] 05-22-2010 tetanus toxoid, redu vaughn diphtheria toxoid, and acellular pertussis vaccine, adsorbed Toni Corral MD Work Phone: [facility] 08-10-2008 pneumococcal polysaccharide vaccine, 23 valent Toni Corral MD Work Phone: [facility] Payers Date Payer Category Payer Private Health Insurance [id number] 2025 Self-pay [id number] 2025 Unknown [id number] 2024 Medicare AETNA MEDICARE A ETNA MEDICARE ASSURE HMO D SNP [id number] 2024-Present [phone] [address] [place] [address] Medicare [id number] 2019 Medicaid [id number] 2019 Unknown [id number] Unknown R MIGUEL [id number] Unknown [id number] 62 Unknown [id number] 62 Unknown [id number] 62 Unknown [id number] 62 Unknown [id number] 62 Unknown [id number] 62 Unknown [id number] 62 Unknown [id number] 62 Unknown [id number] 62 Unknown [id number] 62 Social History Date Type Detail Facility Start: 05-29-2019 End: 10-05-2022 Tobacco smoking status NHIS Never smoked tobacco [facility] Start: 05-29-2019 Tobacco use and exposure Smokeless tobacco non-user [facility] Start: 05-21-2022 End: 08-18-2022 Alcohol intake Current non-drinker of alcohol (finding) [facility] Start: 08-10-2008 History SDOH Alcohol Comment very rare, none since [facility] Start: 1960 Sex Assigned At Not on file [facility] Start: 05-11-2022 End: 08-20-2022 Exposure to SARS-CoV-2 (event) Not sure [facility] Work Phone: Start: 07-31-2022 End: 10-05-2022 Tobacco smoking status NHIS Unknown if ever smoked [facility] Start: 08-29-2018 Non-smoker [facility] Start: 1960 Sex Assigned At Male [facility] Start: 08-18-2022 End: 10-02-2022 History of Social function [facility] Start: 08-18-2022 End: 10-02-2022 Tobacco use panel [facility] National Score (1-100), lower number is lower risk Not on file [facility] Medical Equipment Procedure Code Equipment Code Equipment Original Text Equipment Identifier Dates Start: 06-03-2018 Comment on above: Inject 1 Strip subcu taneously once daily. .MEDSUPPLY Blood Sugar Diagnostic (Onetouch Verio Test Strips) strip Start: 04-01-2021 Lancets (Freestyle Lancets) 28 gauge misc Start: 11-05-2020 Blood Sugar Diagnostic (Freestyle Test) strip Start: 11-14-2019 End: 04-01-2021 Blood Sugar Diagnostic (Onetouch Verio Test Strips) strip Start: 12-09-2020 End: 12-09-2020 Blood Sugar Diagnostic (Onetouch Verio Test Strips) strip Start: 12-09-2020 End: 04-01-2021 Blood Sugar Diagnostic (True Metrix Glucose Test Strip) strip Start: 10-18-2020 End: 04-01-2021 Lancets (Freestyle Lancets) 28 gauge misc Start: 11-14-2019 End: 04-01-2021 Lancets (Freestyle Lancets) 28 gauge misc Start: 03-31-2019 End: 11-05-2020 Blood Sugar Diagnostic (Onetouch Verio Test Strips) strip Start: 04-01-2021 Lancets (Freestyle Lancets) 28 gauge misc Start: 11-05-2020 Blood Sugar Diagnostic (Freestyle Test) strip Start: 11-14-2019 End: 04-01-2021 Blood Sugar Diagnostic (Onetouch Verio Test Strips) strip Start: 12-09-2020 End: 12-09-2020 Blood Sugar Diagnostic (Onetouch Verio Test Strips) strip Start: 12-09-2020 End: 04-01-2021 Blood Sugar Diagnostic (True Metrix Glucose Test Strip) strip Start: 10-18-2020 End: 04-01-2021 Lancets (Freestyle Lancets) 28 gauge misc Start: 11-14-2019 End: 04-01-2021 Lancets (Freestyle Lancets) 28 gauge misc Start: 03-31-2019 End: 11-05-2020 Blood Sugar Diagnostic (Onetouch Verio Test Strips) strip Start: 04-01-2021 Lancets (Freestyle Lancets) 28 gauge misc Start: 11-05-2020 Blood Sugar Diagnostic (Freestyle Test) strip Start: 11-14-2019 End: 04-01-2021 Blood Sugar Diagnostic (Onetouch Verio Test Strips) strip Start: 12-09-2020 End: 12-09-2020 Blood Sugar Diagnostic (Onetouch Verio Test Strips) strip Start: 12-09-2020 End: 04-01-2021 Blood Sugar Diagnostic (True Metrix Glucose Test Strip) strip Start: 10-18-2020 End: 04-01-2021 Lancets (Freestyle Lancets) 28 gauge misc Start: 11-14-2019 End: 04-01-2021 Lancets (Freestyle Lancets) 28 gauge misc Start: 03-31-2019 End: 11-05-2020 Blood Sugar Diagnostic (Onetouch Verio Test Strips) strip Start: 04-01-2021 Lancets (Freestyle Lancets) 28 gauge misc Start: 11-05-2020 Blood Sugar Diagnostic (Freestyle Test) strip Start: 11-14-2019 End: 04-01-2021 Blood Sugar Diagnostic (Onetouch Verio Test Strips) strip Start: 12-09-2020 End: 12-09-2020 Blood Sugar Diagnostic (Onetouch Verio Test Strips) strip Start: 12-09-2020 End: 04-01-2021 Blood Sugar Diagnostic (True Metrix Glucose Test Strip) strip Start: 10-18-2020 End: 04-01-2021 Lancets (Freestyle Lancets) 28 gauge misc Start: 11-14-2019 End: 04-01-2021 Lancets (Freestyle Lancets) 28 gauge misc Start: 03-31-2019 End: 11-05-2020 Blood Sugar Diagnostic (Onetouch Verio Test Strips) strip Start: 04-01-2021 Lancets (Freestyle Lancets) 28 gauge misc Start: 11-05-2020 Blood Sugar Diagnostic (Freestyle Test) strip Start: 11-14-2019 End: 04-01-2021 Blood Sugar Diagnostic (Onetouch Verio Test Strips) strip Start: 12-09-2020 End: 12-09-2020 Blood Sugar Diagnostic (Onetouch Verio Test Strips) strip Start: 12-09-2020 End: 04-01-2021 Blood Sugar Diagnostic (True Metrix Glucose Test Strip) strip Start: 10-18-2020 End: 04-01-2021 Lancets (Freestyle Lancets) 28 gauge misc Start: 11-14-2019 End: 04-01-2021 Lancets (Freestyle Lancets) 28 gauge misc Start: 03-31-2019 End: 11-05-2020 Blood Sugar Diagnostic (Onetouch Verio Test Strips) strip Start: 04-01-2021 Lancets (Freestyle Lancets) 28 gauge misc Start: 11-05-2020 Blood Sugar Diagnostic (Freestyle Test) strip Start: 11-14-2019 End: 04-01-2021 Blood Sugar Diagnostic (Onetouch Verio Test Strips) strip Start: 12-09-2020 End: 12-09-2020 Blood Sugar Diagnostic (Onetouch Verio Test Strips) strip Start: 12-09-2020 End: 04-01-2021 Blood Sugar Diagnostic (True Metrix Glucose Test Strip) strip Start: 10-18-2020 End: 04-01-2021 Lancets (Freestyle Lancets) 28 gauge misc Start: 11-14-2019 End: 04-01-2021 Lancets (Freestyle Lancets) 28 gauge misc Start: 03-31-2019 End: 11-05-2020 Blood Sugar Diagnostic (Onetouch Verio Test Strips) strip Start: 04-01-2021 Lancets (Freestyle Lancets) 28 gauge misc Start: 11-05-2020 Blood Sugar Diagnostic (Freestyle Test) strip Start: 11-14-2019 End: 04-01-2021 Blood Sugar Diagnostic (Onetouch Verio Test Strips) strip Start: 12-09-2020 End: 12-09-2020 Blood Sugar Diagnostic (Onetouch Verio Test Strips) strip Start: 12-09-2020 End: 04-01-2021 Blood Sugar Diagnostic (True Metrix Glucose Test Strip) strip Start: 10-18-2020 End: 04-01-2021 Lancets (Freestyle Lancets) 28 gauge misc Start: 11-14-2019 End: 04-01-2021 Lancets (Freestyle Lancets) 28 gauge misc Start: 03-31-2019 End: 11-05-2020 Blood Sugar Diagnostic (Onetouch Verio Test Strips) strip Start: 04-01-2021 Lancets (Freestyle Lancets) 28 gauge misc Start: 11-05-2020 Blood Sugar Diagnostic (Freestyle Test) strip Start: 11-14-2019 End: 04-01-2021 Blood Sugar Diagnostic (Onetouch Verio Test Strips) strip Start: 12-09-2020 End: 12-09-2020 Blood Sugar Diagnostic (Onetouch Verio Test Strips) strip Start: 12-09-2020 End: 04-01-2021 Blood Sugar Diagnostic (True Metrix Glucose Test Strip) strip Start: 10-18-2020 End: 04-01-2021 Lancets (Freestyle Lancets) 28 gauge misc Start: 11-14-2019 End: 04-01-2021 Lancets (Freestyle Lancets) 28 gauge misc Start: 03-31-2019 End: 11-05-2020 Blood Sugar Diagnostic (Onetouch Verio Test Strips) strip Start: 11-25-2022 Lancets (Freestyle Lancets) 28 gauge misc Start: 11-25-2022 Blood Sugar Diagnostic (Freestyle Test) strip Start: 11-14-2019 End: 04-01-2021 Blood Sugar Diagnostic (Onetouch Verio Test Strips) strip Start: 04-01-2021 End: 11-25-2022 Blood Sugar Diagnostic (Onetouch Verio Test Strips) strip Start: 12-09-2020 End: 12-09-2020 Blood Sugar Diagnostic (Onetouch Verio Test Strips) strip Start: 12-09-2020 End: 04-01-2021 Blood Sugar Diagnostic (True Metrix Glucose Test Strip) strip Start: 10-18-2020 End: 04-01-2021 Lancets (Freestyle Lancets) 28 gauge misc Start: 11-14-2019 End: 04-01-2021 Lancets (Freestyle Lancets) 28 gauge misc Start: 03-31-2019 End: 11-05-2020 Lancets (Freestyle Lancets) 28 gauge misc Start: 11-05-2020 End: 11-25-2022 Blood Sugar Diagnostic (Onetouch Verio Test Strips) strip Start: 11-25-2022 Lancets (Freestyle Lancets) 28 gauge misc Start: 11-25-2022 Blood Sugar Diagnostic (Freestyle Test) strip Start: 11-14-2019 End: 04-01-2021 Blood Sugar Diagnostic (Onetouch Verio Test Strips) strip Start: 04-01-2021 End: 11-25-2022 Blood Sugar Diagnostic (Onetouch Verio Test Strips) strip Start: 12-09-2020 End: 12-09-2020 Blood Sugar Diagnostic (Onetouch Verio Test Strips) strip Start: 12-09-2020 End: 04-01-2021 Blood Sugar Diagnostic (True Metrix Glucose Test Strip) strip Start: 10-18-2020 End: 04-01-2021 Lancets (Freestyle Lancets) 28 gauge misc Start: 11-14-2019 End: 04-01-2021 Lancets (Freestyle Lancets) 28 gauge misc Start: 03-31-2019 End: 11-05-2020 Lancets (Freestyle Lancets) 28 gauge misc Start: 11-05-2020 End: 11-25-2022 Blood Sugar Diagnostic (Onetouch Verio Test Strips) strip Start: 11-25-2022 Lancets (Freestyle Lancets) 28 gauge misc Start: 11-25-2022 Blood Sugar Diagnostic (Freestyle Test) strip Start: 11-14-2019 End: 04-01-2021 Blood Sugar Diagnostic (Onetouch Verio Test Strips) strip Start: 04-01-2021 End: 11-25-2022 Blood Sugar Diagnostic (Onetouch Verio Test Strips) strip Start: 12-09-2020 End: 12-09-2020 Blood Sugar Diagnostic (Onetouch Verio Test Strips) strip Start: 12-09-2020 End: 04-01-2021 Blood Sugar Diagnostic (True Metrix Glucose Test Strip) strip Start: 10-18-2020 End: 04-01-2021 Lancets (Freestyle Lancets) 28 gauge [facility] Start: 11-14-2019 End: 04-01-2021 Lancets (Freestyle Lancets) 28 gauge [facility] Start: 03-31-2019 End: 11-05-2020 Lancets (Freestyle Lancets) 28 gauge [facility] Start: 11-05-2020 End: 11-25-2022 Blood Sugar Diagnostic (Onetouch Verio Test Strips) strip Start: 11-25-2022 Lancets (Freestyle Lancets) 28 gauge [facility] Start: 11-25-2022 Blood Sugar Diagnostic (Freestyle Test) strip Start: 11-14-2019 End: 04-01-2021 Blood Sugar Diagnostic (Onetouch Verio Test Strips) strip Start: 04-01-2021 End: 11-25-2022 Blood Sugar Diagnostic (Onetouch Verio Test Strips) strip Start: 12-09-2020 End: 12-09-2020 Blood Sugar Diagnostic (Onetouch Verio Test Strips) strip Start: 12-09-2020 End: 04-01-2021 Blood Sugar Diagnostic (True Metrix Glucose Test Strip) strip Start: 10-18-2020 End: 07-13-2021 Lancets (Freestyle Lancets) 28 gauge misc Start: 11-14-2019 End: 04-01-2021 Lancets (Freestyle Lancets) 28 gauge misc Start: 03-31-2019 End: 11-05-2020 Lancets (Freestyle Lancets) 28 gauge misc Start: 11-05-2020 End: 11-25-2022 Blood Sugar Diagnostic (Onetouch Verio Test Strips) strip Start: 11-25-2022 Lancets (Freestyle Lancets) 28 gauge misc Start: 11-25-2022 Blood Sugar Diagnostic (Freestyle Test) strip Start: 11-14-2019 End: 04-01-2021 Blood Sugar Diagnostic (Onetouch Verio Test Strips) strip Start: 04-01-2021 End: 11-25-2022 Blood Sugar Diagnostic (Onetouch Verio Test Strips) strip Start: 12-09-2020 End: 12-09-2020 Blood Sugar Diagnostic (Onetouch Verio Test Strips) strip Start: 12-09-2020 End: 04-01-2021 Blood Sugar Diagnostic (True Metrix Glucose Test Strip) strip Start: 10-18-2020 End: 04-01-2021 Lancets (Freestyle Lancets) 28 gauge misc Start: 11-14-2019 End: 04-01-2021 Lancets (Freestyle Lancets) 28 gauge misc Start: 03-31-2019 End: 11-05-2020 Lancets (Freestyle Lancets) 28 gauge misc Start: 11-05-2020 End: 11-25-2022 Blood Sugar Diagnostic (Onetouch Verio Test Strips) strip Start: 11-25-2022 Lancets (Freestyle Lancets) 28 gauge misc Start: 11-25-2022 Blood Sugar Diagnostic (Freestyle Test) strip Start: 11-14-2019 End: 04-01-2021 Blood Sugar Diagnostic (Onetouch Verio Test Strips) strip Start: 04-01-2021 End: 11-25-2022 Blood Sugar Diagnostic (Onetouch Verio Test Strips) strip Start: 12-09-2020 End: 12-09-2020 Blood Sugar Diagnostic (Onetouch Verio Test Strips) strip Start: 12-09-2020 End: 04-01-2021 Blood Sugar Diagnostic (True Metrix Glucose Test Strip) strip Start: 10-18-2020 End: 04-01-2021 Lancets (Freestyle Lancets) 28 gauge misc Start: 11-14-2019 End: 04-01-2021 Lancets (Freestyle Lancets) 28 gauge misc Start: 03-31-2019 End: 11-05-2020 Lancets (Freestyle Lancets) 28 gauge misc Start: 11-05-2020 End: 11-25-2022 Blood Sugar Diagnostic (Onetouch Verio Test Strips) strip Start: 11-25-2022 Lancets (Freestyle Lancets) 28 gauge misc Start: 11-25-2022 Blood Sugar Diagnostic (Freestyle Test) strip Start: 11-14-2019 End: 04-01-2021 Blood Sugar Diagnostic (Onetouch Verio Test Strips) strip Start: 04-01-2021 End: 11-25-2022 Blood Sugar Diagnostic (Onetouch Verio Test Strips) strip Start: 12-09-2020 End: 12-09-2020 Blood Sugar Diagnostic (Onetouch Verio Test Strips) strip Start: 12-09-2020 End: 04-01-2021 Blood Sugar Diagnostic (True Metrix Glucose Test Strip) strip Start: 10-18-2020 End: 04-01-2021 Lancets (Freestyle Lancets) 28 gauge misc Start: 11-14-2019 End: 04-01-2021 Lancets (Freestyle Lancets) 28 gauge misc Start: 03-31-2019 End: 11-05-2020 Lancets (Freestyle Lancets) 28 gauge misc Start: 11-05-2020 End: 11-25-2022 Blood Sugar Diagnostic (Onetouch Verio Test Strips) strip Start: 11-25-2022 Lancets (Freestyle Lancets) 28 gauge misc Start: 11-25-2022 Blood Sugar Diagnostic (Freestyle Test) strip Start: 11-14-2019 End: 04-01-2021 Blood Sugar Diagnostic (Onetouch Verio Test Strips) strip Start: 04-01-2021 End: 11-25-2022 Blood Sugar Diagnostic (Onetouch Verio Test Strips) strip Start: 12-09-2020 End: 12-09-2020 Blood Sugar Diagnostic (Onetouch Verio Test Strips) strip Start: 12-09-2020 End: 04-01-2021 Blood Sugar Diagnostic (True Metrix Glucose Test Strip) strip Start: 10-18-2020 End: 04-01-2021 Lancets (Freestyle Lancets) 28 gauge misc Start: 11-14-2019 End: 04-01-2021 Lancets (Freestyle Lancets) 28 gauge misc Start: 03-31-2019 End: 11-05-2020 Lancets (Freestyle Lancets) 28 gauge misc Start: 11-05-2020 End: 11-25-2022 Blood Sugar Diagnostic (Onetouch Verio Test Strips) strip Start: 11-25-2022 Lancets (Freestyle Lancets) 28 gauge misc Start: 11-25-2022 Blood Sugar Diagnostic (Freestyle Test) strip Start: 11-14-2019 End: 04-01-2021 Blood Sugar Diagnostic (Onetouch Verio Test Strips) strip Start: 04-01-2021 End: 11-25-2022 Blood Sugar Diagnostic (Onetouch Verio Test Strips) strip Start: 12-09-2020 End: 12-09-2020 Blood Sugar Diagnostic (Onetouch Verio Test Strips) strip Start: 12-09-2020 End: 04-01-2021 Blood Sugar Diagnostic (True Metrix Glucose Test Strip) strip Start: 10-18-2020 End: 04-01-2021 Lancets (Freestyle Lancets) 28 gauge misc Start: 11-14-2019 End: 04-01-2021 Lancets (Freestyle Lancets) 28 gauge misc Start: 03-31-2019 End: 11-05-2020 Lancets (Freestyle Lancets) 28 gauge misc Start: 11-05-2020 End: 11-25-2022 Goals Date Patient Goal Desired Activity /State Functional Status Date Assessment Result Facility 08-04-2022 Functional status Activity Ability Indepe ndent [facility] Work Phone: 08-04-2022 Functional status Patient Activity Chair [facility] Work Phone: 11-14-2022 Functional status None [facility] Work Phone: 08-01-2022 Functional status Ambulates;Up ad vito [facility] Work Phone: 08-01-2022 Functional status Assistive Devices None [facility] Work Phone: Mental Status Date Assessment Result Facility 08-24-2022 Cognitive function Voice/Name [facility] Work Phone: 08-21-2022 Cognitive function Level Of Cons ciousness Awake;Alert;Appropriate;Follow s Commands [facility] Work Phone: 08-19-2022 Cognitive function Level Of Cons ciousness Awake;Alert;Appropriate;Follow s Commands [facility] Work Phone: 08-04-2022 Cognitive function Voice/Name [facility] Work Phone: 08-03-2022 Cognitive function Mood Descript ion Appropriate;Calm;Relaxed [facility] Work Phone: 08-01-2022 Cognitive function Voice/Name [facility] Work Phone: Clinical Notes 08-10-2008 to 04-10-2025 Note Date & Type Note Facility 04-10-2025 Procedure note [facility] 04-10-2025 Evaluation note Diagnosis Onset Date Resolution Cardiac defibrillator in place chronic April 10, 2025 8:44am Nonischemic cardiomyopathy chronic April 10, 2025 8:44am Atrial fibrillation chronic Septe 2024 1:58pm Cardiac defibrillator in place chronic May 30, 2025 1:58pm Hyperlipidemia chronic May 30, 2025 1:58pm Hypertension chronic May 302024 1:58pm Nonischemic cardiomyopathy chronic May 30, 2025 1:58pm [facility] Work Phone: 1(160) 976-442807-08-2025 Evaluation note* Diagnosis Onset Date Resolution Status Admit Date Atrial fibrillation chronic March 27, 2025 9:08am Cardiac defibrillator in place chron ic March 27, 2025 9:08am Hyperlipidemia chronic March 27, 2025 9:08am Hypertension chronic March 27 9:08am Nonischemic cardiomyopathy chronic March 27, 2025 9:08am [facility] Work Phone: 1(366) 928-116307-08-2025 Evaluation note* Diagnosis Onset Date Resolution Status Admit Date Atrial fibrillation chronic March 27, 2025 9:08am Cardiac defibrillator in place chron ic March 27, 2025 9:08am Hyperlipidemia chronic March 27, 2025 9:08am Hypertension chronic March 27 9:08am Nonischemic cardiomyopathy chronic March 27, 2025 9:08am Cardiac defibrillator in place chron ic April 10, 2025 8:44am Nonischemic cardiomyopathy chronic April 10, 2025 8:44am [facility] Work Phone: 1(396) 245-504907-08-2025 Evaluation note* Diagnosis Onset Date Resolution Status Admit Date Atrial fibrillation chronic March 27, 2025 9:08am Cardiac defibrillator in place chron ic March 27, 2025 9:08am Hyperlipidemia chronic March 27, 2025 9:08am Hypertension chronic March 27 9:08am Nonischemic cardiomyopathy chronic March 27, 2025 9:08am Cardiac defibrillator in place chron ic April 10, 2025 8:44am Nonischemic cardiomyopathy chronic April 10, 2025 8:44am Atrial fibrillation chronic 2024 1:58pm Cardiac defibrillator in place chron ic May 30, 2025 1:58pm Hyperlipidemia chronic May 30, 2025 1:58pm Hypertension chronic May 302024 1:58pm Nonischemic cardiomyopathy chronic May 30, 2025 1:58pm [facility] Work Phone: [phone]) 616-224611-12-2024 Telephone encounter Note* Telephone Encounter - Anuradha Simpson - 08/01/2024 10:12 AM EST Called patient to schedule his GI procedure. Patient stated that he has already had his colo done. [facility]11-12-2024 Miscellaneous Notes* Telephone Encounter - Anuradha Simpson - 08/01/2024 10:12 AM EST Called patient to schedule his GI procedure. Patient stated that he has already had his colo done. documented in this encounterOhio[facility]10-11-2024 Telephone encounter Note * Telephone Encounter - Anuradha Simpson - 06/30/2024 2:47 PM EDT Called Patient to schedule GI procedure. LVM with call back number. [facility]10-11-2024 Miscellaneous Notes* Telephone Encounter - Anuradha Simpson - 06/30/2024 2:47 PM EDT Called Patient to schedule GI procedure. LVM with call back number. documented in this encounterOhiohealth [facility]12-05-2022 Miscellaneous Notes* Telephone Encounter - Asmita Bell LPN - 08/24/2022 1:00 PM EST Called patient. Verified name and date of . Patient informed and verbalizes understanding. States has had improvement and will let us know if he'd like follow up if it is needed. Asmita Bell LPN * Telephone Encounter - Elvis Ovalles PA-C - 08/24/2022 10:04 AM EST Please let patient know that his scrotum US ws pretty normal the only findings are bilateral small hydrocele, not likely the cause of discomfort. And he had scrotum wall thickening and no pathology or pain associated with that. If this is not improving I will have him see Dr. Knapp to discuss Cord Block procedure. DAVID Hercules, [place], YUE documented in this encounterOhiohealth [facility]12-01-2022 NoteHNO ID: [id number] Author: Sepideh Adorno RDMS Service: ? Author Type: Middleware Systems Architect Type: Progress Notes Filed: 08/20/2022 10:45 AM Note Text: Radiology Service Progress Note PATIENT NAME: Ash Regalado DATE OF SERVICE: August 20, 2022 TIME: 10:45 AM PATIENT IDENTITY VERIFICATION COMPLETED USING TWO (2) IDENTIFIERS: Name and Date of confirmed by patient verbally. FALL SCREENING: Has the patient had 2 falls in the last year or 1 fall with injury or currently using an Ambulatory Assistive Device (Walker, Cane, Wheelchair, Crutches, etc.)? Yes, Patient High Risk for Falls What interventions were put in place to prevent falls during this visit? Instructed Patient to Call for Help if Needed, Offered Assistance with Transfers/Clothing, Instructed Patient to Remain Seated (Not on Exam Table) Until Exam, and Increased Observations by Caregivers PATIENT GENDER DATA: Male PATIENT RELEVANT IMPLANT DATA REVIEWED: Not Applicable RADIOLOGY DEPARTMENT: Ultrasound PERIPHERAL IV DATA: Not applicable SIGNED BY: Sepideh Adorno RDMS RVT August 20, 2022 10:45 [facility]12-01-2022 History of Present illness Narrative* Sepideh Adorno RDMS - 08/20/2022 10:00 AM EST Radiology Service Progress Note PATIENT NAME: sAh Regalado DATE OF SERVICE: August 20, 2022 TIME: 10:45 AM PATIENT IDENTITY VERIFICATION COMPLETED USING TWO (2) IDENTIFIERS: Name and Date of confirmedby patient verbally. FALL SCREENING: Has the patient had 2 falls in the last year or 1 fall with injury or currently using an Ambulatory Assistive Device (Walker, Cane, Wheelchair, Crutches, etc.)? Yes, Patient High Riskfor Falls What interventions were put in place to prevent falls during this visit? Instructed Patient to Callfor Help if Needed, Offered Assistance with Transfers/Clothing, Instructed Patient to Remain Seated(Not on Exam Table) Until Exam, and Increased Observations by Caregivers PATIENT GENDER DATA: Male PATIENT RELEVANT IMPLANT DATA REVIEWED: Not Applicable RADIOLOGY DEPARTMENT: Ultrasound PERIPHERAL IV DATA: Not applicable SIGNED BY: Sepideh Adorno RDMS RVT August 20, 2022 10:45 AM documented in this encounterOhiohealth Nelson[facility] Center11-29-2022 NoteHNO ID: [id number] Author: Elvis Ovalles PA-C Service: ? Author Type: Physician Ophthalmologist Type: Progress Notes Filed: 08/19/2022 4:06 PM Note Text: COUNTS INCLUDE 234 BEDS AT THE [facility] NEW PATIENT CLINIC NOTE SERVICE DATE: 08/18/2022 SERVICE TIME: 11:35 AM NAME: Ash Regalado CHIEF COMPLAINT: Scrotum Swelling HISTORY OF PRESENT ILLNESS: Ash Regalado is a 61 year old male with PMH including DM-2,HTN presenting with enlarged and firm sdcrotum The patient reports he has been having pain and the scrotum is thickened Recommended getting a Scrotum US soone LUTS: None Other symptoms: LABS: No results found for: TESTOST No results found for: TESTFREE No results found for: PSA Hematocrit (%) Date Value 08/10/2008 44.4 MEDICATIONS: ELIQUIS 5 mg tab(s) Take 5 mg by mouth twice daily. carvedilol (COREG) 12.5 mg tablet Take 12.5 mg by mouth twice daily with meals. JARDIANCE 10 mg tablet Take 10 mg by mouth daily with breakfast. furosemide (LASIX) 40 mg tablet Take 40 mg by mouth twice daily. metoprolol succinate ER (TOPROL XL) 25 mg 24 hr tablet Take 25 mg by mouth once daily. traZODone (DESYREL) 50 mg tablet Take 50 mg by mouth daily at bedtime. dulaglutide (TRULICITY) 3 mg/0.5 mL pen injector Inject 3 mg subcutaneously one time a week. glipiZIDE (GLUCOTROL) 10 mg tablet Take 10 mg by mouth once daily. hydrALAZINE (APRESOLINE) 25 mg tablet Take 25 mg by mouth three times daily. hydroCHLOROthiazide (HYDRODIURIL, ESIDRIX) 25 mg tablet Take 25 mg by mouth once daily. oxyCODONE-acetaminophen (PERCOCET) 5-325 mg tablet Take by mouth every 8 hours as needed for pain. metFORMIN (GLUCOPHAGE) 1,000 mg tablet Take 1,000 mg by mouth twice daily with meals. traMADol (ULTRAM) 50 mg tablet Take 50 mg by mouth every 6 hours as needed for pain. meloxicam (MOBIC) 15 mg tablet Take 1 tablet by mouth once daily. triamcinolone acetonide (KENALOG) 0.1 % cream Apply 1 application to affected area twice daily. predniSONE (DELTASONE) 10 mg tablet Take 1 tablet by mouth once daily. 4 tabs PO QD x 3 days, 3 tabs PO QD x 3 days, 2 tabs PO QD x 3 days, 1 tab PO QD x 3 days blood sugar diagnostic (CONTOUR TEST STRIPS) test strip Inject 1 Strip subcutaneously once daily. exenatide (BYDUREON BCISE) 2mg / 0.85 ml subcutaneous auto injector Lancets lancets .MEDSUPPLY triamterene-hydrochlorothiazide 37.5-25 mg per capsule Take 1 capsule by mouth once daily. doxazosin (CARDURA) 8 mg tablet Take 1 tablet by mouth once daily. glipiZIDE-metFORMIN 2.5-500 mg per tablet Take 2 tablets by mouth once daily. lisinopril 20 mg tablet Take 2 tablets by mouth twice daily. amLODIPine (NORVASC) 10 mg tablet Take 1 tablet by mouth once daily. PAST MEDICAL HISTORY: PAST MEDICAL HISTORY Diagnosis Date Diabetes mellitus, type 2 1999 with neprhopathy Hypertension Obesity Obstructive sleep apnea Sibilia PAST SURGICAL HISTORY: PAST SURGICAL HISTORY Procedure Laterality Date EXTRACTION, ERUPTED TOOTH OR EXPOSED ROOT (ELEVATION AND/OR FORCEPS REMOVAL) wisdom teeth PAST SURGICAL HISTORY OF 1979 metal in side, right (flank) TONSILLECTOMY PRIMARY/SECONDARY FAMILY HISTORY: FAMILY HISTORY Problem Relation Age of Onset Diabetes Mother Diabetes Father Coronary Artery Disease Father first MA 60's, CHF COPD Father Diabetes Brother Colon Cancer No Family History Prostate Cancer No Family History SOCIAL HISTORY: Social Connections: Not on file REVIEW OF SYSTEMS: GENERAL: No fever, chills, weight loss, or fatigue. ENMT: Negative CARDIOVASCULAR:NO CHEST PAIN, PALPITATIONS, ANKLE EDEMA RESPIRATORY: No chronic cough, wheezing, dyspnea, hemoptysis. GENITOURINARY: SEE HPI MUSCULOSKELETAL:NO CHRONIC BACK PAIN, ARTHRITIS, CHRONIC NECK PAIN SKIN: NO VARICOSE VEINS, RASH, ABNORMAL ITCHING HEME/LYMPH/IMMUNE:Negative for prolonged bleeding, bruising easily or swollen nodes NEUROLOGICAL: NO HEADACHES, NUMBNESS, SEIZURES, STROKE DIABETES: Yes All other systems reviewed and are negative PHYSICAL EXAMINATION: Blood pressure 118/84, pulse 62, temperature 36.2 ?C (97.2 ?F), temperature source Temporal, resp. rate 20, height 182.9 cm (6'), weight (!) 147 kg (324 lb), SpO2 92 %. GENERAL: WNL nutrition, no deformities, healthy appearing NEURO: Awake, alert and oriented x 3 and Normal gait PSYCH: No signs of depression, anxiety, or agitation ENMT (Ear, Nose, Mouth, Throat): No masses, adenopathy, icterus. Thyroid nonpalpable RESP: NL effort, no retractions or purse-lip breathing. CV: No extremity swelling, varices, edema, pallor, erythema GASTROINTESTINAL: Soft, nontender, nondistended, no masses. HERNIAS: None SKIN: No rash, lesions No palpable lymphadenopathy MUSCULOSKELETAL: Extremities normal. No deformities, edema, clubbing or skin discoloration. PROBLEM LIST REVIEW: Yes LABS: Results for orde (more content not included)...[facility] 08-18-2022 NoteHNO ID: [id number] Author: Asmita Bell LPN Service: ? Author Type: ? Type: Progress Notes Filed: 08/19/2022 4:06 PM Note Text: Verified name and date of . CC Post Void Residual HPI: Ash Regalado is a 61 year old male. The patient is here now for an appointment with DAVID Hercules, [place], PA-JAMIN. Procedure: Explained procedure to patient and verbalizes understanding. Performed a PVR. Patient urinated and instructed to empty bladder as much as possible just prior to having PVR done using bladder ultrasound scanner. Results of scan: 0 mL The patient tolerated the procedure well. Plan: Appointment with Elvis.[facility]09-01-2022 NoteHNO ID: [id number] Author: Toni Corral MD Service: ? Author Type: Physician Type: Progress Notes Filed: 05/21/2022 3:42 PM Note Text: Toni Corral MD Department of Orthopaedics Orthopaedics [address] [facility] [address] Dept: [phone] Dept May 21, 2022 CHIEF COMPLAINT: New and Pain of the Left Wrist HPI Patient states last Wednesday he was cutting the grass at home. He went to sit down on the porch to rest and when he got up to get off the porch his missed the step fell landing on is left side. He was seen at [facility]. X-rays done and given a wrist brace. He has been wearing the brace most of the time. He is left hand dominant. His pain is at the base of his thumb. States it is very painful when he makes a fist. He is currently not working due to injuring his back and wrist from the fall last week. 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 Taking Tramadol and Percocet for the pain. Patient hand carried copies of his x-rays today. 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 He may even get a little bit of Voltaren either for the wrist or the knee. Some bracing and we will also keep him off of work for another 2 weeks and a few days. As long as he is feeling better at that time getting his strength back in the left wrist, he can return. No surgery necessary for the SLAC, this is likely an exacerbation of a underlying chronic problem. If symptoms persist at the wrist however an injection in the office would be reasonable. FOLLOW UP INSTRUCTIONS: As needed Mr. Ash Regalado was advised as to contrast therapies and/or to take analgesics/anti-inflammatories as needed and all contraindications were reviewed. OBJECTIVE: Mr. Ash Regalado is a pleasant 61 year old in no apparent distress. Gen:There were no vitals taken for this visit. nl development, obese, no deformities ENT: Normocephalic, normal hearing, moist mucosa CV: Pulses:Radial= 2+ and symmetric, capillary refill < 2 secs, no peripheral edema/varicosities Skin: no rash, bruising or lesions. Good turgor. Psych: cooperative and appropriate, alert and oriented x 3, good mood and affect. Musculoskeletal: Some global swelling in the left wrist. He is a bit more tender to touch near the STT location and base of the joint. Minimally at the radiocarpal joint dorsally. Bit of discomfort with Willis but no mechanical symptoms or clunk. Median, radial and ulnar nerves intact. IMAGIN views of an outside system show a left wrist with widened scapholunate interval. No malalignment on the lateral. No fractures noted. He does have some mild CMC arthritis with some STT involvement. 4 views of the knee show moderate tricompartmental arthritis worse in the medial joint. Supporting Subjective Information Below: Past Medical History: PAST MEDICAL HISTORY Diagnosis Date Diabetes mellitus, type 2 1999 with neprhopathy Hypertension Obesity Obstructive sleep apnea Sibilia Past Surgical History: PAST SURGICAL HISTORY Procedure Laterality Date EXTRACTION, ERUPTED TOOTH OR EXPOSED ROOT (ELEVATION AND/OR FORCEPS REMOVAL) wisdom teeth PAST SURGICAL HISTORY OF 1979 metal in side, right (flank) TONSILLECTOMY PRIMARY/SECONDARY Family History: FAMILY HISTORY Problem Relation Age of Onset Diabetes Mother Diabetes Father Coronary Artery Disease Father first MA 60's, CHF COPD Father Diabetes Brother Colon Cancer No Family History Prostate Cancer No Family History Social History: Social History Tobacco Use Smoking status: Never Smokeless tobacco: Never Vaping Use Vaping Use: Never used Substance Use Topics Alcohol use: No Comment: very rare, none since Drug use: No Medications: Current Outpatient Medications Medication Sig traZODone (DESYREL) 50 mg tablet Take 50 mg by mouth daily at bedtime. dulaglutide (TRULICITY) 3 mg/0.5 mL pen injector Inject 3 mg subcutaneously one time a week. glipiZIDE (GLUCOTROL) 10 mg tablet Take 10 mg by mouth once daily. hydrALAZINE (APRESOLINE) 25 mg tablet Take 25 mg by mouth three times daily. hydroCHLOROthiazide (HYDRODIURIL, ESIDRIX) 25 mg tablet Take 25 mg by mouth once daily. oxyCODONE-acetaminophen (PERCOCET) 5-325 mg tablet Take by mouth every 8 hours as needed for pain. metFORMIN (GLUCOPHAGE) 1,000 mg tablet Take 1,000 mg by mouth twice daily with meals. traMADol (more content not included)...[facility]09-01-2022 History of Present illness Narrative* Toni Corral MD - 05/21/2022 2:34 PM EDT Toni Corral MD Department of Orthopaedics Orthopaedics [address] [place] [address] Dept: [phone] Dept May 21, 2022 CHIEF COMPLAINT: New and Pain of the Left Wrist HPI Patient states last Wednesday he was cutting the grass at home. He went to sit down on the porch torest and when he got up to get off the porch his missed the step fell landing on is left side. He was seen at [facility]. X-rays done and given a wrist brace. He has been wearing the brace most of the time.He is left hand dominant. His pain is at the base of his thumb. States it is very painful when he makes a fist. 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 Taking Tramadol and Percocet for the pain. Patient hand carried copies of his x- rays today. 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 He may even get a little bit of Voltaren either for the wrist or the knee. Some bracing and we will also keep him off of work for another 2 weeks and a few days. As long as he is feeling better at that time getting his strength back in the left wrist, he can return. No surgery necessary for the SLAC, this is likely an exacerbation of a underlying chronic problem. If symptoms persist at the wrist however an injection in the office would be reasonable. FOLLOW UP INSTRUCTIONS: As needed Mr. Ash Regalado was advised as to contrast therapies and/or to take analgesics/anti-inflammatories as needed and all contraindications were reviewed. OBJECTIVE: Mr. Ash Regalado is a pleasant 61 year old in no apparent distress. Gen:There were no vitals taken for this visit. nl development, obese, no deformities ENT: Normocephalic, normal hearing, moist mucosa CV: Pulses:Radial= 2+ and symmetric, capillary refill < 2 secs, no peripheral edema/varicosities Skin: no rash, bruising or lesions. Good turgor. Psych: cooperative and appropriate, alert and oriented x 3, good mood and affect. Musculoskeletal: Some global swelling in the left wrist. He is a bit more tender to touch near the STT location and base of the joint. Minimally at the radiocarpal joint dorsally. Bit of discomfort with Willis but nomechanical symptoms or clunk. Median, radial and ulnar nerves intact. IMAGIN views of an outside system show a left wrist with widened scapholunate interval. No malalignment on the lateral. No fractures noted. He does have some mild CMC arthritis with some STT involvement. 4 views of the knee show moderate tricompartmental arthritis worse in the medial joint. Supporting Subjective Information Below: Past Medical History: PAST MEDICAL HISTORY Diagnosis Date Diabetes mellitus, type 2 2000 with neprhopathy Hypertension Obesity Obstructive sleep apnea Sibilia Past Surgical History: PAST SURGICAL HISTORY Procedure Laterality Date EXTRACTION, ERUPTED TOOTH OR EXPOSED ROOT (ELEVATION AND/OR FORCEPS REMOVAL) wisdom teeth PAST SURGICAL HISTORY OF 1979 metal in side, right (flank) TONSILLECTOMY PRIMARY/SECONDARY <AGE 10 childhood Family History: FAMILY HISTORY Problem Relation Age of Onset Diabetes Mother Diabetes Father Coronary Artery Disease Father first MA 60's, CHF COPD Father Diabetes Brother Colon Cancer No Family History Prostate Cancer No Family History Social History: Social History Tobacco Use Smoking status: Never Smokeless tobacco: Never Vaping Use Vaping Use: Never used Substance Use Topics Alcohol use: No Comment: very rare, none since Drug use: No Medications: Current Outpatient Medications Medication Sig traZODone (DESYREL) 50 mg tablet Take 50 mg by mouth daily at bedtime. dulaglutide (TRULICITY) 3 mg/0.5 mL pen injector Inject 3 mg subcutaneously one time a week. glipiZIDE (GLUCOTROL) 10 mg tablet Take 10 mg by mouth once daily. hydrALAZINE (APRESOLINE) 25 mg tablet Take 25 mg by mouth three times daily. hydroCHLOROthiazide (HYDRODIURIL, ESIDRIX) 25 mg tablet Take 25 mg by mouth once daily. oxyCODONE-acetaminophen (PERCOCET) 5-325 mg tablet Take by mouth every 8 hours as needed for pain. metFORMIN (GLUCOPHAGE) 1,000 mg tablet Take 1,000 mg by mouth twice daily with meals. traMADol (ULTRAM) 50 mg tablet Take 50 mg by mouth every 6 hours as needed for pain. blood sugar diagnostic (CONTOUR TEST STRIPS) test strip Inject 1 Strip subcutaneously once daily. Lancets lancets .MEDSUPPLY triamterene-hydrochlorothiazide 37.5-25 mg per capsule Take 1 capsule by mouth once daily. doxazosin (CARDURA) 8 mg tablet Take 1 tablet by mouth once daily. lisinopril 20 mg tablet Take 2 tablets by mouth twice daily. amLODIPine (NORVASC) 10 mg tablet Take 1 tablet by mouth once daily. triamcinolone acetonide (KENALOG) 0.1 % cream Apply 1 application to affected area twice daily. (Patient not taking: Reported on 05/21/2022) predniSONE (DELTASONE) 10 mg tablet Take 1 tablet by mouth once daily. 4 tabs PO QD x 3 days, 3 tabs PO QD x 3 days, 2 tabs PO QD x 3 days, 1 tab PO QD x 3 days (Patient not taking: Reported on 05/21/2022) exenatide (BYDUREON BCISE) 2mg / 0.85 ml subcutaneous auto injector Q7D (Patient not taking: Reported on 05/21/2022) glipiZIDE-metFORMIN 2.5-500 mg per tablet Take 2 tablets by mouth once daily. (Patient not taking: Reported on 05/21/2022) No current facility-administered medications for this visit. Allergies: Patient has no known allergies. ROS: General (negative for fatigue, malaise, weight loss/gain) HEENT (negative for headache, earache, recent vision changes, sinus pain, sore throat) Respiratory (no recent shortness of breath, hemoptysis) CV (negative for chest tightness, palpitations) Musculoskeletal (see HPI) Psych (no depression, anxiety) REFERRING PHYSICIAN: Mr. Ash Regalado was referred to me for consultation by the following physician. This consultation note will be sent to the following physician by either mail or electronic medical record. SELF Phan Aguilar MD [id number] [facility] [id number] Toni Corral MD documented in this encounter[facility] History of Past illness Narrative* Problem Noted Date Resolved Date Family history of diabetes mellitus 08/10/2008 10/24/2012 Overview: Both parents; dad , was overweight, mom's weight is normal documented as of this encounter (statuses as of 05/21/2022) [facility] History of Past illness Narrative* Problem Noted Date Resolved Date Family history of diabetes mellitus 08/10/2008 10/24/2012 Overview: Both parents; dad , was overweight, mom's weight is normal documented as of this encounter (statuses as of 08/24/2022) [facility] History of Past illness Narrative* Problem Noted Date Diagnosed Date Resolved Date Family history of diabetes mellitus 08/10/2008 10/24/2012 Overview: Both parents; dad , was overweight, mom's weight is normal documented as of this encounter (statuses as of 07/25/2023) [facility] Diagnosis Left wrist pain- Primary Pain in joint, forearm Slac (scapholunate advanced collapse) of wrist, left Primary osteoarthritis of left knee Primary localized osteoarthrosis, lower leg documented in this encounter [facility]* Diagnosis Onset Date Resolution Status Hypertension chronic Type 2 diabetes mellitus chr onic Bilateral lower extremity edema acute Dyspnea acute New onset atrial fibrillation acute Orthopnea acute Acute renal insufficiency ac yocha dehe Atrial fibrillation acute Bilateral lower extremity edema acute New onset atrial fibrillation acute Acute exacerbation of congestive heart failure [facility] Work Phone: Evaluation note* Diagnosis Onset Date Resolution Status Hypertension chronic Type 2 diabetes mellitus chr onic Bilateral lower extremity edema acute Dyspnea acute Orthopnea acute Acute renal insufficiency ac yocha dehe Bilateral lower extremity edema acute Acute exacerbation of congestive heart failure chronic Atrial fibrillation chronic Acute renal insufficiency ac yocha dehe Bilateral lower extremity edema acute Edema of scrotum acute Orthopnea acute Acute exacerbation of congestive heart failure chronic Atrial fibrillation chronic Nonischemic cardiomyopathy a cute Acute exacerbation of congestive heart failure chronic Atrial fibrillation chronic Hypertension [facility] Work Phone: Evaluation note* Diagnosis Groin swelling- Primary Abdominal or pelvic swelling, mass or lump, unspecified site [facility] Diagnosis Onset Date Resolution Status Bilateral lower extremity edema acute Dyspnea acute Orthopnea acute Acute renal insufficiency ac yocha dehe Bilateral lower extremity edema acute Acute exacerbation of congestive heart failure chronic Atrial fibrillation chronic Acute renal insufficiency ac yocha dehe Bilateral lower extremity edema acute Edema of scrotum acute Orthopnea acute Acute exacerbation of congestive heart failure chronic Atrial fibrillation chronic Nonischemic cardiomyopathy a cute Acute exacerbation of congestive heart failure chronic Atrial fibrillation chronic Hypertension chronic Acute exacerbation of congestive heart failure chronic Atrial fibrillation chronic Mixed sleep apnea chronic Atrial fibrillation [facility] Work Phone: Evaluation note* Diagnosis Onset Date Resolution Status Bilateral lower extremity edema acute Dyspnea acute Orthopnea acute Acute renal insufficiency ac yocha dehe Bilateral lower extremity edema acute Acute exacerbation of congestive heart failure chronic Atrial fibrillation chronic Acute renal insufficiency ac yocha dehe Bilateral lower extremity edema acute Edema of scrotum acute Orthopnea acute Acute exacerbation of congestive heart failure chronic Atrial fibrillation chronic Nonischemic cardiomyopathy a cute Acute exacerbation of congestive heart failure chronic Atrial fibrillation chronic Hypertension chronic Acute exacerbation of congestive heart failure chronic Atrial fibrillation chronic Mixed sleep apnea chronic Atrial fibrillation chronic Nonischemic cardiomyopathy a cute Type 2 diabetes mellitus with diabetic polyneuropathy acute Atrial fibrillation chronic Type 2 diabetes mellitus [facility] Work Phone: Evaluation note* Diagnosis Groin swelling Abdominal or pelvic swelling, mass or lump, unspecified site documented in this encounter [facility] noteNo assessment information availablePacific [facility] Work Phone: ReMotally for referral (narrative)* Diagnostic Procedure Only (Routine) - Closed Specialty Diagnoses / Procedures Referred By Darien t Referred To Contact US IMAGING Diagnoses Groin swelling Procedures US SCROTUM AND CONTENTS US SCROTUM & CONTENTS Elvis Ovalles PA-C [address] [place] [address] [place] [address] Referral ID Status Reason Start Date Expiration Date V isits Requested Visits Authorized [id number] Closed Auto-Generate d Referral 08/18/2022 09/17/2023 1 1 [facility]No reason for referral information [facility] Work Phone: Summary Purpose Family History Relationship Condition Age at Onset Recorded Date/T srinivasan father Diabetes mellitus Unknown Myocardial infarction Unknown brother Diabetes mellitus Unknown Advance Directives Advance Directive Response Recorded Date/ Time Living Will No July 31, 022 1:44pm Power of Bookstore Manager No July 31, 2022 1:44pm Advance Directive Response Recorded Date/ Time Advance Directives No August 11:18am Living Will No September 07 022 11:18am Power of Bookstore Manager No September 07, 2022 11:18am Advance Directive Response Recorded Date/ Time Advance Directives No August 12:18pm Advance Directive Response Recorded Date/ Time Advance Directives No August 11:18am Chief Complaint and Reason for Visit Chief Complaint 3 M FU 05-12 2 wk fu 3 m fu bp check and lab work CHF WITHOUT HYPOXIA, AFIB WITH RVR Amb Documentation CHF WITHOUT HYPOXIA, AFIB WITH RVR CHF WITHOUT HYPOXIA, AFIB WITH RVR CHF WITHOUT HYPOXIA, AFIB WITH RVR Reason for Visit Hypertension Type 2 diabetes mellitus Bilateral lower extremity edema Dyspnea New onset atrial fibrillation Orthopnea Acute renal insufficiency Atrial fibrillation Bilateral lower extremity edema New onset atrial fibrillation Acute exacerbation of congestive heart failure Chief Complaint 3 M FU 05-12 2 wk fu 3 m fu bp check and lab work CHF WITHOUT HYPOXIA, AFIB WITH RVR Amb Documentation CHF WITHOUT HYPOXIA, AFIB WITH RVR CHF WITHOUT HYPOXIA, AFIB WITH RVR CHF WITHOUT HYPOXIA, AFIB WITH RVR CHF WITHOUT HYPOXIA, AFIB WITH RVR CHF WITHOUT HYPOXIA, AFIB WITH RVR CHF WITHOUT HYPOXIA, AFIB WITH RVR CHF WITHOUT HYPOXIA, AFIB WITH RVR CHF WITHOUT HYPOXIA, AFIB WITH RVR CHF WITHOUT HYPOXIA, AFIB WITH RVR Reason for Visit Hypertension Type 2 diabetes mellitus Bilateral lower extremity edema Dyspnea New onset atrial fibrillation Orthopnea Acute renal insufficiency Atrial fibrillation Bilateral lower extremity edema New onset atrial fibrillation Acute exacerbation of congestive heart failure Chief Complaint 3 M FU 05-12 2 wk fu 3 m fu bp check and lab work CHF WITHOUT HYPOXIA, AFIB WITH RVR Amb Documentation CHF WITHOUT HYPOXIA, AFIB WITH RVR CHF WITHOUT HYPOXIA, AFIB WITH RVR CHF WITHOUT HYPOXIA, AFIB WITH RVR CHF WITHOUT HYPOXIA, AFIB WITH RVR CHF WITHOUT HYPOXIA, AFIB WITH RVR CHF WITHOUT HYPOXIA, AFIB WITH RVR CHF WITHOUT HYPOXIA, AFIB WITH RVR CHF WITHOUT HYPOXIA, AFIB WITH RVR CHF WITHOUT HYPOXIA, AFIB WITH RVR ASHVIN WANTS VITALS [facility] STAY FU s/p hosp new onset afib w RVR IV Lasix IV Lasix Reason for Visit Hypertension Type 2 diabetes mellitus Bilateral lower extremity edema Dyspnea Orthopnea Acute renal insufficiency Bilateral lower extremity edema Acute exacerbation of congestive heart failure Atrial fibrillation Acute renal insufficiency Bilateral lower extremity edema Edema of scrotum Orthopnea Acute exacerbation of congestive heart failure Atrial fibrillation Nonischemic cardiomyopathy Acute exacerbation of congestive heart failure Atrial fibrillation Hypertension Chief Complaint 3 M FU 05-12 2 wk fu 3 m fu bp check and lab work CHF WITHOUT HYPOXIA, AFIB WITH RVR Amb Documentation CHF WITHOUT HYPOXIA, AFIB WITH RVR CHF WITHOUT HYPOXIA, AFIB WITH RVR CHF WITHOUT HYPOXIA, AFIB WITH RVR CHF WITHOUT HYPOXIA, AFIB WITH RVR CHF WITHOUT HYPOXIA, AFIB WITH RVR CHF WITHOUT HYPOXIA, AFIB WITH RVR CHF WITHOUT HYPOXIA, AFIB WITH RVR CHF WITHOUT HYPOXIA, AFIB WITH RVR CHF WITHOUT HYPOXIA, AFIB WITH RVR ASHVIN WANTS VITALS [facility] STAY FU s/p hosp new onset afib w RVR IV Lasix IV Lasix IV Lasix Reason for Visit Hypertension Type 2 diabetes mellitus Bilateral lower extremity edema Dyspnea Orthopnea Acute renal insufficiency Bilateral lower extremity edema Acute exacerbation of congestive heart failure Atrial fibrillation Acute renal insufficiency Bilateral lower extremity edema Edema of scrotum Orthopnea Acute exacerbation of congestive heart failure Atrial fibrillation Nonischemic cardiomyopathy Acute exacerbation of congestive heart failure Atrial fibrillation Hypertension Chief Complaint 3 M FU 05-12 2 wk fu 3 m fu bp check and lab work CHF WITHOUT HYPOXIA, AFIB WITH RVR Amb Documentation CHF WITHOUT HYPOXIA, AFIB WITH RVR CHF WITHOUT HYPOXIA, AFIB WITH RVR CHF WITHOUT HYPOXIA, AFIB WITH RVR CHF WITHOUT HYPOXIA, AFIB WITH RVR CHF WITHOUT HYPOXIA, AFIB WITH RVR CHF WITHOUT HYPOXIA, AFIB WITH RVR CHF WITHOUT HYPOXIA, AFIB WITH RVR CHF WITHOUT HYPOXIA, AFIB WITH RVR CHF WITHOUT HYPOXIA, AFIB WITH RVR ASHVIN WANTS VITALS [facility] STAY FU s/p hosp new onset afib w RVR IV Lasix IV Lasix IV Lasix 40MG LASIX Reason for Visit Hypertension Type 2 diabetes mellitus Bilateral lower extremity edema Dyspnea Orthopnea Acute renal insufficiency Bilateral lower extremity edema Acute exacerbation of congestive heart failure Atrial fibrillation Acute renal insufficiency Bilateral lower extremity edema Edema of scrotum Orthopnea Acute exacerbation of congestive heart failure Atrial fibrillation Nonischemic cardiomyopathy Acute exacerbation of congestive heart failure Atrial fibrillation Hypertension Chief Complaint 3 M FU 05-12 2 wk fu 3 m fu bp check and lab work CHF WITHOUT HYPOXIA, AFIB WITH RVR Amb Documentation CHF WITHOUT HYPOXIA, AFIB WITH RVR CHF WITHOUT HYPOXIA, AFIB WITH RVR CHF WITHOUT HYPOXIA, AFIB WITH RVR CHF WITHOUT HYPOXIA, AFIB WITH RVR CHF WITHOUT HYPOXIA, AFIB WITH RVR CHF WITHOUT HYPOXIA, AFIB WITH RVR CHF WITHOUT HYPOXIA, AFIB WITH RVR CHF WITHOUT HYPOXIA, AFIB WITH RVR CHF WITHOUT HYPOXIA, AFIB WITH RVR ASHVIN WANTS VITALS [facility] STAY FU s/p hosp new onset afib w RVR IV Lasix IV Lasix IV Lasix 40MG LASIX 40MG LASIX Reason for Visit Hypertension Type 2 diabetes mellitus Bilateral lower extremity edema Dyspnea Orthopnea Acute renal insufficiency Bilateral lower extremity edema Acute exacerbation of congestive heart failure Atrial fibrillation Acute renal insufficiency Bilateral lower extremity edema Edema of scrotum Orthopnea Acute exacerbation of congestive heart failure Atrial fibrillation Nonischemic cardiomyopathy Acute exacerbation of congestive heart failure Atrial fibrillation Hypertension Chief Complaint 05-12 2 wk fu 3 m fu bp check and lab work CHF WITHOUT HYPOXIA, AFIB WITH RVR Amb Documentation CHF WITHOUT HYPOXIA, AFIB WITH RVR CHF WITHOUT HYPOXIA, AFIB WITH RVR CHF WITHOUT HYPOXIA, AFIB WITH RVR CHF WITHOUT HYPOXIA, AFIB WITH RVR CHF WITHOUT HYPOXIA, AFIB WITH RVR CHF WITHOUT HYPOXIA, AFIB WITH RVR CHF WITHOUT HYPOXIA, AFIB WITH RVR CHF WITHOUT HYPOXIA, AFIB WITH RVR CHF WITHOUT HYPOXIA, AFIB WITH RVR ASHVIN WANTS VITALS [facility] STAY FU s/p hosp new onset afib w RVR IV Lasix IV Lasix IV Lasix 40MG LASIX 40MG LASIX 3 WK FU AFIB Atrial fibrillation Atrial fibrillation Reason for Visit Bilateral lower extr emity edema Dyspnea Orthopnea Acute renal insufficiency Bilateral lower extremity edema Acute exacerbation of congestive heart failure Atrial fibrillation Acute renal insufficiency Bilateral lower extremity edema Edema of scrotum Orthopnea Acute exacerbation of congestive heart failure Atrial fibrillation Nonischemic cardiomyopathy Acute exacerbation of congestive heart failure Atrial fibrillation Hypertension Acute exacerbation of congestive heart failure Atrial fibrillation Mixed sleep apnea Atrial fibrillation Chief Complaint 3 m fu bp check and lab work CHF WITHOUT HYPOXIA, AFIB WITH RVR Amb Documentation CHF WITHOUT HYPOXIA, AFIB WITH RVR CHF WITHOUT HYPOXIA, AFIB WITH RVR CHF WITHOUT HYPOXIA, AFIB WITH RVR CHF WITHOUT HYPOXIA, AFIB WITH RVR CHF WITHOUT HYPOXIA, AFIB WITH RVR CHF WITHOUT HYPOXIA, AFIB WITH RVR CHF WITHOUT HYPOXIA, AFIB WITH RVR CHF WITHOUT HYPOXIA, AFIB WITH RVR CHF WITHOUT HYPOXIA, AFIB WITH RVR ASHVIN WANTS VITALS [facility] STAY FU s/p hosp new onset afib w RVR IV Lasix IV Lasix IV Lasix 40MG LASIX 40MG LASIX 3 WK FU AFIB Atrial fibrillation Atrial fibrillation 1 wk s/p DCCV EKG 2 M FU Reason for Visit Bilateral lower extr emity edema Dyspnea Orthopnea Acute renal insufficiency Bilateral lower extremity edema Acute exacerbation of congestive heart failure Atrial fibrillation Acute renal insufficiency Bilateral lower extremity edema Edema of scrotum Orthopnea Acute exacerbation of congestive heart failure Atrial fibrillation Nonischemic cardiomyopathy Acute exacerbation of congestive heart failure Atrial fibrillation Hypertension Acute exacerbation of congestive heart failure Atrial fibrillation Mixed sleep apnea Atrial fibrillation Nonischemic cardiomyopathy Type 2 diabetes mellitus with diabetic polyneuropathy Atrial fibrillation Type 2 diabetes mellitus Chief Complaint Admit Date 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) March 27 9:08am Chief Complaint Admit Date 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) March 27 9:08am INT LAB ORDERS March 27, 2025 10:39 am CHF March 30, 2025 10:2 2am Reason for Visit Admit Date Atrial fibrillation March 27, 2025 9:08a m Cardiac defibrillator in place March 27, 2025 9:08am Hyperlipidemia March 27, 2025 9:08a m Hypertension March 27, 2025 9:08a m Nonischemic cardiomyopathy March 27 9:08am Chief Complaint Admit Date 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) March 27 9:08am INT LAB ORDERS March 27, 2025 10:39 am CHF March 30, 2025 10:2 2am NEW E[place]LEE April 10, 2025 8:44 am Pacer Check Remote April 10, 2025 9:00 am Reason for Visit Admit Date Atrial fibrillation March 27, 2025 9:08a m Cardiac defibrillator in place March 27, 2025 9:08am Hyperlipidemia March 27, 2025 9:08a m Hypertension March 27, 2025 9:08a m Nonischemic cardiomyopathy March 27 9:08am Cardiac defibrillator in place March 8:44am Nonischemic cardiomyopathy April 10 8:44am Chief Complaint Admit Date 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) March 27 9:08am INT LAB ORDERS March 27, 2025 10:39 am CHF March 30, 2025 10:2 2am NEW [place] April 10, 2025 8:44 am Pacer Check Remote April 10, 2025 9:00 am Pacer Check Remote May 19, 2025 8: 48am Chief Complaint Admit Date 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) March 27 9:08am INT LAB ORDERS March 27, 2025 10:39 am CHF March 30, 2025 10:2 2am NEW [place] April 10, 2025 8:44 am Pacer Check Remote April 10, 2025 9:00 am Pacer Check Remote May 19, 2025 8: 48am 2 M FU May 30, 2025 1:58pm Reason for Visit Admit Date Atrial fibrillation March 27, 2025 9:08a m Cardiac defibrillator in place March 27, 2025 9:08am Hyperlipidemia March 27, 2025 9:08a m Hypertension March 27, 2025 9:08a m Nonischemic cardiomyopathy March 27 9:08am Cardiac defibrillator in place March 8:44am Nonischemic cardiomyopathy April 10 8:44am Atrial fibrillation May 30, 2025 1:58pm Cardiac defibrillator in place May 30, 2025 1:58pm Hyperlipidemia May 30, 2025 1:58pm Hypertension May 30, 2025 1:58pm Nonischemic cardiomyopathy May 1:58pm Chief Complaint Admit Date 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) March 27 9:08am INT LAB ORDERS March 27, 2025 10:39 am CHF March 30, 2025 10:2 2am NEW [place] April 10, 2025 8:44 am Pacer Check Remote April 10, 2025 9:00 am Pacer Check Remote May 19, 2025 8: 48am 2 M FU May 30, 2025 1:58pm INT LABS June 18, 2025 10:31am Pacer Check Remote June 19, 2025 2:04am Chief Complaint Admit Date CHF March 30, 2025 10:2 2am NEW [place] April 10, 2025 8:44 am Pacer Check Remote April 10, 2025 9:00 am Pacer Check Remote May 19, 2025 8: 48am 2 M FU May 30, 2025 1:58pm INT LABS June 18, 2025 10:31am Pacer Check Remote June 19, 2025 2:04am Reason for Visit Admit Date Cardiac defibrillator in place March 8:44am Nonischemic cardiomyopathy April 10 8:44am Atrial fibrillation May 30, 2025 1:58pm Cardiac defibrillator in place May 30, 2025 1:58pm Hyperlipidemia May 30, 2025 1:58pm Hypertension May 30, 2025 1:58pm Nonischemic cardiomyopathy May 1:58pm Additional Source Comments (unrecognized sect ion and content) No Status Records FoundNo Status Records FoundNo Status Records Found INFORMATION SOURCE (unrecogn ized section and content) DATE CREATED AUTHOR 10/23/2021 [facility] DATE CREATED AUTHOR AUTHOR'S ORGANIZ ATION 2022 [facility] DATE CREATED AUTHOR AUTHOR'S ORGANIZ ATION 07/11/2025 [facility] Source Comments (unrecognize d section and content) In the event this informatio n is protected by the Federal Confidentiality of Alcohol and Drug Abuse Patient Records regulations: The Federal rules restrict any use of the information to criminally investigate or prosecute any alcohol or drug abuse patient.[facility] the event this information is protected by the Federal Confidentiality of Alcohol and Drug Abuse Patient Records regulations: The Federal rules restrict any use of the information to criminally investigate or prosecute any alcohol or drug abuse patient.[facility] the event this information is protected by the Federal Confidentiality of Alcohol and Drug Abuse Patient Records regulations: The Federal rules restrict any use of the information to criminally investigate or prosecute any alcohol or drug abuse patient.[facility] the event this information is protected by the Federal Confidentiality of Alcohol and Drug Abuse Patient Records regulations: The Federal rules restrict any use of the information to criminally investigate or prosecute any alcohol or drug abuse patient.[facility] Center[facility] the event this information is protected by the Federal Confidentiality of Alcohol and Drug Abuse Patient Records regulations: The Federal rules restrict any use of the information to criminally investigate or prosecute any alcohol or drug abuse patient.[facility] Reason for Visit (unrecogniz ed section and content) Reason Comments New Pain Reason Comments Results Reason Comments Radiology US Specialty Diagnoses / Procedures Referred By Contac t Referred To Contact US IMAGING Diagnoses Groin swelling Procedures US SCROTUM AND CONTENTS US SCROTUM & CONTENTS Elvis Ovalles PA-C [address] [place] [address] [place] [address] Referral ID Status Reason Start Date Expiration Date V isits Requested Visits Authorized [id number] Closed Auto-Generate d Referral 08/18/2022 09/17/2023 1 1 Reason Comments Procedure [place] [facility] Teams (unrecognized sec tion and content) Mold Maker Relationship Specialty Start Date End Date Phan Aguilar MD PCP - General Internal Medicine 04/26/19 Mold Maker Relationship Specialty Start Date End Date Phan Aguilar MD PCP - General Internal Medicine 04/26/19 Team Status: Active Member Role Status Dates Dr. Phan Aguilar MD Family Provider Active Ashvin Andujar NP, ALLERGIST/IMMUNOLOGIST-C Primary Care Provider Active Team Status: Inactive Member Role Status Dates Dr. Phan Aguilar MD Referring Provider Active Ashvin Andujar NP, ALLERGIST/IMMUNOLOGIST-C Primary Care Provider, Attending Fran whiting Active Team Status: Inactive Member Role Status Dates Ashvin Anduajr NP, ALLERGIST/IMMUNOLOGIST-C Primary Care Provide r, Attending Provider, Referring Provider Active Team Status: Active Member Role Status Dates Ashvin Andujar ALLERGIST/IMMUNOLOGIST, ALLERGIST/IMMUNOLOGIST-C Primary Care Provider Active Hilda Love Attending Provider Active Team Status: Active Member Role Status Dates Ashvin Andujar NP, ALLERGIST/IMMUNOLOGIST-C Primary Care Provider Active Dr. Castillo Diaz DO Emergency Provider Active Dr. Jaime Allen MD Admit Provi amanda, Attending Provider, Other Provider Active Team Status: Active Member Role Status Dates Ashvin Andujar ALLERGIST/IMMUNOLOGIST, ALLERGIST/IMMUNOLOGIST-C Primary Care Provider Active Dr. Cody Hensley MD Attending Provider Active Team Status: Active Member Role Status Dates Ashvin Andujar NP, ALLERGIST/IMMUNOLOGIST-C Primary Care Provider Active Dr. Castillo Diaz DO Emergency Provider Active Dr. Jaime Allen MD Admit Provider, Other Pro vider Active Dr. Cody Hensley MD Attending Provider, Other Provide r Active Team Status: Active Member Role Status Dates Ashvin Andujar ALLERGIST/IMMUNOLOGIST, ALLERGIST/IMMUNOLOGIST-C Primary Care Provider Active Dr. Castillo Diaz , DO Emergency Provider Active Dr. Jaime Allen MD Admit Provi amanda, Attending Provider, Other Provider Active Dr. Cody Hensley MD Other Provider Active Team Status: Active Member Role Status Dates Ashvin Andujar ALLERGIST/IMMUNOLOGIST, ALLERGIST/IMMUNOLOGIST-C Primary Care Provider Active Dr. Castillo Diaz , DO Emergency Provider Active Dr. Jaime Allen MD Admit Provider, Other Pro vider Active Dr. Cody Hensley MD Other Provider Active Dr. Catia Corral MD Attending Provider, Other Provid er Active Team Status: Active Member Role Status Dates Ashvin Andujar ALLERGIST/IMMUNOLOGIST, ALLERGIST/IMMUNOLOGIST-C Primary Care Provider Active Dr. Castillo Diaz , DO Emergency Provider Active Dr. Jaime Allen MD Admit Provider, Other Pro vider Active Dr. Cody Hensley MD Attending Provider, Other Provide r Active Dr. Catia Corral MD Other Provider Active Team Status: Inactive Member Role Status Dates Ashvin Andujar ALLERGIST/IMMUNOLOGIST, ALLERGIST/IMMUNOLOGIST-C Primary Care Provider, Referring P rovider Active Dr. Cody Hensley MD Active Tenisha Pizarro PA, PA Attending Provider Active Team Status: Inactive Member Role Status Dates Ashvin Andujar ALLERGIST/IMMUNOLOGIST, ALLERGIST/IMMUNOLOGIST-C Primary Care Provider, Referring P rovider Active Dr. Phan Aguilar MD Attending Provider Active Team Status: Active Member Role Status Dates Ashvin Andujar ALLERGIST/IMMUNOLOGIST, ALLERGIST/IMMUNOLOGIST-C Primary Care Provider Active Dr. Cody Hensley MD Attending Provider, Referring Provider, Other Provider Active Team Status: Inactive Member Role Status Dates Ashvin Andujar ALLERGIST/IMMUNOLOGIST, ALLERGIST/IMMUNOLOGIST-C Primary Care Provider, Referring P rovider Active Sandy Tellez Attending Provider Active Team Status: Active Member Role Status Dates Ashvin Andujar ALLERGIST/IMMUNOLOGIST, ALLERGIST/IMMUNOLOGIST-C Primary Care Provider Active Dr. Cody Hensley MD Referring Provider, Other Provide r Active Dr. Seth Moralez MD Attending Provider Active Team Status: Inactive Member Role Status Dates Ashvin Andujar ALLERGIST/IMMUNOLOGIST, ALLERGIST/IMMUNOLOGIST-C Primary Care Provider Active Dr. Castillo Diaz , DO Emergency Provider Active Dr. Jaime Allen MD Admit Provider, Other Pro vider Active Dr. Cody Hensley MD Other Provider Active Dr. Catia Corral MD Attending Provider Active Team Status: Active Member Role Status Dates Ashvin Andujar ALLERGIST/IMMUNOLOGIST, ALLERGIST/IMMUNOLOGIST-C Primary Care Provider Active Patient Link Program Attending Provider Active Team Status: Inactive Member Role Status Dates Ashvin Con ALLERGIST/IMMUNOLOGIST, ALLERGIST/IMMUNOLOGIST-C Primary Care Provider Active Tenisha HORTON, PA Attending Provider, Referr ing Provider Active Team Status: Inactive Member Role Status Dates Ashvin Andujar ALLERGIST/IMMUNOLOGIST, ALLERGIST/IMMUNOLOGIST-C Primary Care Provider Active Dr. Cody Hensley MD Attending Provider, Referring Pro vider Active Team Status: Inactive Member Role Status Dates Ashvin Andujar ALLERGIST/IMMUNOLOGIST, ALLERGIST/IMMUNOLOGIST-C Primary Care Provider Active Dr. Phan Aguilar MD Attending Provider, Referrin g Provider Active Mold Maker Relationship Specialty Start Date End Date Phan Aguilar MD PCP - General Internal Medicine 04/26/19 Mold Maker Relationship Specialty Start Date End Date Phan Aguilar MD PCP - General Internal Medicine 04/26/19 Mold Maker Relationship Specialty Start Date End Date Phan Aguilar MD PCP - General Internal Medicine 04/26/19 Team Status: Active Member Role/Relationship Status Dates Dr. Phan Aguilar MD Family Provider Active Team Status: Inactive Member Role/Relationship Status Dates CLIFFORD Espana Attending Provider Active St art: March 27, 2025 End: March 27, 2025 Team Status: Active Member Role/Relationship Status Dates Zebulun Beam VSC, ALLERGIST/IMMUNOLOGIST-C Primary Care Provider Active Team Status: Inactive Member Role/Relationship Status Dates Zebulun Beam VSC, ALLERGIST/IMMUNOLOGIST-C Primary Care Provider Active Start: March 27, 2025 End: March 27, 2025 CLIFFORD [place] Attending Provider Active St art: March 27, 2025 End: March 27, 2025 CLIFFORD [place] Referring Provider Active St art: March 27, 2025 End: March 27, 2025 Team Status: Active Member Role/Relationship Status Dates Zebulun Beam VSC, ALLERGIST/IMMUNOLOGIST-C Primary Care Provider Active Start: March 30, 2025 CLIFFORD [place] Attending Provider Active St art: March 30, 2025 CLIFFORD [place] Referring Provider Active St art: March 30, 2025 Team Status: Active Member Role/Relationship Status Dates Zebulun Beam VSC, ALLERGIST/IMMUNOLOGIST-C Primary Care Provider Active Start: March 30, 2025 Dr. Cody Hensley MD Attending Provider Active S tart: March 30, 2025 Team Status: Inactive Member Role/Relationship Status Dates Zebulun Beam VSC, ALLERGIST/IMMUNOLOGIST-C Primary Care Provider Active Start: March 30, 2025 End: March 30, 2025 CLIFFORD [place] Attending Provider Active St art: March 30, 2025 End: March 30, 2025 CLIFFORD [place] Referring Provider Active St art: March 30, 2025 End: March 30, 2025 Team Status: Inactive Member Role/Relationship Status Dates Rocio Smith Attending Provider Active Start: 2024 End: April 10, 2025 Zebulun Beam VSC, ALLERGIST/IMMUNOLOGIST-C Primary Care Provider Active Start: April 10, 2025 End: April 10, 2025 Zebulun Beam VSC, ALLERGIST/IMMUNOLOGIST-C Referring Provider Active Start: April 10, 2025 End: April 10, 2025 Team Status: Inactive Member Role/Relationship Status Dates Zebulun Beam VSC, ALLERGIST/IMMUNOLOGIST-C Primary Care Provider Active Start: April 10, 2025 End: April 10, 2025 Dr. Cody Hensley MD Attending Provider Active S tart: April 10, 2025 End: April 10, 2025 Team Status: Inactive Member Role/Relationship Status Dates Zebulun Beam VSC, ALLERGIST/IMMUNOLOGIST-C Primary Care Provider Active Start: April 10, 2025 End: April 10, 2025 Zebulun Beam VSC, ALLERGIST/IMMUNOLOGIST-C Referring Provider Active Start: April 10, 2025 End: April 10, 2025 Dr. Cdoy Hensley MD Attending Provider Active S tart: April 10, 2025 End: April 10, 2025 Team Status: Inactive Member Role/Relationship Status Dates Zebulun Beam VSC, ALLERGIST/IMMUNOLOGIST-C Primary Care Provider Active Start: May 19, 2025 End: May 19, 2025 Dr. Cody Hensley MD Attending Provider Active S tart: May 19, 2025 End: May 19, 2025 Team Status: Inactive Member Role/Relationship Status Dates Zebulun Beam VSC, ALLERGIST/IMMUNOLOGIST-C Primary Care Provider Active Start: May 30, 2025 End: May 30, 2025 Zebulun Beam VSC, ALLERGIST/IMMUNOLOGIST-C Referring Provider Active Start: May 30, 2025 End: May 30, 2025 CLIFFORD E[place]a Attending Provider Active St art: May 30, 2025 End: May 30, 2025 Team Status: Active Member Role/Relationship Status Dates Zebulun Beam VSC, ALLERGIST/IMMUNOLOGIST-C Primary care physician Active Team Status: Inactive Member Role/Relationship Status Dates CLIFFORD E[place] Attending physician Active S tart: March 27, 2025 End: March 27, 2025 Team Status: Inactive Member Role/Relationship Status Dates Zebulun Beam VSC, ALLERGIST/IMMUNOLOGIST-C Primary care physician Active Start: March 27, 2025 End: March 27, 2025 CLIFFORD E[place] Attending physician Active S tart: March 27, 2025 End: March 27, 2025 CLIFFORD [place] Referring Provider Active St art: March 27, 2025 End: March 27, 2025 Team Status: Inactive Member Role/Relationship Status Dates Zebulun Beam VSC, ALLERGIST/IMMUNOLOGIST-C Primary care physician Active Start: March 30, 2025 End: March 30, 2025 CLIFFORD E[place] Attending physician Active S tart: March 30, 2025 End: March 30, 2025 CLIFFORD [place] Referring Provider Active St art: March 30, 2025 End: March 30, 2025 Team Status: Active Member Role/Relationship Status Dates Zebulun Beam VSC, ALLERGIST/IMMUNOLOGIST-C Primary care physician Active Start: March 30, 2025 Dr. Cody Hensley MD Attending physician Active Start: March 30, 2025 Team Status: Inactive Member Role/Relationship Status Dates Zebulun Beam VSC, ALLERGIST/IMMUNOLOGIST-C Primary care physician Active Start: April 10, 2025 End: April 10, 2025 Zebulun Beam VSC, ALLERGIST/IMMUNOLOGIST-C Referring Provider Active Start: April 10, 2025 End: April 10, 2025 Dr. Cody Hensley MD Attending physician Active Start: April 10, 2025 End: April 10, 2025 Team Status: Inactive Member Role/Relationship Status Dates Zebulun Beam VSC, ALLERGIST/IMMUNOLOGIST-C Primary care physician Active Start: April 10, 2025 End: April 10, 2025 Dr. Cody Hensley MD Attending physician Active Start: April 10, 2025 End: April 10, 2025 Team Status: Inactive Member Role/Relationship Status Dates Zebulun Beam VSC, ALLERGIST/IMMUNOLOGIST-C Primary care physician Active Start: May 19, 2025 End: May 19, 2025 Dr. Cody Hensley MD Attending physician Active Start: May 19, 2025 End: May 19, 2025 Team Status: Inactive Member Role/Relationship Status Dates Zebulun Beam VSC, ALLERGIST/IMMUNOLOGIST-C Primary care physician Active Start: May 30, 2025 End: May 30, 2025 Zebulun Beam VSC, ALLERGIST/IMMUNOLOGIST-C Referring Provider Active Start: May 30, 2025 End: May 30, 2025 CLIFFORD [place] Attending physician Active S tart: May 30, 2025 End: May 30, 2025 Team Status: Active Member Role/Relationship Status Dates Zebulun Beam VSC, ALLERGIST/IMMUNOLOGIST-C Primary care physician Active Start: June 18, 2025 Zebulun Beam VSC, ALLERGIST/IMMUNOLOGIST-C Attending physician Active Start: June 18, 2025 Zebulun Beam VSC, ALLERGIST/IMMUNOLOGIST-C Referring Provider Active Start: June 18, 2025 CLIFFORD E[place] Nurse Practitioner Active St art: June 18, 2025 Team Status: Inactive Member Role/Relationship Status Dates Zebulun Beam VSC, ALLERGIST/IMMUNOLOGIST-C Primary care physician Active Start: June 19, 2025 End: June 19, 2025 Dr. Cody Hensley MD Attending physician Active Start: June 19, 2025 End: June 19, 2025 Team Status: Inactive Member Role/Relationship Status Dates Zebulun Beam VSC, ALLERGIST/IMMUNOLOGIST-C Primary care physician Active Start: March 30, 2025 End: March 30, 2025 CLIFFORD [place] Attending physician Active S tart: March 30, 2025 End: March 30, 2025 CLIFFORD sEpana Referring Provider Active St art: March 30, 2025 End: March 30, 2025 Team Status: Active Member Role/Relationship Status Dates Zebulun Beam VSC, ALLERGIST/IMMUNOLOGIST-C Primary care physician Active Start: March 30, 2025 Dr. Cody Hensley MD Attending physician Active Start: March 30, 2025 Team Status: Inactive Member Role/Relationship Status Dates Zebulun Beam VSC, ALLERGIST/IMMUNOLOGIST-C Primary care physician Active Start: April 10, 2025 End: April 10, 2025 Zebulun Beam VSC, ALLERGIST/IMMUNOLOGIST-C Referring Provider Active Start: April 10, 2025 End: April 10, 2025 Dr. Cody Hensley MD Attending physician Active Start: April 10, 2025 End: April 10, 2025 Team Status: Inactive Member Role/Relationship Status Dates Zebulun Beam VSC, ALLERGIST/IMMUNOLOGIST-C Primary care physician Active Start: April 10, 2025 End: April 10, 2025 Dr. Cody Hensley MD Attending physician Active Start: April 10, 2025 End: April 10, 2025 Team Status: Inactive Member Role/Relationship Status Dates Zebulun Beam VSC, ALLERGIST/IMMUNOLOGIST-C Primary care physician Active Start: May 19, 2025 End: May 19, 2025 Dr. Cody Hensley MD Attending physician Active Start: May 19, 2025 End: May 19, 2025 Team Status: Inactive Member Role/Relationship Status Dates Zebulun Beam VSC, ALLERGIST/IMMUNOLOGIST-C Primary care physician Active Start: May 30, 2025 End: May 30, 2025 Zebulun Beam VSC, ALLERGIST/IMMUNOLOGIST-C Referring Provider Active Start: May 30, 2025 End: May 30, 2025 CLIFFORD [place] Attending physician Active S tart: May 30, 2025 End: May 30, 2025 Team Status: Inactive Member Role/Relationship Status Dates Zebulun Beam VSC, ALLERGIST/IMMUNOLOGIST-C Primary care physician Active Start: June 18, 2025 End: June 18, 2025 Zebulun Beam VSC, ALLERGIST/IMMUNOLOGIST-C Attending physician Active Start: June 18, 2025 End: June 18, 2025 Davidson Kulkarni VSC, ALLERGIST/IMMUNOLOGIST-C Referring Provider Active Start: June 18, 2025 End: June 18, 2025 CLIFFORD [place] Nurse Practitioner Active St art: June 18, 2025 End: June 18, 2025 Team Status: Inactive Member Role/Relationship Status Dates Davidson Kulkarni VSC, ALLERGIST/IMMUNOLOGIST-C Primary care physician Active Start: June 19, 2025 End: June 19, 2025 Dr. Cody Hensley MD Attending physician Active Start: June 19, 2025 End: June 19, 2025 Goals (unrecognized section and content) Goals may be documented in a n alternate sectionGoals may be documented in an alternate sectionGoals may be documented in an alternate sectionGoals may be documented in an alternate sectionGoals may be documented in an alternate sectionGoals may be documented in an alternate sectionGoals may be documented in an alternate sectionGoals may be documented in an alternate sectionGoals may be documented in an alternate section FOR RECORDS PERTAINING TO PATIENTS WHO ARE OR HAVE BEEN ENROLLED IN A CHEMICAL DEPENDENCY/SUBSTANCEABUSE PROGRAM, SOME INFORMATION MAY BE OMITTED. This clinical summary was aggregated from multiple sources. Caution should be exercised in using it in the provision of clinical care. This summary normalizes information from multiple sources, and as a consequence, information in this document may materially change the coding, format and clinical context of patient data. In addition, data may be omitted in some cases. CLINICAL DECISIONS SHOULD BE BASED ON THE PRIMARY CLINICAL RECORDS. [facility]. provides no warranty or guarantee of the accuracy or completeness of information in this document.
[2025-08-02 07:57] LABS: Anion Gap 10 (5-15); BUN 28 mg/dL (4-19); BUN/Creat Ratio 23.6 RATIO (10-20); Calcium,Total 9.4 mg/dL (7.6-11.0); Carbon Dioxide 26.4 mmol/L (21.0-32.0); Chloride 107 mmol/L (98-108); Glucose 242 mg/dL (70-99); Potassium 4.5 mmol/L (3.3-5.1)
== END | disposition home or self-care (01) ==
LOC: LAB 06:08
PROVIDERS: Referring Provider Student in an Organized Health Care Education/Training Program; Visit Provider Student in an Organized Health Care Education/Training Program
DX: I42.8 Other cardiomyopathies (principal)
CPT/HCPCS: 36415; 80048